=== PATIENT | male | born 1960 | race Caucasian/White ===

== ENCOUNTER 2016-12-23 07:45 | Outpatient (CLI) | payer OTHER ==
[2016-12-23 13:51] LABS: IMMATURE RETIC FRACTION 0.44; RED BLOOD COUNT 3.98 10^6/uL (4.70-6.10)
[2016-12-23 14:20] LABS: THYROID STIMULATING HORMONE 1.87 uIU/mL (0.34-5.60)
[2016-12-23 14:30] LABS: ALBUMIN/GLOBULIN RATIO 1.4 (1.0-2.2); BILIRUBIN,TOTAL 0.6 mg/dL (0.2-1.0); BUN - BLOOD UREA NITROGEN 16 mg/dL (6-20); CALCIUM 9.8 mg/dL (8.5-10.3); CARBON DIOXIDE - CO2 26 mmol/L (21-32); CHLORIDE 101 mmol/L (101-111); CHOL/HDL RATIO 3.5 (<5.0); CHOLESTEROL 180 mg/dL; CREATININE 0.7 mg/dL (0.6-1.2); GFR - MDRD 117 (>89); GLUCOSE 95 mg/dL (70-100); HDL CHOLESTEROL 52 mg/dL; LDL/HDL RATIO 2.2 (<3.6); POTASSIUM 3.8 mmol/L (3.5-5.0); SODIUM 137 mmol/L (135-145); TOTAL PROTEIN 8.2 g/dL (6.7-8.2); TRIGLYCERIDES 69 mg/dL; VLDL CHOLESTEROL 14 mg/dL
[2016-12-23 14:31] LABS: FOLATE 8.96 ng/mL (5.90 - >24.8)
== END 2016-12-23 07:46 | disposition home or self-care (01) ==
LOC: LAB.R 07:45
PROVIDERS: ATTEND Nurse Practitioner Primary Care
DX: C61 Malignant neoplasm of prostate (principal); F10.10 Alcohol abuse, uncomplicated; D64.9 Anemia, unspecified; K21.9 Gastro-esophageal reflux disease without esophagitis; E78.5 Hyperlipidemia, unspecified; Z68.36 Body mass index [BMI] 36.0-36.9, adult; I10 Essential (primary) hypertension
CPT/HCPCS: 80053; 80061; 82607; 82728; 82746; 83010; 84153; 84443; 85044; 86880

== ENCOUNTER 2017-05-09 09:28 | Day surgery (SDC) | payer OTHER ==
[2017-05-09] MEDS ORDERED: LACTATED RINGERS 1,000 ML IV ONE (09:59)
[2017-05-09] MEDS ORDERED: PROPOFOL 200 MG/20 ML VIAL IVP ONE (12:00)
[2017-05-09] MEDS ORDERED: fentaNYL 100 MCG/2 ML VIAL IVP ONE (12:02)
[2017-05-09] MEDS ORDERED: MIDAZOLAM 2 MG/2 ML VIAL IVP ONE (12:02)
[2017-05-09 13:43] VITALS: BP 134/72
== END 2017-05-09 09:29 | disposition home or self-care (01) ==
LOC: SDS 09:28
PROVIDERS: ATTEND Surgery
PROC: 0DBP8ZX Excision of Rectum, Via Natural or Artificial Opening Endoscopic, Diagnostic (ICD-10-PCS; 2017-05-09)
PROC: 0DBH8ZX Excision of Cecum, Via Natural or Artificial Opening Endoscopic, Diagnostic (ICD-10-PCS; principal; 2017-05-09 10:30)
DX: Z12.11 Encounter for screening for malignant neoplasm of colon (principal); D12.0 Benign neoplasm of cecum; I10 Essential (primary) hypertension; F17.210 Nicotine dependence, cigarettes, uncomplicated; G47.30 Sleep apnea, unspecified
CPT/HCPCS: 45380; J7120

== ENCOUNTER 2017-06-10 12:04 | Outpatient (CLI) | payer OTHER ==
--- NOTE | 2017-06-12 17:20 | MRI Report ---
EXAM: RIGHT SHOULDER MRI WITHOUT CONTRAST EXAM DATE: 06/10/2017 01:09 PM. CLINICAL HISTORY: Chronic right shoulder pain and difficulty lifting right arm. COMPARISON: Right shoulder 3 views 05/31/2017. TECHNIQUE: Multiplanar, multisequence T1-weighted and fluid-sensitive sequences of the shoulder witho ut contrast. Other: None. FINDINGS: Acromioclavicular Region: The acromion is type II. The acromioclavicular joint is unremarkable. The c oracoacromial and coracoclavicular ligaments are intact. Small fluid collection subacromial/subdeltoi d bursa. Glenohumeral Region: No subluxation. No effusion or loose bodies. The articular cartilage is unremark able. The glenohumeral ligaments and joint capsule are unremarkable. Bone Marrow: No fracture, marrow edema or bone lesions. Labrum: Superior and anterior superior labrum tear. Musculature/Rotator Cuff: Subscapularis tendinosis with tendon thickening and intermediate signal. Ne gative for infraspinatus tendon tear. Focal intermediate signal supraspinatus tendon sagittal oblique proton density sequence (image 20 series 801). Biceps Tendon: The long head of the biceps tendon and biceps richy are intact. Other: The subcutaneous tissues are unremarkable. IMPRESSION: 1. Negative for rotator cuff tear. 2. Probable superior and anterior superior labrum tears. [facility] MUSCULOSKELETAL RADIOLOGY SECTION Referring Provider Line: [phone] SITE ID: [id number]
== END 2017-06-10 12:05 | disposition home or self-care (01) ==
LOC: DI 12:04
PROVIDERS: ATTEND Orthopaedic Surgery
DX: M25.511 Pain in right shoulder (principal)

== ENCOUNTER 2019-03-02 16:28 | Outpatient (CLI) | payer OTHER ==
[2019-03-02] MEDS ORDERED: GADOBUTROL 10 MMOL/10 ML VIAL IVP ONE (17:29)
--- NOTE | 2019-03-02 19:06 | MRI Report ---
Reason: PROSTATE CA Procedure Date: 03/02/2019 Accession Number: [id number] / [id number] Procedure: MRI - Brain W/WO CPT Code: Final Report FULL RESULT: EXAM: MRI BRAIN WITHOUT AND WITH CONTRAST EXAM DATE: 03/02/2019 04:29 PM. CLINICAL HISTORY: 58-year-old with history of prostate cancer presenting with headache. Evaluate for intracranial pathology. COMPARISON: None. TECHNIQUE: Multiplanar, multisequence T1-weighted and fluid-sensitive MR sequences of the brain were performed before and after administration of intravenous contrast. Sequences optimized for routine evaluation. Other: None. IV Contrast: . FINDINGS: Brain Volume: Normal for age. Parenchyma: No acute hemorrhage, mass, or infarct. No white matter lesions identified. No abnormal enhancement. Ventricles/Cisterns: No hydrocephalus. No abnormal extra-axial fluid collection or hemorrhage. Orbits: Symmetric and unremarkable. Sella Turcica: The pituitary gland, cavernous sinuses, suprasellar cistern and optic chiasm are unremarkable. IAC: Symmetric and unremarkable. Vasculature: Normal signal flow void is seen in the major arterial structures at the skull base. The dural sinuses are patent and enhance normally. Sinuses: No acute sinus disease. Bones: No focal pathologic appearing marrow signal changes. Other: None. IMPRESSION: 1. No evidence of intracranial metastatic disease. 2. No acute intracranial pathology seen; specifically, no acute infarct, acute intracranial hemorrhage, mass, hydrocephalus, or midline shift. No abnormal postcontrast enhancement. [facility]
== END 2019-03-02 16:29 | disposition home or self-care (01) ==
LOC: DI 16:28
PROVIDERS: ATTEND Internal Medicine Hematology & Oncology
DX: H53.9 Unspecified visual disturbance (principal); C61 Malignant neoplasm of prostate
CPT/HCPCS: 70553; A9585

== ENCOUNTER 2019-05-17 12:31 | Outpatient (CLI) | payer OTHER ==
[2019-05-17 19:41] LABS: CREATININE 0.5 mg/dL (0.6-1.2)
== END 2019-05-17 23:59 | disposition home or self-care (01) ==
LOC: LAB.N 12:31
PROVIDERS: ATTEND Internal Medicine Hematology & Oncology
DX: C61 Malignant neoplasm of prostate (principal)
CPT/HCPCS: 36415; 82565

== ENCOUNTER 2019-05-22 08:40 | Outpatient (CLI) | payer OTHER ==
[2019-05-22] MEDS ORDERED: IOVERSOL 320 50 ML VIAL ONE (08:46)
[2019-05-22] MEDS ORDERED: IOVERSOL 320 100 ML VIAL IVP ONE ×2 (08:46→13:14)
--- NOTE | 2019-05-23 12:16 | Nuclear Medicine Report ---
Reason: PROSTATE CA Procedure Date: 05/22/2019 Accession Number: [id number] / [id number] Procedure: NM - Bone Whole Body CPT Code: Final Report FULL RESULT: EXAM: BONE WHOLE BODY EXAM DATE: 05/22/2019 01:17 PM INDICATION: Prostate cancer. COMPARISONS: ABDOMEN/PELVIS W/ 05/22/2019 10:03 AM. TECHNIQUE: Following the intravenous administration of 31 mCi of technetium 99m MDP and an appropriate delay, a whole-body scan was performed in anterior and posterior projections. Site-specific spot views of the region of interest were obtained in various projections. FINDINGS: Exam Quality: Normal overall osseous radiotracer uptake. Physiological tracer uptake in bilateral collecting systems. Skull: No focal uptake. Upper extremity: No focal lesions. Thorax: No focal lesions in ribs or sternum. Pelvis: No focal lesions. Lower extremity: No focal lesions. Spine: No focal uptake in the cervical or thoracic or lumbar spine. IMPRESSION: No scintigraphic findings concerning for osteoblastic metastases. [facility]
--- NOTE | 2019-05-23 12:16 | CT Report ---
Reason: PROSTATE CA Procedure Date: 05/22/2019 Accession Number: [id number] / [id number] Procedure: CT - Abdomen/Pelvis W CPT Code: Final Report FULL RESULT: EXAM: CT ABDOMEN AND PELVIS EXAM DATE: 05/22/2019 10:10 AM. CLINICAL HISTORY: Prostate CA. COMPARISONS: BONE SCAN 05/22/2019 12:13 PM. TECHNIQUE: Routine helical CT imaging was performed through the abdomen and pelvis. IV contrast: 100 cc of Optiray 320. Enteric contrast: Yes. Reconstructions: Coronal and sagittal. In accordance with CT protocol optimization, one or more of the following dose reduction techniques were utilized for this exam: automated exposure control, adjustment of mA and/or KV based on patient size, or use of iterative reconstructive technique. FINDINGS: Lung Bases: Lung bases are clear. No pleural or pericardial effusions. No cardiac enlargement. Small hiatal hernia noted. Liver: Irregular liver capsule suggestive of cirrhosis. Questionable hypodense lesion in the right liver measuring up to 2 cm on image 3, 11. This could represent heterogeneous parenchyma versus a subtle mass. No intrahepatic bile duct dilation. Portal vein is patent. Gallbladder/Bile Ducts: Unremarkable. Spleen: No splenomegaly or mass. Incidental splenorenal shunts are noted. Pancreas: Hypodense distal pancreas mass measuring 2.7 x 5.3 cm on image 3, 24. There is a hypodense presumed cystic structure in the distal pancreas associated with the mass measuring up to 1.7 cm on image 3, 21. Minimal peripancreatic stranding. No obvious pancreatic ductal dilation. No pancreatic calcifications are noted. Adrenal Glands: Normal. Kidneys: Normal. No masses or hydronephrosis. Peritoneal Cavity/Bowel: Normal. No free fluid, free air or adenopathy. No masses or acute inflammatory process. The appendix is well visualized and normal. Pelvic Organs: Normal. The bladder and visualized pelvic organs are within normal limits. Vasculature: Diffuse atheromatous plaques are present in the abdominal aorta and branch vessels. No aneurysm. Normal IVC. Bones: No significant abnormality. Other: None. IMPRESSION: 1. No definite prostate mass. No pathologic lymphadenopathy in the abdomen and pelvis. 2. No evidence of metastatic disease. Specifically, no sclerotic bone lesions are identified. 3. Hypodense distal pancreas mass measuring up to 5.3 cm abutting or part of a cystic process in the pancreas tail. Imaging findings are concerning for a second primary more so than metastatic disease given the absence of additional adenopathy or metastatic foci. Also, prostate metastases to the pancreas are uncommon. Recommend MRI of the abdomen for further evaluation. 4. Cirrhosis. Questionable hypodense lesion in the right liver measuring up to 2 cm. This could be evaluated during prostate MRI examination. [facility]
== END 2019-05-22 08:41 | disposition home or self-care (01) ==
LOC: DI 08:40
PROVIDERS: ATTEND Internal Medicine Hematology & Oncology
DX: C61 Malignant neoplasm of prostate (principal); R31.9 Hematuria, unspecified; K86.89 Other specified diseases of pancreas; K74.60 Unspecified cirrhosis of liver
CPT/HCPCS: 74177; 78306; Q9967

== ENCOUNTER 2019-08-07 09:51 | Outpatient (CLI) | payer OTHER ==
[2019-08-07] MEDS ORDERED: IOVERSOL 320 100 ML VIAL IVP ONE (10:19)
--- NOTE | 2019-08-08 16:31 | CT Report ---
Reason: PROSTATE CANCER Procedure Date: 08/07/2019 Accession Number: [id number] / [id number] Procedure: CT - ABDOMEN W/WO CPT Code: Final Report FULL RESULT: EXAM: CT ABDOMEN WITHOUT AND WITH CONTRAST EXAM DATE: 08/07/2019 10:57 AM. HISTORY: Prostate cancer. Hypodense distal pancreas mass, reevaluate. COMPARISON: ABDOMEN/PELVIS W/ 05/22/2019 10:03 AM. TECHNIQUE: Routine helical CT imaging was performed through the abdomen before and after administration of IV contrast: 100 mL of Optiray 320. Enteric contrast: No. Reconstruction: Coronal and sagittal. In accordance with CT protocol optimization, one or more of the following dose reduction techniques were utilized for this exam: automated exposure control, adjustment of mA and/or KV based on patient size, or use of iterative reconstructive technique. FINDINGS: Lung Bases: The lung bases are clear. Included portions of the heart are unremarkable. Liver: Mildly lobular hepatic contour. In the dome of the liver is an ill-defined hetergeneous low-attenuation 24 x 23 mm area of low attenuation, this is seen best on axial image 18, series 8. Patent portal vein. Gallbladder/Bile Ducts: Unremarkable. Spleen: Splenic granuloma. Spleen is normal in size. No other splenic lesions. Pancreas: Involving the pancreatic tail is a heterogeneous low attenuation mass measuring approximately 7 x 3.5 x 3.3 cm in comparison and based on my measurement, previously measured approximately 6 x 2.9 x 2.7 cm. There is adjacent peripancreatic infiltration with adjacent lymph nodes seen on axial image 57, 58-61 series 7, the largest measuring up to 8-9 mm. In addition, along the cephalad aspect of the lesion is an area of low attenuation measuring 1.7 cm as before and similar in size. Remainder of the pancreas is unremarkable. Adrenal Glands: Normal. Kidneys: Normal. No masses or hydronephrosis. Peritoneal Cavity/Bowel: Mild to moderate distention of the stomach. No small bowel obstruction. Moderate volume of stool in the colon. No diverticulitis. Subcentimeter nik habitus lymph nodes again evident. The appendix is well visualized and normal. Vasculature: Abdominal aortic atherosclerotic calcified plaque. Mesenteric vasculature is patent. The splenic artery is patent. 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 Bones: Degenerative change in the lower thoracic and lumbar spine, greatest at L5-S1. No osseous lesions. Other: No pelvic adenopathy. No pelvic free fluid. Urinary bladder is unremarkable. Prostate gland is either small or absent. IMPRESSION: 1. Infiltrative 7 cm pancreatic mass slightly increased in size compared to 05/22/2019, with adjacent peripancreatic infiltration and peripancreatic lymph nodes more concerning for a primary pancreatic mass rather than metastatic disease. 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 2. No other enlarged retroperitoneal lymph nodes. 3. Ill-defined low attenuation area, dome of the liver, measuring up to 24 mm more prominent compared to 05/22/2019 and may represent a hepatic lesion. No other hepatic lesions. 4. Moderate volume of stool in the colon. No diverticulitis. 5. Nodular liver which may be the result of a developing cirrhotic morphology. [facility] The call report notification system was initiated by Dr. Chris Choi at 04:13 PM on 08/08/2019.
== END 2019-08-07 09:52 | disposition home or self-care (01) ==
LOC: DI 09:51
PROVIDERS: ATTEND Internal Medicine Hematology & Oncology
DX: K86.9 Disease of pancreas, unspecified (principal); I82.891 Chronic embolism and thrombosis of other specified veins; R93.2 Abnormal findings on diagnostic imaging of liver and biliary tract; C61 Malignant neoplasm of prostate
CPT/HCPCS: 74170; Q9967

== ENCOUNTER 2020-12-02 08:00 | Outpatient (CLI) | payer OTHER | END 2020-12-02 23:59 | disposition home or self-care (01) | LOC: LAB.N 08:00 | PROVIDERS: ATTEND Family Medicine | DX: R30.0 Dysuria (principal) | CPT/HCPCS: 87086 ==

== ENCOUNTER 2021-01-18 13:39 | Outpatient (CLI) | payer OTHER | END 2021-01-18 13:40 | disposition home or self-care (01) | LOC: LAB 13:39 | PROVIDERS: ATTEND Internal Medicine Hematology & Oncology | DX: C25.2 Malignant neoplasm of tail of pancreas (principal) | CPT/HCPCS: 36415; 84153 ==

== ENCOUNTER 2021-02-21 14:06 | Emergency (ER) | payer OTHER ==
--- NOTE | 2021-02-21 15:04 | ED Physician Documentation ---
PD HPI NVD - Stated complaint Stated Complaint: NAUSEA, WEAK, BACK PX - Chief complaint Chief Complaint: Abd Pain - History obtained from History obtained from: Patient - History of Present Illness Timing - onset: Yesterday Timing - duration: Days (2) Timing - details: Abrupt onset, Still present Associated symptoms: Abdominal pain (mid to upper), Other (repetitive nausea with vomiting.) Contributing factors: No: Sick contact, Bad food Improved by: Vomiting (He states he had had decreased appetite over the past several months but abruptly had noticed nausea and vomiting since yesterday. He states repetitive bilious vomiting. No hematemesis.) Worsened by: Eating Similar symptoms before: Has not had sx before Recently seen: Clinic ([facility] couple weeks ago with follow up CT with patient states a concern for recurrence.) Review of Systems Constitutional: denies: Fever, Chills, Myalgias Nose: denies: Rhinorrhea / runny nose, Congestion Throat: denies: Sore throat Cardiac: denies: Chest pain / pressure, Palpitations Respiratory: denies: Dyspnea, Cough GI: reports: Abdominal Pain, Nausea, Vomiting. denies: Diarrhea, Hematemesis : denies: Dysuria Neurologic: reports: Generalized weakness. denies: Focal weakness, Numbness, Near syncope, Altered mental status, Headache PD PAST MEDICAL HISTORY - Past Medical History Cardiovascular: None Respiratory: None Neuro: None Endocrine/Autoimmune: None GI: GERD, Other (pancreatic tumor with surgical resection and [facility] in the past year, [facility] : Retention, Incontinence, Nocturia HEENT: None Psych: None Musculoskeletal: None Derm: None - Past Surgical History Past Surgical History: Yes General: Other (Whipple procedure with pancreatic tumor resection.) - Present Medications Home Medications: Ambulatory Orders Medication Instructions Recorded Confirmed Citalopram Hydrobromide [Celexa] 40 mg PO DAILY 02/26/18 01/14/20 - Allergies Allergies/Adverse Reactions: Allergies Allergy/AdvReac Type Severity Reaction Status Date / Time No Known Drug Allergies Allergy Verified 02/21/21 14:57 PD ED PE NORMAL - Vitals Vital signs reviewed: Yes - General General: Alert and oriented X 3, Well developed/nourished, Other (appears uncomfortable due to nausea. ) - HEENT HEENT: Pharynx benign. No: Moist mucous membranes - Neck Neck: Supple, no meningeal sign, No adenopathy - Cardiac Cardiac: RRR, No murmur - Respiratory Respiratory: No respiratory distress, Clear bilaterally - Abdomen Abdomen: Soft, Other (some fullness in upper abd with firmness, but not over distension. Generally tender upper abd. ). No: Normal bowel sounds (increased upper abd. ) - Male Male : Deferred - Rectal Rectal: Deferred - Back Back: No CVA TTP - Derm Derm: Normal color, Warm and dry - Extremities Extremities: No edema, No calf tenderness / cord - Neuro Neuro: Alert and oriented X 3, No motor deficit, Normal speech Results - Vitals Vitals: Vital Signs - 24 hr 02/21/21 02/21/21 02/21/21 14:52 14:56 16:09 Temperature 36.6 C 37.1 C Heart Rate 99 88 83 Respiratory 15 14 16 Rate Blood Pressure 136/87 H 113/80 129/80 O2 Saturation 99 97 96 Oxygen O2 Source Room air - Labs Labs: Laboratory Tests 02/21/21 02/21/21 02/21/21 15:29 15:29 18:06 WBC 7.6 RBC 4.72 Hgb 16.6 Hct 45.8 MCV 97.0 H MCH 35.2 H MCHC 36.2 H RDW 11.9 L Plt Count 306 MPV 9.3 Neut # (Auto) 4.2 Lymph # (Auto) 1.9 [place] # (Auto) 1.4 H Eos # (Auto) 0.1 Baso # (Auto) 0.0 Absolute Nucleated RBC 0.00 Nucleated RBC % 0.0 Sodium 133 L Potassium 3.0 L Chloride 84 L Carbon Dioxide 35 H Anion Gap 14.0 H BUN 30 H Creatinine 1.3 H Estimated GFR (MDRD) 57 L Glucose 163 H Calcium 10.5 H Magnesium 2.3 Total Bilirubin 1.6 H AST 36 ALT 33 Alkaline Phosphatase 69 Total Protein 8.5 H Albumin 4.7 Globulin 3.8 Albumin/Globulin Ratio 1.2 Lipase 19 L Urine Color YELLOW Urine Clarity CLEAR Urine pH 7.0 Ur Specific [place] 1.010 Urine Protein TRACE Urine Glucose (UA) NEGATIVE Urine Ketones TRACE Urine Occult Blood NEGATIVE Urine Nitrite NEGATIVE Urine Bilirubin NEGATIVE Urine Urobilinogen 0.2 (NORMAL) Ur Leukocyte Esterase NEGATIVE Ur Microscopic Review NOT INDICATED Urine Culture Comments NOT INDICATED - Rads (name of study) abd/pelvic CT Radiology: Prelim report reviewed (Had stomach and first and second segments of the duodenum with air-fluid levels and transition point decompressed beyond that near surgical scarring and clips. Consistent with small bowel obstruction.), See rad report PD MEDICAL DECISION MAKING - ED course Complexity details: reviewed results, re-evaluated patient (I advised the patient of the findings of a bowel obstruction which often is treated nonsurgically to begin with. However he might require surgery if it is not resolving.), considered differential, d/w patient, d/w sap pp consultant (Talked with Dr. Velez neurosurgeon on-call who felt the patient was best served being at the due to his complex prior surgical history.) ED course: Spoke with Dr. Bolden covering for surgery for the who accepted transfer the patient. Departure - Departure Disposition: 02 Transfer Acute Care Hosp Clinical Impression: Abdominal pain, Vomiting, Small bowel obstruction due to postoperative adhesions Condition: Stable Record reviewed to determine appropriate education?: Yes
[2021-02-21] MEDS ORDERED: ONDANSETRON 4 MG/2 ML VIAL IVP STA (15:16)
[2021-02-21] MEDS ORDERED: SODIUM CHLORIDE 0.9% 1,000 ML IV STA ×2 (15:16→15:51)
[2021-02-21] MEDS ORDERED: FAMOTIDINE 20 MG/2 ML VIAL IVP STA (15:16)
[2021-02-21] MEDS ORDERED: HYDROmorphone 0.5 MG/0.5 ML SYRINGE IVP STA (15:20)
[2021-02-21 15:35] LABS: BASOPHILS % (AUTO) 0.4 %; EOSINOPHILS # (AUTO) 0.1 10^3/uL (0.0-0.7); EOSINOPHILS % (AUTO) 0.7 %; HCT - HEMATOCRIT 45.8 % (42.0-52.0); HGB - HEMOGLOBIN 16.6 g/dL (14.0-18.0); LYMPHOCYTES # (AUTO) 1.9 10^3/uL (1.5-3.5); LYMPHOCYTES % (AUTO) 24.9 %; MEAN CORPUSCULAR HEMOGLOBIN 35.2 pg (27.0-31.0); MEAN CORPUSCULAR HGB CONC 36.2 g/dL (32.0-36.0); MEAN PLATELET VOLUME 9.3 fL (7.4-11.4); MONOCYTES # (AUTO) 1.4 10^3/uL (0.0-1.0); MONOCYTES % (AUTO) 18.2 %; NEUTROPHILS # (AUTO) 4.2 10^3/uL (1.5-6.6); NEUTROPHILS % (AUTO) 55.5 %; PLT - PLATELET COUNT 306 10^3/uL (130-450); RED BLOOD COUNT 4.72 10^6/uL (4.70-6.10); RED CELL DISTRIBUTION WIDTH 11.9 % (12.0-15.0); WHITE BLOOD COUNT 7.6 x10^3/uL (4.8-10.8)
[2021-02-21 15:48] LABS: ALBUMIN 4.7 g/dL (3.2-5.5); ALBUMIN/GLOBULIN RATIO 1.2 (1.0-2.2); BILIRUBIN,TOTAL 1.6 mg/dL (0.2-1.0); CALCIUM 10.5 mg/dL (8.5-10.3); CREATININE 1.3 mg/dL (0.6-1.2); MAGNESIUM 2.3 mg/dL (1.7-2.8); TOTAL PROTEIN 8.5 g/dL (6.7-8.2)
[2021-02-21] MEDS ORDERED: POTASSIUM CHLOR 10 MEQ/100 ML 10 MEQ/100 ML BAG IV ONE (15:51)
[2021-02-21] MEDS ORDERED: IOPAMIDOL-300 100 ML VIAL ONE (15:53)
[2021-02-21] MEDS ORDERED: IOPAMIDOL-300 100 ML VIAL IVP ONE (16:57)
--- NOTE | 2021-02-21 17:14 | CT Report ---
PROCEDURE: Abdomen/Pelvis W INDICATIONS: Nausea/vomiting; post pancreatic CA surgery CONTRAST: IV CONTRAST: Isovue 300 ml: 100 PO CONTRAST: *NO PO CONTRAST TECHNIQUE: After the administration of intravenous contrast, 5 mm thick sections acquired from the diaphragms to the symphysis. 5 mm thick coronal and sagittal reformats were acquired. For radiation dose reducti on, the following was used: automated exposure control, adjustment of mA and/or kV according to adams ent size. COMPARISON: None. FINDINGS: Postsurgical changes of distal pancreatectomy. Low attenuation material centered on the surgical clip s near the left diaphragmatic wes and left celiac/SMA origins is nonspecific but could represent eit her scarring or potentially recurrent/residual tumor. This is inseparable from the adjacent posterior gastric wall. There is distention of the stomach as well as both the first and second portions of the duodenum with transition point as the duodenum crosses midline near the surgical clips (series 3 images 36-38). Re mainder of the small bowel is decompressed. Appendix unremarkable. Large volume of solid stool within the colon. Nonaneurysmal abdominal aorta. No threshold enlarged intra-abdominal or retroperitoneal lymph node. No free pelvic fluid or pelvic mass. No threshold enlarged pelvic or inguinal lymph nodes. No acute or suspicious osseous lesion. IMPRESSION: Postsurgical changes of distal pancreatectomy. Nonspecific soft tissue density near the surgical clips at the distal pancreatectomy site could repre sent either scarring or residual/recurrent tumor. Gastric and proximal duodenal distention suggestive for obstruction. Consider surgical consultation. Reviewed by: Brandon León MD on 02/21/2021 5:12 PM PST Approved by: Brandon León MD on 02/21/2021 5:12 PM PST Station ID: [id number]
[2021-02-21] MEDS ORDERED: HYDROmorphone 1 MG/ML CARPUJECT IVP STA (17:47)
[2021-02-21 18:14] LABS: BILIRUBIN,URINE NEGATIVE (NEGATIVE); GLUCOSE, URINE (UA) NEGATIVE (NEGATIVE); KETONES,URINE (UA) TRACE mg/dL (NEGATIVE); LEUKOCYTE ESTERASE, URINE NEGATIVE (NEGATIVE); NITRITE,URINE NEGATIVE (NEGATIVE); OCCULT BLOOD,URINE NEGATIVE (NEGATIVE); PROTEIN,URINE TRACE mg/dL (NEGATIVE); UROBILINOGEN,URINE 0.2 (NORMAL) E.U./dL (NORMAL)
[2021-02-21 18:19] LABS: CLARITY,URINE CLEAR (CLEAR)
[2021-02-21] MEDS ORDERED: LIDOCAINE VISCOUS 2% 15 ML UDC MM STA (18:45)
[2021-02-21] MEDS ORDERED: D5NS W/20 MEQ KCL 1,000 ML IV STA (19:02)
[2021-02-21 20:38] LABS: B. PARAPERTUSSIS- RESP PCR PAN NOT DETECTED; B. PERTUSSIS- RESP PCR PANEL NOT DETECTED; C. PNEUMONIAE- RESP PCR PANEL NOT DETECTED; CORONAVIRUS 229E-RESP PCR NOT DETECTED; CORONAVIRUS HKU1-RESP PCR NOT DETECTED; CORONAVIRUS NL63-RESP PCR NOT DETECTED; CORONAVIRUS OC43-RESP PCR NOT DETECTED; HUMAN METAPNEUMOVIRUS NOT DETECTED; INFLUENZA A- RESP PCR PANEL NOT DETECTED; INFLUENZA B - RESP PCR PANEL NOT DETECTED; M. PNEUMONIAE- RESP PCR PANEL NOT DETECTED; PARAINFLUENZA VIRUS 1 NOT DETECTED; PARAINFLUENZA VIRUS 2 NOT DETECTED; PARAINFLUENZA VIRUS 3 NOT DETECTED; PARAINFLUENZA VIRUS 4 NOT DETECTED; RHINOVIRUS/ENTEROVIRUS NOT DETECTED; RSV- RESP PCR PANEL NOT DETECTED; SARS-CoV-2 -RESP PCR PANEL NOT DETECTED
[2021-02-21 21:12] VITALS: BP 99/52
== END 2021-02-21 22:00 | disposition short-term general hospital (02) ==
LOC: ED 14:06
DX: K91.30 Postprocedural intestinal obstruction, unspecified as to partial versus complete (principal); R11.2 Nausea with vomiting, unspecified; Z20.822 Contact with and (suspected) exposure to COVID-19
CPT/HCPCS: 0202U; 36415; 74177; 80053; 81003; 83690; 83735; 85025; 96361; 96374; 96375; 96376; 99284; 99285; J1170; Q9967; 81001; 87086

== ENCOUNTER 2021-02-21 22:00 | Outpatient (CLI) | payer OTHER | END 2021-02-21 22:01 | disposition short-term general hospital (02) | LOC: EMS 22:00 | PROVIDERS: ATTEND Emergency Medicine | DX: K56.609 Unspecified intestinal obstruction, unspecified as to partial versus complete obstruction (principal) | CPT/HCPCS: A0425; A0426 ==

== ENCOUNTER 2021-11-11 13:40 | Outpatient (CLI) | payer OTHER ==
[2021-11-11 13:56] LABS: BILIRUBIN,URINE NEGATIVE (NEGATIVE); GLUCOSE, URINE (UA) NEGATIVE (NEGATIVE); KETONES,URINE (UA) NEGATIVE (NEGATIVE); LEUKOCYTE ESTERASE, URINE LARGE (NEGATIVE); NITRITE,URINE NEGATIVE (NEGATIVE); OCCULT BLOOD,URINE LARGE (NEGATIVE); PROTEIN,URINE NEGATIVE (NEGATIVE); UROBILINOGEN,URINE 2 E.U./dL (NORMAL)
[2021-11-11 14:02] LABS: BACTERIA,URINE Moderate /HPF (None Seen); CLARITY,URINE HAZY (CLEAR); RBC,URINE 0-5 /HPF (0-5); SQUAMOUS EPITHELIAL CELL,UR NONE SEEN (<= Few)
[2021-11-11 14:14] LABS: ALBUMIN 3.4 g/dL (3.2-5.5); ALBUMIN/GLOBULIN RATIO 1.1 (1.0-2.2); BILIRUBIN,TOTAL 1.1 mg/dL (0.2-1.0); CALCIUM 9.2 mg/dL (8.5-10.3); CREATININE 0.5 mg/dL (0.6-1.2); POTASSIUM 3.6 mmol/L (3.5-5.0); TOTAL PROTEIN 6.5 g/dL (6.7-8.2)
== END 2021-11-11 13:41 | disposition home or self-care (01) ==
LOC: LAB 13:40
PROVIDERS: ATTEND Physician Assistant Medical
DX: R30.0 Dysuria (principal); R31.0 Gross hematuria
CPT/HCPCS: 36415; 80053; 81001; 87077; 87086; 87181

== ENCOUNTER 2022-09-18 14:40 | Inpatient (IN) | payer OTHER ==
[2022-09-18] MEDS ORDERED: SODIUM CHLORIDE 0.9% 1,000 ML IV STA (15:30)
[2022-09-18] MEDS ORDERED: ONDANSETRON 4 MG/2 ML VIAL IVP STA (15:30)
[2022-09-18] MEDS ORDERED: MORPHINE 10 MG/ML VIAL IVP STA (15:30)
--- NOTE | 2022-09-18 15:32 | ED Physician Documentation ---
PD HPI ABD PAIN - Stated complaint Stated Complaint: MALE - Chief complaint Chief Complaint: Abd Pain - History obtained from History obtained from: Patient - Additional information Additional information: 61-year-old gentleman undergoing treatment for pancreatic cancer at the [facility]. Gets every 2 week chemo. He does not know what. He presents today for several days worth of abdominal swelling with decreased bowel movements and nausea and vomiting. He states that he is scheduled for some sort of procedure to be done in 2 days, and his description is a little odd but it does sound like it could be a paracentesis. PD PAST MEDICAL HISTORY - Past Medical History Cardiovascular: None Respiratory: None Neuro: None Endocrine/Autoimmune: None GI: GERD, Other : Retention, Incontinence, Nocturia HEENT: None Psych: None Musculoskeletal: None Derm: None - Past Surgical History Past Surgical History: Yes General: Other - Present Medications Home Medications: Ambulatory Orders Medication Instructions Recorded Confirmed Citalopram Hydrobromide [Celexa] 40 mg PO DAILY 02/26/18 01/14/20 - Allergies Allergies/Adverse Reactions: Allergies Allergy/AdvReac Type Severity Reaction Status Date / Time No Known Drug Allergies Allergy Verified 09/18/22 14:58 - Social History Does the pt smoke?: No Smoking Status: Never smoker PD ED PE NORMAL - Vitals Vital signs reviewed: Yes - General General: Alert and oriented X 3, Other (Gaunt but not acutely ill-appearing.) - Cardiac Cardiac: RRR, No murmur - Respiratory Respiratory: No respiratory distress, Clear bilaterally - Abdomen Abdomen: Other (Distended abdomen with positive fluid wave, mild diffuse tenderness.) - Derm Derm: Normal color, Warm and dry - Neuro Neuro: Alert and oriented X 3, Normal speech Results - Vitals Vitals: Vital Signs - 24 hr 09/18/22 09/18/22 09/18/22 14:50 14:58 16:41 Temperature 36.6 C Heart Rate 118 H 105 H 89 Respiratory 16 20 16 Rate Blood Pressure 153/91 H 160/100 H 133/72 H O2 Saturation 98 99 98 Oxygen O2 Source Room air - Labs Labs: Laboratory Tests 09/18/22 09/18/22 09/18/22 15:37 15:37 15:37 WBC 6.2 RBC 3.52 L Hgb 11.9 L Hct 34.7 L MCV 98.6 H MCH 33.8 H MCHC 34.3 RDW 16.1 H Plt Count 502 H MPV 10.3 Neut # (Auto) 3.8 Lymph # (Auto) 0.9 L [place] # (Auto) 1.3 H Eos # (Auto) 0.2 Baso # (Auto) 0.0 Absolute Nucleated RBC 0.00 Nucleated RBC % 0.0 PT 12.6 INR 1.2 Sodium 135 Potassium 3.4 L Chloride 97 L Carbon Dioxide 27 Anion Gap 11.0 BUN 17 Creatinine 0.7 Estimated GFR (MDRD) 115 Glucose 176 H Calcium 9.4 Total Bilirubin 0.8 AST 23 ALT 17 Alkaline Phosphatase 76 Total Protein 7.4 Albumin 3.4 Globulin 4.0 Albumin/Globulin Ratio 0.9 L Lipase 19 L - Rads (name of study) CT A/PPresacral and perirectal mass causing small and large bowel obstruction. Stent of unclear positioning in the left upper quadrant. Relevant Findings:: Final report received, EMP independent interpretation of test PD Medical Decision Making - ED course ED course: 61-year-old gentleman undergoing cancer treatment for pancreatic cancer presents with abdominal distention and vomiting. Initially thought he would have ascites, and did have a small amount on bedside ultrasound but not enough to explain the distention and was sent for a CT showing soft tissue masses in the presacral and perirectal areas causing small and large bowel obstruction. Case discussed with our local surgeon by phone, Dr. Huitron at 5:45 PM who recommended transfer to tertiary center given the complexity. [facility] called at that time for transfer. Preliminarily excepted to the [facility] by Dr. Teo Gage at this time, 6:27 PM. He requests an NG tube in the interim. We are waiting for bed availability. Departure - Departure Disposition: 02 Transfer Acute Care Hosp Clinical Impression: Bowel obstruction, Intra-abdominal malignant neoplasm Condition: Serious
[2022-09-18 15:44] LABS: BASOPHILS % (AUTO) 0.3 %; EOSINOPHILS # (AUTO) 0.2 10^3/uL (0.0-0.7); EOSINOPHILS % (AUTO) 2.6 %; HCT - HEMATOCRIT 34.7 % (42.0-52.0); HGB - HEMOGLOBIN 11.9 g/dL (14.0-18.0); LYMPHOCYTES # (AUTO) 0.9 10^3/uL (1.5-3.5); LYMPHOCYTES % (AUTO) 14.7 %; MEAN CORPUSCULAR HEMOGLOBIN 33.8 pg (27.0-31.0); MEAN CORPUSCULAR HGB CONC 34.3 g/dL (32.0-36.0); MEAN CORPUSCULAR VOLUME 98.6 fL (80.0-94.0); MEAN PLATELET VOLUME 10.3 fL (7.4-11.4); MONOCYTES # (AUTO) 1.3 10^3/uL (0.0-1.0); MONOCYTES % (AUTO) 20.6 %; NEUTROPHILS # (AUTO) 3.8 10^3/uL (1.5-6.6); NEUTROPHILS % (AUTO) 61.2 %; PLT - PLATELET COUNT 502 10^3/uL (130-450); RED BLOOD COUNT 3.52 10^6/uL (4.70-6.10); RED CELL DISTRIBUTION WIDTH 16.1 % (12.0-15.0); WHITE BLOOD COUNT 6.2 x10^3/uL (4.8-10.8)
[2022-09-18] MEDS ORDERED: iohexoL-300 100 ML VIAL ONE (16:08)
[2022-09-18 16:09] LABS: ALBUMIN 3.4 g/dL (3.2-5.5); ALBUMIN/GLOBULIN RATIO 0.9 (1.0-2.2); BILIRUBIN,TOTAL 0.8 mg/dL (0.2-1.0); CALCIUM 9.4 mg/dL (8.5-10.3); CREATININE 0.7 mg/dL (0.6-1.2); POTASSIUM 3.4 mmol/L (3.5-5.0); TOTAL PROTEIN 7.4 g/dL (6.7-8.2)
[2022-09-18 16:15] LABS: INR 1.2 (0.8-1.2); PT - PROTHROMBIN TIME 12.6 secs (9.9-12.6)
--- NOTE | 2022-09-18 17:11 | CT Report ---
PROCEDURE: ABDOMEN/PELVIS W INDICATIONS: iv only, abd swelling, known panc ca TECHNIQUE: After the administration of contrast, 5 mm thick sections acquired from the diaphragms to the symphys is. 5 mm thick coronal and sagittal reformats were acquired. For radiation dose reduction, the foll owing was used: automated exposure control, adjustment of mA and/or kV according to patient size. COMPARISON: 02/21/2021 FINDINGS: Image quality: Excellent. ABDOMEN: Lung bases: Lung bases are clear. Heart size is normal. Solid organs: Liver: The liver has no mass or intrahepatic biliary ductal dilatation. Biliary: The gallbladder has no gallstones, pericholecystic fluid, gallbladder wall thickening, or gibbs rrounding inflammatory change. [] Pancreas: The pancreas has no mass or ductal dilatation. No surrounding inflammation. Spleen: Status post splenectomy. Adrenal glands: No hypertrophy or nodules. Kidneys: No obstructive calculus or hydronephrosis. No solid mass. No cystic mass. Bowel: The distal esophagus is normal. Massively dilated large bowel measuring up to 9 cm is present with a transition point at the rectosigmoid junction. Fluid and air filled loops of small bowel are s een consistent with bowel obstruction. There is a stent in the left upper quadrant of uncertain posit ioning. Free air/free fluid: No free air or free fluid. Abdominal wall: No abdominal wall mass or hernia. Retroperitoneum: No retroperitoneal or mesenteric adenopathy by size criteria. Aorta and inferior ve na cava are normal in size. Lymph nodes: No adenopathy. Bones: No suspicious bony lesions. No vertebral body compression fractures. PELVIS: Genitourinary: The bladder wall is thickened measuring up to 1 cm but is not well delineated. Soft t issue and fluid density in the pelvis is seen in the perirectal and presacral fat. There is fluid in the pelvis.. Miscellaneous: No inguinal hernias or adenopathy. Bones: No suspicious bony lesions. No vertebral body compression fractures. IMPRESSION: 1. Soft tissue density in the presacral and perirectal space surrounding the rectum suspicious for ne oplasm causing large and small bowel obstruction with severe distention of the large bowel. 2. A stent in the left upper quadrant is of uncertain positioning. Reviewed by: Victoriano Escobedo on 09/18/2022 4:10 PM TIA Approved by: Victoriano Escobedo on 09/18/2022 4:10 PM [facility] Station ID: [id number]
[2022-09-18] MEDS ORDERED: iohexoL-300 100 ML VIAL IVP ONE (18:46)
[2022-09-18] MEDS: MORPHINE 10 MG/ML VIAL IVP PRN (18:51)
[2022-09-18] MEDS: D5.45NS W/20 MEQ KCL 1,000 ML IV SCH (18:51)
[2022-09-19] MEDS ORDERED: LIDOCAINE JELLY 2% 6 ML JEL.PF.APP TOP STA (02:51)
[2022-09-19] MEDS ORDERED: PANTOPRAZOLE 40 MG VIAL IVP STA (03:07)
[2022-09-19] MEDS: D5.45NS W/20 MEQ KCL 1,000 ML IV SCH ×2 (03:29→11:48)
[2022-09-19 03:42] LABS: GASTROCCULT POSITIVE (Negative)
--- NOTE | 2022-09-19 08:30 | XRAY Report ---
PROCEDURE: Chest for Line Placement INDICATIONS: NGT placement TECHNIQUE: One view of the chest was acquired. COMPARISON: None. FINDINGS: Surgical changes and devices: Gastric tube passes below the diaphragm. Right chest wall port tip pro jects over the right atrium. Lungs and pleura: No pleural effusions or pneumothorax. Lungs are clear. Mediastinum: Mediastinal contours appear normal. Heart size is normal. Bones and chest wall: No suspicious bony lesions. Overlying soft tissues appear unremarkable. IMPRESSION: Gastric tube projects over the stomach. Findings are concordant with preliminary interpretation provided by [facility]. Reviewed by: Manoj Dejesus on 09/19/2022 8:28 AM PDT Approved by: Manoj Dejesus on 09/19/2022 8:28 AM PDT Station ID: [id number]
[2022-09-19] MEDS: MORPHINE 10 MG/ML VIAL IVP PRN ×2 (11:03→16:27)
[2022-09-19 12:50] LABS: EOSINOPHILS % (AUTO) 0.2 %; HCT - HEMATOCRIT 31.7 % (42.0-52.0); HGB - HEMOGLOBIN 10.8 g/dL (14.0-18.0); LYMPHOCYTES # (AUTO) 0.8 10^3/uL (1.5-3.5); LYMPHOCYTES % (AUTO) 15.5 %; MEAN CORPUSCULAR HEMOGLOBIN 33.8 pg (27.0-31.0); MEAN CORPUSCULAR HGB CONC 34.1 g/dL (32.0-36.0); MEAN CORPUSCULAR VOLUME 99.1 fL (80.0-94.0); MEAN PLATELET VOLUME 9.8 fL (7.4-11.4); MONOCYTES # (AUTO) 1.3 10^3/uL (0.0-1.0); MONOCYTES % (AUTO) 24.4 %; NEUTROPHILS # (AUTO) 3.1 10^3/uL (1.5-6.6); NEUTROPHILS % (AUTO) 59.5 %; PLT - PLATELET COUNT 509 10^3/uL (130-450); RED CELL DISTRIBUTION WIDTH 16.5 % (12.0-15.0); WHITE BLOOD COUNT 5.2 x10^3/uL (4.8-10.8)
[2022-09-19] MEDS ORDERED: MORPHINE 2 MG/ML CARPUJECT IVP STA (12:54)
[2022-09-19 13:01] LABS: ALBUMIN 3.2 g/dL (3.2-5.5); BILIRUBIN,TOTAL 0.6 mg/dL (0.2-1.0); CALCIUM 8.7 mg/dL (8.5-10.3); CREATININE 0.6 mg/dL (0.6-1.2); POTASSIUM 3.1 mmol/L (3.5-5.0); TOTAL PROTEIN 6.4 g/dL (6.7-8.2)
[2022-09-19] MEDS ORDERED: POTASSIUM CHLOR 10 MEQ/100 ML 10 MEQ/100 ML BAG IV ONE (13:26)
[2022-09-19] MEDS ORDERED: DIATR MEGLU/DIATRIZOATE SODIUM 120 ML BOTTLE ONE (13:36)
--- NOTE | 2022-09-19 15:36 | CT Report ---
PROCEDURE: ABDOMEN/PELVIS WO INDICATIONS: distended colon and small bowel TECHNIQUE: A CT scan of the abdomen and pelvis was performed without the use of intravenous contrast. Images we re recorded and evaluated at appropriate window settings. Reformats: coronal and sagittal. For radiat ion dose reduction, the following was used: automated exposure control, adjustment of mA and/or kV ac cording to patient size. COMPARISON: CT abdomen pelvis 09/18/2022, 02/21/2021. FINDINGS: Image quality: Good. Evaluation of the solid parenchymal organs is limited without IV contrast. Lung bases and heart: No pleural effusion. Small calcified granuloma. Gynecomastia. Central venous li ne at the right atrium. Liver: No obvious mass. Gallbladder and biliary tree: The gallbladder is within normal limits. Spleen: Absent. Pancreas: Atrophic. Not well evaluated. Adrenals: No adrenal nodule. Kidneys and ureters: No hydronephrosis. Excreted contrast in the collecting system. Bowel and peritoneum: Enteric tube tip terminating in the stomach. Stomach is decompressed. A few mil dly prominent loops of small bowel, decreased compared to CT 09/18/2022. Distal duodenal stent is uncha nged. Oral contrast with strands to the rectum. There is marked distention of the colon which is most ly filled with residue, unchanged. Narrowing at the sigmoid colon, (10/10). Rectal tube. The rectum is decompressed. No pneumatosis intestinalis. No pneumoperitoneum. Small to moderate volume of ascites, unchanged. Presacral edema. Lymph nodes: No central or retroperitoneal adenopathy. Vessels: No infrarenal aortic aneurysm. PELVIS Reproductive organs: Unremarkable. Bladder: No filling defect. Pelvic lymph nodes: No pelvic adenopathy by size criteria. Bones: No aggressive osseous abnormality. L5-S1 DDD. Other: No significant ventral or inguinal hernia. Anasarca. IMPRESSION: 1. Marked distention of the colon with fecal residue, unchanged. Rectal tube. 2. Mild small bowel dilatation, improving. 3. Thickening at the sigmoid colon is similar. Similar presacral edema. 4. Small to moderate volume of ascites, similar. Reviewed by: Omer Durbin MD on 09/19/2022 3:35 PM PDT Approved by: Omer Durbin MD on 09/19/2022 3:35 PM PDT Station ID: [id number]
[2022-09-19] MEDS ORDERED: DIATRIZOATE MEGLU/DIATRIZO SOD 30 ML BOTTLE PO ONE (16:04)
[2022-09-19] MEDS ORDERED: ONDANSETRON 4 MG/2 ML VIAL IVP PRN ×2 (16:10→17:55)
--- NOTE | 2022-09-19 16:13 | ED Physician Documentation ---
ED Addendum - Addendum Addendum: 09/19/22 16:13 This morning the [facility] did not seem to be able to accommodate this patient. Yesterday Dr. Huitron had mentioned that he would be willing to admit the patient. Today Dr. Mancia is on-call for general surgery and I initially contacted him around noon. He came by and ordered a rectal contrast-enhanced CT on the patient which did show some improvement in his bowel obstruction but still with obstruction in the colon. He plans to come by again around 5 after clinic to admit the patient.
--- NOTE | 2022-09-19 18:24 | CONSULTATION NOTE ---
Referring Provider Name of Referring Provider:: Dr. Camilo Consult Date: 09/19/22 Chief Complaint - Chief Complaint Chief Complaint: Large and small bowel obstruction History of Present Illness - Admitted From Admitted From:: [facility] - History Obtained From Records Reviewed: Yes History obtained from: Patient, chart and Dr. Camilo Exam Limitations: Patient's recollection is not perfect - History of Present Illness HPI Comment/Other: Dr. Camilo asked that I see this unfortunate 61 year old male with a history of prostate cancer and now with a diagnosis of pancreastic cancer. The patient thinks that he received radiation for his prostate cancer but cannot remember exactly when. He is currently receiving chemotherapy for his pancreatic cancer but does ot know the regimen. When I asked him when the (apparently) duodenal stent (evident on CT scan) was placed he is not exactly sure. He beleives that he has had surgery for his pancreatic cancer. In our discussion he wishes to be a full code. With regards to his symptoms he feels massively bloated, nauseated with abdominal discomfort more than pain. He states that he has passed a small amount of gas today but thinks that his last bowel movement was over a week ago. History - Past Medical History Cardiovascular: reports: None Respiratory: reports: None Neuro: reports: None Endocrine/Autoimmune: reports: None GI: reports: GERD : reports: Retention, Incontinence, Nocturia HEENT: reports: None Psych: reports: None Musculoskeletal: reports: None Derm: reports: None MRSA Hx?: No - Past Surgical History General: reports: Other Meds/Allgy - Home Medications Home Medications: Ambulatory Orders Medication Instructions Recorded Confirmed Citalopram Hydrobromide [Celexa] 40 mg PO DAILY 02/26/18 09/19/22 - Allergies Allergies/Adverse Reactions: Allergies Allergy/AdvReac Type Severity Reaction Status Date / Time No Known Drug Allergies Allergy Verified 09/18/22 14:58 Review of Systems - Constitutional Constitutional: reports: Fatigue, Chills, Malaise, Weakness, Poor appetite - Eyes Eyes: denies: Pain - Ears, Nose & Throat Ears, Nose & Throat: denies: Ear pain - Cardiovascular Cariovascular: denies: Irregular heart rate, Chest pain - Respiratory Respiratory: denies: Cough, Sputum production, Wheezing - Gastrointestinal Gastrointestinal: reports: Abdominal pain, Abdominal distention, Change in bowel habits, Nausea, Vomiting - Integumentary Integumentary: denies: Rash - Neurological Neurological: reports: General weakness. denies: Focal weakness - Psychiatric Psychiatric: reports: Depression - Endocrine Endocrine: reports: Polyuria Exam - Vital Signs Reviewed Vital Signs: Yes Vital Signs: Vital Signs x48h Temp Pulse Resp BP Pulse Ox 09/19/22 16:12 87 18 157/75 H 99 09/19/22 14:03 36.9 C 81 15 161/88 H 99 09/19/22 11:06 82 15 160/93 H 99 09/19/22 10:20 82 15 161/91 H 97 - Physical Exam General Appearance: positive: Mild distress (Complaining of massive abdominal distention.) Eyes Bilateral: positive: No lid inflammation, Conjunctivae nml, No scleral icterus ENT: positive: Dry mucous membranes Neck: positive: Trachea midline Respiratory: positive: Chest non-tender, No respiratory distress, Breath sounds nml Cardiovascular: positive: Regular rate & rhythm (HR into the 90's) Abdomen: positive: Tenderness, Other (Massively distended with tympany. Cannot tell hepaomegaly or splenomegaly. Decreased bowel sounds.) Skin: positive: Pallor Extremities: positive: Non-tender Neurologic/Psychiatric: positive: Oriented x3, Motor nml, Sensation nml, Mood/affect nml (But cannot remember nielson informatin and dates in the treatment of his disease.) Conclusion/Plan - Lab Results Lab results reviewed: Yes Fish Bones: 09/19/22 12:45 09/19/22 12:45 - Diagnostic Imaging Results Diagnostic Imaging Results: positive: Final report reviewed, Read independently - Other Other Results/Comments: Diverting loop colostomy. Going back to 2020 and before it is clear that there is some colonic process precluding adequate bowel function (in 2020 his colon is backed up all the way on the right side). In review of his chart he had an essentially normal colonoscopy performed by Dr. Keyshawn Bedoya in 2018. There is no indication as to why his colon should not be working appropriately. I explained that a surgical exploration to determine the cause in light of his metastatic pancreatic cancer with ascites is more risk than he should currently undertake. He vocalized an understanding and agreement. The repeat CT scan did not show an etiology. Verbal and written consent was obtained. The patient has been made NPO, given IVF, antibiotics ordered, DVT prophylaxis ordered, NG tube placed and anesthesia made aware in anticipation of his surgery tomorrow morning at 0730. I wish to thank Dr. Camilo for this opportunity to participate in this patient's care.
[2022-09-19] MEDS: D5NS W/20 MEQ KCL 1,000 ML IV SCH (19:03)
[2022-09-19] MEDS: HYDROmorphone 0.5 MG/0.5 ML SYRINGE IVP PRN ×2 (19:09→21:03)
[2022-09-20] MEDS: SODIUM CHLORIDE FLUSH 0.9% 10 ML SYRINGE IVP SCH ×4 (00:04→16:45)
[2022-09-20] MEDS: HYDROmorphone 0.5 MG/0.5 ML SYRINGE IVP PRN ×11 (00:04→23:05)
[2022-09-20] MEDS: D5NS W/20 MEQ KCL 1,000 ML IV SCH ×2 (04:24→12:53)
[2022-09-20] MEDS ORDERED: BUPIVACAINE 0.5%-EPI 1:200000 PF 30 ML VIAL ONE (07:06)
[2022-09-20] MEDS ORDERED: BUPIVACAINE 0.25% PF 30 ML VIAL ONE (07:06)
--- NOTE | 2022-09-20 07:17 | ANESTHESIA ---
Pre-Anesthesia VS, & Labs - Diagnosis bowel obstruction - Procedure loop colostomy Vital Signs: Temp Pulse Resp BP Pulse Ox O2 Flow Rate 37.0 C 87 18 150/70 H 98 09/19/22 23:27 09/19/22 23:27 09/19/22 23:27 09/19/22 23:27 09/19/22 23:27 Height: 6 ft Weight (kg): 78.5 kg Body Mass Index: 23.4 BMI Classification: Normal - NPO >8 hours - Lab Results Current Lab Results: Laboratory Tests 09/19/22 12:45: Sodium 139, Potassium 3.1 L, Chloride 102, Carbon Dioxide 31, Anion Gap 6.0, BUN 11, Creatinine 0.6, Estimated GFR (MDRD) 137, Glucose 153 H, Calcium 8.7, Total Bilirubin 0.6, AST 21, ALT 16, Alkaline Phosphatase 67, Total Protein 6.4 L, Albumin 3.2, Globulin 3.2, Albumin/Globulin Ratio 1.0 09/19/22 12:45: WBC 5.2, RBC 3.20 L, Hgb 10.8 L, Hct 31.7 L, MCV 99.1 H, MCH 33.8 H, MCHC 34.1, RDW 16.5 H, Plt Count 509 H, MPV 9.8, Neut # (Auto) 3.1, Lymph # (Auto) 0.8 L, Barry # (Auto) 1.3 H, Eos # (Auto) 0.0, Baso # (Auto) 0.0, Absolute Nucleated RBC 0.00, Nucleated RBC % 0.0 09/18/22 15:37: Sodium 135, Potassium 3.4 L, Chloride 97 L, Carbon Dioxide 27, Anion Gap 11.0, BUN 17, Creatinine 0.7, Estimated GFR (MDRD) 115, Glucose 176 H, Calcium 9.4, Total Bilirubin 0.8, AST 23, ALT 17, Alkaline Phosphatase 76, Total Protein 7.4, Albumin 3.4, Globulin 4.0, Albumin/Globulin Ratio 0.9 L, Lipase 19 L 09/18/22 15:37: PT 12.6, INR 1.2 09/18/22 15:37: WBC 6.2, RBC 3.52 L, Hgb 11.9 L, Hct 34.7 L, MCV 98.6 H, MCH 33.8 H, MCHC 34.3, RDW 16.1 H, Plt Count 502 H, MPV 10.3, Neut # (Auto) 3.8, Lymph # (Auto) 0.9 L, Barry # (Auto) 1.3 H, Eos # (Auto) 0.2, Baso # (Auto) 0.0, Absolute Nucleated RBC 0.00, Nucleated RBC % 0.0 Fish Bones: 09/19/22 12:45 09/19/22 12:45 Home Medications and Allergies Active Medications Hydromorphone HCl (Hydromorphone 0.5 Mg/0.5 Ml Syringe) 0.5 mg IVP Q1H PRN PRN Reason: Pain 8 to 10 Last Admin: 09/20/22 06:29 Dose: 0.5 mg Potassium Chloride/Dextrose/Sod Cl (D5ns W/20 Meq Kcl) 1,000 mls @ 100 mls/hr IV .Q10H [facility] Last Admin: 09/20/22 04:24 Dose: 100 mls/hr Morphine Sulfate (Morphine 10 Mg/Ml Vial) 5 mg IVP Q4H PRN PRN Reason: PAIN 5-7 Last Admin: 09/19/22 16:27 Dose: 5 mg Ondansetron HCl (Ondansetron 4 Mg/2 Ml Vial) 4 mg IVP Q4HR PRN PRN Reason: Nausea / Vomiting Sodium Chloride (Sodium Chloride Flush 0.9% 10 Ml Syringe) 10 ml IVP PRN PRN PRN Reason: NEEDED PER PROVIDER ORDERS Sodium Chloride (Sodium Chloride Flush 0.9% 10 Ml Syringe) 10 ml IVP 0100,0900,1700 [facility] Last Admin: 09/20/22 00:04 Dose: Not Given Citalopram Hydrobromide [Celexa] 40 mg PO DAILY 02/26/18 Allergies/Adverse Reactions: Allergies Allergy/AdvReac Type Severity Reaction Status Date / Time No Known Drug Allergies Allergy Verified 09/18/22 14:58 Anes History & Medical History - Anesthetic History Anesthesia Complications: reports: No previous complications - Medical History Cardiovascular: reports: None Pulmonary: reports: None Gastrointestinal: reports: GERD Urinary: reports: Retention, Incontinence, Nocturia Neuro: reports: None Musculoskeletal: reports: None Endocrine/Autoimmune: reports: None Skin: reports: None Smoking Status: Current every day smoker History of Cancer?: Yes - Surgical History General: reports: Gastric surgery (s/p whipple), Other Urologic: reports: Prostatic surgery Exam General: Alert, Oriented x3 Dental: WNL Mouth Opening: Greater than 4 Fingerbreadths Mallampati classification: II Respiratory: Lungs clear Cardiovascular: Regular rate Plan Anesthesia Type: General, Transverse Abdominis Plane (TAP) Block Consent for Procedure(s) Verified and Reviewed: Yes Code Status: Attempt Resuscitation ASA classification: 3-Severe systemic disease Is this case an emergency?: No
[2022-09-20] MEDS ORDERED: MIDAZOLAM 2 MG/2 ML VIAL ONE (07:18)
[2022-09-20] MEDS ORDERED: LIDOCAINE-PF 2% 10 ML AMP SUBQ ONE (07:18)
[2022-09-20] MEDS ORDERED: ONDANSETRON 4 MG/2 ML VIAL ONE (07:18)
[2022-09-20] MEDS ORDERED: ROCURONIUM 50 MG/5 ML VIAL ONE ×2 (07:18→08:59)
[2022-09-20] MEDS ORDERED: PROPOFOL 200 MG/20 ML VIAL IVP ONE (07:18)
[2022-09-20] MEDS ORDERED: fentaNYL 100 MCG/2 ML VIAL ONE ×3 (07:18→11:19)
[2022-09-20] MEDS ORDERED: ceFAZolin 1 GM VIAL ONE (07:49)
--- NOTE | 2022-09-20 08:10 | XRAY Report ---
PROCEDURE: Chest for Line Placement INDICATIONS: Assess placement of NGT. TECHNIQUE: One view of the chest was acquired. COMPARISON: CT abdomen and pelvis 09/19/2022. CXR 09/19/2022. FINDINGS: Surgical changes and devices: Right sided port with the tip at the cavoatrial junction. Stent in the upper abdomen. Enteric tube with the tube in the stomach. Multiple clips in the upper abdomen. Lungs and pleura: No large pleural effusions. No pneumothorax. Lungs appear clear. Mediastinum: Mediastinal contours appear normal. Heart size is normal. Bones and chest wall: No suspicious bony lesions. Overlying soft tissues appear unremarkable. IMPRESSION: Enteric tube tip in the proximal stomach. Lungs appear clear. This report is concordant with the overnight preliminary interpretation. Reviewed by: Omer Durbin MD on 09/20/2022 8:09 AM PDT Approved by: Omer Durbin MD on 09/20/2022 8:09 AM PDT Station ID: [id number]
[2022-09-20] MEDS ORDERED: METOCLOPRAMIDE 10 MG/2 ML VIAL IVP PRN (08:19)
[2022-09-20] MEDS ORDERED: ONDANSETRON 4 MG/2 ML VIAL IVP PRN (08:19)
[2022-09-20] MEDS ORDERED: fentaNYL 100 MCG/2 ML VIAL IVP PRN (08:19)
[2022-09-20] MEDS ORDERED: NALOXONE 0.4 MG/ML VIAL IVP PRN (08:19)
[2022-09-20] MEDS ORDERED: MORPHINE 2 MG/ML CARPUJECT IVP PRN (08:19)
[2022-09-20] MEDS ORDERED: ATROPINE ABBOJECT 1 MG/10 ML SYRINGE IVP PRN (08:19)
[2022-09-20] MEDS ORDERED: ePHEDrine 50 MG/ML VIAL IVP PRN (08:19)
[2022-09-20] MEDS ORDERED: BUPIVACAINE 0.5%-EPI 1:200000 PF 30 ML VIAL SUBQ ONE (08:35)
[2022-09-20] MEDS ORDERED: LACTATED RINGERS 1,000 ML IV SCH (09:00)
[2022-09-20] MEDS ORDERED: ROPIVACAINE 0.5% PF 20 ML VIAL ONE (09:42)
[2022-09-20] MEDS ORDERED: SUGAMMADEX 200 MG/2 ML VIAL IVP ONE (09:42)
[2022-09-20] MEDS ORDERED: DEXAMETHASONE 4 MG/ML VIAL ONE (09:43)
--- NOTE | 2022-09-20 10:36 | OPERATIVE REPORT ---
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 The left lower quadrant/sigmoid colon was completely encased in tumor precluding mobilization. Complications: None. - Other Other Information/Narrative: After verbal and written informed consent was obtained detailing the operation, the alternatives to the operation including no operation, risks of infection, bleeding requiring transfusion with its risks, nerve injury, and and after I met with the patient confirming the surgery, the patient was brought to the o perative suite and placed supine on the operating table. Great care was taken to avoid pressure points to prevent pressure necrosis or nerve injury. Monitoring devices were applied along with TEDs and pneumatic compressive stockings (to prevent DVT). The patient received preoperative antibiotics for surgical prophylaxis. Kiana Phipps CRNA sedated and anesthetized the patient for the entire procedure. The patient was prepped and draped in usual sterile manner. A "time in" then confirmed that the patient was identified with 3 identifiers (name, date, and medical record number), the history and physical was in the chart, the signed consent confirming the procedure was in the chart, the patient was in the correct position, the aforementioned prophylactic measures were in place were given, we had the correct personnel and equipment to complete the procedure and that anesthesia, and the surgical team was given an opportunity to express any concerns. With the agreement of every one in the room, we proceeded with the operation. I incised the skin longitudinally in the left lower quadrant in anticipation of a diverting loop colostomy. The site was chosen as it was the furthest away from his Whipple procedure and the source of his pancreatic cancer. Dissection down to the anterior fascia was completed using Bovie electrocautery. Hemostasis was obtained using Bovie electrocautery. The anterior fascia was opened in the direction of its fibers using Bovie electrocautery. The muscle was not cut but rather split and the posterior fascia was opened transversely again using Bovie electrocautery. Entry was gained into the abdomen without incident. Upon entry into the abdomen there was a large amount of clear yellow ascites. I estimate the volume to be 1-1/2 L. Once this was removed the massively distended small bowel was mobilized medially in order to see and grasp the colon. Although I could see the colon it would not move whatsoever. The choices afforded to me at this point in time were to just close the patient and have him accept his fate or perform a midline incision and see if there was any colon anywhere in this patient that I could free up to bring up a diverting loop colostomy. I opted to perform exploratory laparotomy making a midline incision again dissecting down to the linea alba using Bovie electrocautery incising the linea alba using Bovie electrocautery. The peritoneum was opened again gaining entry into the abdomen with some additional leakage of ascitic fluid. Upon entering the abdomen it was clear that there was carcinomatosis throughout. The carcinomatosis was particularly prominent in the mesentery of the small and large bowel. As stated above the sigmoid colon was wrapped and there were significant "knots" of tumor in the left upper quadrant. The transverse colon although not free it was a freer than the remaining colon and as such I opted to perform a transverse loop colostomy. Adhesions were freed in the left upper quadrant undoubtedly cutting through tumor in order to free up enough transverse colon to bring it up through the anterior abdominal wall. Additionally adhesions to the anterior abdominal wall of the transverse colon were taken down using Bovie electrocautery. 1 small deserosalization of the small bowel was repaired using interrupted 3-0 Vicryl sutures. Once I had freed enough transverse colon a [place] drain was placed around the colon to aid in its mobilization. A transverse incision was made just above my midline incision as I selected this for the colostomy site. Again the linea alba was incised with Bovie electrocautery taking care to protect any underlying bowel with my finger and dilated up to 2 finger dilation to allow placement of the colon. The Neris drain was then used to place the colon through this incision. Once the colon was through the incision the fascia at the midline was closed using a running 0 looped PDS using a Jaya fish retractor to protect the bowel. The posterior fascia in the left lower quadrant was closed using a running 2-0 PDS suture and the anterior fascia was similarly closed using a running 2-0 PDS suture. The skin in both positions was closed using skin anthony. It was at this point in the case that the transfer center from [facility] called about potential transfer for this patient and I asked for their forgiveness to let me finish the case before I could speak with them. The [place] drain was replaced with a stiff red rubber catheter and this was sewn to the skin using a 3-0 nylon in order to keep the transverse colon up towards the anterior abdominal wall. The colon did not appear to be compromised in any way. Having said that there was not significant redundancy due to the intra-abdominal adhesions. The colon was then opened and matured using interrupted 3-0 Vicryl sutures circumferentially. Upon opening the colon there was a large amount of stool and gas expelled. An ostomy appliance was applied. Dressings were applied on the other 2 wounds. Due to proximity of the midline wound to the colostomy it will be an issue keeping the incision clean but we will have to do the best we can. At this point a "timeout" was performed that confirmed that all counts were correct, the procedure that was performed, the blood loss, the IV fluids administered, the patient's condition and any concerns of the operating team had. Dressings were then applied. Having tolerated the procedure well, the patient was extubated and taken to recovery room in good and stable condition. The patient will be admitted and followed until he has adequately healed and is ready for discharge. This document was created in part using voice recognition technology. Because of the inherent limitations of the system, occasional same sounding word substitutions and grammatical errors do occur and persist despite proofreading. Please read this document for context. CPT 19923 modifier 22
[2022-09-20] MEDS ORDERED: ACETAMINOPHEN 1,000 MG/100 ML 1,000 MG/100 ML BAG IV ONE (10:51)
[2022-09-20] MEDS ORDERED: LACTATED RINGERS 1,000 ML IV ONE (10:55)
[2022-09-20] MEDS ORDERED: HYDROmorphone 0.5 MG/0.5 ML SYRINGE ONE ×2 (11:40→11:51)
[2022-09-20] MEDS: ONDANSETRON 4 MG/2 ML VIAL IVP PRN (12:48)
[2022-09-20] MEDS: ACETAMINOPHEN 1,000 MG/100 ML 1,000 MG/100 ML BAG IV SCH ×2 (13:04→18:07)
--- NOTE | 2022-09-20 13:19 | ANESTHESIA POST OP EVALUATION ---
Anesthesia Post Eval - Post Anesthesia Eval Vitals: Last Vital Signs Temp 36.5 C 09/20/22 12:43 Pulse 120 H 09/20/22 12:43 Resp 18 09/20/22 12:43 BP 149/69 H 09/20/22 12:43 Pulse Ox 100 09/20/22 12:43 O2 Flow Rate CV Function Including HR & BP: Stable Pain Control: Satisfactory Nausea & Vomiting: Negative Mental Status: Baseline Respiratory Status: Airway Patent Hydration Status: Satisfactory Anesthesia Complications: None
[2022-09-20] MEDS: MORPHINE 10 MG/ML VIAL IVP PRN ×2 (14:51→20:54)
[2022-09-20] MEDS: SODIUM CHLORIDE FLUSH 0.9% 10 ML SYRINGE IVP PRN ×3 (18:07→23:05)
[2022-09-21] MEDS: ACETAMINOPHEN 1,000 MG/100 ML 1,000 MG/100 ML BAG IV SCH ×4 (00:28→18:53)
[2022-09-21] MEDS: HYDROmorphone 0.5 MG/0.5 ML SYRINGE IVP PRN ×8 (00:28→23:17)
[2022-09-21] MEDS: D5NS W/20 MEQ KCL 1,000 ML IV SCH ×3 (00:33→17:30)
[2022-09-21] MEDS: SODIUM CHLORIDE FLUSH 0.9% 10 ML SYRINGE IVP SCH ×6 (01:05→16:47)
[2022-09-21] MEDS: MORPHINE 10 MG/ML VIAL IVP PRN ×3 (03:51→14:44)
[2022-09-21 05:30] LABS: BASOPHILS % (AUTO) 0.7 %; EOSINOPHILS % (AUTO) 0.1 %; HCT - HEMATOCRIT 33.9 % (42.0-52.0); HGB - HEMOGLOBIN 11.6 g/dL (14.0-18.0); LYMPHOCYTES % (AUTO) 11.1 %; MEAN CORPUSCULAR HEMOGLOBIN 33.7 pg (27.0-31.0); MEAN CORPUSCULAR HGB CONC 34.2 g/dL (32.0-36.0); MEAN CORPUSCULAR VOLUME 98.5 fL (80.0-94.0); MEAN PLATELET VOLUME 9.9 fL (7.4-11.4); MONOCYTES % (AUTO) 13.8 %; NEUTROPHILS % (AUTO) 73.8 %; PLT - PLATELET COUNT 597 10^3/uL (130-450); RED BLOOD COUNT 3.44 10^6/uL (4.70-6.10); RED CELL DISTRIBUTION WIDTH 16.9 % (12.0-15.0); WHITE BLOOD COUNT 10.6 x10^3/uL (4.8-10.8)
[2022-09-21 05:34] LABS: ABNORMAL LYMPHS % (MANUAL) 0 %
[2022-09-21 05:45] LABS: ALBUMIN 2.4 g/dL (3.2-5.5); ALBUMIN/GLOBULIN RATIO 1.1 (1.0-2.2); BILIRUBIN,TOTAL 1.1 mg/dL (0.2-1.0); CALCIUM 8.1 mg/dL (8.5-10.3); CREATININE 0.7 mg/dL (0.6-1.2); POTASSIUM 3.7 mmol/L (3.5-5.0); TOTAL PROTEIN 4.6 g/dL (6.7-8.2)
[2022-09-21 05:58] LABS: BAND NEUTROPHILS % (MANUAL) 16 %; LYMPHOCYTES # (MANUAL) 1.5 10^3/uL (1.5-3.5); LYMPHOCYTES % (MANUAL) 14 %; METAMYELOCYTES % (MANUAL) 4 %; MONOCYTES # (MANUAL) 1.3 10^3/uL (0.0-1.0); NEUTROPHILS # (MANUAL) 7.4 10^3/uL (1.5-6.6)
[2022-09-21 05:59] LABS: DIFFERENTIAL COMMENT MANUAL DIFFERENTIAL; PLATELET ESTIMATE, MANUAL INCREASED (>450,000) (NORMAL); PLATELET MORPHOLOGY NORMAL APPEARANCE (NORMAL); WBC MORPHOLOGY (MULTIPLE) NORMAL APPEARANCE (NORMAL)
[2022-09-21] MEDS: ENOXAPARIN 40 MG/0.4 ML SYRINGE SUBQ SCH (08:50)
--- NOTE | 2022-09-21 11:02 | PHARMACY PROGRESS NOTE ---
- Best Possible Medication History Admit Date and Time: 09/19/22 1166 Processed by: Pharmacy Medication History completed: Yes Patient Interview: Completed Secondary Source(s): Pharmacy records As the person ultimately responsible for medication therapy, providers are able to order a medication from an existing home medication list in [facility] via the "Reconcile Routine" prior to Confirmation of that medication by application support lead. Such practice is discouraged except when the physician, in their clinical judgment, deems that a medical need exists for a medication without regard to previous use.
--- NOTE | 2022-09-21 13:33 | PROVIDER PROGRESS NOTE ---
Subjective - General Admit Date: 09/19/22 Procedure Date: 09/20/22 Post Op Days: 1 Procedure Performed: diverting transverse loop colostomy - Review of Systems Wound/Incisions: positive: Dressing dry and intact General: positive: No symptoms HEENT: positive: No symptoms Pulmonary: positive: No symptoms Cardiovascular: positive: No symptoms Gastrointestinal: positive: Abdominal pain. negative: Nausea, Vomiting Genitourinary: positive: Other (Luna in place.) Musculoskeletal: positive: No symptoms Skin: positive: No symptoms Objective - Patient Data Reviewed Vital Signs: Yes Vital Signs: Vital Signs x48h Temp Pulse Resp BP Pulse Ox 09/21/22 07:40 36.9 C 98 16 115/58 L 98 Weight: Weight 09/19/22 09/20/22 09/21/22 23:59 23:59 23:59 Weight (kg) 78.5 kg 78.5 kg Intake & Output: Intake and Output Totals x24h 09/19/22 09/20/22 09/21/22 23:59 23:59 23:59 Intake Total 2436.667 2646.666 2300 Output Total 250 1025 600 Balance 2186.667 3599.618 5156 - Lab Results Lab Results: 09/21/22 05:18 09/21/22 05:18 Other Lab Results: Lab Results x24hrs 09/21/22 09/21/22 Range/Units 05:18 05:18 WBC 10.6 (4.8-10.8) x10^3/uL RBC 3.44 L (4.70-6.10) 10^6/uL Hgb 11.6 L (14.0-18.0) g/dL Hct 33.9 L (42.0-52.0) % MCV 98.5 H (80.0-94.0) fL MCH 33.7 H (27.0-31.0) pg MCHC 34.2 (32.0-36.0) g/dL RDW 16.9 H (12.0-15.0) % Plt Count 597 H (130-450) 10^3/uL MPV 9.9 (7.4-11.4) fL Neut # (Auto) Not Reportable Lymph # (Auto) Not Reportable [place] # (Auto) Not Reportable Eos # (Auto) Not Reportable Baso # (Auto) Not Reportable Absolute Nucleated RBC Not Reportable Total Counted 100 Band Neuts % (Manual) 16 H (0 - 10) % Abnorm Lymph % (Manual) 0 % Metamyelocytes % 4 H ( - 0) % Nucleated RBC % Not Reportable Neutrophils # (Manual) 7.4 H (1.5-6.6) 10^3/uL Lymphocytes # (Manual) 1.5 (1.5-3.5) 10^3/uL Monocytes # (Manual) 1.3 H (0.0-1.0) 10^3/uL Eosinophils # (Manual) 0.0 (0-0.7) 10^3/uL Basophils # (Manual) 0.0 (0-0.1) 10^3/uL Differential Comment MANUAL DIFFERENTIAL WBC Morphology NORMAL APPEARANCE (NORMAL) Platelet Estimate INCREASED (>450,000) (NORMAL) Platelet Morphology NORMAL APPEARANCE (NORMAL) RBC Morph Micro Appear 1+ LOBO CELLS (NORMAL) Sodium 140 (135-145) mmol/L Potassium 3.7 (3.5-5.0) mmol/L Chloride 111 (101-111) mmol/L Carbon Dioxide 26 (21-32) mmol/L Anion Gap 3.0 L (6-13) BUN 18 (6-20) mg/dL Creatinine 0.7 (0.6-1.2) mg/dL Estimated GFR (MDRD) 115 (>89) Glucose 191 H (70-100) mg/dL Calcium 8.1 L (8.5-10.3) mg/dL Total Bilirubin 1.1 H (0.2-1.0) mg/dL AST 21 (10-42) IU/L ALT 15 (10-60) IU/L Alkaline Phosphatase 47 (42-121) IU/L Total Protein 4.6 L (6.7-8.2) g/dL Albumin 2.4 L (3.2-5.5) g/dL Globulin 2.2 (2.1-4.2) g/dL Albumin/Globulin Ratio 1.1 (1.0-2.2) - Current Medications Current Medications: Current Medications Generic Name Dose Route Start Last Admin Trade Name Freq PRN Reason Stop Dose Admin Enoxaparin Sodium 40 mg 09/21/22 09:00 09/21/22 08:50 Enoxaparin 40 Mg/0.4 Ml Syringe SUBQ 40 mg DAILY ANASTASIIA Administration Hydromorphone HCl 0.5 mg 09/20/22 10:57 09/21/22 11:16 Hydromorphone 0.5 Mg/0.5 Ml Syringe IVP 0.5 mg Q1H PRN Administration Severe Pain (Level 7-10) Acetaminophen 1,000 mg in 100 mls @ 400 mls/hr 09/20/22 12:00 09/21/22 12:55 Acetaminophen IV Infused Q6HR ANASTASIIA Infusion Potassium Chloride/Dextrose/Sod Cl 1,000 mls @ 125 mls/hr 09/21/22 09:08 09/21/22 09:35 D5ns W/20 Meq Kcl IV 125 mls/hr .Q8H ANASTASIIA Administration Morphine Sulfate 5 mg 09/18/22 18:34 09/21/22 09:02 Morphine 10 Mg/Ml Vial IVP 5 mg Q4H PRN Administration PAIN 5-7 Ondansetron HCl 4 mg 09/20/22 10:57 09/20/22 12:48 Ondansetron 4 Mg/2 Ml Vial IVP 4 mg Q6H PRN Administration Nausea / Vomiting Sodium Chloride 10 ml 09/19/22 17:55 09/20/22 23:05 Sodium Chloride Flush 0.9% 10 Ml Syringe IVP 10 ml PRN PRN Administration NEEDED PER PROVIDER ORDERS Sodium Chloride 10 ml 09/20/22 01:00 09/21/22 08:50 Sodium Chloride Flush 0.9% 10 Ml Syringe IVP 10 ml 0100,0900,1700 ANASTASIIA Administration Sodium Chloride 10 ml 09/20/22 17:00 09/21/22 08:51 Sodium Chloride Flush 0.9% 10 Ml Syringe IVP 10 ml 0100,0900,1700 ANASTASIIA Administration Sodium Chloride 10 ml 09/20/22 10:57 09/20/22 20:54 Sodium Chloride Flush 0.9% 10 Ml Syringe IVP 10 ml PRN PRN Administration NEEDED PER PROVIDER ORDERS - Physical Exam Wound/Incisions: positive: Dressing dry and intact General Appearance: positive: Mild distress Eyes Bilateral: positive: No lid inflammation, Conjunctivae nml, No scleral icterus ENT: positive: Dry mucous membranes, Other (NG in place.) Neck: positive: Trachea midline Respiratory: positive: Chest non-tender Cardiovascular: positive: Regular rate & rhythm Abdomen: positive: Other (Incisional tenderness, distention remarkably less.) Skin: positive: Pallor Extremities: positive: No pedal edema Neurologic/Psychiatric: positive: Oriented x3, Motor nml, Sensation nml, Depressed mood/affect ABX Reporting Has patient been on IV antibiotics over the past 48 hours?: Yes Impression/Plan - Problem List Problem List: D1 s/p attempted LLQ diverting 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 Teach ostomy care. Discussing DNR status with patient. Palliative care consult. Pain relief. Will follow with Dr. Huitron.
[2022-09-21] MEDS ORDERED: LACTATED RINGERS 500 ML IV ONE (17:11)
--- NOTE | 2022-09-21 17:17 | PROVIDER PROGRESS NOTE ---
Subjective - Subjective Pt reports feeling: Improved (denies nausea. some cramping) Objective - Vital Signs/Intake & Output Vital Signs: Vital Signs x48h Temp Pulse Resp BP Pulse Ox 09/21/22 15:56 37.0 C 96 16 118/54 L 98 Intake & Output: Intake & Output 09/18/22 09/19/22 09/20/22 09/21/22 23:59 23:59 23:59 23:59 Intake Total 1000 2436.667 2646.666 2300 Output Total 250 1025 1250 Balance 1000 2186.667 0443.685 2605 - Objective General Appearance: positive: No acute distress, Alert ENT: positive: No signs of dehydration Respiratory: positive: No respiratory distress Abdomen: positive: Non-tender, Other (functional stoma. dressing and stoma appliance c/d/i) Neurologic/Psychiatric: positive: Oriented x3 - Lab Results Fish Bones: 09/21/22 05:18 09/21/22 05:18 Other Labs: Lab Results x24hrs 09/21/22 09/21/22 Range/Units 05:18 05:18 WBC 10.6 (4.8-10.8) x10^3/uL RBC 3.44 L (4.70-6.10) 10^6/uL Hgb 11.6 L (14.0-18.0) g/dL Hct 33.9 L (42.0-52.0) % MCV 98.5 H (80.0-94.0) fL MCH 33.7 H (27.0-31.0) pg MCHC 34.2 (32.0-36.0) g/dL RDW 16.9 H (12.0-15.0) % Plt Count 597 H (130-450) 10^3/uL MPV 9.9 (7.4-11.4) fL Neut # (Auto) Not Reportable Lymph # (Auto) Not Reportable [place] # (Auto) Not Reportable Eos # (Auto) Not Reportable Baso # (Auto) Not Reportable Absolute Nucleated RBC Not Reportable Total Counted 100 Band Neuts % (Manual) 16 H (0 - 10) % Abnorm Lymph % (Manual) 0 % Metamyelocytes % 4 H ( - 0) % Nucleated RBC % Not Reportable Neutrophils # (Manual) 7.4 H (1.5-6.6) 10^3/uL Lymphocytes # (Manual) 1.5 (1.5-3.5) 10^3/uL Monocytes # (Manual) 1.3 H (0.0-1.0) 10^3/uL Eosinophils # (Manual) 0.0 (0-0.7) 10^3/uL Basophils # (Manual) 0.0 (0-0.1) 10^3/uL Differential Comment MANUAL DIFFERENTIAL WBC Morphology NORMAL APPEARANCE (NORMAL) Platelet Estimate INCREASED (>450,000) (NORMAL) Platelet Morphology NORMAL APPEARANCE (NORMAL) RBC Morph Micro Appear 1+ LOBO CELLS (NORMAL) Sodium 140 (135-145) mmol/L Potassium 3.7 (3.5-5.0) mmol/L Chloride 111 (101-111) mmol/L Carbon Dioxide 26 (21-32) mmol/L Anion Gap 3.0 L (6-13) BUN 18 (6-20) mg/dL Creatinine 0.7 (0.6-1.2) mg/dL Estimated GFR (MDRD) 115 (>89) Glucose 191 H (70-100) mg/dL Calcium 8.1 L (8.5-10.3) mg/dL Total Bilirubin 1.1 H (0.2-1.0) mg/dL AST 21 (10-42) IU/L ALT 15 (10-60) IU/L Alkaline Phosphatase 47 (42-121) IU/L Total Protein 4.6 L (6.7-8.2) g/dL Albumin 2.4 L (3.2-5.5) g/dL Globulin 2.2 (2.1-4.2) g/dL Albumin/Globulin Ratio 1.1 (1.0-2.2) Assessment/Plan - Problem List (1) Bowel obstruction Impression: much improved ivf bolus d/c ngt stoma nurse consult d/c planning. lives alone advanced cancer
[2022-09-22] MEDS: HYDROmorphone 0.5 MG/0.5 ML SYRINGE IVP PRN ×9 (00:21→23:50)
[2022-09-22] MEDS: ACETAMINOPHEN 1,000 MG/100 ML 1,000 MG/100 ML BAG IV SCH ×4 (01:01→18:39)
[2022-09-22] MEDS: SODIUM CHLORIDE FLUSH 0.9% 10 ML SYRINGE IVP SCH ×6 (01:01→16:05)
[2022-09-22] MEDS: ONDANSETRON 4 MG/2 ML VIAL IVP PRN (01:10)
[2022-09-22] MEDS: D5NS W/20 MEQ KCL 1,000 ML IV SCH ×3 (01:11→16:36)
--- NOTE | 2022-09-22 08:13 | PROVIDER PROGRESS NOTE ---
Subjective - General Admit Date: 09/19/22 Procedure Date: 09/20/22 Post Op Days: 2 Procedure Performed: diverting transverse loop colostomy - Review of Systems Wound/Incisions: positive: Dressing dry and intact Drain Output Description: Ostomy productive of liquid stool. General: positive: No symptoms HEENT: positive: No symptoms Pulmonary: positive: No symptoms Cardiovascular: positive: No symptoms Gastrointestinal: positive: Abdominal pain (Different than preop.). negative: Nausea, Vomiting Genitourinary: positive: Other (Luna in place.) Musculoskeletal: positive: No symptoms Skin: positive: No symptoms Psychiatric: positive: No symptoms, Other (Does not remember the complete conversation from yesterday.) Objective - Patient Data Reviewed Vital Signs: Yes Vital Signs: Vital Signs x48h Temp Pulse Resp BP Pulse Ox 09/22/22 00:26 36.5 C 83 18 140/67 H 99 Weight: Weight 09/20/22 09/21/22 09/22/22 23:59 23:59 23:59 Weight (kg) 78.5 kg Intake & Output: Intake and Output Totals x24h 09/20/22 09/21/22 09/22/22 23:59 23:59 23:59 Intake Total 2646.666 3389.583 1060.417 Output Total 1025 1575 450 Balance 8217.822 7448.583 610.417 - Lab Results Lab Results: 09/21/22 05:18 09/21/22 05:18 - Current Medications Current Medications: Current Medications Generic Name Dose Route Start Last Admin Trade Name Freq PRN Reason Stop Dose Admin Enoxaparin Sodium 40 mg 09/21/22 09:00 09/21/22 08:50 Enoxaparin 40 Mg/0.4 Ml Syringe SUBQ 40 mg DAILY ANASTASIIA Administration Hydromorphone HCl 0.5 mg 09/21/22 13:40 09/22/22 06:10 Hydromorphone 0.5 Mg/0.5 Ml Syringe IVP 0.5 mg Q30M PRN Administration Severe Pain (Level 7-10) Acetaminophen 1,000 mg in 100 mls @ 400 mls/hr 09/20/22 12:00 09/22/22 06:46 Acetaminophen IV 400 mls/hr Q6HR ANASTASIIA Administration Potassium Chloride/Dextrose/Sod Cl 1,000 mls @ 125 mls/hr 09/21/22 09:08 09/22/22 01:11 D5ns W/20 Meq Kcl IV 125 mls/hr .Q8H ANASTASIIA Administration Morphine Sulfate 5 mg 09/18/22 18:34 09/21/22 14:44 Morphine 10 Mg/Ml Vial IVP 5 mg Q4H PRN Administration PAIN 5-7 Ondansetron HCl 4 mg 09/20/22 10:57 09/22/22 01:10 Ondansetron 4 Mg/2 Ml Vial IVP 4 mg Q6H PRN Administration Nausea / Vomiting Sodium Chloride 10 ml 09/19/22 17:55 09/20/22 23:05 Sodium Chloride Flush 0.9% 10 Ml Syringe IVP 10 ml PRN PRN Administration NEEDED PER PROVIDER ORDERS Sodium Chloride 10 ml 09/20/22 01:00 09/22/22 01:01 Sodium Chloride Flush 0.9% 10 Ml Syringe IVP 10 ml 0100,0900,1700 ANASTASIIA Administration Sodium Chloride 10 ml 09/20/22 17:00 09/22/22 01:02 Sodium Chloride Flush 0.9% 10 Ml Syringe IVP Not Given 0100,0900,1700 ANASTASIIA Sodium Chloride 10 ml 09/20/22 10:57 09/20/22 20:54 Sodium Chloride Flush 0.9% 10 Ml Syringe IVP 10 ml PRN PRN Administration NEEDED PER PROVIDER ORDERS - Physical Exam Wound/Incisions: positive: Dressing dry and intact General Appearance: positive: No acute distress (Sitting up in chair - asking for a Pepsi.) Eyes Bilateral: positive: No lid inflammation, Conjunctivae nml, No scleral icterus ENT: positive: Dry mucous membranes Neck: positive: Trachea midline Respiratory: positive: Chest non-tender, No respiratory distress, Breath sounds nml Cardiovascular: positive: Regular rate & rhythm Abdomen: positive: Abnml bowel sounds (Slightly decreased.) Skin: positive: Pallor Neurologic/Psychiatric: positive: Oriented x3, Motor nml, Depressed mood/affect ABX Reporting Has patient been on IV antibiotics over the past 48 hours?: No Impression/Plan - Problem List Problem List: D2 s/p diverting transverse loop colostomy Advance diet and please get him his Pepsi as long as there is no nausea or vomiting. Meet with Sahra John (palliative care) today. Patient to determine DNR status. Placement determination. Continue to follow with Dr. Huitron.
[2022-09-22] MEDS: ENOXAPARIN 40 MG/0.4 ML SYRINGE SUBQ SCH (08:27)
[2022-09-22] MEDS: CITALOPRAM HYDROBROMIDE 20 MG TABLET PO SCH (11:27)
[2022-09-22] MEDS: MORPHINE ER 15 MG TABLET PO SCH ×2 (11:27→20:51)
[2022-09-22] MEDS: MULTIVITAMIN W/MINERALS TABLET PO SCH (13:06)
--- NOTE | 2022-09-22 14:15 | CONSULTATION NOTE ---
Palliative Care Consultation - Referral Referring Provider: Dr. Star Mancia Time of Visit: 30-10:30;12-1300 Referral setting: Hospitalized patient Referral Reason: Goals of Care - Information Sources Records reviewed: RN notes reviewed, Previous records reviewed, Other ([facility] Records) History/Review of Systems obtained from: Patient Exam limitations: No limitations - History of Present Illness Brief History of Present Illness: This is a 61-year-old gentleman who is somewhat of a poor historian, but does report having increased symptoms of bloating, distention, and worsening pain. He did have imaging on 09/16 at [facility], that did show increasing dilatation of the colon for concern for at least partial large bowel obstruction, likely due to worsening of peritoneal disease. He told the emergency room, he was due for some kind of procedure, but was getting worse and presented to the emergency room on 09/18/2022. Initially thought he had ascites, did show a small amount on ultrasound but not enough to explain his distention and was sent for CT showing soft tissue masses in the presacral and perirectal areas causing both a small and large bowel obstruction. They had recommended transition to a tertiary center given the complexity, preliminary acceptance happened, but unfortunately as of 09 19 in the morning [facility] was not able to accommodate this patient, so was taken to surgery after he received a rectal contrast enhanced CT patient did show some improvement but still with obstruction. He was then taken to surgery on 09/20/22 With preop diagnosis of large bowel obstruction resulting in a small bowel obstruction, procedure performed was a attempted left lower quadrant diverting loop colostomy converted to an exploratory laparotomy with transverse colon loop colostomy and massive adhesiolysis. 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 Palliative care was consulted regarding goals of care, and disposition planning. When asked patient's understanding of his disease, reports he does understand he is "dying". But is hoping to still consider further treatment if it is an option. He is having a significant mount of pain 8 out of 10, mostly at the mid epigastric area and over the colostomy site. Patient has been long-term on MS Contin 30 mg extended release, with 10 to 15 mg of oxycodone for breakthrough pain. Patient also uses a significant amount of marijuana on a daily basis, is no longer drinking, but does smoke a pack a day.He reports the short acting morphine and hydromorphone are relieving the sharp shooting pain but may be for about an hour at a time. He is expressing disappointment about what is happened, and understands I am there to talk to him about short-term and long- term goals. Patient reflects on his journey it has been quite difficult, he has been getting his care down at [facility], is very much enjoyed the team, but it has been coming more difficult particularly with transportation. He has 3 sisters, they have been taking time turns coming and helping him when it is time, as well as using senior transportation. He reports he has missed appointments accordingly. He is wondering about transitioning care closer to home, as well as we talked about at this point in time may or may not be a candidate for further treatment. Patient has done his DURABLE POWER OF FUR EXAMINER, but has not done any further healthcare directives or a POLST though he is familiar with the "green form". Patient does have known metastatic pancreatic cancer, and from his [facility] records show he has received multiple different rounds of chemotherapy, as well as 10/30 had a distal pancreatic splenectomy, went on to receive adjuvant FOLFIRINOX x12 cycles, was maintained on surveillance from 05/31 to 03/02 until he was admitted to the hospital for a small bowel obstruction on 02/21/2021 to 02/23/2021. He did receive at that point in time a stent, and proceeded on in March to gemcitabine/Abraxane, until -then on to maintenance gemcitabine monotherapy. Patient with progressive disease, 07/25/22 did re- escalate therapy to gemcitabine +nab-paclitaxel. Patient was also history of stage IV prostate cancer, received a TURP in 2008, did receive hormone therapy, and external beam radiation, chemo. Recent PSa undetectable. Medical/Surgical History - Past Medical History Cardiovascular: reports: None Respiratory: reports: None Neuro: None Endocrine/Autoimmune: reports: None GI: reports: GERD, Other (obstruction) : reports: Retention, Incontinence, Nocturia, Other (prostate Cancer hx) HEENT: reports: None Psych: reports: Depression Musculoskeletal: reports: Fatigue Derm: reports: None MRSA Hx?: No - Past Surgical History General: reports: Gastric surgery (s/p whipple), Other Other past surgical history: 10/30 distal panreatospenectomy 02/21-02/23/21 SBO wtih stent - Substance History Dependence: Experiences withdrawal or developed tolerances: Tobacco (smokes a pack per day; hx of etoh of use), Cannabis Tobacco Details: Cigarettes Social History - Living Situation Living arrangement: At home Living Situation: Alone Support System: Has 3 sisters, all 3 are here to provide support. To or from [place], and 1 from [place]. His mother is still alive as well, he was 55 years in [place], and moved to [facility] for longterm. Has friends but no caregivers. Family History - Family History Family History: Mother: Alive and Well, Father: ( in [place] with hospice) Medications/Allergies - Medications Active Medication List: Active Medications Citalopram Hydrobromide (Citalopram Hydrobromide 20 Mg Tablet) 40 mg PO DAILY [facility] Enoxaparin Sodium (Enoxaparin 40 Mg/0.4 Ml Syringe) 40 mg SUBQ DAILY [facility] Last Admin: 09/22/22 08:27 Dose: 40 mg Hydromorphone HCl (Hydromorphone 0.5 Mg/0.5 Ml Syringe) 0.5 mg IVP Q30M PRN PRN Reason: Severe Pain (Level 7-10) Last Admin: 09/22/22 09:46 Dose: 0.5 mg Acetaminophen (Acetaminophen) 1,000 mg in 100 mls @ 400 mls/hr IV Q6HR [facility] Last Infusion: 09/22/22 08:31 Dose: Infused Potassium Chloride/Dextrose/Sod Cl (D5ns W/20 Meq Kcl) 1,000 mls @ 125 mls/hr IV .Q8H [facility] Last Admin: 09/22/22 08:28 Dose: 125 mls/hr Morphine Sulfate (Morphine 10 Mg/Ml Vial) 5 mg IVP Q4H PRN PRN Reason: PAIN 5-7 Last Admin: 09/21/22 14:44 Dose: 5 mg Morphine Sulfate (Morphine Er 15 Mg Tablet) 30 mg PO BID [facility] Multivitamins/Minerals (Multivitamin W/Minerals Tablet) 1 tab PO DAILYWM [facility] Ondansetron HCl (Ondansetron 4 Mg/2 Ml Vial) 4 mg IVP Q6H PRN PRN Reason: Nausea / Vomiting Last Admin: 09/22/22 01:10 Dose: 4 mg Prochlorperazine Edisylate (Prochlorperazine 10 Mg/2 Ml Vial) 10 mg IVP Q4HR PRN PRN Reason: Nausea / Vomiting Sodium Chloride (Sodium Chloride Flush 0.9% 10 Ml Syringe) 10 ml IVP PRN PRN PRN Reason: NEEDED PER PROVIDER ORDERS Last Admin: 09/20/22 23:05 Dose: 10 ml Sodium Chloride (Sodium Chloride Flush 0.9% 10 Ml Syringe) 10 ml IVP 0100,09 00,1700 [facility] Last Admin: 09/22/22 08:28 Dose: 10 ml Sodium Chloride (Sodium Chloride Flush 0.9% 10 Ml Syringe) 10 ml IVP 0100,0900,1700 [facility] Last Admin: 09/22/22 08:28 Dose: 10 ml Sodium Chloride (Sodium Chloride Flush 0.9% 10 Ml Syringe) 10 ml IVP PRN PRN PRN Reason: NEEDED PER PROVIDER ORDERS Last Admin: 09/20/22 20:54 Dose: 10 ml Citalopram Hydrobromide [Celexa] 40 mg PO DAILY 02/26/18 Morphine Sulfate ER [Ms Contin] 1 tab PO DAILY PRN 09/21/22 dexAMETHasone [Decadron] 1 tab PO BID 09/21/22 oxyCODONE [Roxicodone] 1 tab PO BID PRN 09/21/22 - Allergies Allergies/Adverse Reactions: Allergies Allergy/AdvReac Type Severity Reaction Status Date / Time No Known Drug Allergies Allergy Verified 09/18/22 14:58 Review of Systems - Constitutional Constitutional: reports: Fatigue, Poor appetite (has been eating poorly for several months), Weight loss - Ears, Nose & Throat Ears, Nose & Throat: reports: Dry mouth - Gastrointestinal Gastrointestinal: reports: Abdominal pain, Poor appetite (started on clear liquids), Other (new colostomy) - Genitourinary Genitourinary: reports: Incontinence, Sexual dysfunction - Musculoskeletal Musculoskeletal: reports: Back pain, Muscle weakness - Integumentary Integumentary: reports: Hair changes (alopecia) - Neurological Neurological: reports: General weakness, Numbness (mild peripheral neuropathy from treatment) - Psychiatric 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 denies: Suicidal - Endocrine Endocrine: reports: Intolerance to cold - Hematologic/Lymphatic Hematologic/Lymph: reports: Anemia Physical Exam - Vital Signs Vital Signs: Vital Signs x48h Temp Pulse Resp BP Pulse Ox 09/22/22 08:10 148/66 H 09/22/22 07:30 36.4 C L 78 16 148/66 H 100 - Physical Exam General Appearance: positive: Moderate distress (related to pain and new colostomy), Anxious, Cachetic Eyes Bilateral: positive: Normal inspection ENT: positive: Dry mucous membranes Neck: positive: Trachea midline Cardiovascular: positive: Regular rate & rhythm Respiratory: positive: No respiratory distress Abdomen: positive: Guarding. negative: Distended Skin: positive: Pallor, Dryness Extremities: positive: No pedal edema Neurologic/Psychiatric: positive: Oriented x3, Flat affect Palliative Care - POLST Patient has POLST: Yes POLST Status: DNR, Selective Treatment (completed during visit) Pain: Pain worsening, Location (mid abdominal/ over colostomy area), Pattern (p ersistent background pain; sharp shooting at colostomy site) Tiredness/Fatigue: Severe (7-10) (sisters report patient sleeping 20 hours at home) Feelings of wellbeing/Perceived Quality of Life: Poor, Worsening Performance Status: Patient has had an acute decrease in functional status over the last couple weeks mostly related to his worsening acute pain and abdominal symptoms. Previously was independent in ADLs. - Palliative Care Discussion: When asked patient reports his understanding of his disease is "I am dying". He is still hoping there may be further treatment options, but does understand currently his cancer has progressed, and with the surgery and obstruction this i s serious. He is quite angry in the context he had retired, and [place], and now he has been dealing with cancer since he is retired. He is angry he is dying. He is hopeful there may be further treatment options for him, but does understand these would be palliative in nature, and would be weighed against quality and quantity of life. Patient is quite reflective, we did discuss the need to further define his wishes, particularly interpretation on the POLST, he does want to do this both for his family and for himself. Counseling provided regarding the implications, patient is agreeable to do not attempt resuscitation DNI, and selective treatment. He is not quite ready to "give it up" as far as hospice, but counseling provided regarding the hospice continuum of care. We discussed its not at "if" but a "when". We set his goals to focus on quality of life, continue treatment if possible, treat reversible conditions, and end-of-life a comfortable respectful at home. Patient reports his coni was alana worship, had "fallen away" but was thinking of reconnecting. Shortly after my meeting with him,the diagnostic radiologist arrived (sisters had made arrangements) and did receive the blessing of the sick. 12:00 pm Family meeting, patient requested I meet with his sisters and not with him present. Did meet with Araceli, Shannon Baca, and No as well as his mother on the phone. We did discuss the seriousness of his illness, patient's current challenges of dealing with new colostomy, he is aware that neither of them can stay and become a caregiver, though sisters would at end-of-life take FMLA to provide end-of-life care. Discussed that they were hopeful he would be accepting of a SNF stay until stable and able to manage colostomy, patient can hardly look at it right now. Patient is quite weak. They do report a significant decline over the last couple months for patient. They are worried about him in this transition time. We did discuss the continuum of care, hospice, and supporting Zia through this difficult process. Did reconvene with Zia, he is in agreement to SNF placement for a bridge particularly in the context of caring and learning about colostomy. He is actually fairly accepting of this, his sisters are quite relieved. We also discussed my conversation with Dr. Henry's office, about a telehealth to wrap up or look at o ptions, versus moving onto new oncology team. He will let me know. Results - Lab Results Lab results reviewed: Yes Jeancarlos Bones: 09/21/22 05:18 09/21/22 05:18 Impression and Recommendations - Palliative Care Impression: This is a 61-year-old gentleman with metastatic pancreatic cancer, he who presented with small and large bowel obstruction, with resulting diverting left lower quadrant loop colostomy. Patient with heavy tumor burden, high symptom burden, and notable decline over the last several weeks. Palliative care meeting with patient to define goals of care, address symptom management, and provide anticipatory guidance. Recommendations/Counseling Done: 1. Pain of neoplastic origin. This is multifactorial, patient has acute on chronic pain related to surgery, chronic back and abdominal pain from pancreatic cancer and chronic pain syndrome. Patient has been long-term on MS Contin 30 mg extended release twice daily, he was using oxycodone 10 to 15 mg for breakthrough pain. Patient with escalating pain related to his pending obstruction. We will start him on his baseline pain medication, and evaluate prn use, for further recommendations for titration. Using IV hydromorphone and morphine alternately with short term relief only, should improve some with relief of obstruction and healing from surgery. 2. Depression. Patient with significant history of depression, has long-term been on citalopram 40 mg, this is of concern for his family as well, he does fluctuate. Patient denies suicidality. Patient able to take oral meds, will start back on home medication. 3. Advance care planning. Patient does have DPOA's established, he and his primary DPOA is No [place], sisters [phone]. Patient has not done any healthcare directives, we did discuss the POLST, this was completed with DNAR/DNI and selective treatments. Patient's goal is to focus on quality of life, continue treatment and recognizing this may not be a possibility, treat reversible conditions, and end-of-life a comfortable respectful at home if possible. This was interpreted into his POLST document. This was a relief both to the sisters and to the patient to have this completed. Counseling was provided regarding continuum of care including palliative support for chemotherapy if option, and hospice/supportive care if continues to decline. Counseling provided with family as well regarding options. After much discussion, given the practicality of the situation, looking at SNF placement fo r management and transition to adapting to new colostomy care and follow-up from surgery. 120 minutes, with review of chart, labs, surgical notes, [facility] records, coordination of care with surgeon, oncology, Dr. Henry's office, social work and family. Counseling regarding pain and symptom management, advanced care planning, and anticipatory guidance provided both to patient and family.
[2022-09-23] MEDS: ACETAMINOPHEN 1,000 MG/100 ML 1,000 MG/100 ML BAG IV SCH ×4 (00:02→19:01)
[2022-09-23] MEDS: MORPHINE 10 MG/ML VIAL IVP PRN (00:30)
[2022-09-23] MEDS: HYDROmorphone 0.5 MG/0.5 ML SYRINGE IVP PRN ×7 (00:36→23:04)
[2022-09-23] MEDS: D5NS W/20 MEQ KCL 1,000 ML IV SCH ×3 (00:36→23:08)
[2022-09-23] MEDS: SODIUM CHLORIDE FLUSH 0.9% 10 ML SYRINGE IVP SCH ×6 (01:35→15:57)
[2022-09-23] MEDS: MULTIVITAMIN W/MINERALS TABLET PO SCH (07:14)
[2022-09-23] MEDS: CITALOPRAM HYDROBROMIDE 20 MG TABLET PO SCH (08:38)
[2022-09-23] MEDS: MORPHINE ER 15 MG TABLET PO SCH ×2 (08:38→21:12)
[2022-09-23] MEDS: ENOXAPARIN 40 MG/0.4 ML SYRINGE SUBQ SCH (08:38)
--- NOTE | 2022-09-23 14:33 | PROVIDER PROGRESS NOTE ---
Subjective - General Admit Date: 09/19/22 Procedure Date: 09/20/22 Post Op Days: 3 Procedure Performed: diverting transverse loop colostomy - Review of Systems Wound/Incisions: positive: Dressing dry and intact Drain Output Description: Ostomy productive of liquid stool. General: positive: No symptoms HEENT: positive: No symptoms Pulmonary: positive: No symptoms Cardiovascular: positive: No symptoms Gastrointestinal: positive: Abdominal pain (Different than preop.), Other (Tolerating diet well.). negative: Nausea, Vomiting Genitourinary: positive: Other (Luna in place.) Musculoskeletal: positive: No symptoms Skin: positive: No symptoms Psychiatric: positive: No symptoms, Other (Does not remember the complete conversation from yesterday.) Objective - Patient Data Reviewed Vital Signs: Yes Vital Signs: Vital Signs x48h Temp Pulse Resp BP Pulse Ox 09/23/22 08:03 36.5 C 94 18 149/67 H 95 Intake & Output: Intake and Output Totals x24h 09/21/22 09/22/22 09/23/22 23:59 23:59 23:59 Intake Total 3889.583 3992.834 2031.25 Output Total 1575 1125 465 Balance 2314.583 2867.834 1566.25 - Lab Results Lab Results: 09/21/22 05:18 09/21/22 05:18 - Current Medications Current Medications: Current Medications Generic Name Dose Route Start Last Admin Trade Name Freq PRN Reason Stop Dose Admin Citalopram Hydrobromide 40 mg 09/22/22 12:00 09/23/22 08:38 Citalopram Hydrobromide 20 Mg Tablet PO 40 mg DAILY ANASTASIIA Administration Enoxaparin Sodium 40 mg 09/21/22 09:00 09/23/22 08:38 Enoxaparin 40 Mg/0.4 Ml Syringe SUBQ 40 mg DAILY ANASTASIIA Administration Hydromorphone HCl 0.5 mg 09/21/22 13:40 09/23/22 13:30 Hydromorphone 0.5 Mg/0.5 Ml Syringe IVP 0.5 mg Q30M PRN Administration Severe Pain (Level 7-10) Acetaminophen 1,000 mg in 100 mls @ 400 mls/hr 09/20/22 12:00 09/23/22 13:10 Acetaminophen IV 400 mls/hr Q6HR ANASTASIIA Administration Potassium Chloride/Dextrose/Sod Cl 1,000 mls @ 125 mls/hr 09/21/22 09:08 09/23/22 08:37 D5ns W/20 Meq Kcl IV 125 mls/hr .Q8H ANASTASIIA Infusion Morphine Sulfate 5 mg 09/18/22 18:34 09/23/22 00:30 Morphine 10 Mg/Ml Vial IVP 5 mg Q4H PRN Administration PAIN 5-7 Morphine Sulfate 30 mg 09/22/22 11:00 09/23/22 08:38 Morphine Er 15 Mg Tablet PO 30 mg BID ANASTASIIA Administration Multivitamins/Minerals 1 tab 09/22/22 12:00 09/23/22 07:14 Multivitamin W/Minerals Tablet PO 1 tab DAILYWM ANASTASIIA Administration Ondansetron HCl 4 mg 09/20/22 10:57 09/22/22 01:10 Ondansetron 4 Mg/2 Ml Vial IVP 4 mg Q6H PRN Administration Nausea / Vomiting Sodium Chloride 10 ml 09/19/22 17:55 09/20/22 23:05 Sodium Chloride Flush 0.9% 10 Ml Syringe IVP 10 ml PRN PRN Administration NEEDED PER PROVIDER ORDERS Sodium Chloride 10 ml 09/20/22 01:00 09/23/22 08:39 Sodium Chloride Flush 0.9% 10 Ml Syringe IVP 10 ml 0100,0900,1700 ANASTASIIA Administration Sodium Chloride 10 ml 09/20/22 17:00 09/23/22 08:39 Sodium Chloride Flush 0.9% 10 Ml Syringe IVP Not Given 0100,0900,1700 ANASTASIIA Sodium Chloride 10 ml 09/20/22 10:57 09/20/22 20:54 Sodium Chloride Flush 0.9% 10 Ml Syringe IVP 10 ml PRN PRN Administration NEEDED PER PROVIDER ORDERS - Physical Exam Wound/Incisions: positive: Dressing dry and intact General Appearance: positive: No acute distress Eyes Bilateral: positive: No lid inflammation, Conjunctivae nml, No scleral icterus Neck: positive: Trachea midline Respiratory: positive: Chest non-tender Cardiovascular: positive: Regular rate & rhythm Abdomen: positive: Other (Incisional tenderness. Ostomy pink and productive.) Skin: positive: Pallor Neurologic/Psychiatric: positive: Oriented x3 ABX Reporting Has patient been on IV antibiotics over the past 48 hours?: No Impression/Plan - Problem List Problem List: D3 s/p transverse loop colostomy OT/PT ordered. Ostomy teaching progressing but not where it should be yet. Appetite improving. D/C Luna. Await placement.
[2022-09-23] MEDS: PROCHLORPERAZINE 10 MG/2 ML VIAL IVP PRN (15:57)
[2022-09-23] MEDS: ONDANSETRON 4 MG/2 ML VIAL IVP PRN (23:04)
[2022-09-24] MEDS: ACETAMINOPHEN 1,000 MG/100 ML 1,000 MG/100 ML BAG IV SCH ×3 (00:29→11:51)
[2022-09-24] MEDS: SODIUM CHLORIDE FLUSH 0.9% 10 ML SYRINGE IVP SCH ×6 (00:29→17:46)
[2022-09-24] MEDS: HYDROmorphone 0.5 MG/0.5 ML SYRINGE IVP PRN ×3 (04:19→23:56)
[2022-09-24] MEDS: D5NS W/20 MEQ KCL 1,000 ML IV SCH ×3 (06:13→22:12)
[2022-09-24] MEDS: ONDANSETRON 4 MG/2 ML VIAL IVP PRN (06:41)
[2022-09-24] MEDS: MULTIVITAMIN W/MINERALS TABLET PO SCH (08:54)
[2022-09-24] MEDS: MORPHINE ER 15 MG TABLET PO SCH ×2 (08:54→22:13)
[2022-09-24] MEDS: CITALOPRAM HYDROBROMIDE 20 MG TABLET PO SCH (08:54)
[2022-09-24] MEDS: ENOXAPARIN 40 MG/0.4 ML SYRINGE SUBQ SCH (08:54)
[2022-09-24] MEDS: PROCHLORPERAZINE 10 MG/2 ML VIAL IVP PRN (09:01)
[2022-09-24] MEDS: MORPHINE 10 MG/ML VIAL IVP PRN (11:51)
[2022-09-24] MEDS: ACETAMINOPHEN 500 MG TABLET PO SCH ×2 (17:48→23:54)
[2022-09-24] MEDS: TAMSULOSIN 0.4 MG CAPSULE PO SCH (17:57)
[2022-09-24] MEDS ORDERED: PANTOPRAZOLE 40 MG VIAL IV STA (21:46)
[2022-09-24] MEDS ORDERED: LIDOCAINE 2% URO-JET 5 ML SYRINGE UR ONE (21:50)
[2022-09-24] MEDS: SODIUM CHLORIDE FLUSH 0.9% 10 ML SYRINGE IVP PRN ×2 (22:16→23:56)
--- NOTE | 2022-09-24 22:48 | PROVIDER PROGRESS NOTE ---
Subjective - General Admit Date: 09/19/22 Procedure Date: 09/20/22 Post Op Days: 4 Procedure Performed: diverting transverse loop colostomy - Review of Systems Wound/Incisions: positive: Dressing dry and intact Drain Output Description: Ostomy productive of liquid stool. General: positive: No symptoms HEENT: positive: No symptoms Pulmonary: positive: No symptoms Cardiovascular: positive: No symptoms Gastrointestinal: positive: Abdominal pain (Different than preop.), Other (Tolerating diet well.). negative: Nausea, Vomiting Genitourinary: positive: Incontinence, Other (Luna removed; bladder volume 375) Musculoskeletal: positive: No symptoms Skin: positive: No symptoms Psychiatric: positive: No symptoms, Other (Does not remember the complete conv ersation from yesterday.) Objective - Patient Data Vital Signs: Vital Signs x48h Temp Pulse Resp BP Pulse Ox 09/24/22 20:57 165/79 H 09/24/22 20:54 97.5 F L 100 16 169/82 H 96 09/24/22 16:07 98.2 F 86 18 140/61 H 95 Intake & Output: Intake and Output Totals x24h 09/22/22 09/23/22 09/24/22 23:59 23:59 23:59 Intake Total 3992.834 3940.00 2991.667 Output Total 1125 1065 300 Balance 2867.834 2875.00 2691.667 - Lab Results Lab Results: 09/21/22 05:18 09/21/22 05:18 - Current Medications Current Medications: Current Medications Generic Name Dose Route Start Last Admin Trade Name Vuq PRN Reason Stop Dose Admin Acetaminophen 1,000 mg 09/24/22 18:00 09/24/22 17:48 Acetaminophen 500 Mg Tablet PO 1,000 mg Q6HR ANASTASIIA Administration Citalopram Hydrobromide 40 mg 09/22/22 12:00 09/24/22 08:54 Citalopram Hydrobromide 20 Mg Tablet PO 40 mg DAILY ANASTASIIA Administration Enoxaparin Sodium 40 mg 09/21/22 09:00 09/24/22 08:54 Enoxaparin 40 Mg/0.4 Ml Syringe SUBQ 40 mg DAILY ANASTASIIA Administration Hydromorphone HCl 0.5 mg 09/21/22 13:40 09/24/22 22:12 Hydromorphone 0.5 Mg/0.5 Ml Syringe IVP 0.5 mg Q30M PRN Administration Severe Pain (Level 7-10) Potassium Chloride/Dextrose/Sod Cl 1,000 mls @ 125 mls/hr 09/21/22 09:08 09/24/22 22:12 D5ns W/20 Meq Kcl IV 125 mls/hr .Q8H ANASTASIIA Administration Morphine Sulfate 5 mg 09/18/22 18:34 09/24/22 11:51 Morphine 10 Mg/Ml Vial IVP 5 mg Q4H PRN Administration PAIN 5-7 Morphine Sulfate 30 mg 09/22/22 11:00 09/24/22 22:13 Morphine Er 15 Mg Tablet PO 30 mg BID ANASTASIIA Administration Multivitamins/Minerals 1 tab 09/22/22 12:00 09/24/22 08:54 Multivitamin W/Minerals Tablet PO 1 tab DAILYWM ANASTASIIA Administration Ondansetron HCl 4 mg 09/20/22 10:57 09/24/22 06:41 Ondansetron 4 Mg/2 Ml Vial IVP 4 mg Q6H PRN Administration Nausea / Vomiting Prochlorperazine Edisylate 10 mg 09/20/22 10:57 09/24/22 09:01 Prochlorperazine 10 Mg/2 Ml Vial IVP 10 mg Q4HR PRN Administration Nausea / Vomiting Sodium Chloride 10 ml 09/19/22 17:55 09/24/22 22:16 Sodium Chloride Flush 0.9% 10 Ml Syringe IVP 10 ml PRN PRN Administration NEEDED PER PROVIDER ORDERS Sodium Chloride 10 ml 09/20/22 01:00 09/24/22 17:46 Sodium Chloride Flush 0.9% 10 Ml Syringe IVP 10 ml 0100,0900,1700 ANASTASIIA Administration Sodium Chloride 10 ml 09/20/22 17:00 09/24/22 17:46 Sodium Chloride Flush 0.9% 10 Ml Syringe IVP 10 ml 0100,0900,1700 ANASTASIIA Administration Sodium Chloride 10 ml 09/20/22 10:57 09/20/22 20:54 Sodium Chloride Flush 0.9% 10 Ml Syringe IVP 10 ml PRN PRN Administration NEEDED PER PROVIDER ORDERS Tamsulosin HCl 0.4 mg 09/24/22 18:00 09/24/22 17:57 Tamsulosin 0.4 Mg Capsule PO 0.4 mg DAILY ANASTASIIA Administration Impression/Plan - Problem List Problem List: The patient is now postoperative day #4 status post transverse colostomy decompressive transverse colostomy. Stable postoperative course. The patient has been having some difficulty with overflow incontinence as his Luna catheter was removed earlier today. Recommendations: 1. begin tamsulosin 0.4 mg, orally, daily 2. Begin intermittent straight catheterization 3. DNR instituted today at the patient's request 4. Arrange transition to hospice facility, next week
[2022-09-25] MEDS: SODIUM CHLORIDE FLUSH 0.9% 10 ML SYRINGE IVP SCH ×4 (00:19→18:04)
[2022-09-25] MEDS: SODIUM CHLORIDE FLUSH 0.9% 10 ML SYRINGE IVP PRN (04:38)
[2022-09-25] MEDS: HYDROmorphone 0.5 MG/0.5 ML SYRINGE IVP PRN ×2 (04:38→10:36)
[2022-09-25] MEDS: ACETAMINOPHEN 500 MG TABLET PO SCH ×3 (06:28→18:04)
--- NOTE | 2022-09-25 08:32 | PROVIDER PROGRESS NOTE ---
Subjective - General Admit Date: 09/19/22 Procedure Date: 09/20/22 Post Op Days: 5 Procedure Performed: diverting transverse loop colostomy - Review of Systems Wound/Incisions: positive: Dressing dry and intact Drain Output Description: Ostomy productive of liquid stool. General: positive: No symptoms HEENT: positive: No symptoms Pulmonary: positive: No symptoms Cardiovascular: positive: No symptoms Gastrointestinal: positive: Abdominal pain (Different than preop.), Other (Tolerating diet well.). negative: Nausea, Vomiting Genitourinary: positive: Incontinence, Other (Edwards removed; bladder volume 375) Musculoskeletal: positive: No symptoms Skin: positive: No symptoms Psychiatric: positive: No symptoms, Other (Does not remember the complete conv ersation from yesterday.) - Other Other Information/Narrative: Patient feeling week, uncomfortable, and nauseated this AM. He is appreciative of the help but very frustrated with his situation. Significant ostomy and incision leakage yesterday, requiring multiple dressing changes. Also struggling with urinary incontinence (not new). No f/c. No vomiting with compazine but he was struggling with zofran alone. Objective - Patient Data Vital Signs: Vital Signs x48h Temp Pulse Resp BP Pulse Ox 09/25/22 05:30 36.3 C L 118 H 16 151/81 H 97 Intake & Output: Intake and Output Totals x24h 09/23/22 09/24/22 09/25/22 23:59 23:59 23:59 Intake Total 3940.00 2991.667 250 Output Total 1065 300 250 Balance 2875.00 2691.667 0 - Lab Results Lab Results: 09/21/22 05:18 09/21/22 05:18 - Current Medications Current Medications: Current Medications Generic Name Dose Route Start Last Admin Trade Name Freq PRN Reason Stop Dose Admin Acetaminophen 1,000 mg 09/24/22 18:00 09/25/22 06:28 Acetaminophen 500 Mg Tablet PO 1,000 mg Q6HR ANASTASIIA Administration Citalopram Hydrobromide 40 mg 09/22/22 12:00 09/24/22 08:54 Citalopram Hydrobromide 20 Mg Tablet PO 40 mg DAILY ANASTASIIA Administration Enoxaparin Sodium 40 mg 09/21/22 09:00 09/24/22 08:54 Enoxaparin 40 Mg/0.4 Ml Syringe SUBQ 40 mg DAILY ANASTASIIA Administration Hydromorphone HCl 0.5 mg 09/21/22 13:40 09/25/22 04:38 Hydromorphone 0.5 Mg/0.5 Ml Syringe IVP 0.5 mg Q30M PRN Administration Severe Pain (Level 7-10) Potassium Chloride/Dextrose/Sod Cl 1,000 mls @ 125 mls/hr 09/21/22 09:08 09/24/22 22:12 D5ns W/20 Meq Kcl IV 125 mls/hr .Q8H ANASTASIIA Administration Morphine Sulfate 5 mg 09/18/22 18:34 09/24/22 11:51 Morphine 10 Mg/Ml Vial IVP 5 mg Q4H PRN Administration PAIN 5-7 Morphine Sulfate 30 mg 09/22/22 11:00 09/24/22 22:13 Morphine Er 15 Mg Tablet PO 30 mg BID ANASTASIIA Administration Multivitamins/Minerals 1 tab 09/22/22 12:00 09/24/22 08:54 Multivitamin W/Minerals Tablet PO 1 tab DAILYWM ANASTASIIA Administration Ondansetron HCl 4 mg 09/20/22 10:57 09/24/22 06:41 Ondansetron 4 Mg/2 Ml Vial IVP 4 mg Q6H PRN Administration Nausea / Vomiting Prochlorperazine Edisylate 10 mg 09/20/22 10:57 09/24/22 09:01 Prochlorperazine 10 Mg/2 Ml Vial IVP 10 mg Q4HR PRN Administration Nausea / Vomiting Sodium Chloride 10 ml 09/19/22 17:55 09/25/22 04:38 Sodium Chloride Flush 0.9% 10 Ml Syringe IVP 10 ml PRN PRN Administration NEEDED PER PROVIDER ORDERS Sodium Chloride 10 ml 09/20/22 01:00 09/25/22 00:19 Sodium Chloride Flush 0.9% 10 Ml Syringe IVP Not Given 0100,0900,1700 ANASTASIIA Sodium Chloride 10 ml 09/20/22 17:00 09/25/22 04:23 Sodium Chloride Flush 0.9% 10 Ml Syringe IVP Not Given 0100,0900,1700 ANASTASIIA Sodium Chloride 10 ml 09/20/22 10:57 09/20/22 20:54 Sodium Chloride Flush 0.9% 10 Ml Syringe IVP 10 ml PRN PRN Administration NEEDED PER PROVIDER ORDERS Tamsulosin HCl 0.4 mg 09/24/22 18:00 09/24/22 17:57 Tamsulosin 0.4 Mg Capsule PO 0.4 mg DAILY ANASTASIIA Administration Impression/Plan - Problem List Problem List: This is a 61 y/o M with: 1. large bowel obstruction - s/p ex lap with transverse loop colostomy, POD#5 - Ostomy productive, tolerating regular diet in small amounts - added PO oxycodone to pain regimen today to try to minimize need for PO meds (on chronic MS contin at baseline). Will discuss pain med regimen with palliative care tomorrow. - Ostomy teaching - difficulty appliance due to location of stoma and tension kari/catheter. Discussed options for dressing with RN today. 2. metastatic pancreatic cancer with carcinomatosis - causing #1. - Sahra Valentine of palliative care following. Appreciate her recommendations and support for the patient and team. - Patient considering hospice per palliative care notes 3. urinary retention - Home tamsulosin restarted - Patient has remote history of prostate ca, also s/p TURP - straight cath with varying relief of symptoms - discussed options with patient, he would like to use straight cath only if feeling increased suprapubic pressure. He felt discomfort with the edwards in place. 4. tachycardia - resolved, due to pain earlier in the day, now better controlled 5. nausea - prn zofran and compazine. Patient feels compazine is working better. Will discuss additional options with palliative care tomorrow. DVT Ppx: SCD's, lovenox GI Ppx: on PPI Pending placement at SNU vs possible hospice (pending patient decision and option availability). Patient is a DNR. Continue care on floor at this time.
[2022-09-25] MEDS ORDERED: TAMSULOSIN 0.4 MG CAPSULE PO SCH (09:00)
[2022-09-25] MEDS: MORPHINE ER 15 MG TABLET PO SCH ×2 (09:02→21:44)
[2022-09-25] MEDS: MULTIVITAMIN W/MINERALS TABLET PO SCH (09:02)
[2022-09-25] MEDS: TAMSULOSIN 0.4 MG CAPSULE PO SCH (09:02)
[2022-09-25] MEDS: PANTOPRAZOLE 40 MG TABLET PO SCH ×2 (09:02→21:43)
[2022-09-25] MEDS: D5NS W/20 MEQ KCL 1,000 ML IV SCH (09:02)
[2022-09-25] MEDS: CITALOPRAM HYDROBROMIDE 20 MG TABLET PO SCH (09:02)
[2022-09-25] MEDS: ENOXAPARIN 40 MG/0.4 ML SYRINGE SUBQ SCH (09:02)
[2022-09-25] MEDS: PROCHLORPERAZINE 10 MG/2 ML VIAL IVP PRN ×2 (10:36→16:26)
[2022-09-25] MEDS: oxyCODONE 5 MG TABLET PO PRN ×2 (12:19→16:25)
[2022-09-26] MEDS: SODIUM CHLORIDE FLUSH 0.9% 10 ML SYRINGE IVP SCH ×4 (00:10→23:58)
[2022-09-26] MEDS: ACETAMINOPHEN 500 MG TABLET PO SCH ×4 (00:10→17:59)
[2022-09-26] MEDS: D5NS W/20 MEQ KCL 1,000 ML IV SCH ×3 (02:23→13:43)
[2022-09-26] MEDS: oxyCODONE 5 MG TABLET PO PRN ×2 (04:38→13:43)
[2022-09-26] MEDS: HYDROmorphone 0.5 MG/0.5 ML SYRINGE IVP PRN (07:09)
[2022-09-26] MEDS: SODIUM CHLORIDE FLUSH 0.9% 10 ML SYRINGE IVP PRN (07:10)
[2022-09-26] MEDS: ONDANSETRON 4 MG/2 ML VIAL IVP PRN (07:15)
[2022-09-26] MEDS: MORPHINE ER 15 MG TABLET PO SCH ×2 (09:14→20:56)
[2022-09-26] MEDS: TAMSULOSIN 0.4 MG CAPSULE PO SCH (09:15)
[2022-09-26] MEDS: MULTIVITAMIN W/MINERALS TABLET PO SCH (09:15)
[2022-09-26] MEDS: PANTOPRAZOLE 40 MG TABLET PO SCH ×2 (09:15→20:58)
[2022-09-26] MEDS: CITALOPRAM HYDROBROMIDE 20 MG TABLET PO SCH (09:15)
[2022-09-26] MEDS: ENOXAPARIN 40 MG/0.4 ML SYRINGE SUBQ SCH (09:15)
--- NOTE | 2022-09-26 12:48 | PROVIDER PROGRESS NOTE ---
Subjective - General Admit Date: 09/19/22 Procedure Date: 09/20/22 Post Op Days: 6 Procedure Performed: diverting transverse loop colostomy - Review of Systems Wound/Incisions: positive: Dressing dry and intact Drain Output Description: Ostomy productive of liquid stool. General: positive: No symptoms HEENT: positive: No symptoms Pulmonary: positive: No symptoms Cardiovascular: positive: No symptoms Gastrointestinal: positive: Abdominal pain (Different than preop.), Other (Tolerating diet well.). negative: Nausea, Vomiting Genitourinary: positive: Incontinence, Other (Luna removed; bladder volume 375) Musculoskeletal: positive: No symptoms Skin: positive: No symptoms Psychiatric: positive: No symptoms, Other (Does not remember the complete conv ersation from yesterday.) Objective - Patient Data Reviewed Vital Signs: Yes Vital Signs: Vital Signs x48h Temp Pulse Resp BP BP Pulse Ox 09/26/22 07:30 36.4 C L 109 H 14 132/74 H 95 09/26/22 05:20 36.4 C L 109 H 18 131/65 H 98 Intake & Output: Intake and Output Totals x24h 09/24/22 09/25/22 09/26/22 23:59 23:59 23:59 Intake Total 2991.667 3020 220 Output Total 300 250 50 Balance 2691.667 2770 170 - Lab Results Lab Results: 09/21/22 05:18 09/21/22 05:18 - Current Medications Current Medications: Current Medications Generic Name Dose Route Start Last Admin Trade Name Freq PRN Reason Stop Dose Admin Acetaminophen 1,000 mg 09/24/22 18:00 09/26/22 06:31 Acetaminophen 500 Mg Tablet PO 1,000 mg Q6HR ANASTASIIA Administration Citalopram Hydrobromide 40 mg 09/22/22 12:00 09/26/22 09:15 Citalopram Hydrobromide 20 Mg Tablet PO 40 mg DAILY ANASTASIIA Administration Enoxaparin Sodium 40 mg 09/21/22 09:00 09/26/22 09:15 Enoxaparin 40 Mg/0.4 Ml Syringe SUBQ 40 mg DAILY ANASTASIIA Administration Hydromorphone HCl 0.5 mg 09/21/22 13:40 09/26/22 07:09 Hydromorphone 0.5 Mg/0.5 Ml Syringe IVP 0.5 mg Q30M PRN Administration Severe Pain (Level 7-10) Morphine Sulfate 30 mg 09/22/22 11:00 09/26/22 09:14 Morphine Er 15 Mg Tablet PO 30 mg BID ANASTASIIA Administration Multivitamins/Minerals 1 tab 09/22/22 12:00 09/26/22 09:15 Multivitamin W/Minerals Tablet PO 1 tab DAILYWM ANASTASIIA Administration Ondansetron HCl 4 mg 09/20/22 10:57 09/26/22 07:15 Ondansetron 4 Mg/2 Ml Vial IVP 4 mg Q6H PRN Administration Nausea / Vomiting Oxycodone HCl 5 mg 09/25/22 11:33 09/26/22 04:38 Oxycodone 5 Mg Tablet PO 5 mg Q4HR PRN Administration Moderate Pain (Level 4-6) Pantoprazole Sodium 40 mg 09/25/22 09:00 09/26/22 09:15 Pantoprazole 40 Mg Tablet PO 40 mg BID ANASTASIIA Administration Prochlorperazine Edisylate 10 mg 09/20/22 10:57 09/25/22 16:26 Prochlorperazine 10 Mg/2 Ml Vial IVP 10 mg Q4HR PRN Administration Nausea / Vomiting Sodium Chloride 10 ml 09/20/22 17:00 09/26/22 09:16 Sodium Chloride Flush 0.9% 10 Ml Syringe IVP Not Given 0100,0900,1700 [facility] Sodium Chloride 10 ml 09/20/22 10:57 09/26/22 07:10 Sodium Chloride Flush 0.9% 10 Ml Syringe IVP 10 ml PRN PRN Administration NEEDED PER PROVIDER ORDERS Tamsulosin HCl 0.4 mg 09/24/22 18:00 09/26/22 09:15 Tamsulosin 0.4 Mg Capsule PO 0.4 mg DAILY ANASTASIIA Administration - Physical Exam Wound/Incisions: positive: Dressing dry and intact General Appearance: positive: No acute distress Eyes Bilateral: positive: No lid inflammation, Conjunctivae nml, No scleral icterus Neck: positive: Trachea midline Respiratory: positive: Chest non-tender, No respiratory distress, Breath sounds nml Cardiovascular: positive: Regular rate & rhythm Abdomen: positive: Nml bowel sounds, No distention, Tenderness (Incisional and general.) Neurologic/Psychiatric: positive: Oriented x3, Motor nml, Sensation nml, Depressed mood/affect ABX Reporting Has patient been on IV antibiotics over the past 48 hours?: No Impression/Plan - Problem List Problem List: D6 s/p palliative diverting loop colostomy Care conference today with Sahra John (thank you Sahra) should result in SNF placement with Hospice involvement when indicated or desired. At care conference his three sisters, palliative care student and nursing were also present. Questions were encouraged and answered. Decrease IVF to 50 mL/hour. Add Mirtazipime to try and improve appetite.
--- NOTE | 2022-09-26 16:57 | CONSULTATION NOTE ---
Palliative Care Follow Up - Referral Referring Provider: Dr. Mancia Time of Visit: Referral setting: Hospitalized patient Referral Reason: Goals of Care - Information Sources Records reviewed: RN notes reviewed, Previous records reviewed History/Review of Systems obtained from: Patient, Family, Nursing Exam limitations: No limitations - History of Present Illness Update Brief HPI Update: Please see 09/22 HPI.This is a 61-year-old gentleman who is currently inpatient secondary to admission for bowel obstruction, did receive a Diverting transverse loop colostomy, complicated by still has its kari, making adherence and management of ostomy more complicated. Patient has been discouraged in the context that has been leaking, and has needed multiple changes. Ostomy is productive of liquid stool, is only eating small amounts of food, denies it has to do with nausea, but is anorexic. He likes his "Pepsi". Is taking sips of fluid, does complain of dry mouth, no signs or symptoms of oral candidiasis t dung at high risk. Patient is currently on time-released morphine 30 mg twice daily this is his baseline from previous dosing, and is transitioning to oxycodone 5 mg for breakthrough, and IV hydromorphone for severe pain. Patient still remains quite uncomfortable, most of it is low back pain as far as chronic pain management, but is still having some acute abdominal pain but much less than previous prior to surgery. Patient is quite weak, needing assistance for bed mobility, is starting to look at ways to be more active, have encouraged him to be up by the side of the bed. There does seem to be some concern regarding patient not understanding his current diagnosis and prognosis, a family meeting has been put together for further definition, with Dr. Graves/surgery, palliative care, and 3 sisters.. Social History - Living Situation Living arrangement: At home Living Situation: Alone Support System: Has 3 sisters, all 3 are here to provide support. Two are from [place], and 1 from [place]. His mother is still alive as well, he was 55 years in [place], and moved to [facility] for custodial. Has friends but no caregivers. His mother is coming tomorrow. All are quite clear cannot take on caregiving role, awaiting for patient placement vs demise to make final plans Medications/Allergies - Medications Active Medication List: Active Medications Acetaminophen (Acetaminophen 500 Mg Tablet) 1,000 mg PO Q6HR [facility] Last Admin: 09/26/22 06:31 Dose: 1,000 mg Citalopram Hydrobromide (Citalopram Hydrobromide 20 Mg Tablet) 40 mg PO DAILY [facility] Last Admin: 09/26/22 09:15 Dose: 40 mg Enoxaparin Sodium (Enoxaparin 40 Mg/0.4 Ml Syringe) 40 mg SUBQ DAILY [facility] Last Admin: 09/26/22 09:15 Dose: 40 mg Hydromorphone HCl (Hydromorphone 0.5 Mg/0.5 Ml Syringe) 0.5 mg IVP Q30M PRN PRN Reason: Severe Pain (Level 7-10) Last Admin: 09/26/22 07:09 Dose: 0.5 mg Potassium Chloride/Dextrose/Sod Cl (D5ns W/20 Meq Kcl) 1,000 mls @ 50 mls/hr IV .Q20H [facility] Mirtazapine (Mirtazapine 15 Mg Tablet) 7.5 mg PO QPM [facility] Morphine Sulfate (Morphine Er 15 Mg Tablet) 30 mg PO BID [facility] Last Admin: 09/26/22 09:14 Dose: 30 mg Multivitamins/Minerals (Multivitamin W/Minerals Tablet) 1 tab PO DAILYWM [facility] Last Admin: 09/26/22 09:15 Dose: 1 tab Ondansetron HCl (Ondansetron 4 Mg/2 Ml Vial) 4 mg IVP Q6H PRN PRN Reason: Nausea / Vomiting Last Admin: 09/26/22 07:15 Dose: 4 mg Oxycodone HCl (Oxycodone 5 Mg Tablet) 5 mg PO Q4HR PRN PRN Reason: Moderate Pain (Level 4-6) Last Admin: 09/26/22 04:38 Dose: 5 mg Pantoprazole Sodium (Pantoprazole 40 Mg Tablet) 40 mg PO BID [facility] Last Admin: 09/26/22 09:15 Dose: 40 mg Prochlorperazine Edisylate (Prochlorperazine 10 Mg/2 Ml Vial) 10 mg IVP Q4HR PRN PRN Reason: Nausea / Vomiting Last Admin: 09/25/22 16:26 Dose: 10 mg Sodium Chloride (Sodium Chloride Flush 0.9% 10 Ml Syringe) 10 ml IVP 0100,0900,1700 [facility] Last Admin: 09/26/22 09:16 Dose: Not Given Sodium Chloride (Sodium Chloride Flush 0.9% 10 Ml Syringe) 10 ml IVP PRN PRN PRN Reason: NEEDED PER PROVIDER ORDERS Last Admin: 09/26/22 07:10 Dose: 10 ml Tamsulosin HCl (Tamsulosin 0.4 Mg Capsule) 0.4 mg PO DAILY [facility] Last Admin: 09/26/22 09:15 Dose: 0.4 mg Citalopram Hydrobromide [Celexa] 40 mg PO DAILY 02/26/18 Morphine Sulfate ER [Ms Contin] 1 tab PO DAILY PRN 09/21/22 dexAMETHasone [Decadron] 1 tab PO BID 09/21/22 oxyCODONE [Roxicodone] 1 tab PO BID PRN 09/21/22 - Allergies Allergies/Adverse Reactions: Allergies Allergy/AdvReac Type Severity Reaction Status Date / Time No Known Drug Allergies Allergy Verified 09/18/22 14:58 Review of Systems - Constitutional Constitutional: reports: Fatigue, Poor appetite (has been eating poorly for several months), Weight loss - Ears, Nose & Throat Ears, Nose & Throat: reports: Dry mouth - Cardiovascular Cardiovascular: reports: Edema - Gastrointestinal Gastrointestinal: reports: Abdominal pain (improved), Poor appetite (patient with poor appetite, eating bites; has not been eating well for over a year), Early satiety, Other (new colostomy) - Genitourinary Genitourinary: reports: Incontinence, Sexual dysfunction - Musculoskeletal Musculoskeletal: reports: Back pain, Muscle weakness - Integumentary Integumentary: reports: Hair changes (alopecia) - Neurological Neurological: reports: General weakness, Numbness (mild peripheral neuropathy from treatment) - Psychiatric Psychiatric: reports: Depression (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 denies: Suicidal - Endocrine Endocrine: reports: Intolerance to cold - Hematologic/Lymphatic Hematologic/Lymph: reports: Anemia Physical Exam - Vital Signs Vital Signs: Vital Signs x48h Temp Pulse Resp BP Pulse Ox 09/26/22 07:30 36.4 C L 109 H 14 132/74 H 95 - Physical Exam General Appearance: positive: Mild distress, Anxious, Cachetic Eyes Bilateral: positive: Normal inspection ENT: positive: Dry mucous membranes Neck: positive: Trachea midline Cardiovascular: positive: Regular rate & rhythm Respiratory: positive: No respiratory distress Abdomen: positive: Guarding. negative: Distended Skin: positive: Pallor, Dryness Extremities: positive: Pedal edema Neurologic/Psychiatric: positive: Oriented x3, Flat affect, Other (withdrawn) Palliative Care - POLST Patient has POLST: Yes POLST Status: DNR, Selective Treatment - Palliative Care Discussion: Family conference: [facility] [employer], Dr. Graves / surgeon/ three sisters, patient. Follow-up with patient's understanding of his current situation, has not changed, does un derstand the seriousness of his illness, is still in agreement to go to a SNF, discussion further developed regarding hospice transition. Given patient's current goals, who be able to manage colostomy, evaluate ability to be independent, and transition to home if possible will move forward on this in the context of needing more caregiving support and complex colostomy care. Patient is not adverse to transition to hospice if he does decline, though what this might look like in his current setting will need to be explored based on his performance status and available support. Sisters that are very supportive, are quite clear are not able to be primary caregivers, but can help arrange for ca re transitions and provide oversight. They have started the Medicaid application progress is unknown at this time, the other option if patient were to have ongoing decline [place], could look at [facility] as an option of transition. Patient is quite fatigued, and nahomi beard slightly irritated/agitated by ongoing conversation regarding this. Would like to defer to the sisters for final decision making, is feeling overwhelmed.Sisters are awaiting final disposition of where patient is to transfer, has been many options reviewed including swing bed, local SNF, as well as looking at further steps in alignment with his insurance. His mother is coming in town tomorrow, he does not know this yet, but all are feeling somewhat anxious regarding patient's prognosis.Patient is at high risk for complications and sequela related to his progressive disease process, as well as difficulty managing his ostomy. Patient has been on a decline with weight loss, declining functional status, and increasing care needs over the last several weeks prior to this acute hospitalization. Patient did complete POLST with DNAR/DNI and selective treatments on Monday when we met, will continue to explore with patient and process his current situation. Results - Lab Results Lab results reviewed: Yes Jeancarlos Bones: 09/21/22 05:18 09/21/22 05:18 Impression and Recommendations - Palliative Care Impression: This is a 61-year-old gentleman with metastatic pancreatic cancer, Presented with small and large bowel obstruction, resulting in diverting left lower quadrant loop colostomy. Patient with heavy tumor burden, high symptom burden and notable decline over the last several weeks to months. Further family meeting to solidify goals of care. Palliative care providing support for symptom management and anticipatory guidance. Recommendations/Counseling Done: 1. Pain of neoplastic origin. This is multifactorial, patient has acute on chronic pain related to surgery, chronic back pain and abdominal pain from pancreatic cancer and chronic pain syndrome. Patient has long-term been on MS Contin 30 mg twice daily, has been using 10 to 15 mg previously for breakthrough pain may want to increase breakthrough pain dosing to at least 2 tabs. Patient does feel he is like working on it as far as pain management, continue to monitor. 2. Anorexia. This is multifactorial, would recommend given his history of depression as well as his lack of appetite would trial mirtazapine 7.5 mg start with half tab at night for 3 nights, then to full tab if tolerates without side effects. Patient is able to take oral meds at this time. 3. Advance care planning. Family meeting with surgeon, sisters, and myself in the context of revisiting the continuum of care. Patient does need caregiving a nd further support for colostomy management, awaiting to see patient's status to improve or worsen, patient feels he is doing better, but remains quite weak and functionally mostly bedbound. Would recommend moving forward with plan of SNF, enlisting rehab support to meet goals, at any point if patient were to decline or have sequela related to his cancer or complications, can revisit whether we l ook at comfort measures/hospice transition. We did discuss patient will transition to hospice for EOL support, but right now interested in regaining some independence and see how he does, awaiting placement options/plan. 75 minutes with greater than 50% of this done in family conference and drug abuse counselor ing regarding goals of care, symptom management, continuum of care and anticipatory guidance.
[2022-09-26] MEDS: MIRTAZAPINE 15 MG TABLET PO SCH (20:55)
[2022-09-27] MEDS: ACETAMINOPHEN 500 MG TABLET PO SCH ×5 (00:25→23:53)
--- NOTE | 2022-09-27 07:27 | PROVIDER PROGRESS NOTE ---
Subjective - General Admit Date: 09/19/22 Procedure Date: 09/20/22 Post Op Days: 7 Procedure Performed: diverting transverse loop colostomy - Review of Systems Wound/Incisions: positive: Dressing dry and intact Drain Output Description: Ostomy productive of liquid stool. General: positive: No symptoms HEENT: positive: No symptoms Pulmonary: positive: No symptoms Cardiovascular: positive: No symptoms Gastrointestinal: positive: Nausea, Abdominal pain (stable, incisional, appropriate) Genitourinary: positive: Incontinence Musculoskeletal: positive: No symptoms Skin: positive: No symptoms Psychiatric: positive: No symptoms, Other (Does not remember the complete conversation from yesterday.) - Other Other Information/Narrative: Pain controlled with PO and IV meds. Tolerating some food for breakfast this AM, states he has more of an appetite this morning than he has for the last several days. No f/c. Ostomy still a concern and requiring frequent dressing changes. No acute events overnight. Objective - Patient Data Reviewed Vital Signs: Yes Vital Signs: Vital Signs x48h Temp Pulse Resp BP Pulse Ox 09/27/22 00:29 36.6 C 120 H 20 135/76 H 95 Intake & Output: Intake and Output Totals x24h 09/25/22 09/26/22 09/27/22 23:59 23:59 23:59 Intake Total 3020 1320 150 Output Total 250 300 250 Balance 2770 1020 -100 - Lab Results Lab Results: 09/21/22 05:18 09/21/22 05:18 - Current Medications Current Medications: Current Medications Generic Name Dose Route Start Last Admin Trade Name Freq PRN Reason Stop Dose Admin Acetaminophen 1,000 mg 09/24/22 18:00 09/27/22 06:40 Acetaminophen 500 Mg Tablet PO 1,000 mg Q6HR ANASTASIIA Administration Citalopram Hydrobromide 40 mg 09/22/22 12:00 09/26/22 09:15 Citalopram Hydrobromide 20 Mg Tablet PO 40 mg DAILY ANASTASIIA Administration Enoxaparin Sodium 40 mg 09/21/22 09:00 09/26/22 09:15 Enoxaparin 40 Mg/0.4 Ml Syringe SUBQ 40 mg DAILY ANASTASIIA Administration Potassium Chloride/Dextrose/Sod Cl 1,000 mls @ 50 mls/hr 09/26/22 12:45 09/26/22 13:43 D5ns W/20 Meq Kcl IV 50 mls/hr .Q20H ANASTASIIA Administration Mirtazapine 7.5 mg 09/26/22 21:00 09/26/22 20:55 Mirtazapine 15 Mg Tablet PO 7.5 mg QPM ANASTASIIA Administration Morphine Sulfate 30 mg 09/22/22 11:00 09/26/22 20:56 Morphine Er 15 Mg Tablet PO 30 mg BID ANASTASIIA Administration Multivitamins/Minerals 1 tab 09/22/22 12:00 09/26/22 09:15 Multivitamin W/Minerals Tablet PO 1 tab DAILYWM ANASTASIIA Administration Ondansetron HCl 4 mg 09/20/22 10:57 09/26/22 07:15 Ondansetron 4 Mg/2 Ml Vial IVP 4 mg Q6H PRN Administration Nausea / Vomiting Oxycodone HCl 5 mg 09/25/22 11:33 09/26/22 13:43 Oxycodone 5 Mg Tablet PO 5 mg Q4HR PRN Administration Moderate Pain (Level 4-6) Pantoprazole Sodium 40 mg 09/25/22 09:00 09/26/22 20:58 Pantoprazole 40 Mg Tablet PO 40 mg BID ANASTASIIA Administration Prochlorperazine Edisylate 10 mg 09/20/22 10:57 09/25/22 16:26 Prochlorperazine 10 Mg/2 Ml Vial IVP 10 mg Q4HR PRN Administration Nausea / Vomiting Sodium Chloride 10 ml 09/20/22 17:00 09/26/22 23:58 Sodium Chloride Flush 0.9% 10 Ml Syringe IVP Not Given 0100,0900,1700 [facility] Sodium Chloride 10 ml 09/20/22 10:57 09/26/22 07:10 Sodium Chloride Flush 0.9% 10 Ml Syringe IVP 10 ml PRN PRN Administration NEEDED PER PROVIDER ORDERS Tamsulosin HCl 0.4 mg 09/24/22 18:00 09/26/22 09:15 Tamsulosin 0.4 Mg Capsule PO 0.4 mg DAILY ANASTASIIA Administration - Physical Exam Wound/Incisions: positive: Other (dressing in place with serous drainage. Ostomy retracted but pink and productive. Ostomy bar remains in place.) General Appearance: positive: No acute distress, Alert ENT: positive: No signs of dehydration Neck: positive: Trachea midline Cardiovascular: positive: Tachycardia (mild, not on exam) Abdomen: positive: No distention, Tenderness (incisional, appropriate) Extremities: positive: Nml appearance Neurologic/Psychiatric: positive: Oriented x3, CN's nml (2-12) Impression/Plan - Problem List Problem List: This is a 61 y/o M with: 1. large bowel obstruction - s/p ex lap with transverse loop colostomy, POD#7 - Ostomy productive of loose stool, tolerating regular diet in small amounts - added additional PO oxycodone options added to pain regimen today to try to minimize need for PO meds (on chronic MS contin at baseline). Using IV meds less - Ostomy teaching ongoing. Plan to revise ostomy bar today to make ostomy appliance placement easier 2. metastatic pancreatic cancer with carcinomatosis - causing #1. - Sahra Valentine of palliative care following. Appreciate her recommendations and support for the patient and team. - Patient considering hospice per palliative care notes 3. urinary retention - Home tamsulosin restarted - Patient has remote history of prostate ca, also s/p TURP - prn straight cath only if feeling increased suprapubic pressure. 4. nausea/anorexia - prn zofran and compazine. Patient feels compazine is working better. -mirtazipine 7.5mg added for anorexia yesterday evening, plan to increase to 15mg on 09/29 DVT Ppx: SCD's, lovenox GI Ppx: on PPI Plan for SNU placement at this time, though this is an ongoing conversation. Patient is a DNR. Continue care on floor at this time.
[2022-09-27] MEDS: CITALOPRAM HYDROBROMIDE 20 MG TABLET PO SCH (08:20)
[2022-09-27] MEDS: PANTOPRAZOLE 40 MG TABLET PO SCH ×2 (08:20→20:55)
[2022-09-27] MEDS: MULTIVITAMIN W/MINERALS TABLET PO SCH (08:20)
[2022-09-27] MEDS: MORPHINE ER 15 MG TABLET PO SCH ×2 (08:20→20:55)
[2022-09-27] MEDS: TAMSULOSIN 0.4 MG CAPSULE PO SCH (08:20)
[2022-09-27] MEDS: ENOXAPARIN 40 MG/0.4 ML SYRINGE SUBQ SCH (08:20)
[2022-09-27] MEDS: oxyCODONE 5 MG TABLET PO PRN ×4 (08:21→19:42)
[2022-09-27] MEDS: HYDROmorphone 0.5 MG/0.5 ML SYRINGE IVP PRN (11:04)
[2022-09-27] MEDS: SODIUM CHLORIDE FLUSH 0.9% 10 ML SYRINGE IVP SCH ×2 (11:05→17:35)
[2022-09-27] MEDS: D5NS W/20 MEQ KCL 1,000 ML IV SCH (14:57)
[2022-09-27] MEDS: SODIUM CHLORIDE FLUSH 0.9% 10 ML SYRINGE IVP PRN (14:57)
[2022-09-27 16:42] LABS: BASOPHILS % (AUTO) 0.4 %; EOSINOPHILS % (AUTO) 0.1 %; HCT - HEMATOCRIT 29.5 % (42.0-52.0); HGB - HEMOGLOBIN 10.3 g/dL (14.0-18.0); LYMPHOCYTES % (AUTO) 3.1 %; MEAN CORPUSCULAR HEMOGLOBIN 33.4 pg (27.0-31.0); MEAN CORPUSCULAR HGB CONC 34.9 g/dL (32.0-36.0); MEAN CORPUSCULAR VOLUME 95.8 fL (80.0-94.0); MEAN PLATELET VOLUME 10.1 fL (7.4-11.4); PLT - PLATELET COUNT 413 10^3/uL (130-450); RED BLOOD COUNT 3.08 10^6/uL (4.70-6.10); RED CELL DISTRIBUTION WIDTH 17.7 % (12.0-15.0); WHITE BLOOD COUNT 26.8 x10^3/uL (4.8-10.8)
[2022-09-27 16:45] LABS: ABNORMAL LYMPHS % (MANUAL) 0 %; BAND NEUTROPHILS % (MANUAL) 0 %
[2022-09-27 16:48] LABS: CALCIUM 7.9 mg/dL (8.5-10.3); CREATININE 0.8 mg/dL (0.6-1.2); POTASSIUM 4.5 mmol/L (3.5-5.0)
[2022-09-27 17:02] LABS: LYMPHOCYTES # (MANUAL) 0.5 10^3/uL (1.5-3.5); LYMPHOCYTES % (MANUAL) 2 %; MONOCYTES # (MANUAL) 1.9 10^3/uL (0.0-1.0); NEUTROPHILS # (MANUAL) 24.4 10^3/uL (1.5-6.6); PLATELET ESTIMATE, MANUAL NORMAL (130-450,000) (NORMAL); PLATELET MORPHOLOGY NORMAL APPEARANCE (NORMAL); RBC MORPHOLOGY (MULTIPLE) 2+ ANISOCYTOSIS (NORMAL)
[2022-09-27 17:03] LABS: DIFFERENTIAL COMMENT MANUAL DIFFERENTIAL
[2022-09-27] MEDS ORDERED: SODIUM CHLORIDE 0.9% 1,000 ML IV ONE (17:15)
[2022-09-27] MEDS ORDERED: iohexoL-300 100 ML VIAL ONE (17:29)
[2022-09-27] MEDS: PIPERACILLIN/TAZOBACTAM 3.375 GM in SODIUM CHLORIDE 0.9% MINIBAG 100 ML IV SCH ×2 (17:43→23:48)
[2022-09-27] MEDS ORDERED: iohexoL-300 100 ML VIAL IVP ONE (19:00)
[2022-09-27] MEDS: SODIUM CHLORIDE 0.9% 1,000 ML IV SCH (19:43)
[2022-09-27] MEDS: MIRTAZAPINE 15 MG TABLET PO SCH (20:55)
[2022-09-27 21:24] LABS: GLUCOSE, URINE (UA) NEGATIVE (NEGATIVE); KETONES,URINE (UA) NEGATIVE (NEGATIVE); LEUKOCYTE ESTERASE, URINE SMALL (NEGATIVE); NITRITE,URINE POSITIVE (NEGATIVE); OCCULT BLOOD,URINE SMALL (NEGATIVE); PROTEIN,URINE 30 mg/dL (NEGATIVE); UROBILINOGEN,URINE 0.2 (NORMAL) E.U./dL (NORMAL)
--- NOTE | 2022-09-27 21:28 | CT Report ---
PROCEDURE: ABDOMEN/PELVIS W INDICATIONS: leukocytosis CONTRAST: 100ml omni 300 TECHNIQUE: After the administration of intravenous contrast, 5 mm thick sections acquired from the diaphragms to the symphysis. 5 mm thick coronal and sagittal reformats were acquired. For radiation dose reducti on, the following was used: automated exposure control, adjustment of mA and/or kV according to adams ent size. COMPARISON: CT abdomen/pelvis 09/19/2022 FINDINGS: Image quality: Excellent. Lung bases and heart: Small bilateral pleural effusions with atelectasis of the lung bases. Gynecomas tia. Liver: No solid mass. Mildly nodular liver surface is suspicious for cirrhosis. Gallbladder and biliary tree: Distended gallbladder is seen measuring up to 6.2 cm in short axis diam eter. No focal gallstone is seen. No intrahepatic or extrahepatic biliary duct dilatation. 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 Pancreas: Status post partial pancreatectomy. Residual pancreas is unremarkable. Adrenals: No adrenal nodule. Kidneys and ureters: Mild bilateral hydroureteronephrosis to the pelvis. No obstructing calculus is s een. Bowel and peritoneum: Postsurgical changes are seen from interval loop colostomy in the left upper q uadrant. Focal residual stool is seen in the splenic flexure, although the colon otherwise appears to be decompressed. Bowel thickening is seen in the ascending and transverse colon. A left upper quadra nt likely jejunal stent is again seen in stable position. A few small foci of gas are seen in the non dependent portion of the abdomen adjacent to the abdominal wall incision, likely postsurgical. Modera te volume of ascites is seen throughout the abdomen and pelvis. Some of the fluid appears to have pos sible enhancing margins (such as in the left upper quadrant on image 40 of series 4). Presacral edema is present. Lymph nodes: No central or retroperitoneal adenopathy. Vessels: No infrarenal aortic aneurysm. Small paraesophageal varices. PELVIS Reproductive organs: Unremarkable. Bladder: Bladder is mildly distended and contains air in the nondependent portion. Pelvic lymph nodes: No pelvic adenopathy by size criteria. Bones: No aggressive osseous abnormality. Other: Diffuse soft tissue anasarca. Surgical wound is seen in the anterior abdominal wall with small amount of fluid in the adjacent subcutaneous tissues and foci of gas along the anterior abdominal wa ll. IMPRESSION: 1.Postsurgical changes from left upper quadrant colostomy with significantly decreased volume of stoo l in the colon. Bowel thickening throughout the ascending and transverse colon is nonspecific but may indicate colitis. 2.Moderate volume of ascites throughout the abdomen and pelvis. Some of the fluid has suggestion of s ubtle thin peripheral enhancement, and infection is not excluded. 3.Focal postsurgical fluid and gas is seen in the subcutaneous tissues along the anterior abdominal w all incision. 4.Moderate diffuse soft tissue anasarca. Small bilateral pleural effusions with bibasilar atelectasis . 5.Distended gallbladder without gallstones, which is nonspecific but acalculus cholecystitis is not e xcluded. Reviewed by: Giovani Johnson MD on 09/27/2022 9:26 PM PDT Approved by: Giovani Johnson MD on 09/27/2022 9:26 PM PDT Station ID: [id number]
[2022-09-27 21:29] LABS: BILIRUBIN,URINE SMALL (NEGATIVE); CLARITY,URINE CLOUDY (CLEAR); ICTOTEST,URINE POSITIVE
[2022-09-27 21:37] LABS: RBC,URINE 0-5 /HPF (0-5); SQUAMOUS EPITHELIAL CELL,UR NONE SEEN (<= Few); WBC,URINE >25 /HPF (0-3)
[2022-09-27 21:38] LABS: BACTERIA,URINE Many /HPF (None Seen)
[2022-09-28] MEDS: SODIUM CHLORIDE FLUSH 0.9% 10 ML SYRINGE IVP SCH ×3 (02:51→20:56)
[2022-09-28 06:05] LABS: BASOPHILS % (AUTO) 0.2 %; EOSINOPHILS % (AUTO) 0.1 %; HCT - HEMATOCRIT 26.7 % (42.0-52.0); HGB - HEMOGLOBIN 9.7 g/dL (14.0-18.0); LYMPHOCYTES % (AUTO) 4.5 %; MEAN CORPUSCULAR HGB CONC 36.3 g/dL (32.0-36.0); MEAN CORPUSCULAR VOLUME 93.7 fL (80.0-94.0); MEAN PLATELET VOLUME 10.5 fL (7.4-11.4); MONOCYTES % (AUTO) 6.1 %; NEUTROPHILS % (AUTO) 87.3 %; PLT - PLATELET COUNT 396 10^3/uL (130-450); RED BLOOD COUNT 2.85 10^6/uL (4.70-6.10); RED CELL DISTRIBUTION WIDTH 17.6 % (12.0-15.0); WHITE BLOOD COUNT 25.8 x10^3/uL (4.8-10.8)
[2022-09-28 06:09] LABS: ABNORMAL LYMPHS % (MANUAL) 0 %; BAND NEUTROPHILS % (MANUAL) 0 %
[2022-09-28 06:19] LABS: LYMPHOCYTES # (MANUAL) 1.8 10^3/uL (1.5-3.5); LYMPHOCYTES % (MANUAL) 7 %; MONOCYTES # (MANUAL) 1.3 10^3/uL (0.0-1.0); NEUTROPHILS # (MANUAL) 22.7 10^3/uL (1.5-6.6); RBC MORPHOLOGY (MULTIPLE) 1+ ANISOCYTOSIS (NORMAL)
[2022-09-28 06:20] LABS: DIFFERENTIAL COMMENT MANUAL DIFFERENTIAL; PLATELET ESTIMATE, MANUAL NORMAL (130-450,000) (NORMAL); PLATELET MORPHOLOGY NORMAL APPEARANCE (NORMAL); WBC MORPHOLOGY (MULTIPLE) NORMAL APPEARANCE (NORMAL)
[2022-09-28] MEDS: PIPERACILLIN/TAZOBACTAM 3.375 GM in SODIUM CHLORIDE 0.9% MINIBAG 100 ML IV SCH ×3 (06:48→20:57)
[2022-09-28] MEDS: ACETAMINOPHEN 500 MG TABLET PO SCH ×3 (06:53→20:56)
[2022-09-28] MEDS: HYDROmorphone 0.5 MG/0.5 ML SYRINGE IVP PRN ×2 (07:47→11:39)
[2022-09-28] MEDS: oxyCODONE 5 MG TABLET PO PRN ×2 (07:47→12:30)
[2022-09-28] MEDS: MORPHINE ER 15 MG TABLET PO SCH ×2 (08:21→20:57)
[2022-09-28] MEDS: PANTOPRAZOLE 40 MG TABLET PO SCH ×2 (08:22→20:57)
[2022-09-28] MEDS: ENOXAPARIN 40 MG/0.4 ML SYRINGE SUBQ SCH (08:22)
[2022-09-28] MEDS: MULTIVITAMIN W/MINERALS TABLET PO SCH (08:22)
[2022-09-28] MEDS: TAMSULOSIN 0.4 MG CAPSULE PO SCH (08:22)
[2022-09-28] MEDS: CITALOPRAM HYDROBROMIDE 20 MG TABLET PO SCH (08:22)
[2022-09-28] MEDS: PROCHLORPERAZINE 10 MG/2 ML VIAL IVP PRN (08:31)
[2022-09-28] MEDS: SODIUM CHLORIDE FLUSH 0.9% 10 ML SYRINGE IVP PRN (08:32)
[2022-09-28 08:46] LABS: CALCIUM 7.7 mg/dL (8.5-10.3); CREATININE 0.7 mg/dL (0.6-1.2); POTASSIUM 4.2 mmol/L (3.5-5.0)
--- NOTE | 2022-09-28 10:16 | PROVIDER PROGRESS NOTE ---
Subjective - General Admit Date: 09/19/22 Procedure Date: 09/20/22 Post Op Days: 8 Procedure Performed: diverting transverse loop colostomy - Review of Systems Wound/Incisions: positive: Other (dressing in place with serous drainage. Ostomy retracted but pink and productive. Ostomy bar remains in place.) Drain Output Description: Ostomy productive of liquid stool. - Other Other Information/Narrative: Patient complaining of chest discomfort in the left chest radiating to the right and worse with activity this AM. Tolerated a small amount of breakfast. Also complaining of stable abdomen and back pain. Minimal change with medications. Objective - Patient Data Reviewed Vital Signs: Yes Vital Signs: Vital Signs x48h Temp Pulse Resp BP Pulse Ox 09/28/22 09:21 36.3 C L 107 H 16 138/71 H 98 Intake & Output: Intake and Output Totals x24h 09/26/22 09/27/22 09/28/22 23:59 23:59 23:59 Intake Total 1320 2981.667 950 Output Total 300 650 Balance 1020 2331.667 950 - Lab Results Lab Results: 09/28/22 05:55 09/28/22 05:17 Other Lab Results: Lab Results x24hrs 09/28/22 09/28/22 09/28/22 Range/Units 09:42 05:55 05:17 WBC 25.8 H (4.8-10.8) x10^3/uL RBC 2.85 L (4.70-6.10) 10^6/uL Hgb 9.7 L (14.0-18.0) g/dL Hct 26.7 L (42.0-52.0) % MCV 93.7 (80.0-94.0) fL MCH 34.0 H (27.0-31.0) pg MCHC 36.3 H (32.0-36.0) g/dL RDW 17.6 H (12.0-15.0) % Plt Count 396 (130-450) 10^3/uL MPV 10.5 (7.4-11.4) fL Neut # (Auto) Not Reportable Lymph # (Auto) Not Reportable [place] # (Auto) Not Reportable Eos # (Auto) Not Reportable Baso # (Auto) Not Reportable Absolute Nucleated RBC Not Reportable Total Counted 100 Band Neuts % (Manual) 0 (0 - 10) % Abnorm Lymph % (Manual) 0 % Nucleated RBC % Not Reportable Neutrophils # (Manual) 22.7 H (1.5-6.6) 10^3/uL Lymphocytes # (Manual) 1.8 (1.5-3.5) 10^3/uL Monocytes # (Manual) 1.3 H (0.0-1.0) 10^3/uL Eosinophils # (Manual) 0.0 (0-0.7) 10^3/uL Basophils # (Manual) 0.0 (0-0.1) 10^3/uL Differential Comment MANUAL DIFFERENTIAL WBC Morphology NORMAL APPEARANCE (NORMAL) Platelet Estimate NORMAL (130-450,000) (NORMAL) Platelet Morphology NORMAL APPEARANCE (NORMAL) RBC Morph Micro Appear 1+ ANISOCYTOSIS (NORMAL) Sodium 139 (135-145) mmol/L Potassium 4.2 (3.5-5.0) mmol/L Chloride 111 (101-111) mmol/L Carbon Dioxide 23 (21-32) mmol/L Anion Gap 5.0 L (6-13) BUN 25 H (6-20) mg/dL Creatinine 0.7 (0.6-1.2) mg/dL Estimated GFR (MDRD) 115 (>89) Glucose 112 H (70-100) mg/dL Lactic Acid (0.5-2.2) mmol/L Calcium 7.7 L (8.5-10.3) mg/dL Troponin I High Sens 29.0 H* (2.3-19.7) ng/L Urine Color Urine Clarity (CLEAR) Urine pH (5.0-7.5) PH Ur Specific [place] (1.002-1.030) Urine Protein (NEGATIVE) mg/dL Urine Glucose (UA) (NEGATIVE) mg/dL Urine Ketones (NEGATIVE) mg/dL Urine Occult Blood (NEGATIVE) Urine Nitrite (NEGATIVE) Urine Bilirubin (NEGATIVE) Urine Urobilinogen (NORMAL) E.U./dL Ur Leukocyte Esterase (NEGATIVE) Urine RBC (0-5) /HPF Urine WBC (0-3) /HPF Ur Squamous Epith Cells (<= Few) Urine Bacteria (None Seen) /HPF Urine Culture Comments Stl C. diff Tox B Gene (NEGATIVE) 09/28/22 09/27/22 09/27/22 Range/Units 05:17 21:00 21:00 WBC (4.8-10.8) x10^3/uL RBC (4.70-6.10) 10^6/uL Hgb (14.0-18.0) g/dL Hct (42.0-52.0) % MCV (80.0-94.0) fL MCH (27.0-31.0) pg MCHC (32.0-36.0) g/dL RDW (12.0-15.0) % Plt Count (130-450) 10^3/uL MPV (7.4-11.4) fL Neut # (Auto) Lymph # (Auto) [place] # (Auto) Eos # (Auto) Baso # (Auto) Absolute Nucleated RBC Total Counted Band Neuts % (Manual) (0 - 10) % Abnorm Lymph % (Manual) % Nucleated RBC % Neutrophils # (Manual) (1.5-6.6) 10^3/uL Lymphocytes # (Manual) (1.5-3.5) 10^3/uL Monocytes # (Manual) (0.0-1.0) 10^3/uL Eosinophils # (Manual) (0-0.7) 10^3/uL Basophils # (Manual) (0-0.1) 10^3/uL Differential Comment WBC Morphology (NORMAL) Platelet Estimate (NORMAL) Platelet Morphology (NORMAL) RBC Morph Micro Appear (NORMAL) Sodium (135-145) mmol/L Potassium (3.5-5.0) mmol/L Chloride (101-111) mmol/L Carbon Dioxide (21-32) mmol/L Anion Gap (6-13) BUN (6-20) mg/dL Creatinine (0.6-1.2) mg/dL Estimated GFR (MDRD) (>89) Glucose (70-100) mg/dL Lactic Acid (0.5-2.2) mmol/L Calcium (8.5-10.3) mg/dL Troponin I High Sens 30.9 H* (2.3-19.7) ng/L Urine Color DARK YELLOW Urine Clarity CLOUDY (CLEAR) Urine pH 5.0 (5.0-7.5) PH Ur Specific [place] 1.025 (1.002-1.030) Urine Protein 30 H (NEGATIVE) mg/dL Urine Glucose (UA) NEGATIVE (NEGATIVE) mg/dL Urine Ketones NEGATIVE (NEGATIVE) mg/dL Urine Occult Blood SMALL H (NEGATIVE) Urine Nitrite POSITIVE H (NEGATIVE) Urine Bilirubin SMALL H (NEGATIVE) Urine Urobilinogen 0.2 (NORMAL) (NORMAL) E.U./dL Ur Leukocyte Esterase SMALL H (NEGATIVE) Urine RBC 0-5 (0-5) /HPF Urine WBC >25 H (0-3) /HPF Ur Squamous Epith Cells NONE SEEN (<= Few) Urine Bacteria Many H (None Seen) /HPF Urine Culture Comments INDICATED Stl C. diff Tox B Gene NEGATIVE (NEGATIVE) 09/27/22 09/27/22 09/27/22 Range/Units 17:22 16:32 16:32 WBC 26.8 H (4.8-10.8) x10^3/uL RBC 3.08 L (4.70-6.10) 10^6/uL Hgb 10.3 L (14.0-18.0) g/dL Hct 29.5 L (42.0-52.0) % MCV 95.8 H (80.0-94.0) fL MCH 33.4 H (27.0-31.0) pg MCHC 34.9 (32.0-36.0) g/dL RDW 17.7 H (12.0-15.0) % Plt Count 413 (130-450) 10^3/uL MPV 10.1 (7.4-11.4) fL Neut # (Auto) Not Reportable Lymph # (Auto) Not Reportable [place] # (Auto) Not Reportable Eos # (Auto) Not Reportable Baso # (Auto) Not Reportable Absolute Nucleated RBC Not Reportable Total Counted 100 Band Neuts % (Manual) 0 (0 - 10) % Abnorm Lymph % (Manual) 0 % Nucleated RBC % Not Reportable Neutrophils # (Manual) 24.4 H (1.5-6.6) 10^3/uL Lymphocytes # (Manual) 0.5 L (1.5-3.5) 10^3/uL Monocytes # (Manual) 1.9 H (0.0-1.0) 10^3/uL Eosinophils # (Manual) 0.0 (0-0.7) 10^3/uL Basophils # (Manual) 0.0 (0-0.1) 10^3/uL Differential Comment MANUAL DIFFERENTIAL WBC Morphology (NORMAL) Platelet Estimate NORMAL (130-450,000) (NORMAL) Platelet Morphology NORMAL APPEARANCE (NORMAL) RBC Morph Micro Appear 2+ ANISOCYTOSIS (NORMAL) Sodium 138 (135-145) mmol/L Potassium 4.5 (3.5-5.0) mmol/L Chloride 109 (101-111) mmol/L Carbon Dioxide 23 (21-32) mmol/L Anion Gap 6.0 (6-13) BUN 25 H (6-20) mg/dL Creatinine 0.8 (0.6-1.2) mg/dL Estimated GFR (MDRD) 99 (>89) Glucose 180 H (70-100) mg/dL Lactic Acid 1.6 (0.5-2.2) mmol/L Calcium 7.9 L (8.5-10.3) mg/dL Troponin I High Sens (2.3-19.7) ng/L Urine Color Urine Clarity (CLEAR) Urine pH (5.0-7.5) PH Ur Specific [place] (1.002-1.030) Urine Protein (NEGATIVE) mg/dL Urine Glucose (UA) (NEGATIVE) mg/dL Urine Ketones (NEGATIVE) mg/dL Urine Occult Blood (NEGATIVE) Urine Nitrite (NEGATIVE) Urine Bilirubin (NEGATIVE) Urine Urobilinogen (NORMAL) E.U./dL Ur Leukocyte Esterase (NEGATIVE) Urine RBC (0-5) /HPF Urine WBC (0-3) /HPF Ur Squamous Epith Cells (<= Few) Urine Bacteria (None Seen) /HPF Urine Culture Comments Stl C. diff Tox B Gene (NEGATIVE) - Imaging Results Radiology Imaging: positive: Final report received, EMP read indepedently Imaging Results Comments: CXR appears to demonstrate some peripherial edema vs atalectasis on my interpretation, final read pending. CT demonstrates malignant ascites without significant rim enhancement. No obvious abscess. Very small amount of free air, consistent with previous surgery. I personally reviewed and interpreted the images from both of these studies. I also reviewed the CT report. - Current Medications Current Medications: Current Medications Generic Name Dose Route Start Last Admin Trade Name Freq PRN Reason Stop Dose Admin Acetaminophen 1,000 mg 09/24/22 18:00 09/28/22 06:53 Acetaminophen 500 Mg Tablet PO 1,000 mg Q6HR ANASTASIIA Administration Citalopram Hydrobromide 40 mg 09/22/22 12:00 09/28/22 08:22 Citalopram Hydrobromide 20 Mg Tablet PO 40 mg DAILY ANASTASIIA Administration Enoxaparin Sodium 40 mg 09/21/22 09:00 09/28/22 08:22 Enoxaparin 40 Mg/0.4 Ml Syringe SUBQ 40 mg DAILY ANASTASIIA Administration Hydromorphone HCl 0.5 mg 09/27/22 07:13 09/28/22 07:47 Hydromorphone 0.5 Mg/0.5 Ml Syringe IVP 0.5 mg Q30M PRN Administration Breakthrough Pain Piperacillin Sod/Tazobactam 100 mls @ 200 mls/hr 09/27/22 18:00 09/28/22 07:46 Sod 3.375 gm/ Sodium Chloride IV Infused Q6H ANASTASIIA Infusion Sodium Chloride 1,000 mls @ 75 mls/hr 09/27/22 19:00 09/28/22 08:23 Normal Saline 0.9% IV 75 mls/hr .[id number] ANASTASIIA Infusion Mirtazapine 7.5 mg 09/26/22 21:00 09/27/22 20:55 Mirtazapine 15 Mg Tablet PO 7.5 mg QPM ANASTASIIA Administration Morphine Sulfate 30 mg 09/22/22 11:00 09/28/22 08:21 Morphine Er 15 Mg Tablet PO 30 mg BID ANASTASIIA Administration Multivitamins/Minerals 1 tab 09/22/22 12:00 09/28/22 08:22 Multivitamin W/Minerals Tablet PO 1 tab DAILYWM ANASTASIIA Administration Ondansetron HCl 4 mg 09/20/22 10:57 09/26/22 07:15 Ondansetron 4 Mg/2 Ml Vial IVP 4 mg Q6H PRN Administration Nausea / Vomiting Oxycodone HCl 5 mg 09/25/22 11:33 09/27/22 11:04 Oxycodone 5 Mg Tablet PO 5 mg Q4HR PRN Administration Moderate Pain (Level 4-6) Oxycodone HCl 10 mg 09/27/22 07:12 09/28/22 07:47 Oxycodone 5 Mg Tablet PO 10 mg Q4HR PRN Administration Severe Pain (Level 7-10) Pantoprazole Sodium 40 mg 09/25/22 09:00 09/28/22 08:22 Pantoprazole 40 Mg Tablet PO 40 mg BID ANASTASIIA Administration Prochlorperazine Edisylate 10 mg 09/20/22 10:57 09/28/22 08:31 Prochlorperazine 10 Mg/2 Ml Vial IVP 10 mg Q4HR PRN Administration Nausea / Vomiting Sodium Chloride 10 ml 09/20/22 17:00 09/28/22 08:23 Sodium Chloride Flush 0.9% 10 Ml Syringe IVP Not Given 0100,0900,1700 ANASTASIIA Sodium Chloride 10 ml 09/20/22 10:57 09/28/22 08:32 Sodium Chloride Flush 0.9% 10 Ml Syringe IVP 10 ml PRN PRN Administration NEEDED PER PROVIDER ORDERS Tamsulosin HCl 0.4 mg 09/24/22 18:00 09/28/22 08:22 Tamsulosin 0.4 Mg Capsule PO 0.4 mg DAILY ANASTASIIA Administration - Physical Exam Wound/Incisions: positive: Other (dressings clean with anthony in place. Serous ascites draining from midline incision.) General Appearance: positive: Alert, Other (withdrawn) Eyes Bilateral: positive: PERRL, EOMI ENT: positive: No signs of dehydration Neck: positive: Trachea midline Respiratory: positive: No respiratory distress, Breath sounds nml Cardiovascular: positive: Tachycardia (mild on exam) Abdomen: positive: Tenderness (appropriate, incisional, stable). negative: G uarding, Rebound Skin: positive: No rash, Warm Neurologic/Psychiatric: positive: Oriented x3 Impression/Plan - Problem List Problem List: This is a 61 y/o M with: 1. large bowel obstruction - s/p ex lap with transverse loop colostomy, POD#8 - Ostomy productive of loose stool, tolerating regular diet in small amounts - continue to work to minimize need for IV meds (on chronic MS contin at baseline). On oxycodone 10mg prn q4h. Will add scheduled IBU today. - Ostomy teaching ongoing. Ostomy appliance appears to be fitting better this AM 2. metastatic pancreatic cancer with carcinomatosis - causing #1. - Sahra Valentine of palliative care following. Appreciate her recommendations and support for the patient and team. - Plan for discharge to SNU. Still conidering transition to hospice at some point. 3. urinary retention, improved - Home tamsulosin restarted - Patient has remote history of prostate ca, also s/p TURP - prn straight cath only if feeling increased suprapubic pressure. 4. nausea/anorexia - prn zofran and compazine. Patient feels compazine is working better. - mirtazipine 7.5mg added for anorexia yesterday evening, plan to increase to 15mg on 09/29 5. chest pain - troponins elevated this AM, stable on repeat, ACS ruled out - EKG demonstrates sinus tach with PVC's - echo pending - medicine team consulted, appreciate recommendations DVT Ppx: SCD's, lovenox GI Ppx: on PPI Plan for SNU placement at this time, though this is an ongoing conversation. Patient is a DNR. Continue care on floor at this time.
[2022-09-28] MEDS: SODIUM CHLORIDE 0.9% 1,000 ML IV SCH (11:39)
--- NOTE | 2022-09-28 11:52 | CONSULTATION NOTE ---
Referring Provider Consult Date: 09/28/22 Chief Complaint - Chief Complaint Chief Complaint: Chest pain History of Present Illness - Admitted From Admitted From:: ED - History Obtained From History obtained from: Patient - History of Present Illness HPI Comment/Other: This is a 61-year-old man with a history of remote prostate cancer, and he has pancreatic cancer with metastasis and malignant ascites. He was hospitalized and underwent a colostomy and diffuse cancer was found in the peritoneum. He has continued drainage from the surgical sites, draining his ascites onto absorptive dressings. The patient is deciding about undergoing chemotherapy or to start palliative care and then hospice. He has been seen by Palliative Care provider Sahra John NP The general surgeon today, Dr. Mccormick, asked me on the Medicine team, to see this patient for evaluation of chest pain. The patient gives me the entire description. He had chest pain that started last night. It would last for 1 to 2 seconds. It was in 2 locations of his anterior chest, 1 at the low sternum and 1 at the left chest above his left nipple. It was associated with shortness of breath but not pleuritic. There was no associated diaphoresis and no left ar m radiation. He says he has never had this before. Today there were longer episodes of this that he told his nurse about. Patient has been tachycardic for the last several days. It is sinus tachyca rdia. Dr. Mccormick said that their impression was that he was tachycardic due to pain. He has not been given medications for slowing his heart rate. Patient does tell me he can feel some "pounding". He does not describe a prior history of this type of symptom. An EKG was done today which I interpreted and it shows sinus tachycardia, rate 105, frequent PACs, left atrial enlargement, early R/S transition consistent with cor pulmonale, diffuse T wave flattening which could represent ischemia. There is no prior EKG available in this hospital for comparison. Patient had a set of troponins done, today at 0500 his troponin was 30, and at 1000 a.m., the troponin was 29, indicating that they are "flat", and he has ruled out for an acute NM. History - Past Medical History Cardiovascular: reports: None Respiratory: reports: None Neuro: reports: None Endocrine/Autoimmune: reports: Other GI: reports: GERD, Other (obstruction) : reports: Retention, Incontinence, Nocturia, Other (prostate Cancer hx) HEENT: reports: None Psych: reports: Depression Musculoskeletal: reports: Fatigue Derm: reports: None MRSA Hx?: No Other Past Medical History: polyuria, metastatic pancreatic cancer - Past Surgical History General: reports: Gastric surgery, Other - Family & Social History Family History: Mother: Alive and Well, Father: ( in [place] with hospice) Living arrangement: At home Living Situation: Alone - Substance History Dependence: Experiences withdrawal or developed tolerances: Tobacco (smokes a pack per day; hx of etoh of use), Cannabis Tobacco Details: Cigarettes - POLST Patient has POLST: Yes Meds/Allgy - Home Medications Home Medications: Ambulatory Orders Medication Instructions Recorded Confirmed Citalopram Hydrobromide [Celexa] 40 mg PO DAILY 02/26/18 09/19/22 Morphine Sulfate ER [Ms Contin] 1 tab PO DAILY PRN 09/21/22 09/21/22 dexAMETHasone [Decadron] 1 tab PO BID 09/21/22 09/21/22 oxyCODONE [Roxicodone] 1 tab PO BID PRN 09/21/22 09/21/22 - Allergies Allergies/Adverse Reactions: Allergies Allergy/AdvReac Type Severity Reaction Status Date / Time No Known Drug Allergies Allergy Verified 09/18/22 14:58 Review of Systems - Constitutional Constitutional: reports: Fatigue, Weakness, Poor appetite - Cardiovascular Cariovascular: reports: Chest pain (New sx, never had it before) - Gastrointestinal Gastrointestinal: reports: Abdominal pain, Abdominal distention - All Other Systems All Other Systems: reports: Reviewed and negative Exam - Vital Signs Reviewed Vital Signs: Yes Vital Signs: Vital Signs x48h Temp Pulse Resp BP Pulse Ox 09/28/22 09:21 36.3 C L 107 H 16 138/71 H 98 - Physical Exam General Appearance: positive: Mild distress (He wants to get OOB, says he has been sitting for a long time, his buttocks hurt), Other (He appears older than his age, has male pattern baldness) Eyes Bilateral: positive: Normal inspection, EOMI ENT: positive: ENT inspection nml, No signs of dehydration, Other (Pale) Neck: positive: Nml inspection, No JVD Respiratory: positive: Chest non-tender, No respiratory distress, Breath sounds nml Cardiovascular: positive: Regular rate & rhythm, No murmur Abdomen: positive: Non-tender, Other (Multiple bandages) Skin: positive: Warm, Dry, Pallor Extremities: positive: Other (1+ edema to above the knees) Neurologic/Psychiatric: positive: Oriented x3, Motor nml Conclusion/Plan - Problem List (1) Atypical chest pain Conclusion/Plan: His chest pain is atypical for angina. His 2 troponins have ruled him out for an acute NM. Potentially the causes of his new chest pain could be from pericarditis or other thoracic diagnoses such as pneumonia or PE or could be chest wall pain. Recommendations: Obtain an Echocardiogram, to evaluate for pericarditis or pericardial effuion. If present, NSAIDs would be the treatment of choice for that. Consider obtaining a chest x-ray. However he is already on empiric broad- spectrum antibiotics. The rest of his symptoms do not support a PE, since these are brief, several second-long, pinpoint, chest pain feelings, and there is no shortness of breath or hypoxia. (2) Abnormal EKG Conclusion/Plan: His EKG is abnormal, showing evidence of cor pulmonale. His physical exam does show ascites and leg edema however these were not felt to be from his abdominal malignancy In addition, his EKG shows diffuse T wave flattening which could be a sign of coronary ischemia. We have no old EKG for comparison to know if these are recent T wave abnormalities. Recommendations: The ordered Echocardiogram will be able to evaluate for cor pulmonale and pulmonary HTN. Given his end-stage malignancy, he is not a candidate to undergo stress testing to evaluate for CAD. In addition, he is not a candidate for empiric daily aspirin because of the continued open wounds which she has from being postoperative. (3) Leukocytosis Conclusion/Plan: His white blood count has increased from 12, then the next blood draw 8 days later, carol to 26. He has had cultures drawn and is now on empiric antibiotics. Plan: Management as per general surgery and palliative body care manager. (4) Intra-abdominal malignant neoplasm Conclusion/Plan: As per history. He presented with bowel obstruction and underwent colostomy to relieve the obstruction, and had findings of diffuse intra-abdominal malignancy found. He is weak, anorexic and has been more withdrawn since the Palliative Care meeting 2 days ago, his RN tells me. Plan: Management as per general surgery and palliative body care manager. - Lab Results Lab results reviewed: Yes Fish Bones: 09/28/22 05:55 09/28/22 05:17 - Other Other Results/Comments: Thank you for allowing me to participate in the care of this patient. I will follow along with you.
--- NOTE | 2022-09-28 13:25 | XRAY Report ---
PROCEDURE: Chest 2 View X-Ray INDICATIONS: leukocytosis, r/o pna TECHNIQUE: 2 views of the chest were acquired. COMPARISON: Lung bases from CT abdomen pelvis same day, chest radiograph 09/20/2022 FINDINGS: Surgical changes and devices: Right chest port present with tip of the catheter projecting over the right atrium. Lungs and pleura: Small layering pleural effusions. streaky bibasilar opacities likely atelectasis. No definite pneumothorax. Mediastinum: Mediastinal contours appear normal. Heart size is normal. Bones and chest wall: No suspicious bony lesions. Overlying soft tissues appear unremarkable. IMPRESSION: Small layering pleural effusions and bibasilar opacities probably representing atelectasis, underlyin g aspiration or pneumonia difficult to exclude. Reviewed by: Giovani Hinkle MD on 09/28/2022 1:23 PM PDT Approved by: Giovani Hinkle MD on 09/28/2022 1:23 PM PDT Station ID: [id number]
[2022-09-28] MEDS: IBUPROFEN 400 MG TABLET PO SCH ×2 (14:00→20:57)
[2022-09-28] MEDS: MIRTAZAPINE 15 MG TABLET PO SCH (20:57)
--- NOTE | 2022-09-28 23:07 | CONSULTATION NOTE ---
Palliative Care Follow Up - Referral Referring Provider: Dr. Mancia Time of Visit: [id number] Referral setting: Hospitalized patient Referral Reason: Goals of Care/Symptom management - Information Sources Records reviewed: Previous records reviewed History/Review of Systems obtained from: Patient, Nursing - History of Present Illness Update Brief HPI Update: Please see preivous HPI. This is a 61-year-old gentleman is currently inpatient secondary admission for bowel obstruction, received a diverting transverse loop colostomy, is now complicated by increased leukocytosis. Patient did have an episode of chest pain this afternoon, ruled out any significant cardiac event, though patient is quite distressed in the context of he feels "everybody went overboard". And says he is not going to tell anybody anything anymore. When asked patient how he was doing, he looks straight at me and said I am dying and I got days". Reports he is feeling quite depressed. Reports he does not "want to talk about it", and likes it quiet. Patient was able to further verbalize after gentle conversation, he is feeling overwhelmed with his depress ion, current situation, and does not or cannot tolerate any "cheering up". This is in reference to his family, particularly his mother who is visiting in the context of wanting him to feel better. Patient does report pain continues to be problematic, but feels like he is "managing". 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 Actually was able to participate in conversation, but reports overall is feeling poorly and does not see this improving. Social History - Living Situation Living arrangement: At home Living Situation: Alone Support System: Has 3 sisters, all 3 are here to provide support. Two are from [place], and 1 from [place]. His mother is still alive as well and came to provide support yesterday, he was 56 years in [place], and moved to [facility] for senior living. Has friends but no caregivers.All are quite clear cannot take on caregiving role, awaiting for patient placement vs demise to make final plans Medications/Allergies - Medications Active Medication List: Active Medications Acetaminophen (Acetaminophen 500 Mg Tablet) 1,000 mg PO Q6HR ANASTASIIA Last Admin: 09/28/22 14:00 Dose: 1,000 mg Citalopram Hydrobromide (Citalopram Hydrobromide 20 Mg Tablet) 40 mg PO DAILY [facility] Last Admin: 09/28/22 08:22 Dose: 40 mg Enoxaparin Sodium (Enoxaparin 40 Mg/0.4 Ml Syringe) 40 mg SUBQ DAILY [facility] Last Admin: 09/28/22 08:22 Dose: 40 mg Hydromorphone HCl (Hydromorphone 0.5 Mg/0.5 Ml Syringe) 0.5 mg IVP Q30M PRN PRN Reason: Breakthrough Pain Last Admin: 09/28/22 11:39 Dose: 0.5 mg Piperacillin Sod/Tazobactam (Sod 3.375 gm/ Sodium Chloride) 100 mls @ 200 mls/hr IV Q6H [facility] Last Infusion: 09/28/22 16:23 Dose: Infused Sodium Chloride (Normal Saline 0.9%) 1,000 mls @ 75 mls/hr IV .[id number] [facility] Last Admin: 09/28/22 11:39 Dose: 75 mls/hr Ibuprofen (Ibuprofen 400 Mg Tablet) 400 mg PO Q6HR [facility] Last Admin: 09/28/22 14:00 Dose: 400 mg Mirtazapine (Mirtazapine 15 Mg Tablet) 7.5 mg PO QPM [facility] Last Admin: 09/27/22 20:55 Dose: 7.5 mg Morphine Sulfate (Morphine Er 15 Mg Tablet) 30 mg PO BID [facility] Last Admin: 09/28/22 08:21 Dose: 30 mg Multivitamins/Minerals (Multivitamin W/Minerals Tablet) 1 tab PO DAILYWM [facility] Last Admin: 09/28/22 08:22 Dose: 1 tab Ondansetron HCl (Ondansetron 4 Mg/2 Ml Vial) 4 mg IVP Q6H PRN PRN Reason: Nausea / Vomiting Last Admin: 09/26/22 07:15 Dose: 4 mg Oxycodone HCl (Oxycodone 5 Mg Tablet) 5 mg PO Q4HR PRN PRN Reason: Moderate Pain (Level 4-6) Last Admin: 09/27/22 11:04 Dose: 5 mg Oxycodone HCl (Oxycodone 5 Mg Tablet) 10 mg PO Q4HR PRN PRN Reason: Severe Pain (Level 7-10) Last Admin: 09/28/22 12:30 Dose: 10 mg Pantoprazole Sodium (Pantoprazole 40 Mg Tablet) 40 mg PO BID [facility] Last Admin: 09/28/22 08:22 Dose: 40 mg Prochlorperazine Edisylate (Prochlorperazine 10 Mg/2 Ml Vial) 10 mg IVP Q4HR PRN PRN Reason: Nausea / Vomiting Last Admin: 09/28/22 08:31 Dose: 10 mg Sodium Chloride (Sodium Chloride Flush 0.9% 10 Ml Syringe) 10 ml IVP 0100,0900,1700 [facility] Last Admin: 09/28/22 08:23 Dose: Not Given Sodium Chloride (Sodium Chloride Flush 0.9% 10 Ml Syringe) 10 ml IVP PRN PRN PRN Reason: NEEDED PER PROVIDER ORDERS Last Admin: 09/28/22 08:32 Dose: 10 ml Tamsulosin HCl (Tamsulosin 0.4 Mg Capsule) 0.4 mg PO DAILY [facility] Last Admin: 09/28/22 08:22 Dose: 0.4 mg Citalopram Hydrobromide [Celexa] 40 mg PO DAILY 02/26/18 Morphine Sulfate ER [Ms Contin] 1 tab PO DAILY PRN 09/21/22 dexAMETHasone [Decadron] 1 tab PO BID 09/21/22 oxyCODONE [Roxicodone] 1 tab PO BID PRN 09/21/22 - Allergies Allergies/Adverse Reactions: Allergies Allergy/AdvReac Type Severity Reaction Status Date / Time No Known Drug Allergies Allergy Verified 09/18/22 14:58 Review of Systems - Constitutional Constitutional: reports: Fatigue, Poor appetite (has been eating poorly for several months), Weight loss - Ears, Nose & Throat Ears, Nose & Throat: reports: Dry mouth - Cardiovascular Cardiovascular: reports: Edema (worsening thigh/sacrum) - Gastrointestinal Gastrointestinal: reports: Abdominal pain (improved), Poor appetite (patient with poor appetite, eating bites; has not been eating well for over a year), Early satiety, Other (new colostomy) - Genitourinary Genitourinary: reports: Incontinence, Sexual dysfunction - Musculoskeletal Musculoskeletal: reports: Back pain, Muscle weakness - Integumentary Integumentary: reports: Hair changes (alopecia) - Neurological Neurological: reports: General weakness, Numbness (mild peripheral neuropathy from treatment) - Psychiatric Psychiatric: reports: Depression (profound and senior living), Anxiety, Aggitation. denies: Suicidal - Endocrine Endocrine: reports: Intolerance to cold - Hematologic/Lymphatic Hematologic/Lymph: reports: Anemia Physical Exam - Vital Signs Vital Signs: Vital Signs x48h Temp Pulse Resp BP BP Pulse Ox 09/28/22 15:29 36.3 C L 69 16 110/57 L 98 09/28/22 09:21 36.3 C L 107 H 16 138/71 H 98 - Physical Exam General Appearance: positive: Mild distress, Anxious, Cachetic Eyes Bilateral: positive: Normal inspection ENT: positive: Dry mucous membranes Neck: positive: Trachea midline Cardiovascular: positive: Regular rate & rhythm Respiratory: positive: No respiratory distress Abdomen: positive: Guarding. negative: Distended Skin: positive: Pallor, Dryness Extremities: positive: Pedal edema (extending into thigh/sacral area) Neurologic/Psychiatric: positive: Oriented x3, Flat affect, Other (withdrawn) Palliative Care - POLST Patient has POLST: Yes POLST Status: DNR, Selective Treatment Performance Status: Patient reports he has ambulated some in the room, is feeling somewhat stronger, but remains quite weak. He is sitting at side of bed for exam. - Palliative Care Discussion: Met for patient for about 15 to 20 minutes, this is all he could tolerate. We did explore some life review, his history of depression, divorce, time he had been happy. In the context of this try to redirect as far as support he did have, need to acknowledge everybody is doing their best in this journey, including himself. Did acknowledge all the losses he has experienced so far, and also his irritability and agitation he gets with his current situation and those around him. Met with 3 sisters and mother, patient does have leukocytosis today, at high risk for sequela of further decline or acute event. Awaiting final disposition for patient, they feel very safe with him here, patient is pending though p lacement with mostly long-term plan for ongoing support. Psychosocial support provided, as well as acknowledging anticipatory grief, normalizing patient's response particularly in the context of his history of depression and previous coping mechanisms. Results - Lab Results Lab results reviewed: Yes Fish Bones: 09/28/22 05:55 09/28/22 05:17 Lab and Imaging Results: Lab Results x24hrs 09/28/22 09/28/22 09/28/22 Range/Units 09:42 05:55 05:17 WBC 25.8 H (4.8-10.8) x10^3/uL RBC 2.85 L (4.70-6.10) 10^6/uL Hgb 9.7 L (14.0-18.0) g/dL Hct 26.7 L (42.0-52.0) % MCV 93.7 (80.0-94.0) fL MCH 34.0 H (27.0-31.0) pg MCHC 36.3 H (32.0-36.0) g/dL RDW 17.6 H (12.0-15.0) % Plt Count 396 (130-450) 10^3/uL MPV 10.5 (7.4-11.4) fL Neut # (Auto) Not Reportable Lymph # (Auto) Not Reportable Grainger # (Auto) Not Reportable Eos # (Auto) Not Reportable Baso # (Auto) Not Reportable Absolute Nucleated RBC Not Reportable Total Counted 100 Band Neuts % (Manual) 0 (0 - 10) % Abnorm Lymph % (Manual) 0 % Nucleated RBC % Not Reportable Neutrophils # (Manual) 22.7 H (1.5-6.6) 10^3/uL Lymphocytes # (Manual) 1.8 (1.5-3.5) 10^3/uL Monocytes # (Manual) 1.3 H (0.0-1.0) 10^3/uL Eosinophils # (Manual) 0.0 (0-0.7) 10^3/uL Basophils # (Manual) 0.0 (0-0.1) 10^3/uL Differential Comment MANUAL DIFFERENTIAL WBC Morphology NORMAL APPEARANCE (NORMAL) Platelet Estimate NORMAL (130-450,000) (NORMAL) Platelet Morphology NORMAL APPEARANCE (NORMAL) RBC Morph Micro Appear 1+ ANISOCYTOSIS (NORMAL) Sodium 139 (135-145) mmol/L Potassium 4.2 (3.5-5.0) mmol/L Chloride 111 (101-111) mmol/L Carbon Dioxide 23 (21-32) mmol/L Anion Gap 5.0 L (6-13) BUN 25 H (6-20) mg/dL Creatinine 0.7 (0.6-1.2) mg/dL Estimated GFR (MDRD) 115 (>89) Glucose 112 H (70-100) mg/dL Lactic Acid (0.5-2.2) mmol/L Calcium 7.7 L (8.5-10.3) mg/dL Troponin I High Sens 29.0 H* (2.3-19.7) ng/L Urine Color Urine Clarity (CLEAR) Urine pH (5.0-7.5) PH Ur Specific [place] (1.002-1.030) Urine Protein (NEGATIVE) mg/dL Urine Glucose (UA) (NEGATIVE) mg/dL Urine Ketones (NEGATIVE) mg/dL Urine Occult Blood (NEGATIVE) Urine Nitrite (NEGATIVE) Urine Bilirubin (NEGATIVE) Urine Urobilinogen (NORMAL) E.U./dL Ur Leukocyte Esterase (NEGATIVE) Urine RBC (0-5) /HPF Urine WBC (0-3) /HPF Ur Squamous Epith Cells (<= Few) Urine Bacteria (None Seen) /HPF Urine Culture Comments Stl C. diff Tox B Gene (NEGATIVE) 09/28/22 09/27/22 09/27/22 Range/Units 05:17 21:00 21:00 WBC (4.8-10.8) x10^3/uL RBC (4.70-6.10) 10^6/uL Hgb (14.0-18.0) g/dL Hct (42.0-52.0) % MCV (80.0-94.0) fL MCH (27.0-31.0) pg MCHC (32.0-36.0) g/dL RDW (12.0-15.0) % Plt Count (130-450) 10^3/uL MPV (7.4-11.4) fL Neut # (Auto) Lymph # (Auto) Grainger # (Auto) Eos # (Auto) Baso # (Auto) Absolute Nucleated RBC Total Counted Band Neuts % (Manual) (0 - 10) % Abnorm Lymph % (Manual) % Nucleated RBC % Neutrophils # (Manual) (1.5-6.6) 10^3/uL Lymphocytes # (Manual) (1.5-3.5) 10^3/uL Monocytes # (Manual) (0.0-1.0) 10^3/uL Eosinophils # (Manual) (0-0.7) 10^3/uL Basophils # (Manual) (0-0.1) 10^3/uL Differential Comment WBC Morphology (NORMAL) Platelet Estimate (NORMAL) Platelet Morphology (NORMAL) RBC Morph Micro Appear (NORMAL) Sodium (135-145) mmol/L Potassium (3.5-5.0) mmol/L Chloride (101-111) mmol/L Carbon Dioxide (21-32) mmol/L Anion Gap (6-13) BUN (6-20) mg/dL Creatinine (0.6-1.2) mg/dL Estimated GFR (MDRD) (>89) Glucose (70-100) mg/dL Lactic Acid (0.5-2.2) mmol/L Calcium (8.5-10.3) mg/dL Troponin I High Sens 30.9 H* (2.3-19.7) ng/L Urine Color DARK YELLOW Urine Clarity CLOUDY (CLEAR) Urine pH 5.0 (5.0-7.5) PH Ur Specific [place] 1.025 (1.002-1.030) Urine Protein 30 H (NEGATIVE) mg/dL Urine Glucose (UA) NEGATIVE (NEGATIVE) mg/dL Urine Ketones NEGATIVE (NEGATIVE) mg/dL Urine Occult Blood SMALL H (NEGATIVE) Urine Nitrite POSITIVE H (NEGATIVE) Urine Bilirubin SMALL H (NEGATIVE) Urine Urobilinogen 0.2 (NORMAL) (NORMAL) E.U./dL Ur Leukocyte Esterase SMALL H (NEGATIVE) Urine RBC 0-5 (0-5) /HPF Urine WBC >25 H (0-3) /HPF Ur Squamous Epith Cells NONE SEEN (<= Few) Urine Bacteria Many H (None Seen) /HPF Urine Culture Comments INDICATED Stl C. diff Tox B Gene NEGATIVE (NEGATIVE) 09/27/22 Range/Units 17:22 WBC (4.8-10.8) x10^3/uL RBC (4.70-6.10) 10^6/uL Hgb (14.0-18.0) g/dL Hct (42.0-52.0) % MCV (80.0-94.0) fL MCH (27.0-31.0) pg MCHC (32.0-36.0) g/dL RDW (12.0-15.0) % Plt Count (130-450) 10^3/uL MPV (7.4-11.4) fL Neut # (Auto) Lymph # (Auto) Grainger # (Auto) Eos # (Auto) Baso # (Auto) Absolute Nucleated RBC Total Counted Band Neuts % (Manual) (0 - 10) % Abnorm Lymph % (Manual) % Nucleated RBC % Neutrophils # (Manual) (1.5-6.6) 10^3/uL Lymphocytes # (Manual) (1.5-3.5) 10^3/uL Monocytes # (Manual) (0.0-1.0) 10^3/uL Eosinophils # (Manual) (0-0.7) 10^3/uL Basophils # (Manual) (0-0.1) 10^3/uL Differential Comment WBC Morphology (NORMAL) Platelet Estimate (NORMAL) Platelet Morphology (NORMAL) RBC Morph Micro Appear (NORMAL) Sodium (135-145) mmol/L Potassium (3.5-5.0) mmol/L Chloride (101-111) mmol/L Carbon Dioxide (21-32) mmol/L Anion Gap (6-13) BUN (6-20) mg/dL Creatinine (0.6-1.2) mg/dL Estimated GFR (MDRD) (>89) Glucose (70-100) mg/dL Lactic Acid 1.6 (0.5-2.2) mmol/L Calcium (8.5-10.3) mg/dL Troponin I High Sens (2.3-19.7) ng/L Urine Color Urine Clarity (CLEAR) Urine pH (5.0-7.5) PH Ur Specific [place] (1.002-1.030) Urine Protein (NEGATIVE) mg/dL Urine Glucose (UA) (NEGATIVE) mg/dL Urine Ketones (NEGATIVE) mg/dL Urine Occult Blood (NEGATIVE) Urine Nitrite (NEGATIVE) Urine Bilirubin (NEGATIVE) Urine Urobilinogen (NORMAL) E.U./dL Ur Leukocyte Esterase (NEGATIVE) Urine RBC (0-5) /HPF Urine WBC (0-3) /HPF Ur Squamous Epith Cells (<= Few) Urine Bacteria (None Seen) /HPF Urine Culture Comments Stl C. diff Tox B Gene (NEGATIVE) Impression and Recommendations - Palliative Care Impression: This is a 61-year-old gentleman with metastatic pancreatic cancer, presenting to the ED with small and large bowel obstruction. This resulted in emergent surgery for diverting left lower quadrant loop colostomy. Patient with heavy tumor burden, high symptom burden, and concern for ongoing decline. Palliative care providing support for symptom management and anticipatory guidance. Recommendations/Counseling Done: 1. Pain of neoplastic origin. This is multifactorial patient has acute on chronic pain related surgery, chronic back pain and abdominal pain from pancreatic cancer along with his chronic pain syndrome. Patient is currently on his MS Contin 30 mg twice a day, has been using 10 mg for breakthrough pain. Patient reports tools currently adequate, patient may need a titration up to 3 times daily, awaiting outcome of work-up, in the context of acute versus chronic abdominal pain, patient does have short acting pain available if needed. 2. Depression. Patient with long persistent history of depression, is feeling overwhelmed currently with feelings of helplessness and hopelessness. Patient denies suicidality, in fact given his [employer] coni and history, it is quite adamant that that is not an acceptable escape. Patient reports he just does not know how to "be happy", or consider ways to lighten his mood. Counseling prov ided to normalize patient's current anticipatory grief, validated his feelings of helplessness and hopelessness, and redirected in the context of life review and setting some short-term goals for what limited time he has left. He does very much appreciate his family, we discussed ways to better communicate this in a meaningful way given who he is. 3. Advance care planning. Patient does not want to participate further in any discussion regarding future, does understand he is not to return home and is feeling overwhelmed overall. Did meet with sisters and mother, awaiting final insurance matters regarding transition to new setting. They are finding this difficult in the context of his suffering, as well as feeling overwhelmed by his current situation. Did set the stage given patient's risk for complications, further decline or sequela from his cancer, in the context of anticipatory g rief. 45 minutes with getting 50% of this done in counseling regarding pain and symptom management, counseling for anxiety and adjustment to illness, and anticipatory guidance for both patient and family.
[2022-09-29] MEDS: ACETAMINOPHEN 500 MG TABLET PO SCH ×4 (00:01→18:30)
[2022-09-29] MEDS: IBUPROFEN 400 MG TABLET PO SCH ×4 (00:01→18:29)
[2022-09-29] MEDS: SODIUM CHLORIDE 0.9% 1,000 ML IV SCH (00:01)
[2022-09-29] MEDS: PIPERACILLIN/TAZOBACTAM 3.375 GM in SODIUM CHLORIDE 0.9% MINIBAG 100 ML IV SCH ×2 (00:01→05:29)
[2022-09-29] MEDS: SODIUM CHLORIDE FLUSH 0.9% 10 ML SYRINGE IVP SCH ×3 (00:02→18:29)
[2022-09-29] MEDS: oxyCODONE 5 MG TABLET PO PRN ×4 (05:17→21:12)
[2022-09-29 06:02] LABS: BASOPHILS % (AUTO) 0.2 %; EOSINOPHILS % (AUTO) 0.7 %; HCT - HEMATOCRIT 25.7 % (42.0-52.0); HGB - HEMOGLOBIN 8.9 g/dL (14.0-18.0); LYMPHOCYTES % (AUTO) 6.5 %; MEAN CORPUSCULAR HEMOGLOBIN 32.8 pg (27.0-31.0); MEAN CORPUSCULAR HGB CONC 34.6 g/dL (32.0-36.0); MEAN CORPUSCULAR VOLUME 94.8 fL (80.0-94.0); MONOCYTES % (AUTO) 7.5 %; PLT - PLATELET COUNT 355 10^3/uL (130-450); RED BLOOD COUNT 2.71 10^6/uL (4.70-6.10); RED CELL DISTRIBUTION WIDTH 18.1 % (12.0-15.0); WHITE BLOOD COUNT 21.4 x10^3/uL (4.8-10.8)
[2022-09-29 06:16] LABS: ABNORMAL LYMPHS % (MANUAL) 0 %; BAND NEUTROPHILS % (MANUAL) 0 %
[2022-09-29 06:24] LABS: CALCIUM 8.1 mg/dL (8.5-10.3); CREATININE 0.7 mg/dL (0.6-1.3); POTASSIUM 3.8 mmol/L (3.5-4.5)
[2022-09-29 06:25] LABS: EOSINOPHILS # (MANUAL) 0.2 10^3/uL (0-0.7); LYMPHOCYTES # (MANUAL) 1.5 10^3/uL (1.5-3.5); LYMPHOCYTES % (MANUAL) 7 %; METAMYELOCYTES % (MANUAL) 1 %; MONOCYTES # (MANUAL) 0.9 10^3/uL (0.0-1.0); MYELOCYTES % (MANUAL) 1 %; NEUTROPHILS # (MANUAL) 18.4 10^3/uL (1.5-6.6)
[2022-09-29 06:26] LABS: DIFFERENTIAL COMMENT MANUAL DIFFERENTIAL; PLATELET ESTIMATE, MANUAL NORMAL (130-450,000) (NORMAL); PLATELET MORPHOLOGY NORMAL APPEARANCE (NORMAL); WBC MORPHOLOGY (MULTIPLE) NORMAL APPEARANCE (NORMAL)
--- NOTE | 2022-09-29 07:36 | PROVIDER PROGRESS NOTE ---
Subjective - General Admit Date: 09/19/22 Procedure Date: 09/20/22 Post Op Days: 9 Procedure Performed: diverting transverse loop colostomy - Review of Systems Wound/Incisions: positive: Other (dressings clean with anthony in place. Serous ascites draining from midline incision.) Drain Output Description: Ostomy productive of stool. Gastrointestinal: positive: Abdominal pain (stable, incisional, appropriate) Genitourinary: positive: Incontinence - Other Other Information/Narrative: Patient complains of pain in his tailbone this morning but otherwise reports feeling "better." He endorses having an appetite. He denies n/v. He did get out of bed to the chair for a time yesterday afternoon. Denies any further chest pain yesterday afternoon or overnight. States abdominal pain is controlled this AM. Objective - Patient Data Reviewed Vital Signs: Yes Vital Signs: Vital Signs x48h Temp Pulse Resp BP Pulse Ox 09/29/22 00:03 36.3 C L 56 L 18 122/64 97 Intake & Output: Intake and Output Totals x24h 09/27/22 09/28/22 09/29/22 23:59 23:59 23:59 Intake Total 2981.667 2047 1327.5 Output Total 650 Balance 2331.667 2047 1327.5 - Lab Results Lab Results: 09/29/22 05:20 09/29/22 05:20 Other Lab Results: Lab Results x24hrs 09/29/22 09/29/22 09/28/22 Range/Units 05:20 05:20 09:42 WBC 21.4 H (4.8-10.8) x10^3/uL RBC 2.71 L (4.70-6.10) 10^6/uL Hgb 8.9 L (14.0-18.0) g/dL Hct 25.7 L (42.0-52.0) % MCV 94.8 H (80.0-94.0) fL MCH 32.8 H (27.0-31.0) pg MCHC 34.6 (32.0-36.0) g/dL RDW 18.1 H (12.0-15.0) % Plt Count 355 (130-450) 10^3/uL MPV 11.0 (7.4-11.4) fL Neut # (Auto) Not Reportable Lymph # (Auto) Not Reportable [place] # (Auto) Not Reportable Eos # (Auto) Not Reportable Baso # (Auto) Not Reportable Absolute Nucleated RBC Not Reportable Total Counted 100 Band Neuts % (Manual) 0 (0 - 10) % Abnorm Lymph % (Manual) 0 % Metamyelocytes % 1 H ( - 0) % Myelocytes % 1 H ( - 0) % Nucleated RBC % Not Reportable Neutrophils # (Manual) 18.4 H (1.5-6.6) 10^3/uL Lymphocytes # (Manual) 1.5 (1.5-3.5) 10^3/uL Monocytes # (Manual) 0.9 (0.0-1.0) 10^3/uL Eosinophils # (Manual) 0.2 (0-0.7) 10^3/uL Basophils # (Manual) 0.0 (0-0.1) 10^3/uL Differential Comment MANUAL DIFFERENTIAL WBC Morphology NORMAL APPEARANCE (NORMAL) Platelet Estimate NORMAL (130-450,000) (NORMAL) Platelet Morphology NORMAL APPEARANCE (NORMAL) RBC Morph Micro Appear 1+ HYPOCHROMASIA (NORMAL) Sodium 141 (135-145) mmol/L Potassium 3.8 (3.5-5.0) mmol/L Chloride 112 H (101-111) mmol/L Carbon Dioxide 23 (21-32) mmol/L Anion Gap 6.0 (6-13) BUN 28 H (6-20) mg/dL Creatinine 0.7 (0.6-1.2) mg/dL Estimated GFR (MDRD) 115 (>89) Glucose 88 (70-100) mg/dL Calcium 8.1 L (8.5-10.3) mg/dL Troponin I High Sens 29.0 H* (2.3-19.7) ng/L 09/28/22 09/28/22 Range/Units 05:17 05:17 WBC (4.8-10.8) x10^3/uL RBC (4.70-6.10) 10^6/uL Hgb (14.0-18.0) g/dL Hct (42.0-52.0) % MCV (80.0-94.0) fL MCH (27.0-31.0) pg MCHC (32.0-36.0) g/dL RDW (12.0-15.0) % Plt Count (130-450) 10^3/uL MPV (7.4-11.4) fL Neut # (Auto) Lymph # (Auto) [place] # (Auto) Eos # (Auto) Baso # (Auto) Absolute Nucleated RBC Total Counted Band Neuts % (Manual) (0 - 10) % Abnorm Lymph % (Manual) % Metamyelocytes % ( - 0) % Myelocytes % ( - 0) % Nucleated RBC % Neutrophils # (Manual) (1.5-6.6) 10^3/uL Lymphocytes # (Manual) (1.5-3.5) 10^3/uL Monocytes # (Manual) (0.0-1.0) 10^3/uL Eosinophils # (Manual) (0-0.7) 10^3/uL Basophils # (Manual) (0-0.1) 10^3/uL Differential Comment WBC Morphology (NORMAL) Platelet Estimate (NORMAL) Platelet Morphology (NORMAL) RBC Morph Micro Appear (NORMAL) Sodium 139 (135-145) mmol/L Potassium 4.2 (3.5-5.0) mmol/L Chloride 111 (101-111) mmol/L Carbon Dioxide 23 (21-32) mmol/L Anion Gap 5.0 L (6-13) BUN 25 H (6-20) mg/dL Creatinine 0.7 (0.6-1.2) mg/dL Estimated GFR (MDRD) 115 (>89) Glucose 112 H (70-100) mg/dL Calcium 7.7 L (8.5-10.3) mg/dL Troponin I High Sens 30.9 H* (2.3-19.7) ng/L - Current Medications Current Medications: Current Medications Generic Name Dose Route Start Last Admin Trade Name Freq PRN Reason Stop Dose Admin Acetaminophen 1,000 mg 09/24/22 18:00 09/29/22 06:54 Acetaminophen 500 Mg Tablet PO 1,000 mg Q6HR ANASTASIIA Administration Citalopram Hydrobromide 40 mg 09/22/22 12:00 09/28/22 08:22 Citalopram Hydrobromide 20 Mg Tablet PO 40 mg DAILY ANASTASIIA Administration Enoxaparin Sodium 40 mg 09/21/22 09:00 09/28/22 08:22 Enoxaparin 40 Mg/0.4 Ml Syringe SUBQ 40 mg DAILY ANASTASIIA Administration Hydromorphone HCl 0.5 mg 09/27/22 07:13 09/28/22 11:39 Hydromorphone 0.5 Mg/0.5 Ml Syringe IVP 0.5 mg Q30M PRN Administration Breakthrough Pain Piperacillin Sod/Tazobactam 100 mls @ 200 mls/hr 09/27/22 18:00 09/29/22 06:55 Sod 3.375 gm/ Sodium Chloride IV Infused Q6H ANASTASIIA Infusion Sodium Chloride 1,000 mls @ 75 mls/hr 09/27/22 19:00 09/29/22 00:01 Normal Saline 0.9% IV 75 mls/hr .[id number] ANASTASIIA Administration Ibuprofen 400 mg 09/28/22 14:00 09/29/22 05:28 Ibuprofen 400 Mg Tablet PO 400 mg Q6HR ANASTASIIA Administration Mirtazapine 7.5 mg 09/26/22 21:00 09/28/22 20:57 Mirtazapine 15 Mg Tablet PO 7.5 mg QPM ANASTASIIA Administration Morphine Sulfate 30 mg 09/22/22 11:00 09/28/22 20:57 Morphine Er 15 Mg Tablet PO 30 mg BID ANASTASIIA Administration Multivitamins/Minerals 1 tab 09/22/22 12:00 09/28/22 08:22 Multivitamin W/Minerals Tablet PO 1 tab DAILYWM ANASTASIIA Administration Ondansetron HCl 4 mg 09/20/22 10:57 09/26/22 07:15 Ondansetron 4 Mg/2 Ml Vial IVP 4 mg Q6H PRN Administration Nausea / Vomiting Oxycodone HCl 5 mg 09/25/22 11:33 09/29/22 05:17 Oxycodone 5 Mg Tablet PO 5 mg Q4HR PRN Administration Moderate Pain (Level 4-6) Oxycodone HCl 10 mg 09/27/22 07:12 09/28/22 12:30 Oxycodone 5 Mg Tablet PO 10 mg Q4HR PRN Administration Severe Pain (Level 7-10) Pantoprazole Sodium 40 mg 09/25/22 09:00 09/28/22 20:57 Pantoprazole 40 Mg Tablet PO 40 mg BID ANASTASIIA Administration Prochlorperazine Edisylate 10 mg 09/20/22 10:57 09/28/22 08:31 Prochlorperazine 10 Mg/2 Ml Vial IVP 10 mg Q4HR PRN Administration Nausea / Vomiting Sodium Chloride 10 ml 09/20/22 17:00 09/29/22 00:02 Sodium Chloride Flush 0.9% 10 Ml Syringe IVP Not Given 0100,0900,1700 ANASTASIIA Sodium Chloride 10 ml 09/20/22 10:57 09/28/22 08:32 Sodium Chloride Flush 0.9% 10 Ml Syringe IVP 10 ml PRN PRN Administration NEEDED PER PROVIDER ORDERS Tamsulosin HCl 0.4 mg 09/24/22 18:00 09/28/22 08:22 Tamsulosin 0.4 Mg Capsule PO 0.4 mg DAILY ANASTASIIA Administration - Physical Exam Wound/Incisions: positive: Drainage (serous, ascites) General Appearance: positive: No acute distress, Alert Eyes Bilateral: positive: Normal inspection, EOMI ENT: positive: No signs of dehydration Neck: positive: Trachea midline Respiratory: positive: No respiratory distress Cardiovascular: positive: Regular rate & rhythm Abdomen: positive: Tenderness (incisional). negative: Guarding, Rebound Skin: positive: Color nml Extremities: positive: Non-tender Neurologic/Psychiatric: positive: Oriented x3 Impression/Plan - Problem List Problem List: This is a 61 y/o M with: 1. large bowel obstruction - s/p ex lap with transverse loop colostomy, POD#9 - Ostomy productive of stool, tolerating regular diet in small amounts, added protein shakes - continue to work to minimize need for IV meds (on chronic MS contin at baseline). On oxycodone 10mg prn q4h, scheduled IBU. - Ostomy teaching ongoing. Ostomy appliance appears to be fitting a little better. 2. metastatic pancreatic cancer with carcinomatosis - causing #1. - Sahra Valentine of palliative care following. Appreciate her recommendations and support for the patient and team. - Plan for discharge to SNU. Still conidering transition to hospice at some point. 3. urinary retention, improved - Home tamsulosin restarted - Patient has remote history of prostate ca, also s/p TURP - prn straight cath only if feeling increased suprapubic pressure. 4. nausea/anorexia, improving - prn zofran and compazine. Patient feels compazine is working better. - will increase mirtazipine to 15mg today 5. chest pain - troponins elevated this AM, stable on repeat, ACS ruled out - EKG demonstrates sinus tach with PVC's - echo pending - medicine team consulted, appreciate recommendations 6. UTI - uCx pending, prelim appears consistent with e coli - on zosyn day 3, will transition to PO meds when cx available DVT Ppx: SCD's, lovenox GI Ppx: on PPI Plan for SNU placement at this time, though this is an ongoing conversation. Patient is a DNR. Continue care on floor at this time.
[2022-09-29] MEDS: CITALOPRAM HYDROBROMIDE 20 MG TABLET PO SCH (09:17)
[2022-09-29] MEDS: MULTIVITAMIN W/MINERALS TABLET PO SCH (09:17)
[2022-09-29] MEDS: MORPHINE ER 15 MG TABLET PO SCH ×2 (09:17→21:12)
[2022-09-29] MEDS: PANTOPRAZOLE 40 MG TABLET PO SCH ×2 (09:18→21:12)
[2022-09-29] MEDS: ENOXAPARIN 40 MG/0.4 ML SYRINGE SUBQ SCH (09:18)
[2022-09-29] MEDS: TAMSULOSIN 0.4 MG CAPSULE PO SCH (09:18)
[2022-09-29] MEDS: SULFAMETH/TRIMETH DS 800/160 MG TABLET PO SCH ×2 (11:06→21:12)
[2022-09-29 13:18] LABS: MAGNESIUM 1.8 mg/dL (1.7-2.3); PHOSPHORUS 3.9 mg/dL (3.7-7.2)
[2022-09-29] MEDS: MIRTAZAPINE 15 MG TABLET PO SCH (21:12)
[2022-09-30] MEDS: ACETAMINOPHEN 500 MG TABLET PO SCH ×4 (00:03→18:07)
[2022-09-30] MEDS: IBUPROFEN 400 MG TABLET PO SCH ×4 (00:04→21:25)
[2022-09-30] MEDS: SODIUM CHLORIDE FLUSH 0.9% 10 ML SYRINGE IVP SCH ×3 (04:51→17:51)
[2022-09-30 05:17] LABS: BASOPHILS % (AUTO) 0.3 %; EOSINOPHILS % (AUTO) 0.3 %; HGB - HEMOGLOBIN 8.9 g/dL (14.0-18.0); LYMPHOCYTES % (AUTO) 4.7 %; MEAN CORPUSCULAR HEMOGLOBIN 33.5 pg (27.0-31.0); MEAN CORPUSCULAR HGB CONC 35.6 g/dL (32.0-36.0); MEAN PLATELET VOLUME 11.3 fL (7.4-11.4); MONOCYTES % (AUTO) 7.3 %; NEUTROPHILS % (AUTO) 84.9 %; PLT - PLATELET COUNT 389 10^3/uL (130-450); RED BLOOD COUNT 2.66 10^6/uL (4.70-6.10); RED CELL DISTRIBUTION WIDTH 17.7 % (12.0-15.0)
[2022-09-30 05:22] LABS: ABNORMAL LYMPHS % (MANUAL) 0 %
[2022-09-30 05:31] LABS: CALCIUM 8.2 mg/dL (8.5-10.3); CREATININE 0.8 mg/dL (0.6-1.3); POTASSIUM 3.8 mmol/L (3.5-4.5)
[2022-09-30 05:43] LABS: BAND NEUTROPHILS % (MANUAL) 5 %; DIFFERENTIAL COMMENT MANUAL DIFFERENTIAL; EOSINOPHILS # (MANUAL) 0.4 10^3/uL (0-0.7); LYMPHOCYTES # (MANUAL) 4.6 10^3/uL (1.5-3.5); LYMPHOCYTES % (MANUAL) 13 %; MONOCYTES # (MANUAL) 1.8 10^3/uL (0.0-1.0); NEUTROPHILS # (MANUAL) 28.4 10^3/uL (1.5-6.6); PLATELET ESTIMATE, MANUAL NORMAL (130-450,000) (NORMAL); RBC MORPHOLOGY (MULTIPLE) NORMAL APPEARANCE (NORMAL)
[2022-09-30] MEDS: oxyCODONE 5 MG TABLET PO PRN (06:10)
--- NOTE | 2022-09-30 06:23 | PROVIDER PROGRESS NOTE ---
Propulsion Engineer Note - Propulsion Engineer Note Propulsion Engineer Note: RN page to report WBC 35 up from 20s yesterday. patient had diverting transverse loop colostomy recently and POD 10 underlying hx of pancreatic cancer c mets concerned for intra abdominal infection especially given surgery and cancer hx BCx x2 empiric abx primary care to consider imaging of abdomen & pelvis for insight Laura Trammell DO Internal Medicine [employer] Propulsion Engineer
[2022-09-30] MEDS ORDERED: PIPERACILLIN/TAZOBACTAM 3.375 GM in SODIUM CHLORIDE 0.9% MINIBAG 100 ML IV ONE (07:00)
--- NOTE | 2022-09-30 07:17 | PHARMACY PROGRESS NOTE ---
- Therapy Status Vancomycin regimen day #: 1 Therapy status: Awaiting steady state Basis for treatment: Empirical Treatment indication: sepsis Trough goal: 15-20 Concurrent antibiotics: Zosyn - SASCHA Risk Risk level for Acute Kidney Injury: High Acute Kidney Injury risk factors: Piperacillin/Tozobactam, IV contrast within 72 hrs, Goal trough >15, Sepsis - Monitoring and Recommendation Clinical response to treatment: I&O Previous 24 hours 09/28/22 09/29/22 09/30/22 23:59 23:59 23:59 Intake Total 2046 3200.5 Output Total 25 Balance 2046 3200.5 -25 Lab Results 09/30/22 09/29/22 09/28/22 05:02 05:20 05:17 BUN 30 H 28 H 25 H Creatinine 0.8 0.7 0.7 Estimated GFR (MDRD) 99 115 115 09/27/22 09/21/22 09/19/22 16:32 05:18 12:45 BUN 25 H 18 11 Creatinine 0.8 0.7 0.6 Estimated GFR (MDRD) 99 115 137 09/18/22 15:37 BUN 17 Creatinine 0.7 Estimated GFR (MDRD) 115 Cultures 09/27/22 17:22 Blood - Right Arm Blood Culture - Preliminary NO GROWTH AFTER 2 DAYS 09/27/22 17:22 Blood - Right Arm Blood Culture - Preliminary NO GROWTH AFTER 2 DAYS 09/27/22 21:00 Urine,Clean Catch Urine Culture - Final Enterobacter Cloacae Complex Monitoring plan: Daily serum creatinine, Suggest ongoing fluid replacement Next trough due prior to maintenance dose #: 4 Next trough due (date/time): 10/02/22 @ 0700 Areas for additional monitoring: IV to PO when appropriate, Therapy de- escalation based on culture results, Acute Kidney Injury Pharmacy recommendation: Continue current regime
[2022-09-30] MEDS ORDERED: VANCOMYCIN INJ 2 GM in SODIUM CHLORIDE 0.9% 500 ML IV ONE (07:30)
[2022-09-30] MEDS ORDERED: VANCOMYCIN INJ 1 GM, VANCOMYCIN INJ 500 MG in SODIUM CHLORIDE 0.9% 500 ML IV ONE (08:00)
[2022-09-30] MEDS: SODIUM CHLORIDE FLUSH 0.9% 10 ML SYRINGE IVP PRN ×2 (08:03→20:14)
[2022-09-30] MEDS: MULTIVITAMIN W/MINERALS TABLET PO SCH (09:05)
[2022-09-30] MEDS: CITALOPRAM HYDROBROMIDE 20 MG TABLET PO SCH (09:05)
[2022-09-30] MEDS: MORPHINE ER 15 MG TABLET PO SCH ×2 (09:05→21:24)
[2022-09-30] MEDS: PANTOPRAZOLE 40 MG TABLET PO SCH ×2 (09:06→21:24)
[2022-09-30] MEDS: ENOXAPARIN 40 MG/0.4 ML SYRINGE SUBQ SCH (09:06)
[2022-09-30] MEDS: TAMSULOSIN 0.4 MG CAPSULE PO SCH (09:06)
--- NOTE | 2022-09-30 09:09 | PROVIDER PROGRESS NOTE ---
Subjective - General Admit Date: 09/19/22 Procedure Date: 09/20/22 Post Op Days: 10 Procedure Performed: diverting transverse loop colostomy - Review of Systems Wound/Incisions: positive: Drainage (serous, ascites) Drain Output Description: Ostomy productive of stool. General: positive: No symptoms HEENT: positive: No symptoms Pulmonary: positive: No symptoms Cardiovascular: positive: No symptoms Gastrointestinal: positive: Abdominal pain (stable, incisional, appropriate) Genitourinary: positive: Incontinence Musculoskeletal: positive: No symptoms Skin: positive: No symptoms Psychiatric: positive: No symptoms All Other Systems: positive: Reviewed and negative Objective - Patient Data Vital Signs: Vital Signs x48h Temp Pulse Resp BP Pulse Ox 09/30/22 07:48 36.5 C 100 20 105/61 96 Intake & Output: Intake and Output Totals x24h 09/28/22 09/29/22 09/30/22 23:59 23:59 23:59 Intake Total 2047 3200.5 100 Output Total 25 Balance 2047 3200.5 75 - Lab Results Lab Results: 09/30/22 05:02 09/30/22 05:02 Other Lab Results: Lab Results x24hrs 09/30/22 09/30/22 09/29/22 Range/Units 05:02 05:02 05:20 WBC 35.0 H* (4.8-10.8) x10^3/uL RBC 2.66 L (4.70-6.10) 10^6/uL Hgb 8.9 L (14.0-18.0) g/dL Hct 25.0 L (42.0-52.0) % MCV 94.0 (80.0-94.0) fL MCH 33.5 H (27.0-31.0) pg MCHC 35.6 (32.0-36.0) g/dL RDW 17.7 H (12.0-15.0) % Plt Count 389 (130-450) 10^3/uL MPV 11.3 (7.4-11.4) fL Neut # (Auto) Not Reportable Lymph # (Auto) Not Reportable [place] # (Auto) Not Reportable Eos # (Auto) Not Reportable Baso # (Auto) Not Reportable Absolute Nucleated RBC Not Reportable Total Counted 100 Band Neuts % (Manual) 5 (0 - 10) % Abnorm Lymph % (Manual) 0 % Nucleated RBC % Not Reportable Neutrophils # (Manual) 28.4 H (1.5-6.6) 10^3/uL Lymphocytes # (Manual) 4.6 H (1.5-3.5) 10^3/uL Monocytes # (Manual) 1.8 H (0.0-1.0) 10^3/uL Eosinophils # (Manual) 0.4 (0-0.7) 10^3/uL Basophils # (Manual) 0.0 (0-0.1) 10^3/uL Differential Comment MANUAL DIFFERENTIAL Platelet Estimate NORMAL (130-450,000) (NORMAL) RBC Morph Micro Appear NORMAL APPEARANCE (NORMAL) Sodium 140 (135-145) mmol/L Potassium 3.8 (3.5-4.5) mmol/L Chloride 110 (101-111) mmol/L Carbon Dioxide 22 (21-32) mmol/L Anion Gap 8.0 (6-13) BUN 30 H (6-20) mg/dL Creatinine 0.8 (0.6-1.3) mg/dL Estimated GFR (MDRD) 99 (>89) Glucose 96 (74-104) mg/dL Calcium 8.2 L (8.5-10.3) mg/dL Phosphorus 3.9 (3.7-7.2) mg/dL Magnesium 1.8 (1.7-2.3) mg/dL - Current Medications Current Medications: Current Medications Generic Name Dose Route Start Last Admin Trade Name Freq PRN Reason Stop Dose Admin Acetaminophen 1,000 mg 09/24/22 18:00 09/30/22 05:27 Acetaminophen 500 Mg Tablet PO 1,000 mg Q6HR ANASTASIIA Administration Citalopram Hydrobromide 40 mg 09/22/22 12:00 09/30/22 09:05 Citalopram Hydrobromide 20 Mg Tablet PO 40 mg DAILY ANASTASIIA Administration Enoxaparin Sodium 40 mg 09/21/22 09:00 09/30/22 09:06 Enoxaparin 40 Mg/0.4 Ml Syringe SUBQ 40 mg DAILY ANASTASIIA Administration Heparin Sodium (Beef Lung) 30 - 50 unit 09/29/22 13:46 09/30/22 05:01 Heparin Flush 50 Units/5 Ml Syringe IVP 30 unit PRN PRN Administration Port Protocol (<24 hours) Hydromorphone HCl 0.5 mg 09/27/22 07:13 09/28/22 11:39 Hydromorphone 0.5 Mg/0.5 Ml Syringe IVP 0.5 mg Q30M PRN Administration Breakthrough Pain Vancomycin HCl 1 gm/ 500 mls @ 250 mls/hr 09/30/22 08:00 09/30/22 09:05 Vancomycin HCl 500 mg/ Sodium IV 09/30/22 09:59 250 mls/hr Chloride ONCE ONE Administration Ibuprofen 400 mg 09/28/22 14:00 09/30/22 05:27 Ibuprofen 400 Mg Tablet PO 400 mg Q6HR ANASTASIIA Administration Mirtazapine 15 mg 09/29/22 21:00 09/29/22 21:12 Mirtazapine 15 Mg Tablet PO 15 mg QPM ANASTASIIA Administration Morphine Sulfate 30 mg 09/22/22 11:00 09/30/22 09:05 Morphine Er 15 Mg Tablet PO 30 mg BID ANASTASIIA Administration Multivitamins/Minerals 1 tab 09/22/22 12:00 09/30/22 09:05 Multivitamin W/Minerals Tablet PO 1 tab DAILYWM ANASTASIIA Administration Ondansetron HCl 4 mg 09/20/22 10:57 09/26/22 07:15 Ondansetron 4 Mg/2 Ml Vial IVP 4 mg Q6H PRN Administration Nausea / Vomiting Oxycodone HCl 5 mg 09/25/22 11:33 09/29/22 21:12 Oxycodone 5 Mg Tablet PO 5 mg Q4HR PRN Administration Moderate Pain (Level 4-6) Oxycodone HCl 10 mg 09/27/22 07:12 09/30/22 06:10 Oxycodone 5 Mg Tablet PO 10 mg Q4HR PRN Administration Severe Pain (Level 7-10) Pantoprazole Sodium 40 mg 09/25/22 09:00 09/30/22 09:06 Pantoprazole 40 Mg Tablet PO 40 mg BID ANASTASIIA Administration Prochlorperazine Edisylate 10 mg 09/20/22 10:57 09/28/22 08:31 Prochlorperazine 10 Mg/2 Ml Vial IVP 10 mg Q4HR PRN Administration Nausea / Vomiting Sodium Chloride 10 ml 09/20/22 17:00 09/30/22 04:51 Sodium Chloride Flush 0.9% 10 Ml Syringe IVP 10 ml 0100,0900,1700 ANASTASIIA Administration Sodium Chloride 10 ml 09/20/22 10:57 09/30/22 08:03 Sodium Chloride Flush 0.9% 10 Ml Syringe IVP 10 ml PRN PRN Administration NEEDED PER PROVIDER ORDERS Tamsulosin HCl 0.4 mg 09/24/22 18:00 09/30/22 09:06 Tamsulosin 0.4 Mg Capsule PO 0.4 mg DAILY ANASTASIIA Administration Impression/Plan - Problem List Problem List: This is a 61 y/o M with: 1. large bowel obstruction - s/p ex lap with transverse loop colostomy, POD#10 - Ostomy productive of stool, tolerating regular diet in small amounts, added protein shakes - continue to work to minimize need for IV meds (on chronic MS contin at [facility]). On oxycodone 10mg prn q4h, scheduled IBU. - Ostomy teaching ongoing. Ostomy appliance appears to be fitting a little better. 2. metastatic pancreatic cancer with carcinomatosis - causing #1. - Sahra Valentine of palliative care following. Appreciate her recommendations and support for the patient and team. - Plan for discharge to SNU. Still conidering transition to hospice at some point. 3. urinary retention, improved - Home tamsulosin restarted - Patient has remote history of prostate ca, also s/p TURP - prn straight cath only if feeling increased suprapubic pressure. 4. nausea/anorexia, improving - prn zofran and compazine. - also receiving mirtazipine to 15mg 5. chest pain, improved - ACS ruled out - EKG demonstrates sinus tach with PVC's - echo pending - medicine team consulted, appreciate recommendations 6. UTI - uCx grew enterococcus, transitioned to PO meds yesterday, but with increased leukocytosis, now back on IV abx 7. leukocytosis - HR wnl, afebrile, BP wnl - suspect possible intra abdominal source - I discussed the situation with the patient. He has advanced cancer and signs of worsening infection, though the source is not yet known. We discussed options including transition to comfort care, treatment with empiric antibiotics, and proceeding with paracentesis which may have some therapeutic benefit as well as being diagnostic. He is agreeable to paracentesis and wants to keep receiving treatment at this time. - paracentesis ordered this AM. I spoke with radiologist and requested "most concerning pocket of fluid" be the target site. Paracentesis fluid to be sent for cx. - repeat blood cx drawn this AM. Previous blood cx with NGTD. DVT Ppx: SCD's, lovenox GI Ppx: on PPI Plan for SNU placement at this time, though this is an ongoing conversation. Patient is a DNR. Continue care on floor at this time. No plan to discharge today while we await paracentesis results, patient requiring IV abx at this time.
[2022-09-30] MEDS ORDERED: PIPERACILLIN/TAZOBACTAM 3.375 GM in SODIUM CHLORIDE 0.9% MINIBAG 100 ML IV SCH (11:00)
[2022-09-30] MEDS ORDERED: LIDOCAINE-MPF 1% 5 ML VIAL ONE (13:56)
[2022-09-30] MEDS ORDERED: LORazepam 2 MG/ML VIAL IVP STA (14:16)
[2022-09-30] MEDS: LIDOCAINE-MPF 1% 5 ML VIAL TD ONE ×2 (16:52→20:16)
--- NOTE | 2022-09-30 17:12 | Ultrasound Report ---
PROCEDURE: Abdominal Paracentesis INDICATIONS: leukocytosis, known malignant ascites TECHNIQUE: The indications, alternatives, benefits, risks, and complications of the procedure were explained to the patient. Written informed consent was obtained and placed in the chart. The abdomen and pelvis were examined sonographically, and an appropriate site was chosen for paracentesis. The skin was pre pared and draped in the usual sterile fashion, and 1% lidocaine was infiltrated from the skin down th rough the peritoneal surface. A 19-gauge catheter-covered needle was then introduced into the perito irena space, the catheter was advanced and the needle was withdrawn, and thereafter peritoneal fluid w as withdrawn. The catheter was then removed and a dressing was applied. The fluid was discarded if the clinician did not order diagnostic testing of the fluid. COMPARISON: Abdominal CT dated 09/27/2022 FINDINGS: Access site: Left lower quadrant Needle: One-Step centesis catheter with introducer needle. Fluid volume and description: 300 mL clear marciano fluid with no purulence. Fluid sent for diagnostic testing: Yes Medications: 1% lidocaine for local anaesthesia. Complications: None. IMPRESSION: Successful ultrasound-guided paracentesis. Reviewed by: Victoriano Escobedo on 09/30/2022 5:10 PM PDT Approved by: Victoriano Escobedo on 09/30/2022 5:10 PM PDT Station ID: [id number]
[2022-09-30] MEDS: VANCOMYCIN INJ 1 GM, VANCOMYCIN INJ 500 MG in SODIUM CHLORIDE 0.9% 500 ML IV SCH (20:13)
[2022-09-30] MEDS: MIRTAZAPINE 15 MG TABLET PO SCH (21:25)
[2022-09-30] MEDS: PIPERACILLIN/TAZOBACTAM 3.375 GM in SODIUM CHLORIDE 0.9% MINIBAG 100 ML IV SCH (23:42)
[2022-10-01] MEDS: ACETAMINOPHEN 500 MG TABLET PO SCH ×4 (00:17→18:24)
[2022-10-01] MEDS: SODIUM CHLORIDE FLUSH 0.9% 10 ML SYRINGE IVP SCH ×4 (00:34→23:34)
[2022-10-01 05:18] LABS: BASOPHILS % (AUTO) 0.3 %; EOSINOPHILS % (AUTO) 0.2 %; HCT - HEMATOCRIT 22.6 % (42.0-52.0); LYMPHOCYTES % (AUTO) 3.3 %; MEAN CORPUSCULAR HGB CONC 35.4 g/dL (32.0-36.0); MEAN CORPUSCULAR VOLUME 96.2 fL (80.0-94.0); MONOCYTES % (AUTO) 5.2 %; PLT - PLATELET COUNT 363 10^3/uL (130-450); RED BLOOD COUNT 2.35 10^6/uL (4.70-6.10); RED CELL DISTRIBUTION WIDTH 17.6 % (12.0-15.0)
[2022-10-01 05:25] LABS: ABNORMAL LYMPHS % (MANUAL) 0 %; BAND NEUTROPHILS % (MANUAL) 0 %
[2022-10-01] MEDS: PIPERACILLIN/TAZOBACTAM 3.375 GM in SODIUM CHLORIDE 0.9% MINIBAG 100 ML IV SCH (05:37)
[2022-10-01 05:43] LABS: LYMPHOCYTES # (MANUAL) 1.3 10^3/uL (1.5-3.5); LYMPHOCYTES % (MANUAL) 3 %; MONOCYTES # (MANUAL) 1.7 10^3/uL (0.0-1.0); MYELOCYTES % (MANUAL) 1 %; NEUTROPHILS # (MANUAL) 39.6 10^3/uL (1.5-6.6)
[2022-10-01 05:44] LABS: DIFFERENTIAL COMMENT MANUAL DIFFERENTIAL; PLATELET ESTIMATE, MANUAL NORMAL (130-450,000) (NORMAL)
[2022-10-01] MEDS ORDERED: PIPERACILLIN/TAZOBACTAM 3.375 GM in SODIUM CHLORIDE 0.9% MINIBAG 100 ML IV SCH (07:51)
[2022-10-01] MEDS: MULTIVITAMIN W/MINERALS TABLET PO SCH (08:04)
[2022-10-01] MEDS: VANCOMYCIN INJ 1 GM, VANCOMYCIN INJ 500 MG in SODIUM CHLORIDE 0.9% 500 ML IV SCH ×2 (08:04→19:58)
[2022-10-01] MEDS: TAMSULOSIN 0.4 MG CAPSULE PO SCH (09:11)
[2022-10-01] MEDS: MORPHINE ER 15 MG TABLET PO SCH ×2 (09:11→20:58)
[2022-10-01] MEDS: IBUPROFEN 400 MG TABLET PO SCH ×3 (09:12→20:57)
[2022-10-01] MEDS: PANTOPRAZOLE 40 MG TABLET PO SCH ×2 (09:12→20:57)
[2022-10-01] MEDS: CITALOPRAM HYDROBROMIDE 20 MG TABLET PO SCH (09:12)
[2022-10-01] MEDS: ENOXAPARIN 40 MG/0.4 ML SYRINGE SUBQ SCH (09:12)
--- NOTE | 2022-10-01 09:27 | PROVIDER PROGRESS NOTE ---
Subjective - General Admit Date: 09/19/22 Procedure Date: 09/20/22 Post Op Days: 11 Procedure Performed: diverting transverse loop colostomy - Review of Systems Wound/Incisions: positive: Drainage (serous, ascites) Drain Output Description: Ostomy productive of stool. Gastrointestinal: positive: Abdominal pain - Other Other Information/Narrative: Patient state he's having "no pain" this morning at the time of my visit. He notes felt short of breath with activity yesterday, but recovered after resting for a few minutes. He is tolerating small amounts of food without n/v. He denies f/c. He is happy to report his ostomy dressing changes are becoming easier and he feels like he might be able to care for the ostomy on his own in the future. Objective - Patient Data Reviewed Vital Signs: Yes Vital Signs: Vital Signs x48h Temp Pulse Resp BP Pulse Ox 10/01/22 07:33 36.4 C L 100 18 125/57 L 97 Intake & Output: Intake and Output Totals x24h 09/29/22 09/30/22 10/01/22 23:59 23:59 23:59 Intake Total 3200.5 1450 200 Output Total 425 100 Balance 3200.5 1025 100 - Lab Results Lab Results: 10/01/22 05:10 09/30/22 05:02 Other Lab Results: Lab Results x24hrs 10/01/22 Range/Units 05:10 WBC 43.0 H* (4.8-10.8) x10^3/uL RBC 2.35 L (4.70-6.10) 10^6/uL Hgb 8.0 L (14.0-18.0) g/dL Hct 22.6 L (42.0-52.0) % MCV 96.2 H (80.0-94.0) fL MCH 34.0 H (27.0-31.0) pg MCHC 35.4 (32.0-36.0) g/dL RDW 17.6 H (12.0-15.0) % Plt Count 363 (130-450) 10^3/uL MPV 11.0 (7.4-11.4) fL Neut # (Auto) Not Reportable Lymph # (Auto) Not Reportable [place] # (Auto) Not Reportable Eos # (Auto) Not Reportable Baso # (Auto) Not Reportable Absolute Nucleated RBC Not Reportable Total Counted 100 Band Neuts % (Manual) 0 (0 - 10) % Abnorm Lymph % (Manual) 0 % Myelocytes % 1 H ( - 0) % Nucleated RBC % Not Reportable Neutrophils # (Manual) 39.6 H (1.5-6.6) 10^3/uL Lymphocytes # (Manual) 1.3 L (1.5-3.5) 10^3/uL Monocytes # (Manual) 1.7 H (0.0-1.0) 10^3/uL Eosinophils # (Manual) 0.0 (0-0.7) 10^3/uL Basophils # (Manual) 0.0 (0-0.1) 10^3/uL Differential Comment MANUAL DIFFERENTIAL Platelet Estimate NORMAL (130-450,000) (NORMAL) RBC Morph Micro Appear 1+ TARGET CELLS (NORMAL) - Current Medications Current Medications: Current Medications Generic Name Dose Route Start Last Admin Trade Name Freq PRN Reason Stop Dose Admin Acetaminophen 1,000 mg 09/24/22 18:00 10/01/22 05:33 Acetaminophen 500 Mg Tablet PO 1,000 mg Q6HR ANASTASIIA Administration Citalopram Hydrobromide 40 mg 09/22/22 12:00 10/01/22 09:12 Citalopram Hydrobromide 20 Mg Tablet PO 40 mg DAILY ANASTASIIA Administration Enoxaparin Sodium 40 mg 09/21/22 09:00 10/01/22 09:12 Enoxaparin 40 Mg/0.4 Ml Syringe SUBQ 40 mg DAILY ANASTASIIA Administration Heparin Sodium (Beef Lung) 30 - 50 unit 09/29/22 13:46 09/30/22 05:01 Heparin Flush 50 Units/5 Ml Syringe IVP 30 unit PRN PRN Administration Port Protocol (<24 hours) Hydromorphone HCl 0.5 mg 09/27/22 07:13 09/28/22 11:39 Hydromorphone 0.5 Mg/0.5 Ml Syringe IVP 0.5 mg Q30M PRN Administration Breakthrough Pain Vancomycin HCl 1 gm/ 500 mls @ 250 mls/hr 09/30/22 20:00 10/01/22 08:04 Vancomycin HCl 500 mg/ Sodium IV 250 mls/hr Chloride Q12H ANASTASIIA Administration Ibuprofen 400 mg 09/30/22 15:00 10/01/22 09:12 Ibuprofen 400 Mg Tablet PO 400 mg 0900,1500,2100 ANASTASIIA Administration Mirtazapine 15 mg 09/29/22 21:00 09/30/22 21:25 Mirtazapine 15 Mg Tablet PO 15 mg QPM ANASTASIIA Administration Morphine Sulfate 30 mg 09/22/22 11:00 10/01/22 09:11 Morphine Er 15 Mg Tablet PO 30 mg BID ANASTASIIA Administration Multivitamins/Minerals 1 tab 09/22/22 12:00 10/01/22 08:04 Multivitamin W/Minerals Tablet PO 1 tab DAILYWM ANASTASIIA Administration Ondansetron HCl 4 mg 09/20/22 10:57 09/26/22 07:15 Ondansetron 4 Mg/2 Ml Vial IVP 4 mg Q6H PRN Administration Nausea / Vomiting Oxycodone HCl 5 mg 09/25/22 11:33 09/29/22 21:12 Oxycodone 5 Mg Tablet PO 5 mg Q4HR PRN Administration Moderate Pain (Level 4-6) Oxycodone HCl 10 mg 09/27/22 07:12 09/30/22 06:10 Oxycodone 5 Mg Tablet PO 10 mg Q4HR PRN Administration Severe Pain (Level 7-10) Pantoprazole Sodium 40 mg 09/25/22 09:00 10/01/22 09:12 Pantoprazole 40 Mg Tablet PO 40 mg BID ANASTASIIA Administration Prochlorperazine Edisylate 10 mg 09/20/22 10:57 09/28/22 08:31 Prochlorperazine 10 Mg/2 Ml Vial IVP 10 mg Q4HR PRN Administration Nausea / Vomiting Sodium Chloride 10 ml 09/20/22 17:00 10/01/22 09:12 Sodium Chloride Flush 0.9% 10 Ml Syringe IVP Not Given 0100,0900,1700 [facility] Sodium Chloride 10 ml 09/20/22 10:57 09/30/22 20:14 Sodium Chloride Flush 0.9% 10 Ml Syringe IVP 10 ml PRN PRN Administration NEEDED PER PROVIDER ORDERS Tamsulosin HCl 0.4 mg 09/24/22 18:00 10/01/22 09:11 Tamsulosin 0.4 Mg Capsule PO 0.4 mg DAILY ANASTASIIA Administration - Physical Exam Wound/Incisions: positive: Drainage (serous, ascites), Other (anthony in place). negative: Erythema General Appearance: positive: No acute distress, Alert Eyes Bilateral: positive: Normal inspection ENT: positive: No signs of dehydration Neck: positive: Trachea midline Respiratory: positive: No respiratory distress, Other (on RA) Cardiovascular: positive: Regular rate & rhythm Abdomen: positive: Tenderness (incisional, mild, no significant ttp in RUQ. No significant abdominal pain away from incision. No peritoneal signs.), Other (ostomy pink, productive of gas and stool, no leaking today!) Skin: positive: Pallor Extremities: positive: Pedal edema (2+ B LE) Neurologic/Psychiatric: positive: Oriented x3, CN's nml (2-12), Other (in good spirits) Impression/Plan - Problem List Problem List: This is a 61 y/o M with: 1. large bowel obstruction - s/p ex lap with transverse loop colostomy, POD#11 - Ostomy productive of stool, tolerating regular diet in small amounts, has protein shakes ordered with each meal - continue to work to minimize need for IV meds (on chronic MS contin at baseline). On oxycodone 10mg prn q4h, scheduled IBU. - Ostomy teaching ongoing. 2. metastatic pancreatic cancer with carcinomatosis, malignant ascites - s/p distal pancreatectomy, duodenal stenting (remotely), currently on chemo, receiving care at [facility]/, medical oncologist is Dr. Ashley Henry. - causing #1. - Sahra Valentine of palliative care following. Appreciate her team's recommendations and support for the patient and team. - Plan for discharge to SNU. Still conidering transition to hospice at some point. 3. urinary retention, improved - Patient has remote history of prostate ca, also s/p TURP - On home tamsulosin - prn straight cath only if feeling increased suprapubic pressure. 4. nausea/anorexia, improving - prn zofran and compazine. - also receiving mirtazipine 15mg 5. chest pain, improved - ACS ruled out - EKG demonstrates sinus tach with PVC's - echo pending - medicine team consulted, appreciate recommendations 6. UTI - uCx grew enterococcus, transitioned to PO meds on 09/29, but restarted IV meds 09/30 with increased wbc. 7. leukocytosis - HR, BP wnl (though he does have some orthostasis and is deconditioned), afebrile, no identified untreated source, clinically not septic - urine grew enterococcus, sensitive to current abx - suspected possible intra abdominal source, s/p paracentesis 09/30, rare gram neg growth noted on 10/01, abx broadened to cefepime and vanc. - Bcx on 09/27, and again 09/30. All without grown at this time - I reached out to the patient's oncology team at [facility] to see if any of his recent chemotherapy medications could be contributing to leukocytosis and if they have other recommendations. I spoke with DOCKET SPECIALIST Moises Hoang. Patient's last infusion of gemcitabine and paclitaxel was on 09/05/22. He had been receiving q4wk infusions. He has not been receiving and growth factors. He has not had any steroids for the last several weeks. They had no additional recommendations. It appears the patient is in the process of transitioning his oncology care to Dr. Lopez at the [facility] here at [facility], though he may not have had an appointment with her yet. I spoke with the oncologist mason apprentice for [facility] (Dr. Leary) who does not have access to our system. She does not have any additional recommendations. DVT Ppx: SCD's, lovenox GI Ppx: on PPI Plan for SNU placement, CM/SW working on d/c planning, several referrals pending. Patient is a DNR. Continue care on floor at this time. No plan to discharge today while we await cx results, patient requiring IV abx at this time. Summary of hospital course: The patient presented with small and large bowel obstruction due to tumor burden. He was taken to the OR for loop colostomy creation. Unfortunately, the local tumor burden prohibited colostomy creation in the left colon and a transverse loop colostomy was made. He was also noted to have significant malignant ascites at that time. After surgery, the patient was transferred to the floor. The patient had copious output from his colostomy for the first several days due to the significant obstruction that had been relieved. This slowed down, and the patient has soft stool from ostomy at this time. He's also had significant serous/ascitic output from his midline incision since surgery. The volume is decreasing, but he continues to require several dressing changes per day. The patient struggled with pain control for the first several days after surgery but now has good pain control with an oral regimen. Palliative care has been instrumental in managing the patient's pain, anorexia, and depression during this stay. On POD#7, the patient was noted to have persistent tachycardia despite improved pain control. Repeat labs indicated a significant leukocytosis, and IV antibiotics were started. The patient was noted to have an enterococcus UTI which was treated with appropriate antibiotics. Clinicially, the patient quickly improved and his vitals normalized, but his leukocytosis remains elevated. On POD#8, he had some chest pain with activity. Medicine was consulted and ACS was ruled out. The chest pain is very localized and has recurred a couple of times since the initial episode.
--- NOTE | 2022-10-01 10:58 | PROVIDER PROGRESS NOTE ---
Subjective - Prog Note Date Prog Note Date: 10/01/22 - Subjective Pt reports feeling: Improved (He is more alert and motivated, not as withdrawn. He is tolerating his diet. He denies pain, nausea.) Objective - Vital Signs/Intake & Output Vital Signs: Vital Signs x48h Temp Pulse Resp BP Pulse Ox 10/01/22 07:33 36.4 C L 100 18 125/57 L 97 Intake & Output: Intake & Output 09/28/22 09/29/22 09/30/22 10/01/22 23:59 23:59 23:59 23:59 Intake Total 2047 3200.5 1450 200 Output Total 425 100 Balance 2046 3200.5 1025 100 - Objective General Appearance: positive: No acute distress, Alert Eyes Bilateral: positive: Normal inspection, EOMI ENT: positive: ENT inspection nml, No signs of dehydration Neck: positive: Nml inspection, No JVD Respiratory: positive: No respiratory distress, Breath sounds nml Cardiovascular: positive: Regular rate & rhythm, No murmur Abdomen: positive: Other (Distended, colostomy in site, incisions with anthony have bandages that are soaked. He has 1+ abdominal wall edema) Skin: positive: Dry Extremities: positive: Other (4+ pitting edema to the lower abdominal wall) Neurologic/Psychiatric: positive: Oriented x3, Other (Decreased sensation right lateral lower leg) - Lab Results Fish Bones: 10/01/22 05:10 09/30/22 05:02 Other Labs: Lab Results x24hrs 10/01/22 Range/Units 05:10 WBC 43.0 H* (4.8-10.8) x10^3/uL RBC 2.35 L (4.70-6.10) 10^6/uL Hgb 8.0 L (14.0-18.0) g/dL Hct 22.6 L (42.0-52.0) % MCV 96.2 H (80.0-94.0) fL MCH 34.0 H (27.0-31.0) pg MCHC 35.4 (32.0-36.0) g/dL RDW 17.6 H (12.0-15.0) % Plt Count 363 (130-450) 10^3/uL MPV 11.0 (7.4-11.4) fL Neut # (Auto) Not Reportable Lymph # (Auto) Not Reportable [place] # (Auto) Not Reportable Eos # (Auto) Not Reportable Baso # (Auto) Not Reportable Absolute Nucleated RBC Not Reportable Total Counted 100 Band Neuts % (Manual) 0 (0 - 10) % Abnorm Lymph % (Manual) 0 % Myelocytes % 1 H ( - 0) % Nucleated RBC % Not Reportable Neutrophils # (Manual) 39.6 H (1.5-6.6) 10^3/uL Lymphocytes # (Manual) 1.3 L (1.5-3.5) 10^3/uL Monocytes # (Manual) 1.7 H (0.0-1.0) 10^3/uL Eosinophils # (Manual) 0.0 (0-0.7) 10^3/uL Basophils # (Manual) 0.0 (0-0.1) 10^3/uL Differential Comment MANUAL DIFFERENTIAL Platelet Estimate NORMAL (130-450,000) (NORMAL) RBC Morph Micro Appear 1+ TARGET CELLS (NORMAL) Assessment/Plan - Problem List (1) Leukocytosis Impression: The patient has had an increase in white blood count over the last few days. Admission WBC on 09/21 was 10, with 16% Bands. Then no labs were checked until 09/27, when he had WBC 26 w/ 0 Bands>> 25 w/ Bands>> 21 w/ 0 Bands. He was switched over from IV antibiotics to oral Bactrim for his UTI, and the plan had been to discharge him. But the next day (yesterday) his WBC carol to 35 w/ 5 Bands. It was the Hospitalist Telemedicine night doctor who was notified and he ordered repeat bld cx, and changed his oral Bactrim to empiric IV Zosyn and iv Vanco yesterday. Despite that, today's WBC is 43 w/0 Bands. Patient has no symptoms of pneumonia, no peritoneal signs, no areas with skin or soft tissue abn. He still does have some drainage from his abdomen incision and colostomy sites, but these are described as serous and are slowing down (those dressing changes used to be 6 days a day, and are now down to about 2 times a day) Yesterday 09/30 a paracentesis was done and that was sent for culture (see #2). Today Dr. Mccormick the general surgeon has reached out to the covering oncologist and reviewed this sequence of labs. There have been no other recommendations that she received Recommendations and Plan: I will to try to reach out to Infectious Disease specialist on-call at [facility] to get any other recommendations. Continue current broad-spectrum antibiotics of Zosyn and Vanco Await details of the positive peritoneal fluid culture (see #2). (2) Infection of ascitic fluid Impression: Today, the culture from the fluid obtained during Paracentesis done yesterday, is growing a gram-negative kari. Since the abd incisions leakage and around his ostomy leakage had persisted for many days, I am concerned that the openings are ports for bacteria to enter his body. Recommendations and Plan: I will to try to reach out to Infectious Disease at [facility] for any other recommendations. Continue current broad-spectrum antibiotics of Zosyn and Vanco Await details of the positive peritoneal fluid culture (3) UTI (urinary tract infection) Impression: His urinary culture from earlier this admission grew out Enterobacter cloacae. He had been on empiric IV Zosyn. He was changed to oral Bactrim when we got his sensitivity results back on the Enterobacter. Recommendations and Plan: He is completing his course of UTI treatment by virtue of him being on even stronger IV antibiotics. (4) Anemia Impression: All labs reviewed. At admission on 09/21, he had a HgB of 10. When labs were checked again on 09/27, his Hgb was 9.7, and has been dropping since then >> 8.9>> 8.9>> 8.0 today. This may be hemodilutional because he gets IV medications greater than 2 L a day. He was also getting various IV hydration fluids, the last of those was NS, stopped on 09/29. Yesterday during PT, he was very orthostatic: Sitting BP was 120 and standing BP was 73 and he was lightheaded. Recommendations and Plan: I will check his B12 and folate levels, and iron stores and replace if low. If hemoglobin drops to below 7, I recommend a blood transfusion I will order orthostatic vital signs to be checked every shift. (5) Anasarca Impression: He has tight leg edema. His Echo showed Normal LV and RV sizes and normal LV and RV function. He does not have renal filure. This edema could be from lover failure (he used to be an alcoholic). His Alb was low 2.4 at the 09/21 lab draw, and no repeat Alb have been done. Recommendations and Plan: I will check his serum Alb I will order daily Lasix with Alb iv to start Keep legs elev when he is OOB (6) Intra-abdominal malignant neoplasm Impression: As per history. He presented with bowel obstruction and underwent colostomy to relieve the obstruction, and had findings of diffuse intra-abdominal malignancy. He wants to continue to have treatment for the cancer, his RN tells me. Recommendations and Plan: Management as per general surgery and palliative wound care nurse. (7) Abnormal EKG Impression: His EKG WAs abnormal, showing evidence of cor pulmonale. His physical exam has ascites however that was felt to be from his abdominal malignancy In addition, his EKG shows diffuse T wave flattening which could be a sign of coronary ischemia. We have no old EKG for comparison to know if these are recent T wave abnormalities. Recommendations and Plan: Given his end-stage malignancy, he is not a candidate to undergo stress testing to evaluate for CAD. In addition, he is not a candidate for empiric daily aspirin because of the continued open wounds which she has from being postoperative. (8) Atypical chest pain Impression: RESOLVED His chest pain was atypical for angina. His 2 troponins ruled him out for an acute WA. He did not have pericarditis or pericardial effusion on his Echo.
[2022-10-01] MEDS: CEFEPIME 2 GM in SODIUM CHLORIDE 0.9% MINIBAG 100 ML IV SCH ×2 (11:16→22:36)
[2022-10-01] MEDS ORDERED: FUROSEMIDE 20 MG/2 ML VIAL IVP STA (15:46)
[2022-10-01] MEDS: MIRTAZAPINE 15 MG TABLET PO SCH (20:58)
[2022-10-02] MEDS: ACETAMINOPHEN 500 MG TABLET PO SCH ×5 (01:02→23:09)
[2022-10-02 07:52] LABS: BASOPHILS % (AUTO) 0.2 %; EOSINOPHILS % (AUTO) 0.2 %; HCT - HEMATOCRIT 26.1 % (42.0-52.0); LYMPHOCYTES % (AUTO) 4.7 %; MEAN CORPUSCULAR HEMOGLOBIN 33.5 pg (27.0-31.0); MEAN CORPUSCULAR HGB CONC 34.5 g/dL (32.0-36.0); MEAN PLATELET VOLUME 11.3 fL (7.4-11.4); MONOCYTES % (AUTO) 5.7 %; NEUTROPHILS % (AUTO) 86.2 %; PLT - PLATELET COUNT 407 10^3/uL (130-450); RED BLOOD COUNT 2.69 10^6/uL (4.70-6.10); RED CELL DISTRIBUTION WIDTH 18.6 % (12.0-15.0)
[2022-10-02 07:56] LABS: ALBUMIN/GLOBULIN RATIO 0.6 (1.0-2.2); ALKALINE PHOSPHATASE 240 IU/L (42-121); ALT ALANINE AMINOTRANSFERASE 16 IU/L (10-60); AST ASPARTATE AMINOTRANSFERASE 20 IU/L (10-42); BILIRUBIN,DIRECT 0.37 mg/dL (0.03-0.18); BUN - BLOOD UREA NITROGEN 33 mg/dL (6-20); CALCIUM 8.1 mg/dL (8.5-10.3); CARBON DIOXIDE - CO2 21 mmol/L (21-32); CHLORIDE 110 mmol/L (101-111); CREATININE 0.9 mg/dL (0.6-1.3); GFR - MDRD 86 (>89); GLUCOSE 104 mg/dL (74-104); IRON 29 ug/dL (50-212); MAGNESIUM 1.9 mg/dL (1.7-2.3); PHOSPHORUS 3.9 mg/dL (3.7-7.2); POTASSIUM 3.3 mmol/L (3.5-4.5); SODIUM 139 mmol/L (135-145); TOTAL IRON BINDING CAPACITY 105 ug/dL (250-450); TOTAL PROTEIN 5.3 g/dL (6.4-8.9); TRANSFERRIN < 75 mg/dL (203-362); VANCOMYCIN,TROUGH 24.8 ug/mL
[2022-10-02 07:57] LABS: WHITE BLOOD COUNT 36.7 x10^3/uL (4.8-10.8)
[2022-10-02 07:58] LABS: ABNORMAL LYMPHS % (MANUAL) 0 %; SLIDE REVIEW? Indicated
[2022-10-02 08:11] LABS: CALCIUM 8.1 mg/dL (8.5-10.3)
[2022-10-02] MEDS: ENOXAPARIN 40 MG/0.4 ML SYRINGE SUBQ SCH (08:13)
[2022-10-02] MEDS: CEFEPIME 2 GM in SODIUM CHLORIDE 0.9% MINIBAG 100 ML IV SCH ×2 (08:13→21:19)
[2022-10-02] MEDS: MORPHINE ER 15 MG TABLET PO SCH ×2 (08:14→21:19)
[2022-10-02] MEDS: ALBUMIN 25% 12.5 GM/50 ML VIAL IV SCH (08:14)
[2022-10-02] MEDS: TAMSULOSIN 0.4 MG CAPSULE PO SCH (08:14)
[2022-10-02] MEDS: CITALOPRAM HYDROBROMIDE 20 MG TABLET PO SCH (08:14)
[2022-10-02] MEDS: MULTIVITAMIN W/MINERALS TABLET PO SCH (08:14)
[2022-10-02] MEDS: IBUPROFEN 400 MG TABLET PO SCH ×3 (08:14→21:19)
[2022-10-02] MEDS: PANTOPRAZOLE 40 MG TABLET PO SCH ×2 (08:14→21:19)
[2022-10-02 08:15] LABS: BAND NEUTROPHILS % (MANUAL) 3 %; LYMPHOCYTES # (MANUAL) 1.1 10^3/uL (1.5-3.5); LYMPHOCYTES % (MANUAL) 3 %; METAMYELOCYTES % (MANUAL) 1 %; MONOCYTES # (MANUAL) 1.5 10^3/uL (0.0-1.0); NEUTROPHILS # (MANUAL) 33.8 10^3/uL (1.5-6.6)
[2022-10-02] MEDS: SODIUM CHLORIDE FLUSH 0.9% 10 ML SYRINGE IVP SCH ×2 (08:15→17:28)
[2022-10-02 08:19] LABS: PLATELET ESTIMATE, MANUAL NORMAL (130-450,000) (NORMAL); PLATELET MORPHOLOGY 1+ LARGE PLATELETS (NORMAL); WBC MORPHOLOGY (MULTIPLE) 3+ HYPERSEG NEUT (NORMAL)
[2022-10-02 08:21] LABS: DIFFERENTIAL COMMENT MANUAL DIFFERENTIAL
[2022-10-02] MEDS ORDERED: POTASSIUM BICARB 25 MEQ TABLET PO ONE (10:28)
--- NOTE | 2022-10-02 10:28 | PROVIDER PROGRESS NOTE ---
Assessment/Plan - Problem List (1) Leukocytosis Assessment/Plan: The patient has had an increase in white blood count over the last few days. Admission WBC on 09/21 was 10, with 16% Bands. Then no labs were checked until 09/27, when he had WBC 26 w/ 0 Bands>> 25 w/ Bands>> 21 w/ 0 Bands. He was switched over from IV antibiotics to oral Bactrim for his UTI, and the plan had been to discharge him. But the next day, his WBC carol to 35 w/ 5 Bands. The Hospitalist Telemedicine night doctor ordered repeat bld cx, and changed his oral Bactrim to empiric IV Zosyn and iv Vanco. Despite that, yesterday's WBC was 43 w/0 Bands. Patient has no symptoms of pneumonia, no peritoneal signs, no areas with skin or soft tissue abn. He still does have some drainage from his abdomen incisions and colostomy sites, but these are described as serous and are slowing down (those dressing changes used to be 6 days a day, and are now down to about 2 times a day) On09/30 a paracentesis was done and that was sent for culture (see #2). Dr. Mccormick yesterday changed his Zosyn to Cefepime, since the Enterobacter growing in his urine is resistant to Penicillins. All labs were reviewed. Today his WBC has improved slightly to 36.7. Recommendations and Plan: Continue current broad-spectrum antibiotics of Cefepime and Vanco Await identification and sensitivities of the positive peritoneal fluid culture (see #2). I spoke to Gen Surgeon Dr Gerardo Sadler today, who advises to get fungal bld cx and to add anti-fungal agent, given his immunocompromised state. Will start Diflucan iv daily. (2) Infection of ascitic fluid Impression: Today, the culture from the fluid obtained during Paracentesis done yesterday, is growing a gram-negative kari. Since the abd incisions leakage and around his ostomy leakage had persisted for many days, I am concerned that the openings are ports for bacteria to enter his body. Dr. Mccormick of Gen Surg yesterday changed his Zosyn to Cefepime, since the Enterobacter growing in his urine is resistant to Penicillins. Recommendations and Plan: Continue current broad-spectrum antibiotics of Cefepime and Vanco Await identification and sensitivities of the gram neg bacteria growing in his peritoneal fluid culture I will add empiric Diflucan iv daily. (3) UTI (urinary tract infection) Impression: His urinary culture from earlier this admission grew out Enterobacter cloacae. He had been on empiric IV Zosyn. He was changed to oral Bactrim when we got his sensitivity results back on the Enterobacter. Dr. Mccormick yesterday changed his Zosyn to Cefepime, since the Enterobacter growing in his urine is resistant to -Cillins. Recommendations and Plan: Cont Cefepime and Vanco for now. Will start empiric Diflucan iv daily. (4) Anemia Impression: All labs reviewed. At admission on 09/21, he had a HgB of 10. When labs were checked again on 09/27, his Hgb was 9.7, and has been dropping since then >> 8.9>> 8.9>> 8.0>> 9.0 today. This is partly hemodilutional because he gets IV medications greater than 2 L a day. He was also getting various IV hydration fluids, the last of those was NS, stopped on 09/29. He is intermittently very orthostatic. (VS were all reviewed). I ordered orthostatic vital signs to be checked every shift. I checked his B12 and folate levels, and iron stores. He has low folate stores and has iron-deficiency anemia Recommendations and Plan: If hemoglobin drops to below 8, I recommend a blood transfusion. Start daily folate po Start iron replacement oral Will also check an INR (not checked since 09/18). (5) Orthostatic hypotension Impression: He has started to work with PT. Since approximately 4 days ago he has been symptomatic with orthostasis, with more than 30 mmHg drop of systolic blood pressure Recommendations and Plan: I will order LULA stockings to be used when he is upright, when walking with PT for example, off when in bed. I started him on daily IV albumin yesterday. He may need Midodrine started I suspect that he may soon need a blood transfusion which will help with this orthostasis as well Continue monitoring orthostatic vital signs every shift. (6) Atypical chest pain Impression: His chest pain was atypical for angina, when I first evaluated him several days ago. His 2 troponins ruled him out for an acute SD. The Echo was done and he did not have pericarditis or pericardial effusion on his Echo, to explain the CP. Today the patient was able to describe that he gets the chest pain across his chest when he is upright and when he is dizzy. This suggest that he may be having angina from hypoperfusion, related to his orthostatic hypotension. Recommendations and Plan: I will try to improve his orthostatic drop in blood pressure (with the plan as in #5) (7) Anasarca Impression: This patient is (+) 7 L in his fluid balance since admission. His Echo showed Normal LV and RV sizes and normal LV and RV function. He does not have renal failure. This edema could be from liver failure (he used to be an alcoholic). His Alb was low 2.4 at the 09/21 lab draw, and Alb came back at 2.0. He had very taut leg edema extending up to his abd wall. By getting albumin yesterday and today, and his first dose of Lasix today, he already has much less tense anasarca Recommendations and Plan: I have ordered daily Lasix iv with daily Alb iv to start today Keep legs elev when he is sitting in a chair Follow I's and O's and daily weights (8) Intra-abdominal malignant neoplasm Impression: As per history. He presented with bowel obstruction and underwent colostomy to relieve the obstruction, and had findings of diffuse intra-abdominal malignancy. He wants to continue to have treatment for the cancer, his RN tells me. Recommendations and Plan: Management as per general surgery and palliative rn homecare. Currently he is not on any chemotherapy. The patient wants continued treatment and he is changing his Oncologist, but does not have an appointment yet with Dr. Felicitas Lopez at our [facility] clinic (9) Abnormal EKG Impression: His EKG was abnormal, showing evidence of cor pulmonale. His physical exam has ascites however that was felt to be from his abdominal malignancy In addition, his EKG shows diffuse T wave flattening which could be a sign of coronary ischemia. We have no old EKG for comparison, to know if these are recent T wave abnormalities. Recommendations and Plan: Given his end-stage malignancy, he is not a candidate to undergo stress testing to evaluate for CAD. In addition, he is not a candidate for empiric daily aspirin because of the postop incisions w/ anthony. - Current Meds Current Meds: Current Medications Generic Name Dose Route Start Last Admin Trade Name Vuq PRN Reason Stop Dose Admin Acetaminophen 1,000 mg 09/24/22 18:00 10/02/22 05:54 Acetaminophen 500 Mg Tablet PO 1,000 mg Q6HR ANASTASIIA Administration Citalopram Hydrobromide 40 mg 09/22/22 12:00 10/02/22 08:14 Citalopram Hydrobromide 20 Mg Tablet PO 40 mg DAILY ANASTASIIA Administration Enoxaparin Sodium 40 mg 09/21/22 09:00 10/02/22 08:13 Enoxaparin 40 Mg/0.4 Ml Syringe SUBQ 40 mg DAILY ANASTASIIA Administration Heparin Sodium (Beef Lung) 30 - 50 unit 09/29/22 13:46 10/02/22 05:58 Heparin Flush 50 Units/5 Ml Syringe IVP 50 unit PRN PRN Administration Port Protocol (<24 hours) Hydromorphone HCl 0.5 mg 09/27/22 07:13 09/28/22 11:39 Hydromorphone 0.5 Mg/0.5 Ml Syringe IVP 0.5 mg Q30M PRN Administration Breakthrough Pain Cefepime HCl 2 gm/ Sodium 100 mls @ 200 mls/hr 10/01/22 10:00 10/02/22 08:13 Chloride IV 200 mls/hr BID ANASTASIIA Administration Albumin Human 12.5 gm in 50 mls @ 50 mls/hr 10/02/22 09:00 10/02/22 08:14 Albuminar-25 IV 50 mls/hr DAILY ANASTASIIA Administration Ibuprofen 400 mg 09/30/22 15:00 10/02/22 08:14 Ibuprofen 400 Mg Tablet PO 400 mg 0900,1500,2100 ANASTASIIA Administration Mirtazapine 15 mg 09/29/22 21:00 10/01/22 20:58 Mirtazapine 15 Mg Tablet PO 15 mg QPM ANASTASIIA Administration Morphine Sulfate 30 mg 09/22/22 11:00 10/02/22 08:14 Morphine Er 15 Mg Tablet PO 30 mg BID ANASTASIIA Administration Multivitamins/Minerals 1 tab 09/22/22 12:00 10/02/22 08:14 Multivitamin W/Minerals Tablet PO 1 tab DAILYWM ANASTASIIA Administration Ondansetron HCl 4 mg 09/20/22 10:57 09/26/22 07:15 Ondansetron 4 Mg/2 Ml Vial IVP 4 mg Q6H PRN Administration Nausea / Vomiting Oxycodone HCl 5 mg 09/25/22 11:33 09/29/22 21:12 Oxycodone 5 Mg Tablet PO 5 mg Q4HR PRN Administration Moderate Pain (Level 4-6) Oxycodone HCl 10 mg 09/27/22 07:12 09/30/22 06:10 Oxycodone 5 Mg Tablet PO 10 mg Q4HR PRN Administration Severe Pain (Level 7-10) Pantoprazole Sodium 40 mg 09/25/22 09:00 10/02/22 08:14 Pantoprazole 40 Mg Tablet PO 40 mg BID ANASTASIIA Administration Prochlorperazine Edisylate 10 mg 09/20/22 10:57 09/28/22 08:31 Prochlorperazine 10 Mg/2 Ml Vial IVP 10 mg Q4HR PRN Administration Nausea / Vomiting Sodium Chloride 10 ml 09/20/22 17:00 10/02/22 08:15 Sodium Chloride Flush 0.9% 10 Ml Syringe IVP 10 ml 0100,0900,1700 ANASTASIIA Administration Sodium Chloride 10 ml 09/20/22 10:57 09/30/22 20:14 Sodium Chloride Flush 0.9% 10 Ml Syringe IVP 10 ml PRN PRN Administration NEEDED PER PROVIDER ORDERS Tamsulosin HCl 0.4 mg 09/24/22 18:00 10/02/22 08:14 Tamsulosin 0.4 Mg Capsule PO 0.4 mg DAILY ANASTASIIA Administration - Lab Result Fish Bone Diagrams: 10/02/22 07:27 10/02/22 07:27 - Additional Planning My Orders: My Active Orders 10/01/22 09:54 Orthostatic [Vital Signs - Orthostatic] [RC] QSHIFT 10/02/22 09:00 Albumin 25% [Albuminar-25] 12.5 gm in 50 ml IV DAILY 10/02/22 10:19 Potassium Bicarbonate [K-Effervescent] 25 meq PO ONCE ONE 10/02/22 11:00 FUROSEMIDE INJ 20mg VIAL [LASIX INJ 20mg VIAL] 20 mg IVP 1100 10/03/22 05:00 ALBUMIN [CHEM] DAILYLAB CBC - COMP BLD CT W/AUTO DIFF [HEME] DAILYLAB COMPREHENSIVE METABOLIC PANEL [CHEM] DAILYLAB Subjective - Subjective Patient Reports: Feeling Better (Has more energy, appetite is good and he denies abdominal pain. He does describe lightheadedness when he is in upright position and with 2 of those episodes he had pain across his chest that lasted more than 5 minutes) Objective Vital Signs: Vital Signs - 24 hr 10/01/22 10/01/22 10/02/22 15:29 23:35 07:35 Temperature 36.9 C 36.8 C 36.3 C L Heart Rate [ 91 88 93 Brachial] Respiratory 16 18 18 Rate Blood Pressure 107/61 [Left Brachial artery] Blood Pressure 111/64 119/65 [Right Brachial artery] O2 Saturation 100 97 97 Oxygen O2 Source Room air I&O (Last 24 Hrs): Intake and Output Totals x24h 09/30/22 10/01/22 10/02/22 23:59 23:59 23:59 Intake Total 1450 1922 622 Output Total 425 130 100 Balance 1025 1792 522 General: Alert, Oriented x3 HEENT: Mucous membr. moist/pink, Other (Bald) Neck: Supple Neuro: Alert, Non Focal Cardiovascular: Regular rate Respiratory: No respiratory distress Abdomen: Soft, Other (Distended, has colostomy draining brown material. Has 2 incisions w/ anthony, less serous drainage on bandages compared to yesterday) Extremities: No clubbing, Other (1+ (less taut) pitting edema to upper thighs.) - Results Results: Laboratory Results WBC 36.7 x10^3/uL (4.8-10.8) H* 10/02/22 07:27 RBC 2.69 10^6/uL (4.70-6.10) L 10/02/22 07:27 Hgb 9.0 g/dL (14.0-18.0) L 10/02/22 07:27 Hct 26.1 % (42.0-52.0) L 10/02/22 07:27 MCV 97.0 fL (80.0-94.0) H 10/02/22 07:27 MCH 33.5 pg (27.0-31.0) H 10/02/22 07:27 MCHC 34.5 g/dL (32.0-36.0) 10/02/22 07:27 RDW 18.6 % (12.0-15.0) H 10/02/22 07:27 Plt Count 407 10^3/uL (130-450) 10/02/22 07:27 MPV 11.3 fL (7.4-11.4) 10/02/22 07:27 Neut # (Auto) Not Reportable 10/02/22 07:27 Lymph # (Auto) Not Reportable 10/02/22 07:27 [place] # (Auto) Not Reportable 10/02/22 07:27 Eos # (Auto) Not Reportable 10/02/22 07:27 Baso # (Auto) Not Reportable 10/02/22 07:27 Absolute Nucleated RBC Not Reportable 10/02/22 07:27 Total Counted 100 10/02/22 07:27 Band Neuts % (Manual) 3 % (0-10) 10/02/22 07:27 Abnorm Lymph % (Manual) 0 % 10/02/22 07:27 Metamyelocytes % 1 % (-0) H 10/02/22 07:27 Myelocytes % 1 % (-0) H 10/01/22 05:10 Nucleated RBC % Not Reportable 10/02/22 07:27 Neutrophils # (Manual) 33.8 10^3/uL (1.5-6.6) H 10/02/22 07:27 Lymphocytes # (Manual) 1.1 10^3/uL (1.5-3.5) L 10/02/22 07:27 Monocytes # (Manual) 1.5 10^3/uL (0.0-1.0) H 10/02/22 07:27 Eosinophils # (Manual) 0.0 10^3/uL (0-0.7) 10/02/22 07:27 Basophils # (Manual) 0.0 10^3/uL (0-0.1) 10/02/22 07:27 Differential Comment MANUAL DIFFERENTIAL 10/02/22 07:27 Manual Slide Review Indicated 10/02/22 07:27 WBC Morphology 3+ HYPERSEG NEUT (NORMAL) 10/02/22 07:27 Platelet Estimate NORMAL (130-450,000) (NORMAL) 10/02/22 07:27 Platelet Morphology 1+ LARGE PLATELETS (NORMAL) 10/02/22 07:27 RBC Morph Micro Appear 3+ HYPOCHROMASIA (NORMAL) 1+ SCHISTOCYTES (NORMAL) 1+ TARGET CELLS (NORMAL) 2+ ANISOCYTOSIS (NORMAL) 2+ OVALOCYTES (NORMAL) 10/02/22 07:27 RBC Morph Micro Appear 3+ HYPOCHROMASIA (NORMAL) 1+ SCHISTOCYTES (NORMAL) 1+ TARGET CELLS (NORMAL) 2+ ANISOCYTOSIS (NORMAL) 2+ OVALOCYTES (NORMAL) 10/02/22 07:27 RBC Morph Micro Appear 3+ HYPOCHROMASIA (NORMAL) 1+ SCHISTOCYTES (NORMAL) 1+ TARGET CELLS (NORMAL) 2+ ANISOCYTOSIS (NORMAL) 2+ OVALOCYTES (NORMAL) 10/02/22 07:27 RBC Morph Micro Appear 3+ HYPOCHROMASIA (NORMAL) 1+ SCHISTOCYTES (NORMAL) 1+ TARGET CELLS (NORMAL) 2+ ANISOCYTOSIS (NORMAL) 2+ OVALOCYTES (NORMAL) 10/02/22 07:27 RBC Morph Micro Appear 3+ HYPOCHROMASIA (NORMAL) 1+ SCHISTOCYTES (NORMAL) 1+ TARGET CELLS (NORMAL) 2+ ANISOCYTOSIS (NORMAL) 2+ OVALOCYTES (NORMAL) 10/02/22 07:27 PT 12.6 secs (9.9-12.6) 09/18/22 15:37 INR 1.2 (0.8-1.2) 09/18/22 15:37 Sodium 139 mmol/L (135-145) 10/02/22 07:27 Potassium 3.3 mmol/L (3.5-4.5) L 10/02/22 07:27 Chloride 110 mmol/L (101-111) 10/02/22 07:27 Carbon Dioxide 21 mmol/L (21-32) 10/02/22 07:27 Anion Gap 8.0 (6-13) 10/02/22 07:27 BUN 33 mg/dL (6-20) H 10/02/22 07:27 Creatinine 0.9 mg/dL (0.6-1.3) 10/02/22 07:27 Estimated GFR (MDRD) 86 (>89) L 10/02/22 07:27 Glucose 104 mg/dL (74-104) 10/02/22 07:27 Lactic Acid 1.6 mmol/L (0.5-2.2) 09/27/22 17:22 Calcium 8.1 mg/dL (8.5-10.3) L 10/02/22 07:27 Calcium 8.1 mg/dL (8.5-10.3) L 10/02/22 07:27 Phosphorus 3.9 mg/dL (3.7-7.2) 10/02/22 07:27 Magnesium 1.9 mg/dL (1.7-2.3) 10/02/22 07:27 Iron 29 ug/dL (50-212) L 10/02/22 07:27 TIBC 105 ug/dL (250-450) L 10/02/22 07:27 % Saturation TNP 10/02/22 07:27 Transferrin < 75 mg/dL (203-362) L 10/02/22 07:27 Total Bilirubin 1.0 mg/dL (0.2-1.0) 10/02/22 07:27 Direct Bilirubin 0.37 mg/dL (0.03-0.18) H 10/02/22 07:27 AST 20 IU/L (10-42) 10/02/22 07:27 ALT 16 IU/L (10-60) 10/02/22 07:27 Alkaline Phosphatase 240 IU/L (42-121) H 10/02/22 07:27 Troponin I High Sens 29.0 ng/L (2.3-19.7) H* 09/28/22 09:42 Total Protein 5.3 g/dL (6.4-8.9) L 10/02/22 07:27 Albumin 2.0 g/dL (3.2-5.5) L 10/02/22 07:27 Albumin 2.0 g/dL (3.2-5.5) L 10/02/22 07:27 Globulin 3.3 g/dL (2.1-4.2) 10/02/22 07:27 Albumin/Globulin Ratio 0.6 (1.0-2.2) L 10/02/22 07:27 Lipase 19 U/L (22-51) L 09/18/22 15:37 Vitamin B12 2109 pg/mL (180-914) H 10/02/22 07:27 Folate 4.8 ng/mL (5.90 - >24.8) L 10/02/22 07:27 Urine Color DARK YELLOW 09/27/22 21:00 Urine Clarity CLOUDY (CLEAR) 09/27/22 21:00 Urine pH 5.0 PH (5.0-7.5) 09/27/22 21:00 Ur Specific [place] 1.025 (1.002-1.030) 09/27/22 21:00 Urine Protein 30 mg/dL (NEGATIVE) H 09/27/22 21:00 Urine Glucose (UA) NEGATIVE mg/dL (NEGATIVE) 09/27/22 21:00 Urine Ketones NEGATIVE mg/dL (NEGATIVE) 09/27/22 21:00 Urine Occult Blood SMALL (NEGATIVE) H 09/27/22 21:00 Urine Nitrite POSITIVE (NEGATIVE) H 09/27/22 21:00 Urine Bilirubin SMALL (NEGATIVE) H 09/27/22 21:00 Urine Urobilinogen 0.2 (NORMAL) E.U./dL (NORMAL) 09/27/22 21:00 Ur Leukocyte Esterase SMALL (NEGATIVE) H 09/27/22 21:00 Urine RBC 0-5 /HPF (0-5) 09/27/22 21:00 Urine WBC >25 /HPF (0-3) H 09/27/22 21:00 Ur Squamous Epith Cells NONE SEEN (<= Few) 09/27/22 21:00 Urine Bacteria Many /HPF (None Seen) H 09/27/22 21:00 Urine Culture Comments INDICATED 09/27/22 21:00 Gastric Fluid pH TNP 09/19/22 03:40 Gastric Occult Blood POSITIVE (Negative) 09/19/22 03:40 Stl C. diff Tox B Gene NEGATIVE (NEGATIVE) 09/27/22 21:00 Last Dose Date 10/01/22 10/02/22 07:27 Last Dose Time 22310/02/22 07:27 Vancomycin Trough 24.8 ug/mL 10/02/22 07:27 SARS-CoV-2 (PCR) NOT DETECTED 09/18/22 17:49 - Procedures Procedures: Procedures EXCISION OF CECUM, ENDO, DIAGN (05/09/17) EXCISION OF RECTUM, ENDO, DIAGN (05/09/17)
[2022-10-02] MEDS: FUROSEMIDE 20 MG/2 ML VIAL IVP SCH (11:14)
[2022-10-02] MEDS: VANCOMYCIN INJ 1 GM in SODIUM CHLORIDE 0.9% 250 ML IV SCH ×2 (11:14→23:06)
[2022-10-02] MEDS: FERROUS GLUCONATE 324 MG TABLET PO SCH (12:34)
[2022-10-02] MEDS: FOLIC ACID 1 MG TABLET PO SCH (12:34)
--- NOTE | 2022-10-02 15:07 | PROVIDER PROGRESS NOTE ---
Subjective - Prog Note Date Prog Note Date: 10/02/22 - Subjective Subjective: Pt examined and seen by me. 61 male with recent bowel obstruction with diverting colostomy and carcin omatous. Poor prognosis. Very edematous. Discussed with Internal med doctor. Elevated WBC. On broad spectrum antibiotics. Will get a fungal culture and then start diflucan. . Objective - Vital Signs/Intake & Output Vital Signs: Vital Signs x48h Temp Pulse Resp BP Pulse Ox 10/02/22 07:35 36.3 C L 93 18 119/65 97 Intake & Output: Intake & Output 09/29/22 09/30/22 10/01/22 10/02/22 23:59 23:59 23:59 23:59 Intake Total 3200.5 1450 1922 1122 Output Total 425 130 100 Balance 3200.5 1025 1792 1022 - Lab Results Fish Bones: 10/02/22 07:27 10/02/22 07:27 Other Labs: Lab Results x24hrs 10/02/22 10/02/22 10/02/22 Range/Units 07:27 07:27 07:27 WBC 36.7 H* (4.8-10.8) x10^3/uL RBC 2.69 L (4.70-6.10) 10^6/uL Hgb 9.0 L (14.0-18.0) g/dL Hct 26.1 L (42.0-52.0) % MCV 97.0 H (80.0-94.0) fL MCH 33.5 H (27.0-31.0) pg MCHC 34.5 (32.0-36.0) g/dL RDW 18.6 H (12.0-15.0) % Plt Count 407 (130-450) 10^3/uL MPV 11.3 (7.4-11.4) fL Neut # (Auto) Not Reportable Lymph # (Auto) Not Reportable [place] # (Auto) Not Reportable Eos # (Auto) Not Reportable Baso # (Auto) Not Reportable Absolute Nucleated RBC Not Reportable Total Counted 100 Band Neuts % (Manual) 3 (0 - 10) % Abnorm Lymph % (Manual) 0 % Metamyelocytes % 1 H ( - 0) % Nucleated RBC % Not Reportable Neutrophils # (Manual) 33.8 H (1.5-6.6) 10^3/uL Lymphocytes # (Manual) 1.1 L (1.5-3.5) 10^3/uL Monocytes # (Manual) 1.5 H (0.0-1.0) 10^3/uL Eosinophils # (Manual) 0.0 (0-0.7) 10^3/uL Basophils # (Manual) 0.0 (0-0.1) 10^3/uL Differential Comment MANUAL DIFFERENTIAL Manual Slide Review Indicated WBC Morphology 3+ HYPERSEG NEUT (NORMAL) Platelet Estimate NORMAL (130-450,000) (NORMAL) Platelet Morphology 1+ LARGE PLATELETS (NORMAL) RBC Morph Micro Appear 2+ OVALOCYTES (NORMAL) Sodium 139 (135-145) mmol/L Potassium 3.3 L (3.5-4.5) mmol/L Chloride 110 (101-111) mmol/L Carbon Dioxide 21 (21-32) mmol/L Anion Gap 8.0 (6-13) BUN 33 H (6-20) mg/dL Creatinine 0.9 (0.6-1.3) mg/dL Estimated GFR (MDRD) 86 L (>89) Glucose 104 (74-104) mg/dL Calcium 8.1 L 8.1 L (8.5-10.3) mg/dL Phosphorus 3.9 (3.7-7.2) mg/dL Magnesium 1.9 (1.7-2.3) mg/dL Iron 29 L (50-212) ug/dL TIBC 105 L (250-450) ug/dL % Saturation TNP Transferrin < 75 L (203-362) mg/dL Total Bilirubin 1.0 (0.2-1.0) mg/dL Direct Bilirubin 0.37 H (0.03-0.18) mg/dL AST 20 (10-42) IU/L ALT 16 (10-60) IU/L Alkaline Phosphatase 240 H (42-121) IU/L Total Protein 5.3 L (6.4-8.9) g/dL Albumin 2.0 L 2.0 L (3.2-5.5) g/dL Globulin 3.3 (2.1-4.2) g/dL Albumin/Globulin Ratio 0.6 L (1.0-2.2) Vitamin B12 2109 H (180-914) pg/mL Folate 4.8 L (5.90 - >24.8) ng/mL Last Dose Date 10/01/22 Last Dose Time 223 Vancomycin Trough 24.8 ug/mL
[2022-10-02] MEDS: MIDODRINE 2.5 MG TABLET PO SCH (17:27)
[2022-10-02] MEDS: FLUCONAZOLE 200 MG/100 ML 100 ML IV SCH (19:16)
[2022-10-02] MEDS: MIRTAZAPINE 15 MG TABLET PO SCH (21:19)
[2022-10-03 05:32] LABS: BASOPHILS % (AUTO) 0.1 %; EOSINOPHILS % (AUTO) 1.2 %; HCT - HEMATOCRIT 20.5 % (42.0-52.0); HGB - HEMOGLOBIN 7.4 g/dL (14.0-18.0); LYMPHOCYTES % (AUTO) 9.4 %; MEAN CORPUSCULAR HEMOGLOBIN 33.9 pg (27.0-31.0); MEAN CORPUSCULAR HGB CONC 36.1 g/dL (32.0-36.0); MEAN PLATELET VOLUME 11.3 fL (7.4-11.4); NEUTROPHILS % (AUTO) 79.6 %; PLT - PLATELET COUNT 389 10^3/uL (130-450); RED BLOOD COUNT 2.18 10^6/uL (4.70-6.10); RED CELL DISTRIBUTION WIDTH 18.6 % (12.0-15.0); WHITE BLOOD COUNT 22.7 x10^3/uL (4.8-10.8)
[2022-10-03 05:49] LABS: ABNORMAL LYMPHS % (MANUAL) 0 %; INR 1.2 (0.8-1.2); PT - PROTHROMBIN TIME 13.3 secs (9.9-12.6)
[2022-10-03 05:53] LABS: ALBUMIN 1.9 g/dL (3.2-5.5); ALBUMIN/GLOBULIN RATIO 0.6 (1.0-2.2); BILIRUBIN,TOTAL 0.8 mg/dL (0.2-1.0); CALCIUM 7.9 mg/dL (8.5-10.3); CREATININE 0.8 mg/dL (0.6-1.3); POTASSIUM 3.3 mmol/L (3.5-4.5)
[2022-10-03 05:59] LABS: BAND NEUTROPHILS % (MANUAL) 1 %; EOSINOPHILS # (MANUAL) 0.5 10^3/uL (0-0.7); LYMPHOCYTES # (MANUAL) 1.8 10^3/uL (1.5-3.5); LYMPHOCYTES % (MANUAL) 8 %; MONOCYTES # (MANUAL) 0.2 10^3/uL (0.0-1.0); NEUTROPHILS # (MANUAL) 20.2 10^3/uL (1.5-6.6)
[2022-10-03 06:00] LABS: DIFFERENTIAL COMMENT MANUAL DIFFERENTIAL; PLATELET ESTIMATE, MANUAL NORMAL (130-450,000) (NORMAL); PLATELET MORPHOLOGY NORMAL APPEARANCE (NORMAL); WBC MORPHOLOGY (MULTIPLE) NORMAL APPEARANCE (NORMAL)
[2022-10-03] MEDS ORDERED: BENZOCAINE/MENTHOL LOZENGE MM PRN (06:41)
[2022-10-03] MEDS: SODIUM CHLORIDE FLUSH 0.9% 10 ML SYRINGE IVP SCH ×3 (07:03→17:02)
[2022-10-03] MEDS: ACETAMINOPHEN 500 MG TABLET PO SCH ×3 (07:03→18:03)
[2022-10-03] MEDS: CEFEPIME 2 GM in SODIUM CHLORIDE 0.9% MINIBAG 100 ML IV SCH ×2 (09:24→21:04)
[2022-10-03] MEDS: MORPHINE ER 15 MG TABLET PO SCH ×2 (09:28→20:48)
[2022-10-03] MEDS: CITALOPRAM HYDROBROMIDE 20 MG TABLET PO SCH (09:28)
[2022-10-03] MEDS: IBUPROFEN 400 MG TABLET PO SCH ×3 (09:28→20:49)
[2022-10-03] MEDS: MULTIVITAMIN W/MINERALS TABLET PO SCH (09:28)
[2022-10-03] MEDS: FOLIC ACID 1 MG TABLET PO SCH (09:28)
[2022-10-03] MEDS: MIDODRINE 2.5 MG TABLET PO SCH ×3 (09:28→17:02)
[2022-10-03] MEDS: FERROUS GLUCONATE 324 MG TABLET PO SCH (09:28)
[2022-10-03] MEDS: ENOXAPARIN 40 MG/0.4 ML SYRINGE SUBQ SCH (09:29)
[2022-10-03] MEDS: PANTOPRAZOLE 40 MG TABLET PO SCH ×2 (09:29→20:49)
[2022-10-03] MEDS: TAMSULOSIN 0.4 MG CAPSULE PO SCH (09:29)
[2022-10-03] MEDS: ALBUMIN 25% 12.5 GM/50 ML VIAL IV SCH (10:23)
[2022-10-03] MEDS ORDERED: POTASSIUM BICARB 25 MEQ TABLET PO ONE (10:30)
[2022-10-03] MEDS ORDERED: POTASSIUM CHLOR 10 MEQ/100 ML 10 MEQ/100 ML BAG IV ONE (10:31)
[2022-10-03] MEDS: FLUCONAZOLE 200 MG/100 ML 100 ML IV SCH (12:06)
[2022-10-03] MEDS: FUROSEMIDE 20 MG/2 ML VIAL IVP SCH (12:23)
--- NOTE | 2022-10-03 14:32 | PROVIDER PROGRESS NOTE ---
Subjective - General Admit Date: 09/19/22 Procedure Date: 09/20/22 Post Op Days: 13 Procedure Performed: diverting transverse loop colostomy - Review of Systems Wound/Incisions: positive: No drainage, Drainage (serous, ascites), Other (anthony in place). negative: Erythema Drain Output Description: Ostomy productive of stool. General: positive: No symptoms, Appetite HEENT: positive: No symptoms Pulmonary: positive: No symptoms Cardiovascular: positive: No symptoms Gastrointestinal: positive: Abdominal pain Genitourinary: positive: Incontinence Musculoskeletal: positive: No symptoms Skin: positive: No symptoms Psychiatric: positive: No symptoms All Other Systems: positive: Reviewed and negative Objective - Patient Data Vital Signs: Vital Signs x48h Temp Pulse Resp BP Pulse Ox 10/03/22 07:47 36.3 C L 101 H 17 130/69 97 Intake & Output: Intake and Output Totals x24h 10/01/22 10/02/22 10/03/22 23:59 23:59 23:59 Intake Total 1922 1742 740 Output Total 130 100 100 Balance 1792 1642 640 - Lab Results Lab Results: 10/03/22 05:13 10/03/22 05:13 Other Lab Results: Lab Results x24hrs 10/03/22 10/03/22 10/03/22 Range/Units 05:13 05:13 05:13 WBC 22.7 H (4.8-10.8) x10^3/uL RBC 2.18 L (4.70-6.10) 10^6/uL Hgb 7.4 L (14.0-18.0) g/dL Hct 20.5 L (42.0-52.0) % MCV 94.0 (80.0-94.0) fL MCH 33.9 H (27.0-31.0) pg MCHC 36.1 H (32.0-36.0) g/dL RDW 18.6 H (12.0-15.0) % Plt Count 389 (130-450) 10^3/uL MPV 11.3 (7.4-11.4) fL Neut # (Auto) Not Reportable Lymph # (Auto) Not Reportable [place] # (Auto) Not Reportable Eos # (Auto) Not Reportable Baso # (Auto) Not Reportable Absolute Nucleated RBC Not Reportable Total Counted 100 Band Neuts % (Manual) 1 (0 - 10) % Abnorm Lymph % (Manual) 0 % Nucleated RBC % Not Reportable Neutrophils # (Manual) 20.2 H (1.5-6.6) 10^3/uL Lymphocytes # (Manual) 1.8 (1.5-3.5) 10^3/uL Monocytes # (Manual) 0.2 (0.0-1.0) 10^3/uL Eosinophils # (Manual) 0.5 (0-0.7) 10^3/uL Basophils # (Manual) 0.0 (0-0.1) 10^3/uL Differential Comment MANUAL DIFFERENTIAL WBC Morphology NORMAL APPEARANCE (NORMAL) Platelet Estimate NORMAL (130-450,000) (NORMAL) Platelet Morphology NORMAL APPEARANCE (NORMAL) RBC Morph Micro Appear 1+ TARGET CELLS (NORMAL) PT 13.3 H (9.9-12.6) secs INR 1.2 (0.8-1.2) Sodium 138 (135-145) mmol/L Potassium 3.3 L (3.5-4.5) mmol/L Chloride 110 (101-111) mmol/L Carbon Dioxide 22 (21-32) mmol/L Anion Gap 6.0 (6-13) BUN 29 H (6-20) mg/dL Creatinine 0.8 (0.6-1.3) mg/dL Estimated GFR (MDRD) 99 (>89) Glucose 106 H (74-104) mg/dL Calcium 7.9 L (8.5-10.3) mg/dL Total Bilirubin 0.8 (0.2-1.0) mg/dL AST 14 (10-42) IU/L ALT 13 (10-60) IU/L Alkaline Phosphatase 194 H (42-121) IU/L Total Protein 5.0 L (6.4-8.9) g/dL Albumin 1.9 L (3.2-5.5) g/dL Globulin 3.1 (2.1-4.2) g/dL Albumin/Globulin Ratio 0.6 L (1.0-2.2) - Current Medications Current Medications: Current Medications Generic Name Dose Route Start Last Admin Trade Name Freq PRN Reason Stop Dose Admin Acetaminophen 1,000 mg 09/24/22 18:00 10/03/22 07:03 Acetaminophen 500 Mg Tablet PO 1,000 mg Q6HR ANASTASIIA Administration Citalopram Hydrobromide 40 mg 09/22/22 12:00 10/03/22 09:28 Citalopram Hydrobromide 20 Mg Tablet PO 40 mg DAILY ANASTASIIA Administration Enoxaparin Sodium 40 mg 09/21/22 09:00 10/03/22 09:29 Enoxaparin 40 Mg/0.4 Ml Syringe SUBQ 40 mg DAILY ANASTASIIA Administration Ferrous Gluconate 324 mg 10/02/22 12:00 10/03/22 09:28 Ferrous Gluconate 324 Mg Tablet PO 324 mg DAILYWM ANASTASIIA Administration Folic Acid 1 mg 10/02/22 12:00 10/03/22 09:28 Folic Acid 1 Mg Tablet PO 1 mg DAILY ANASTASIIA Administration Furosemide 20 mg 10/02/22 11:00 10/03/22 12:23 Furosemide 20 Mg/2 Ml Vial IVP 20 mg 1100 ANASTASIIA Administration Heparin Sodium (Beef Lung) 30 - 50 unit 09/29/22 13:46 10/02/22 05:58 Heparin Flush 50 Units/5 Ml Syringe IVP 50 unit PRN PRN Administration Port Protocol (<24 hours) Hydromorphone HCl 0.5 mg 09/27/22 07:13 09/28/22 11:39 Hydromorphone 0.5 Mg/0.5 Ml Syringe IVP 0.5 mg Q30M PRN Administration Breakthrough Pain Cefepime HCl 2 gm/ Sodium 100 mls @ 200 mls/hr 10/01/22 10:00 10/03/22 09:27 Chloride IV 200 mls/hr BID ANASTASIIA Infusion Albumin Human 12.5 gm in 50 mls @ 50 mls/hr 10/02/22 09:00 10/03/22 10:23 Albuminar-25 IV 50 mls/hr DAILY ANASTASIIA Administration Vancomycin HCl 1 gm/ Sodium 250 mls @ 166.667 mls/hr 10/02/22 08:00 10/03/22 00:36 Chloride IV Infused Q12H ANASTASIIA Infusion Fluconazole 100 mls @ 100 mls/hr 10/02/22 15:30 10/03/22 12:06 Diflucan 200 Mg/100 Ml IV 100 mls/hr DAILY ANASTASIIA Administration Ibuprofen 400 mg 09/30/22 15:00 10/03/22 09:28 Ibuprofen 400 Mg Tablet PO 400 mg 0900,1500,2100 ANASTASIIA Administration Midodrine 2.5 mg 10/02/22 17:00 10/03/22 12:22 Midodrine 2.5 Mg Tablet PO 2.5 mg TIDWM ANASTASIIA Administration Mirtazapine 15 mg 09/29/22 21:00 10/02/22 21:19 Mirtazapine 15 Mg Tablet PO 15 mg QPM ANASTASIIA Administration Morphine Sulfate 30 mg 09/22/22 11:00 10/03/22 09:28 Morphine Er 15 Mg Tablet PO 30 mg BID ANASTASIIA Administration Multivitamins/Minerals 1 tab 09/22/22 12:00 10/03/22 09:28 Multivitamin W/Minerals Tablet PO 1 tab DAILYWM ANASTASIIA Administration Ondansetron HCl 4 mg 09/20/22 10:57 09/26/22 07:15 Ondansetron 4 Mg/2 Ml Vial IVP 4 mg Q6H PRN Administration Nausea / Vomiting Oxycodone HCl 5 mg 09/25/22 11:33 09/29/22 21:12 Oxycodone 5 Mg Tablet PO 5 mg Q4HR PRN Administration Moderate Pain (Level 4-6) Oxycodone HCl 10 mg 09/27/22 07:12 09/30/22 06:10 Oxycodone 5 Mg Tablet PO 10 mg Q4HR PRN Administration Severe Pain (Level 7-10) Pantoprazole Sodium 40 mg 09/25/22 09:00 10/03/22 09:29 Pantoprazole 40 Mg Tablet PO 40 mg BID ANASTASIIA Administration Prochlorperazine Edisylate 10 mg 09/20/22 10:57 09/28/22 08:31 Prochlorperazine 10 Mg/2 Ml Vial IVP 10 mg Q4HR PRN Administration Nausea / Vomiting Sodium Chloride 10 ml 09/20/22 17:00 10/03/22 09:29 Sodium Chloride Flush 0.9% 10 Ml Syringe IVP 10 ml 0100,0900,1700 ANASTASIIA Administration Sodium Chloride 10 ml 09/20/22 10:57 09/30/22 20:14 Sodium Chloride Flush 0.9% 10 Ml Syringe IVP 10 ml PRN PRN Administration NEEDED PER PROVIDER ORDERS Tamsulosin HCl 0.4 mg 09/24/22 18:00 10/03/22 09:29 Tamsulosin 0.4 Mg Capsule PO 0.4 mg DAILY ANASTASIIA Administration Impression/Plan - Problem List Problem List: Mr. 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 Started on diflucan yesterday with improvement of his white count. Recs: Encourage PO intake. Consider stopping vancomycin due to culture data. Continue cefipime and diflucan. Continue dispo management.'
[2022-10-03] MEDS: VANCOMYCIN INJ 1 GM in SODIUM CHLORIDE 0.9% 250 ML IV SCH (14:44)
--- NOTE | 2022-10-03 14:55 | PROVIDER PROGRESS NOTE ---
Assessment/Plan - Problem List (1) Leukocytosis Assessment/Plan: The patient has had an increase in white blood count over the last few days. Admission WBC on 09/21 was 10, with 16% Bands. Then no labs were checked until 09/27, when he had WBC 26 w/ 0 Bands>> 25 w/ Bands>> 21 w/ 0 Bands. He was switched over from IV antibiotics to oral Bactrim for his UTI, and the plan had been to discharge him. But the next day, his WBC carol to 35 w/ 5 Bands. The Hospitalist Telemedicine night doctor ordered repeat bld cx, and changed his oral Bactrim to empiric IV Zosyn and iv Vanco. Despite that, WBC carol to 43 w/0 Bands. His Zosyn was changed to Cefepime, since the Enterobacter growing in his urine is resistant to Penicillins. On 09/30 a paracentesis was done and that ascites fluid culture is also growing Enterobacter They may have a different bio gram, when I reviewed the sensitivit ies today closed All labs were reviewed. Today his WBC has improved slightly to 22.7. Today I spoke with the general surgeon , who suggested we stop the Vanco since none of his cultures are growing MRSA Recommendations and Plan: Continue current broad-spectrum iv Cefepime and iv Diflucan. Stop iv Vanco. Follow CBC daily. (2) Infection of ascitic fluid Impression: Since the abd incisions leakage and around his ostomy leakage had persisted for many days, I am concerned that the openings are ports for bacteria to enter his body. Today, the culture from the fluid obtained during Paracentesis done 09/30, was identified as growing Enterobacter cloacae His Zosyn was changed to Cefepime several days ago when the Enterobacter growing in his urine came back resistant to Penicillins. Yesterday we also started empiric Diflucan, in this immunocompromised pt Recommendations and Plan: Continue current broad-spectrum iv Cefepime and iv Diflucan. Stop iv Vanco. Follow CBC daily. (3) UTI (urinary tract infection) Impression: His urinary culture from earlier this admission grew out Enterobacter cloacae. He had been on empiric IV Zosyn. He was changed to oral Bactrim when we got his sensitivity results back on the Enterobacter. Then when WBC carol, his Zosyn was changed to Cefepime, since the Enterobacter growing in his urine is resistant to Penicillins Recommendations and Plan: Cont Cefepime and Diflucan iv daily. (4) Anemia Impression: All labs reviewed. At admission on 09/21, he had a HgB of 10. When labs were checked again on 09/27, his Hgb was 9.7, and has been dropping since then >> 8.9>> 8.9>> 8.0>> 9.0>> 7.4 today. This is partly hemodilutional because he gets IV medications greater than 2 L a day. He was also getting various IV hydration fluids, the last of those was NS, stopped on 09/29. The recheck of his INR came back normal at 1.2 He is intermittently very orthostatic. (VS were all reviewed). I checked his B12 and folate levels, and iron stores. He has low folate stores and has iron-deficiency anemia Recommendations and Plan: I will order a blood transfusion today, since the Hgb has fallen <8 today, to 7.4, since he is having angina. The transfusion should help with this orthostasis as well. Cont daily folate po Cont iron replacement oral (5) Orthostatic hypotension Impression: He started to work with PT. Since approximately 4 days ago he has been symptomatic with dizziness when orthostastic, with more than 30 mmHg drop of systolic blood pressure I ordered LULA stockings to be used when he is upright, when walking with PT for example, and take off when in bed. I started him on daily IV albumin I ordered Midodrine 2.5 TID w/ meals be started yesterday 10/02 Recommendations and Plan: I will order a blood transfusion since the Hgb has fallen to 7.4, since he is having angina. The transfusion should help with this orthostasis. His Midodrine dose could also be adjusted upward, I want to see what the transfusion does for him first. Continue monitoring orthostatic vital signs every shift. (6) Chest pain Impression: His chest pain was atypical for angina when I first evaluated him several days ago. His 2 troponins ruled him out for an acute PA. The Echo was done and he did not have pericarditis or pericardial effusion on his Echo, to explain the CP. For the last 2 days the patient gets the chest pain across his chest when he is upright which is when he is dizzy. This suggest that orthostasis is causing angina and he may be having hypoperfusion of his coronary arteries. I had ordered Midodrine to help the BP which was start yesterday 10/02. This did help the orthostasis going from supine to sitting. I also added LULA stockings to be put on when he is working with PT, and these can be taken off when he is in bed, to give his skin a break. He still drops his pressures 30 mmHg when he stands today. Today he has had no chest pain Recommendations and Plan: Transfuse 1 U PRBCs today I will continue to adjust meds as in #5 (7) Anasarca Impression: This patient is (+) 7 L in his fluid balance since admission. His Echo showed Normal LV and RV sizes and normal LV and RV function, so edema i s not from heart failure. He does not have renal failure. This edema could be from liver failure (he used to be an alcoholic). His Alb was low 2.4 at the 09/21 lab draw, and a repeat Alb came back at 2.0. He had very taut leg edema extending up to his abd wall. By getting albumin and Lasix daily, he already has much less tense anasarca, I estimated edema at 1+ today Recommendations and Plan: Cont daily Lasix iv with daily Alb iv to start today Keep legs elev when he is sitting in a chair Follow I's and O's and daily weights (8) Intra-abdominal malignant neoplasm Impression: As per history. He presented with bowel obstruction and underwent colostomy to relieve the obstruction, and had findings of diffuse intra-abdominal malignancy. He wants to continue to have treatment for the cancer, his RN tells me. Recommendations and Plan: Management as per general surgery and palliative career development manager. Currently he is not on any chemotherapy. The patient wants continued treatment and he is changing his Oncologist, but does not have an appointment yet with Dr. Felicitas Lopez at our [facility] (9) Abnormal EKG Impression: His EKG was abnormal, showing evidence of cor pulmonale. His physical exam has ascites however that was felt to be from his abdominal malignancy In addition, his EKG shows diffuse T wave flattening which could be a sign of coronary ischemia. We have no old EKG for comparison, to know if these are recent T wave abnormalities. Recommendations and Plan: Given his end-stage malignancy, he is not a candidate to undergo stress testing to evaluate for CAD. In addition, he is not a candidate for empiric daily aspirin because of the postop incisions w/ anthony. - Current Meds Current Meds: Current Medications Generic Name Dose Route Start Last Admin Trade Name Freq PRN Reason Stop Dose Admin Acetaminophen 1,000 mg 09/24/22 18:00 10/03/22 13:00 Acetaminophen 500 Mg Tablet PO 1,000 mg Q6HR ANASTASIIA Administration Citalopram Hydrobromide 40 mg 09/22/22 12:00 10/03/22 09:28 Citalopram Hydrobromide 20 Mg Tablet PO 40 mg DAILY ANASTASIIA Administration Enoxaparin Sodium 40 mg 09/21/22 09:00 10/03/22 09:29 Enoxaparin 40 Mg/0.4 Ml Syringe SUBQ 40 mg DAILY ANASTASIIA Administration Ferrous Gluconate 324 mg 10/02/22 12:00 10/03/22 09:28 Ferrous Gluconate 324 Mg Tablet PO 324 mg DAILYWM ANASTASIIA Administration Folic Acid 1 mg 10/02/22 12:00 10/03/22 09:28 Folic Acid 1 Mg Tablet PO 1 mg DAILY ANASTASIIA Administration Furosemide 20 mg 10/02/22 11:00 10/03/22 12:23 Furosemide 20 Mg/2 Ml Vial IVP 20 mg 1100 ANASTASIIA Administration Heparin Sodium (Beef Lung) 30 - 50 unit 09/29/22 13:46 10/02/22 05:58 Heparin Flush 50 Units/5 Ml Syringe IVP 50 unit PRN PRN Administration Port Protocol (<24 hours) Hydromorphone HCl 0.5 mg 09/27/22 07:13 09/28/22 11:39 Hydromorphone 0.5 Mg/0.5 Ml Syringe IVP 0.5 mg Q30M PRN Administration Breakthrough Pain Cefepime HCl 2 gm/ Sodium 100 mls @ 200 mls/hr 10/01/22 10:00 10/03/22 09:27 Chloride IV 200 mls/hr BID ANASTASIIA Infusion Albumin Human 12.5 gm in 50 mls @ 50 mls/hr 10/02/22 09:00 10/03/22 10:23 Albuminar-25 IV 50 mls/hr DAILY ANASTASIIA Administration Fluconazole 100 mls @ 100 mls/hr 10/02/22 15:30 10/03/22 12:06 Diflucan 200 Mg/100 Ml IV 100 mls/hr DAILY ANASTASIIA Administration Ibuprofen 400 mg 09/30/22 15:00 10/03/22 09:28 Ibuprofen 400 Mg Tablet PO 400 mg 0900,1500,2100 ANASTASIIA Administration Midodrine 2.5 mg 10/02/22 17:00 10/03/22 12:22 Midodrine 2.5 Mg Tablet PO 2.5 mg TIDWM ANASTASIIA Administration Mirtazapine 15 mg 09/29/22 21:00 10/02/22 21:19 Mirtazapine 15 Mg Tablet PO 15 mg QPM ANASTASIIA Administration Morphine Sulfate 30 mg 09/22/22 11:00 10/03/22 09:28 Morphine Er 15 Mg Tablet PO 30 mg BID ANASTASIIA Administration Multivitamins/Minerals 1 tab 09/22/22 12:00 10/03/22 09:28 Multivitamin W/Minerals Tablet PO 1 tab DAILYWM ANASTASIIA Administration Ondansetron HCl 4 mg 09/20/22 10:57 09/26/22 07:15 Ondansetron 4 Mg/2 Ml Vial IVP 4 mg Q6H PRN Administration Nausea / Vomiting Oxycodone HCl 5 mg 09/25/22 11:33 09/29/22 21:12 Oxycodone 5 Mg Tablet PO 5 mg Q4HR PRN Administration Moderate Pain (Level 4-6) Oxycodone HCl 10 mg 09/27/22 07:12 09/30/22 06:10 Oxycodone 5 Mg Tablet PO 10 mg Q4HR PRN Administration Severe Pain (Level 7-10) Pantoprazole Sodium 40 mg 09/25/22 09:00 10/03/22 09:29 Pantoprazole 40 Mg Tablet PO 40 mg BID ANASTSAIIA Administration Prochlorperazine Edisylate 10 mg 09/20/22 10:57 09/28/22 08:31 Prochlorperazine 10 Mg/2 Ml Vial IVP 10 mg Q4HR PRN Administration Nausea / Vomiting Sodium Chloride 10 ml 09/20/22 17:00 10/03/22 09:29 Sodium Chloride Flush 0.9% 10 Ml Syringe IVP 10 ml 0100,0900,1700 ANASTASIIA Administration Sodium Chloride 10 ml 09/20/22 10:57 09/30/22 20:14 Sodium Chloride Flush 0.9% 10 Ml Syringe IVP 10 ml PRN PRN Administration NEEDED PER PROVIDER ORDERS Tamsulosin HCl 0.4 mg 09/24/22 18:00 10/03/22 09:29 Tamsulosin 0.4 Mg Capsule PO 0.4 mg DAILY ANASTASIIA Administration - Lab Result Fish Bone Diagrams: 10/03/22 05:13 10/03/22 05:13 - Additional Planning My Orders: My Active Orders 10/02/22 15:30 Fluconazole 200 mg/100 ml [Diflucan 200 mg/100 ml] 100 ml IV DAILY 10/02/22 16:22 Miscellaenous Nursing Order [RC] QSHIFT 10/02/22 16:23 Miscellaenous Nursing Order [RC] QSFLFT 10/02/22 17:00 Midodrine [ProAmatine] 2.5 mg PO TIDWM 10/02/22 17:50 FUNGUS (MYCOLOGY) CULTURE [REFLAB] Stat Subjective - Subjective Patient Reports: Feeling Better (He is more alert, and he showed me a double thumbs up sign when I asked how he feels) Objective Vital Signs: Vital Signs - 24 hr 10/02/22 10/02/22 10/03/22 17:42 23:05 07:47 Temperature 36.9 C 36.4 C L 36.3 C L Heart Rate [ 93 86 101 H Brachial] Respiratory 16 16 17 Rate Blood Pressure 113/56 L 130/69 [Left Brachial artery] Blood Pressure 133/68 H [Right Brachial artery] O2 Saturation 98 96 97 Oxygen O2 Source Room air I&O (Last 24 Hrs): Intake and Output Totals x24h 10/01/22 10/02/22 10/03/22 23:59 23:59 23:59 Intake Total 1922 1742 920 Output Total 130 100 100 Balance 1792 1642 820 General: Alert, Oriented x3 HEENT: Mucous membr. moist/pink, Other (Bald, is wearing a knit cap) Neck: Supple Neuro: Alert, Non Focal Cardiovascular: Regular rate Respiratory: No respiratory distress Abdomen: Soft, Other (Distended moderately) Extremities: Other (Trace-1+ edema pretibially) - Results Results: Laboratory Results WBC 22.7 x10^3/uL (4.8-10.8) H 10/03/22 05:13 RBC 2.18 10^6/uL (4.70-6.10) L 10/03/22 05:13 Hgb 7.4 g/dL (14.0-18.0) L 10/03/22 05:13 Hct 20.5 % (42.0-52.0) L 10/03/22 05:13 MCV 94.0 fL (80.0-94.0) 10/03/22 05:13 MCH 33.9 pg (27.0-31.0) H 10/03/22 05:13 MCHC 36.1 g/dL (32.0-36.0) H 10/03/22 05:13 RDW 18.6 % (12.0-15.0) H 10/03/22 05:13 Plt Count 389 10^3/uL (130-450) 10/03/22 05:13 MPV 11.3 fL (7.4-11.4) 10/03/22 05:13 Neut # (Auto) Not Reportable 10/03/22 05:13 Lymph # (Auto) Not Reportable 10/03/22 05:13 [place] # (Auto) Not Reportable 10/03/22 05:13 Eos # (Auto) Not Reportable 10/03/22 05:13 Baso # (Auto) Not Reportable 10/03/22 05:13 Absolute Nucleated RBC Not Reportable 10/03/22 05:13 Total Counted 100 10/03/22 05:13 Band Neuts % (Manual) 1 % (0-10) 10/03/22 05:13 Abnorm Lymph % (Manual) 0 % 10/03/22 05:13 Metamyelocytes % 1 % (-0) H 10/02/22 07:27 Myelocytes % 1 % (-0) H 10/01/22 05:10 Nucleated RBC % Not Reportable 10/03/22 05:13 Neutrophils # (Manual) 20.2 10^3/uL (1.5-6.6) H 10/03/22 05:13 Lymphocytes # (Manual) 1.8 10^3/uL (1.5-3.5) 10/03/22 05:13 Monocytes # (Manual) 0.2 10^3/uL (0.0-1.0) 10/03/22 05:13 Eosinophils # (Manual) 0.5 10^3/uL (0-0.7) 10/03/22 05:13 Basophils # (Manual) 0.0 10^3/uL (0-0.1) 10/03/22 05:13 Differential Comment MANUAL DIFFERENTIAL 10/03/22 05:13 Manual Slide Review Indicated 10/02/22 07:27 WBC Morphology NORMAL APPEARANCE (NORMAL) 10/03/22 05:13 Platelet Estimate NORMAL (130-450,000) (NORMAL) 10/03/22 05:13 Platelet Morphology NORMAL APPEARANCE (NORMAL) 10/03/22 05:13 RBC Morph Micro Appear 2+ HYPOCHROMASIA (NORMAL) 1+ TARGET CELLS (NORMAL) 10/03/22 05:13 RBC Morph Micro Appear 2+ HYPOCHROMASIA (NORMAL) 1+ TARGET CELLS (NORMAL) 10/03/22 05:13 PT 13.3 secs (9.9-12.6) H 10/03/22 05:13 INR 1.2 (0.8-1.2) 10/03/22 05:13 Sodium 138 mmol/L (135-145) 10/03/22 05:13 Potassium 3.3 mmol/L (3.5-4.5) L 10/03/22 05:13 Chloride 110 mmol/L (101-111) 10/03/22 05:13 Carbon Dioxide 22 mmol/L (21-32) 10/03/22 05:13 Anion Gap 6.0 (6-13) 10/03/22 05:13 BUN 29 mg/dL (6-20) H 10/03/22 05:13 Creatinine 0.8 mg/dL (0.6-1.3) 10/03/22 05:13 Estimated GFR (MDRD) 99 (>89) 10/03/22 05:13 Glucose 106 mg/dL (74-104) H 10/03/22 05:13 Lactic Acid 1.6 mmol/L (0.5-2.2) 09/27/22 17:22 Calcium 7.9 mg/dL (8.5-10.3) L 10/03/22 05:13 Phosphorus 3.9 mg/dL (3.7-7.2) 10/02/22 07:27 Magnesium 1.9 mg/dL (1.7-2.3) 10/02/22 07:27 Iron 29 ug/dL (50-212) L 10/02/22 07:27 TIBC 105 ug/dL (250-450) L 10/02/22 07:27 % Saturation TNP 10/02/22 07:27 Transferrin < 75 mg/dL (203-362) L 10/02/22 07:27 Total Bilirubin 0.8 mg/dL (0.2-1.0) 10/03/22 05:13 Direct Bilirubin 0.37 mg/dL (0.03-0.18) H 10/02/22 07:27 AST 14 IU/L (10-42) 10/03/22 05:13 ALT 13 IU/L (10-60) 10/03/22 05:13 Alkaline Phosphatase 194 IU/L (42-121) H 10/03/22 05:13 Troponin I High Sens 29.0 ng/L (2.3-19.7) H* 09/28/22 09:42 Total Protein 5.0 g/dL (6.4-8.9) L 10/03/22 05:13 Albumin 1.9 g/dL (3.2-5.5) L 10/03/22 05:13 Globulin 3.1 g/dL (2.1-4.2) 10/03/22 05:13 Albumin/Globulin Ratio 0.6 (1.0-2.2) L 10/03/22 05:13 Lipase 19 U/L (22-51) L 09/18/22 15:37 Vitamin B12 2109 pg/mL (180-914) H 10/02/22 07:27 Folate 4.8 ng/mL (5.90 - >24.8) L 10/02/22 07:27 Urine Color DARK YELLOW 09/27/22 21:00 Urine Clarity CLOUDY (CLEAR) 09/27/22 21:00 Urine pH 5.0 PH (5.0-7.5) 09/27/22 21:00 Ur Specific [place] 1.025 (1.002-1.030) 09/27/22 21:00 Urine Protein 30 mg/dL (NEGATIVE) H 09/27/22 21:00 Urine Glucose (UA) NEGATIVE mg/dL (NEGATIVE) 09/27/22 21:00 Urine Ketones NEGATIVE mg/dL (NEGATIVE) 09/27/22 21:00 Urine Occult Blood SMALL (NEGATIVE) H 09/27/22 21:00 Urine Nitrite POSITIVE (NEGATIVE) H 09/27/22 21:00 Urine Bilirubin SMALL (NEGATIVE) H 09/27/22 21:00 Urine Urobilinogen 0.2 (NORMAL) E.U./dL (NORMAL) 09/27/22 21:00 Ur Leukocyte Esterase SMALL (NEGATIVE) H 09/27/22 21:00 Urine RBC 0-5 /HPF (0-5) 09/27/22 21:00 Urine WBC >25 /HPF (0-3) H 09/27/22 21:00 Ur Squamous Epith Cells NONE SEEN (<= Few) 09/27/22 21:00 Urine Bacteria Many /HPF (None Seen) H 09/27/22 21:00 Urine Culture Comments INDICATED 09/27/22 21:00 Gastric Fluid pH TNP 09/19/22 03:40 Gastric Occult Blood POSITIVE (Negative) 09/19/22 03:40 Stl C. diff Tox B Gene NEGATIVE (NEGATIVE) 09/27/22 21:00 Last Dose Date 10/01/22 10/02/22 07:27 Last Dose Time 223210/02/22 07:27 Vancomycin Trough 24.8 ug/mL 10/02/22 07:27 SARS-CoV-2 (PCR) NOT DETECTED 09/18/22 17:49 - Procedures Procedures: Procedures EXCISION OF CECUM, ENDO, DIAGN (05/09/17) EXCISION OF RECTUM, ENDO, DIAGN (05/09/17)
--- NOTE | 2022-10-03 16:38 | Ultrasound Report ---
PROCEDURE: Duplex Ext Veins Bilateral INDICATIONS: Bilateral leg swelling TECHNIQUE: Real-time imaging, as well as color and pulse Doppler interrogation, were performed of the deep veins of both legs from the inguinal ligament to the popliteal fossa. COMPARISON: 09/30/2022 FINDINGS: The deep veins are normally compressible, and free of intraluminal thrombus. Color and pu lse Doppler demonstrate normal phasic intravascular flow. There is normal augmentation response to d istal compression maneuver. Subcutaneous edema noted bilaterally IMPRESSION: No evidence of deep venous thrombosis, bilateral lower extremities Reviewed by: Akash Neil MD on 10/03/2022 3:37 PM TIA Approved by: Akash Neil MD on 10/03/2022 3:37 PM AK[facility] Station ID: [id number]
[2022-10-03] MEDS: MIRTAZAPINE 15 MG TABLET PO SCH (20:49)
[2022-10-04] MEDS: ACETAMINOPHEN 500 MG TABLET PO SCH ×4 (01:07→18:12)
[2022-10-04] MEDS: SODIUM CHLORIDE FLUSH 0.9% 10 ML SYRINGE IVP SCH ×3 (01:08→17:16)
[2022-10-04 05:36] LABS: HCT - HEMATOCRIT 22.7 % (42.0-52.0); HGB - HEMOGLOBIN 7.8 g/dL (14.0-18.0); MEAN CORPUSCULAR HEMOGLOBIN 32.5 pg (27.0-31.0); MEAN CORPUSCULAR HGB CONC 34.4 g/dL (32.0-36.0); MEAN CORPUSCULAR VOLUME 94.6 fL (80.0-94.0); RED BLOOD COUNT 2.4 10^6/uL (4.70-6.10); RED CELL DISTRIBUTION WIDTH 18.7 % (12.0-15.0); WHITE BLOOD COUNT 18.9 x10^3/uL (4.8-10.8)
[2022-10-04] MEDS: CITALOPRAM HYDROBROMIDE 20 MG TABLET PO SCH (08:19)
[2022-10-04] MEDS: PANTOPRAZOLE 40 MG TABLET PO SCH ×2 (08:19→20:58)
[2022-10-04] MEDS: MORPHINE ER 15 MG TABLET PO SCH ×2 (08:19→20:58)
[2022-10-04] MEDS: MIDODRINE 2.5 MG TABLET PO SCH ×3 (08:19→17:26)
[2022-10-04] MEDS: FERROUS GLUCONATE 324 MG TABLET PO SCH (08:20)
[2022-10-04] MEDS: ENOXAPARIN 40 MG/0.4 ML SYRINGE SUBQ SCH (08:20)
[2022-10-04] MEDS: CEFEPIME 2 GM in SODIUM CHLORIDE 0.9% MINIBAG 100 ML IV SCH ×2 (08:20→20:59)
[2022-10-04] MEDS: IBUPROFEN 400 MG TABLET PO SCH ×3 (08:20→20:58)
[2022-10-04] MEDS: TAMSULOSIN 0.4 MG CAPSULE PO SCH (08:20)
[2022-10-04] MEDS: PRENATAL VITAMIN TABLET PO SCH (09:02)
[2022-10-04] MEDS: ALBUMIN 25% 12.5 GM/50 ML VIAL IV SCH (09:02)
[2022-10-04] MEDS ORDERED: POTASSIUM CHLOR 10 MEQ/100 ML 10 MEQ/100 ML BAG IV ONE (09:24)
[2022-10-04] MEDS: FLUCONAZOLE 200 MG/100 ML 100 ML IV SCH (10:45)
--- NOTE | 2022-10-04 11:29 | PROVIDER PROGRESS NOTE ---
Subjective - Subjective Pt reports feeling: Improved (feeling much improved. energy and strength improved. fluid retention much improved) Objective - Vital Signs/Intake & Output Vital Signs: Vital Signs x48h Temp Pulse Resp BP Pulse Ox 10/04/22 08:01 36.4 C L 82 16 114/56 L 96 Intake & Output: Intake & Output 10/01/22 10/02/22 10/03/22 10/04/22 23:59 23:59 23:59 23:59 Intake Total 1922 1742 2531 390 Output Total 130 100 100 Balance 1792 1642 2431 390 - Objective General Appearance: positive: No acute distress, Alert Eyes Bilateral: positive: PERRL, EOMI ENT: positive: No signs of dehydration Respiratory: positive: No respiratory distress Abdomen: positive: Non-tender, No distention, Other (incisions c/d/i functional warm stoma) Neurologic/Psychiatric: positive: Oriented x3 - Lab Results Fish Bones: 10/04/22 05:28 10/03/22 05:13 Other Labs: Lab Results x24hrs 10/04/22 10/03/22 10/03/22 Range/Units 05:28 18:03 17:11 WBC 18.9 H (4.8-10.8) x10^3/uL RBC 2.40 L (4.70-6.10) 10^6/uL Hgb 7.8 L (14.0-18.0) g/dL Hct 22.7 L (42.0-52.0) % MCV 94.6 H (80.0-94.0) fL MCH 32.5 H (27.0-31.0) pg MCHC 34.4 (32.0-36.0) g/dL RDW 18.7 H (12.0-15.0) % Plt Count 396 (130-450) 10^3/uL MPV 11.0 (7.4-11.4) fL Blood Type A POSITIVE Blood Type Recheck A POSITIVE Antibody Screen NEGATIVE Crossmatch IS Only See Detail Assessment/Plan - Problem List (1) Bowel obstruction Impression: feeling much improved. continue present care d/c pending
[2022-10-04] MEDS: FUROSEMIDE 20 MG/2 ML VIAL IVP SCH (12:40)
[2022-10-04] MEDS: POTASSIUM CHLORIDE 10 MEQ CAPSULE PO SCH (12:40)
--- NOTE | 2022-10-04 14:47 | PROVIDER PROGRESS NOTE ---
Assessment/Plan - Problem List (1) Orthostatic hypotension Assessment/Plan: He started to work with PT post-op. Since approximately 4 days ago he has been symptomatic with dizziness when orthostastic, with more than 30 mmHg drop of systolic blood pressure I ordered LULA stockings to be used when he is upright, when walking with PT for example, and take off when in bed. I started him on daily IV albumin I ordered Midodrine 2.5 TID w/ meals be started 10/02 On 10/03 I ordered a blood transfusion since the Hgb has fallen to 7.4, and he was having angina when he was orthostatic. The transfusion helped with his orthostatic BP drops but today his HR still rises > 20 points from supine to standing (VS were reviewed today). Recommendations and Plan: His Midodrine dose could also be adjusted upward He may need another transfusion if Hgb drops <8. Continue monitoring orthostatic, will decrease from every shift to daily orthostatics. (2) Chest pain Impression: His chest pain was atypical for angina when I first evaluated him many days ago. His 2 troponins ruled him out for an acute WI. The Echo was done and he did not have pericarditis or pericardial effusion on his Echo, to explain the CP. But for the last 4 days, the patient gets the chest pain across his chest when he is upright, which is when he is dizzy, which is when his systolic BP dropped. This suggests that orthostasis is causing angina and he may be having hypoperfusion of his coronary arteries. I had ordered Midodrine to help the BP which was start 10/02. This did help the orthostasis going from supine to sitting but not to standing. I also added LULA stockings to be put on when he is working with PT, and these can be taken off when he is in bed, to give his skin a break. He still raises his HR when he stands today. Today he had briefer chest pain, he told me. Recommendations and Plan: His Midodrine dose could also be adjusted upward He may need another transfusion if Hgb drops <8. Continue monitoring orthostatic daily now (3) Leukocytosis Assessment/Plan: The patient has had an increase in white blood count over the last few days. Admission WBC on 09/21 was 10, with 16% Bands. Then no labs were checked until 09/27, when he had WBC 26 w/ 0 Bands>> 25 w/ Bands>> 21 w/ 0 Bands. He was swit ched over from IV antibiotics to oral Bactrim for his UTI, and the plan had been to discharge him. But the next day, his WBC carol to 35 w/ 5 Bands. The Hospitalist Telemedicine night doctor ordered repeat bld cx, and changed his oral Bactrim to empiric IV Zosyn and iv Vanco. Despite that, WBC carol to 43 w/ 0 Bands. His Zosyn was changed to Cefepime, since the Enterobacter growing in his urine is resistant to Penicillins. On 09/30 a paracentesis was done and that ascites fluid culture is also growing Enterobacter They may have a different bio gram, when I reviewed the se nsitivities. We stopped the Vanco on 10/03, since none of his cultures were growing MRSA All labs were reviewed. Today his WBC has improved down to 18.9. Recommendations and Plan: Continue current broad-spectrum iv Cefepime and the recently added iv Diflucan. Duration of treatment and change to oral antibiotics will be determined after discussion with Gen Surgeon. Follow CBC daily. I anticipate he may be ready for DCh soon, on oral antibiotic and antifungal, plus a probiotic. (4) Infection of ascitic fluid Impression: Since the abd incisions leakage and around his ostomy leakage had persisted for many days, I was concerned that the openings are ports for bacteria to enter his body. The culture from Paracentesis done 09/30, was identified as growing Enterobacter cloacae His Zosyn was changed to Cefepime several days ago when the Enterobacter growing in his urine came back resistant to Penicillins. We also started empiric Diflucan, in this immunocompromised pt on 10/02. Recommendations and Plan: Continue current iv Cefepime and iv Diflucan. Duration of treatment and change to oral antibiotics will be determined after discussion with Gen Surgeon. Follow CBC daily. (5) UTI (urinary tract infection) Impression: His urinary culture from earlier this admission grew out Enterobacter cloacae. He had been on empiric IV Zosyn. He was changed to oral Bactrim when we got his sensitivity results back on the Enterobacter. Then when WBC carol, his Zosyn was changed to Cefepime, since the Enterobacter growing in his urine is resistant to Penicillins Recommendations and Plan: Cont Cefepime and Diflucan iv daily. (6) Anemia Impression: All labs reviewed. At admission on 09/21, he had a HgB of 10. When labs were checked again on 09/27, his Hgb was 9.7, and has been dropping since then >> 8.9>> 8.9>> 8.0>> 9.0>> 7.4 on 10/03. The anemia kis adding to his orthostasis, which caused angina. This anemia was partly hemodilutional because he gets IV medications greater than 2 L a day. He was also getting various IV hydration fluids, the last of those was NS, stopped on 09/29. I checked his B12 and folate levels, and iron stores. He has low folate stores and has iron-deficiency anemia He got a blood transfusion 10/03, since the Hgb had fallen to <8 today, to 7.4, and he was having angina. The transfusion did help orthostasis and angina. Recommendations and Plan: Cont daily folate po Cont iron replacement oral (7) Anasarca Impression: This patient was (+) 7 L in his fluid balance since admission. His Echo showed Normal LV and RV sizes and normal LV and RV function, so edema is not from heart failure. He does not have renal failure. This edema could be from liver failure (he used to be an alcoholic). His Alb was low 2.4 at the 09/21 lab draw, and a repeat Alb came back at 2.0. He had very taut leg edema extending up to his abd wall. By getting albumin and Lasix daily, he already has much less tense anasarca, I estimated edema at 1+ today Recommendations and Plan: After today we will stop daily Lasix iv with daily Alb iv and change to po Lasix and no iv Albumen Keep legs elev when he is sitting in a chair Follow I's and O's and daily weights (8) Intra-abdominal malignant neoplasm Impression: As per history. He presented with bowel obstruction and underwent colostomy to relieve the obstruction, and had findings of diffuse intra-abdominal malignancy. He wants to continue to have treatment for the cancer, his RN tells me. Recommendations and Plan: Management as per general surgery and palliative customer care coordinator. Currently he is not on any chemotherapy. The patient wants continued treatment and he is changing his Oncologist, but does not have an appointment yet with Dr. Felicitas [place] [facility] (9) Abnormal EKG Impression: His EKG was abnormal, showing evidence of cor pulmonale. His physical exam has ascites however that was felt to be from his abdominal malignancy In addition, his EKG showed diffuse T wave flattening which could be a sign of coronary ischemia. We have no old EKG for comparison, to know if these are recent T wave abnormalities. Recommendations and Plan: Given his end-stage malignancy, he is not a candidate to undergo stress testing to evaluate for CAD. Would like to start him on daily aspirin, when no further drops in Hgb - Current Meds Current Meds: Current Medications Generic Name Dose Route Start Last Admin Trade Name Freq PRN Reason Stop Dose Admin Acetaminophen 1,000 mg 09/24/22 18:00 10/04/22 13:23 Acetaminophen 500 Mg Tablet PO 1,000 mg Q6HR ANASTASIIA Administration Citalopram Hydrobromide 40 mg 09/22/22 12:00 10/04/22 08:19 Citalopram Hydrobromide 20 Mg Tablet PO 40 mg DAILY ANASTASIIA Administration Enoxaparin Sodium 40 mg 09/21/22 09:00 10/04/22 08:20 Enoxaparin 40 Mg/0.4 Ml Syringe SUBQ 40 mg DAILY ANASTASIIA Administration Ferrous Gluconate 324 mg 10/02/22 12:00 10/04/22 08:20 Ferrous Gluconate 324 Mg Tablet PO 324 mg DAILYWM ANASTASIIA Administration Furosemide 20 mg 10/02/22 11:00 10/04/22 12:40 Furosemide 20 Mg/2 Ml Vial IVP 20 mg 1100 ANASTASIIA Administration Heparin Sodium (Beef Lung) 30 - 50 unit 09/29/22 13:46 10/02/22 05:58 Heparin Flush 50 Units/5 Ml Syringe IVP 50 unit PRN PRN Administration Port Protocol (<24 hours) Hydromorphone HCl 0.5 mg 09/27/22 07:13 09/28/22 11:39 Hydromorphone 0.5 Mg/0.5 Ml Syringe IVP 0.5 mg Q30M PRN Administration Breakthrough Pain Cefepime HCl 2 gm/ Sodium 100 mls @ 200 mls/hr 10/01/22 10:00 10/04/22 08:50 Chloride IV Infused BID ANASTASIIA Infusion Albumin Human 12.5 gm in 50 mls @ 50 mls/hr 10/02/22 09:00 10/04/22 10:41 Albuminar-25 IV Infused DAILY ANASTASIIA Infusion Fluconazole 100 mls @ 100 mls/hr 10/02/22 15:30 10/04/22 12:00 Diflucan 200 Mg/100 Ml IV Infused DAILY ANASTASIIA Infusion Ibuprofen 400 mg 09/30/22 15:00 10/04/22 08:20 Ibuprofen 400 Mg Tablet PO 400 mg 0900,1500,2100 ANASTASIIA Administration Midodrine 2.5 mg 10/02/22 17:00 10/04/22 12:40 Midodrine 2.5 Mg Tablet PO 2.5 mg TIDWM ANASTASIIA Administration Mirtazapine 15 mg 09/29/22 21:00 10/03/22 20:49 Mirtazapine 15 Mg Tablet PO 15 mg QPM ANASTASIIA Administration Morphine Sulfate 30 mg 09/22/22 11:00 10/04/22 08:19 Morphine Er 15 Mg Tablet PO 30 mg BID ANASTASIIA Administration Ondansetron HCl 4 mg 09/20/22 10:57 09/26/22 07:15 Ondansetron 4 Mg/2 Ml Vial IVP 4 mg Q6H PRN Administration Nausea / Vomiting Oxycodone HCl 5 mg 09/25/22 11:33 09/29/22 21:12 Oxycodone 5 Mg Tablet PO 5 mg Q4HR PRN Administration Moderate Pain (Level 4-6) Oxycodone HCl 10 mg 09/27/22 07:12 09/30/22 06:10 Oxycodone 5 Mg Tablet PO 10 mg Q4HR PRN Administration Severe Pain (Level 7-10) Pantoprazole Sodium 40 mg 09/25/22 09:00 10/04/22 08:19 Pantoprazole 40 Mg Tablet PO 40 mg BID ANASTASIIA Administration Potassium Chloride 20 meq 10/04/22 12:00 10/04/22 12:40 Potassium Chloride 10 Meq Capsule PO 20 meq DAILYWM ANASTASIIA Administration Multivit/Folic Acid/Iron 1 tab 10/04/22 09:00 10/04/22 09:02 Vitamin Tablet PO 1 tab DAILYWM ANASTASIIA Administration Prochlorperazine Edisylate 10 mg 09/20/22 10:57 09/28/22 08:31 Prochlorperazine 10 Mg/2 Ml Vial IVP 10 mg Q4HR PRN Administration Nausea / Vomiting Sodium Chloride 10 ml 09/20/22 17:00 10/04/22 08:21 Sodium Chloride Flush 0.9% 10 Ml Syringe IVP 10 ml 0100,0900,1700 ANASTASIIA Administration Sodium Chloride 10 ml 09/20/22 10:57 09/30/22 20:14 Sodium Chloride Flush 0.9% 10 Ml Syringe IVP 10 ml PRN PRN Administration NEEDED PER PROVIDER ORDERS Tamsulosin HCl 0.4 mg 09/24/22 18:00 10/04/22 08:20 Tamsulosin 0.4 Mg Capsule PO 0.4 mg DAILY ANASTASIIA Administration - Lab Result Fish Bone Diagrams: 10/04/22 05:28 10/03/22 05:13 - Additional Planning My Orders: My Active Orders 10/03/22 17:00 Transfuse RBCs Leukoreduced [RC] .ONCE 10/04/22 09:00 Vitamin [Trinatal Rx 1] 1 tab PO DAILYWM 10/04/22 12:00 Potassium Chloride [Micro-K] 20 meq PO DAILYWM 10/05/22 05:00 BMP - BASIC METABOLIC PANEL [CHEM] DAILYLAB CBC - COMP BLD CT W/AUTO DIFF [HEME] DAILYLAB MAGNESIUM [CHEM] DAILYLAB 10/06/22 05:00 BMP - BASIC METABOLIC PANEL [CHEM] DAILYLAB CBC - COMP BLD CT W/AUTO DIFF [HEME] DAILYLAB 10/07/22 05:00 BMP - BASIC METABOLIC PANEL [CHEM] DAILYLAB CBC - COMP BLD CT W/AUTO DIFF [HEME] DAILYLAB 10/08/22 05:00 BMP - BASIC METABOLIC PANEL [CHEM] DAILYLAB CBC - COMP BLD CT W/AUTO DIFF [HEME] DAILYLAB Subjective - Subjective Patient Reports: Feeling Better (No dizzines today but had brief CP when walked with PT) Objective Vital Signs: Vital Signs - 24 hr 10/03/22 10/03/22 10/03/22 15:53 18:18 18:34 Temperature 36.5 C 36.6 C 36.5 C Heart Rate [ 71 80 80 Brachial] Respiratory 20 20 16 Rate Blood Pressure 111/59 L [Left Brachial artery] Blood Pressure 114/57 L 118/56 L [Right Brachial artery] O2 Saturation 99 99 98 10/03/22 10/03/22 10/03/22 18:50 20:59 21:01 Temperature 36.6 C 36.7 C 36.7 C Heart Rate [ 81 78 84 Brachial] Respiratory 18 18 18 Rate Blood Pressure [Left Brachial artery] Blood Pressure 103/52 L 119/60 122/56 L [Right Brachial artery] O2 Saturation 100 98 99 10/03/22 10/04/22 10/04/22 23:22 08:01 12:41 Temperature 36.4 C L 36.4 C L Heart Rate [ 81 82 89 Brachial] Respiratory 18 16 Rate Blood Pressure [Left Brachial artery] Blood Pressure 107/53 L 114/56 L 129/66 [Right Brachial artery] O2 Saturation 96 96 Oxygen O2 Source Room air I&O (Last 24 Hrs): Intake and Output Totals x24h 10/02/22 10/03/22 10/04/22 23:59 23:59 23:59 Intake Total 1742 2531 910 Output Total 100 100 Balance 1642 2431 910 General: Alert, Oriented x3 HEENT: EOMI, Other (BAld, wearing a cap) Neck: Supple, No JVD Neuro: Alert, Non Focal Cardiovascular: Regular rate Respiratory: No respiratory distress Abdomen: Soft, Other (Mildly distended, no tenderness, colostomy in place draining brown stool) Extremities: No clubbing, Other (1+ edema to knees, trace edema above knees to hips) - Results Results: Laboratory Results WBC 18.9 x10^3/uL (4.8-10.8) H 10/04/22 05:28 RBC 2.40 10^6/uL (4.70-6.10) L 10/04/22 05:28 Hgb 7.8 g/dL (14.0-18.0) L 10/04/22 05:28 Hct 22.7 % (42.0-52.0) L 10/04/22 05:28 MCV 94.6 fL (80.0-94.0) H 10/04/22 05:28 MCH 32.5 pg (27.0-31.0) H 10/04/22 05:28 MCHC 34.4 g/dL (32.0-36.0) 10/04/22 05:28 RDW 18.7 % (12.0-15.0) H 10/04/22 05:28 Plt Count 396 10^3/uL (130-450) 10/04/22 05:28 MPV 11.0 fL (7.4-11.4) 10/04/22 05:28 Neut # (Auto) Not Reportable 10/03/22 05:13 Lymph # (Auto) Not Reportable 10/03/22 05:13 [place] # (Auto) Not Reportable 10/03/22 05:13 Eos # (Auto) Not Reportable 10/03/22 05:13 Baso # (Auto) Not Reportable 10/03/22 05:13 Absolute Nucleated RBC Not Reportable 10/03/22 05:13 Total Counted 100 10/03/22 05:13 Band Neuts % (Manual) 1 % (0-10) 10/03/22 05:13 Abnorm Lymph % (Manual) 0 % 10/03/22 05:13 Metamyelocytes % 1 % (-0) H 10/02/22 07:27 Myelocytes % 1 % (-0) H 10/01/22 05:10 Nucleated RBC % Not Reportable 10/03/22 05:13 Neutrophils # (Manual) 20.2 10^3/uL (1.5-6.6) H 10/03/22 05:13 Lymphocytes # (Manual) 1.8 10^3/uL (1.5-3.5) 10/03/22 05:13 Monocytes # (Manual) 0.2 10^3/uL (0.0-1.0) 10/03/22 05:13 Eosinophils # (Manual) 0.5 10^3/uL (0-0.7) 10/03/22 05:13 Basophils # (Manual) 0.0 10^3/uL (0-0.1) 10/03/22 05:13 Differential Comment MANUAL DIFFERENTIAL 10/03/22 05:13 Manual Slide Review Indicated 10/02/22 07:27 WBC Morphology NORMAL APPEARANCE (NORMAL) 10/03/22 05:13 Platelet Estimate NORMAL (130-450,000) (NORMAL) 10/03/22 05:13 Platelet Morphology NORMAL APPEARANCE (NORMAL) 10/03/22 05:13 RBC Morph Micro Appear 2+ HYPOCHROMASIA (NORMAL) 1+ TARGET CELLS (NORMAL) 10/03/22 05:13 RBC Morph Micro Appear 2+ HYPOCHROMASIA (NORMAL) 1+ TARGET CELLS (NORMAL) 10/03/22 05:13 PT 13.3 secs (9.9-12.6) H 10/03/22 05:13 INR 1.2 (0.8-1.2) 10/03/22 05:13 Sodium 138 mmol/L (135-145) 10/03/22 05:13 Potassium 3.3 mmol/L (3.5-4.5) L 10/03/22 05:13 Chloride 110 mmol/L (101-111) 10/03/22 05:13 Carbon Dioxide 22 mmol/L (21-32) 10/03/22 05:13 Anion Gap 6.0 (6-13) 10/03/22 05:13 BUN 29 mg/dL (6-20) H 10/03/22 05:13 Creatinine 0.8 mg/dL (0.6-1.3) 10/03/22 05:13 Estimated GFR (MDRD) 99 (>89) 10/03/22 05:13 Glucose 106 mg/dL (74-104) H 10/03/22 05:13 Lactic Acid 1.6 mmol/L (0.5-2.2) 09/27/22 17:22 Calcium 7.9 mg/dL (8.5-10.3) L 10/03/22 05:13 Phosphorus 3.9 mg/dL (3.7-7.2) 10/02/22 07:27 Magnesium 1.9 mg/dL (1.7-2.3) 10/02/22 07:27 Iron 29 ug/dL (50-212) L 10/02/22 07:27 TIBC 105 ug/dL (250-450) L 10/02/22 07:27 % Saturation TNP 10/02/22 07:27 Transferrin < 75 mg/dL (203-362) L 10/02/22 07:27 Total Bilirubin 0.8 mg/dL (0.2-1.0) 10/03/22 05:13 Direct Bilirubin 0.37 mg/dL (0.03-0.18) H 10/02/22 07:27 AST 14 IU/L (10-42) 10/03/22 05:13 ALT 13 IU/L (10-60) 10/03/22 05:13 Alkaline Phosphatase 194 IU/L (42-121) H 10/03/22 05:13 Troponin I High Sens 29.0 ng/L (2.3-19.7) H* 09/28/22 09:42 Total Protein 5.0 g/dL (6.4-8.9) L 10/03/22 05:13 Albumin 1.9 g/dL (3.2-5.5) L 10/03/22 05:13 Globulin 3.1 g/dL (2.1-4.2) 10/03/22 05:13 Albumin/Globulin Ratio 0.6 (1.0-2.2) L 10/03/22 05:13 Lipase 19 U/L (22-51) L 09/18/22 15:37 Vitamin B12 2109 pg/mL (180-914) H 10/02/22 07:27 Folate 4.8 ng/mL (5.90 - >24.8) L 10/02/22 07:27 Urine Color DARK YELLOW 09/27/22 21:00 Urine Clarity CLOUDY (CLEAR) 09/27/22 21:00 Urine pH 5.0 PH (5.0-7.5) 09/27/22 21:00 Ur Specific [place] 1.025 (1.002-1.030) 09/27/22 21:00 Urine Protein 30 mg/dL (NEGATIVE) H 09/27/22 21:00 Urine Glucose (UA) NEGATIVE mg/dL (NEGATIVE) 09/27/22 21:00 Urine Ketones NEGATIVE mg/dL (NEGATIVE) 09/27/22 21:00 Urine Occult Blood SMALL (NEGATIVE) H 09/27/22 21:00 Urine Nitrite POSITIVE (NEGATIVE) H 09/27/22 21:00 Urine Bilirubin SMALL (NEGATIVE) H 09/27/22 21:00 Urine Urobilinogen 0.2 (NORMAL) E.U./dL (NORMAL) 09/27/22 21:00 Ur Leukocyte Esterase SMALL (NEGATIVE) H 09/27/22 21:00 Urine RBC 0-5 /HPF (0-5) 09/27/22 21:00 Urine WBC >25 /HPF (0-3) H 09/27/22 21:00 Ur Squamous Epith Cells NONE SEEN (<= Few) 09/27/22 21:00 Urine Bacteria Many /HPF (None Seen) H 09/27/22 21:00 Urine Culture Comments INDICATED 09/27/22 21:00 Gastric Fluid pH TNP 09/19/22 03:40 Gastric Occult Blood POSITIVE (Negative) 09/19/22 03:40 Stl C. diff Tox B Gene NEGATIVE (NEGATIVE) 09/27/22 21:00 Last Dose Date 10/01/22 10/02/22 07:27 Last Dose Time 223210/02/22 07:27 Vancomycin Trough 24.8 ug/mL 10/02/22 07:27 SARS-CoV-2 (PCR) NOT DETECTED 09/18/22 17:49 Blood Type A POSITIVE 10/03/22 17:11 Blood Type Recheck A POSITIVE 10/03/22 18:03 Antibody Screen NEGATIVE 10/03/22 17:11 Crossmatch IS Only See Detail 10/03/22 17:11 - Procedures Procedures: Procedures EXCISION OF CECUM, ENDO, DIAGN (05/09/17) EXCISION OF RECTUM, ENDO, DIAGN (05/09/17)
[2022-10-04] MEDS: MIRTAZAPINE 15 MG TABLET PO SCH (20:58)
[2022-10-05] MEDS: ACETAMINOPHEN 500 MG TABLET PO SCH ×5 (01:36→23:57)
[2022-10-05] MEDS: SODIUM CHLORIDE FLUSH 0.9% 10 ML SYRINGE IVP SCH ×4 (01:37→23:58)
[2022-10-05 05:19] LABS: BASOPHILS % (AUTO) 0.3 %; EOSINOPHILS % (AUTO) 1.3 %; HGB - HEMOGLOBIN 8.8 g/dL (14.0-18.0); LYMPHOCYTES % (AUTO) 7.4 %; MEAN CORPUSCULAR HEMOGLOBIN 32.5 pg (27.0-31.0); MEAN CORPUSCULAR HGB CONC 33.8 g/dL (32.0-36.0); MEAN CORPUSCULAR VOLUME 95.9 fL (80.0-94.0); MEAN PLATELET VOLUME 11.2 fL (7.4-11.4); MONOCYTES % (AUTO) 8.3 %; NEUTROPHILS % (AUTO) 81.4 %; PLT - PLATELET COUNT 484 10^3/uL (130-450); RED BLOOD COUNT 2.71 10^6/uL (4.70-6.10); RED CELL DISTRIBUTION WIDTH 20.3 % (12.0-15.0); WHITE BLOOD COUNT 23.9 x10^3/uL (4.8-10.8)
[2022-10-05 05:24] LABS: ABNORMAL LYMPHS % (MANUAL) 0 %; BAND NEUTROPHILS % (MANUAL) 0 %
[2022-10-05 05:40] LABS: CALCIUM 8.5 mg/dL (8.5-10.3); CREATININE 0.7 mg/dL (0.6-1.3); MAGNESIUM 1.8 mg/dL (1.7-2.3); POTASSIUM 3.6 mmol/L (3.5-4.5)
[2022-10-05 05:41] LABS: LYMPHOCYTES # (MANUAL) 2.4 10^3/uL (1.5-3.5); LYMPHOCYTES % (MANUAL) 10 %; NEUTROPHILS # (MANUAL) 20.6 10^3/uL (1.5-6.6)
[2022-10-05 05:45] LABS: DIFFERENTIAL COMMENT MANUAL DIFFERENTIAL; PLATELET ESTIMATE, MANUAL INCREASED (>450,000) (NORMAL); PLATELET MORPHOLOGY 1+ LARGE PLATELETS (NORMAL); WBC MORPHOLOGY (MULTIPLE) 1+ HYPERSEG NEUT (NORMAL)
[2022-10-05] MEDS: POTASSIUM CHLORIDE 10 MEQ CAPSULE PO SCH (08:20)
[2022-10-05] MEDS: CITALOPRAM HYDROBROMIDE 20 MG TABLET PO SCH (08:21)
[2022-10-05] MEDS: MIDODRINE 2.5 MG TABLET PO SCH ×3 (08:21→16:57)
[2022-10-05] MEDS: PRENATAL VITAMIN TABLET PO SCH (08:21)
[2022-10-05] MEDS: IBUPROFEN 400 MG TABLET PO SCH ×3 (08:21→20:27)
[2022-10-05] MEDS: TAMSULOSIN 0.4 MG CAPSULE PO SCH (08:21)
[2022-10-05] MEDS: CEFEPIME 2 GM in SODIUM CHLORIDE 0.9% MINIBAG 100 ML IV SCH ×2 (08:21→20:27)
[2022-10-05] MEDS: FUROSEMIDE 20 MG TABLET PO SCH (08:21)
[2022-10-05] MEDS: FERROUS GLUCONATE 324 MG TABLET PO SCH (08:21)
[2022-10-05] MEDS: PANTOPRAZOLE 40 MG TABLET PO SCH ×2 (08:21→20:28)
[2022-10-05] MEDS: ENOXAPARIN 40 MG/0.4 ML SYRINGE SUBQ SCH (08:22)
[2022-10-05] MEDS: MORPHINE ER 15 MG TABLET PO SCH ×2 (08:24→20:28)
[2022-10-05] MEDS: FLUCONAZOLE 200 MG/100 ML 100 ML IV SCH (09:10)
--- NOTE | 2022-10-05 11:21 | PROVIDER PROGRESS NOTE ---
Subjective - Subjective Pt reports feeling: No change (feeling ok.) Objective - Vital Signs/Intake & Output Vital Signs: Vital Signs x48h Temp Pulse Resp BP Pulse Ox 10/05/22 08:27 36.5 C 98 20 136/67 H 95 Intake & Output: Intake & Output 10/02/22 10/03/22 10/04/22 10/05/22 23:59 23:59 23:59 23:59 Intake Total 1742 2531 1360 750 Output Total 100 100 100 Balance 1642 2431 1360 650 - Objective General Appearance: positive: No acute distress, Alert Eyes Bilateral: positive: PERRL, EOMI, No scleral icterus ENT: positive: No signs of dehydration Neck: positive: No JVD, Trachea midline Respiratory: positive: No respiratory distress Abdomen: positive: Non-tender, No distention Neurologic/Psychiatric: positive: Oriented x3 - Lab Results Fish Bones: 10/05/22 05:10 10/05/22 05:10 Other Labs: Lab Results x24hrs 10/05/22 10/05/22 Range/Units 05:10 05:10 WBC 23.9 H (4.8-10.8) x10^3/uL RBC 2.71 L (4.70-6.10) 10^6/uL Hgb 8.8 L (14.0-18.0) g/dL Hct 26.0 L (42.0-52.0) % MCV 95.9 H (80.0-94.0) fL MCH 32.5 H (27.0-31.0) pg MCHC 33.8 (32.0-36.0) g/dL RDW 20.3 H (12.0-15.0) % Plt Count 484 H (130-450) 10^3/uL MPV 11.2 (7.4-11.4) fL Neut # (Auto) Not Reportable Lymph # (Auto) Not Reportable [place] # (Auto) Not Reportable Eos # (Auto) Not Reportable Baso # (Auto) Not Reportable Absolute Nucleated RBC Not Reportable Total Counted 100 Band Neuts % (Manual) 0 (0 - 10) % Abnorm Lymph % (Manual) 0 % Nucleated RBC % Not Reportable Neutrophils # (Manual) 20.6 H (1.5-6.6) 10^3/uL Lymphocytes # (Manual) 2.4 (1.5-3.5) 10^3/uL Monocytes # (Manual) 1.0 (0.0-1.0) 10^3/uL Eosinophils # (Manual) 0.0 (0-0.7) 10^3/uL Basophils # (Manual) 0.0 (0-0.1) 10^3/uL Differential Comment MANUAL DIFFERENTIAL WBC Morphology 1+ HYPERSEG NEUT (NORMAL) Platelet Estimate INCREASED (>450,000) (NORMAL) Platelet Morphology 1+ LARGE PLATELETS (NORMAL) RBC Morph Micro Appear 1+ SCHISTOCYTES (NORMAL) Sodium 139 (135-145) mmol/L Potassium 3.6 (3.5-4.5) mmol/L Chloride 109 (101-111) mmol/L Carbon Dioxide 22 (21-32) mmol/L Anion Gap 8.0 (6-13) BUN 26 H (6-20) mg/dL Creatinine 0.7 (0.6-1.3) mg/dL Estimated GFR (MDRD) 115 (>89) Glucose 91 (74-104) mg/dL Calcium 8.5 (8.5-10.3) mg/dL Magnesium 1.8 (1.7-2.3) mg/dL Assessment/Plan - Problem List (1) Bowel obstruction Impression: doing ok and feeling ok. d/c planning. continue present care
[2022-10-05] MEDS ORDERED: ALTEPLASE 2 MG VIAL IJ ONE (11:38)
--- NOTE | 2022-10-05 16:01 | PROVIDER PROGRESS NOTE ---
Assessment/Plan - Problem List (1) Peritonitis Assessment/Plan: Pt w/ hx of met Pancreatic CA presented with SBO, admitted by gen surg, with hospitliast service consulted Developed leukocytosis which was pers[place] and had anasarca with ascites. Paracentesis done on 09/30. Gram stain, Cx from fluid showed enterobacter cloacae. Treated with IV Cefepime and later Diflucan ordered. Will cont with IV Cefepime pending clinical course, narrow when WBC trends down x 24 hours, or re-evaluate/repeat cultures if WBC conts cont to trend up in abscence of other explanation, or if other evidence of infx. (Ie tachycardia, hypotension, fever, pain) (2) UTI (urinary tract infection) Qualifiers: Urinary tract infection type: acute cystitis Hematuria presence: without hematuria Qualified Code(s): N30.00 - Acute cystitis without hematuria Assessment/Plan: Urine culture from earlier this admission grew out Enterobacter cloacae. He had been on empiric IV Zosyn. He was changed to oral Bactrim when we got his sensitivity results back on the Enterobacter. Then when WBC carol, his Zosyn was changed to Cefepime, since the Enterobacter growing in his urine is resistant to Penicillins Recommendations and Plan: Cont Cefepime as above (3) Bowel obstruction Qualifiers: Intestinal obstruction type: other intestinal obstruction Assessment/Plan: Presented with SBO s/p diverting transverse loop colostomy Managed by gen surg Doing well, cont supportive care, ostomy care, diet, etc (4) Pancreatic malignant neoplasm Qualifiers: Pancreatic malignancy location: unspecified Qualified Code(s): C25.9 - Malignant neoplasm of pancreas, unspecified Assessment/Plan: With chronic pain Followed by MAC Seen by Palliative during admit Pt would like to return to oncology for treatment after discharge (5) Orthostatic hypotension Assessment/Plan: Chronic Persistent Pt started on midodrine, but still has some sx w/ ambulation Likely not going to resolved during this hospital stay Cont PT/OT, and ok to d/c to home w/ home health or SNF when medically able. - Current Meds Current Meds: Current Medications Generic Name Dose Route Start Last Admin Trade Name Freq PRN Reason Stop Dose Admin Acetaminophen 1,000 mg 09/24/22 18:00 10/05/22 12:11 Acetaminophen 500 Mg Tablet PO 1,000 mg Q6HR ANASTASIIA Administration Citalopram Hydrobromide 40 mg 09/22/22 12:00 10/05/22 08:21 Citalopram Hydrobromide 20 Mg Tablet PO 40 mg DAILY ANASTASIIA Administration Enoxaparin Sodium 40 mg 09/21/22 09:00 10/05/22 08:22 Enoxaparin 40 Mg/0.4 Ml Syringe SUBQ 40 mg DAILY ANASTASIIA Administration Ferrous Gluconate 324 mg 10/02/22 12:00 10/05/22 08:21 Ferrous Gluconate 324 Mg Tablet PO 324 mg DAILYWM ANASTASIIA Administration Furosemide 20 mg 10/05/22 09:00 10/05/22 08:21 Furosemide 20 Mg Tablet PO 20 mg DAILY ANASTASIIA Administration Heparin Sodium (Beef Lung) 30 - 50 unit 09/29/22 13:46 10/05/22 04:56 Heparin Flush 50 Units/5 Ml Syringe IVP 50 unit PRN PRN Administration Port Protocol (<24 hours) Hydromorphone HCl 0.5 mg 09/27/22 07:13 09/28/22 11:39 Hydromorphone 0.5 Mg/0.5 Ml Syringe IVP 0.5 mg Q30M PRN Administration Breakthrough Pain Cefepime HCl 2 gm/ Sodium 100 mls @ 200 mls/hr 10/01/22 10:00 10/05/22 09:10 Chloride IV Infused BID ANASTASIIA Infusion Fluconazole 100 mls @ 100 mls/hr 10/02/22 15:30 10/05/22 10:28 Diflucan 200 Mg/100 Ml IV Infused DAILY ANASTASIIA Infusion Ibuprofen 400 mg 09/30/22 15:00 10/05/22 14:44 Ibuprofen 400 Mg Tablet PO 400 mg 0900,1500,2100 ANASTASIIA Administration Midodrine 2.5 mg 10/02/22 17:00 10/05/22 12:11 Midodrine 2.5 Mg Tablet PO 2.5 mg TIDWM ANASTASIIA Administration Mirtazapine 15 mg 09/29/22 21:00 10/04/22 20:58 Mirtazapine 15 Mg Tablet PO 15 mg QPM ANASTASIIA Administration Morphine Sulfate 30 mg 09/22/22 11:00 10/05/22 08:24 Morphine Er 15 Mg Tablet PO 30 mg BID ANASTASIIA Administration Ondansetron HCl 4 mg 09/20/22 10:57 09/26/22 07:15 Ondansetron 4 Mg/2 Ml Vial IVP 4 mg Q6H PRN Administration Nausea / Vomiting Oxycodone HCl 5 mg 09/25/22 11:33 09/29/22 21:12 Oxycodone 5 Mg Tablet PO 5 mg Q4HR PRN Administration Moderate Pain (Level 4-6) Oxycodone HCl 10 mg 09/27/22 07:12 09/30/22 06:10 Oxycodone 5 Mg Tablet PO 10 mg Q4HR PRN Administration Severe Pain (Level 7-10) Pantoprazole Sodium 40 mg 09/25/22 09:00 10/05/22 08:21 Pantoprazole 40 Mg Tablet PO 40 mg BID ANASTASIIA Administration Potassium Chloride 20 meq 10/04/22 12:00 10/05/22 08:20 Potassium Chloride 10 Meq Capsule PO 20 meq DAILYWM ANASTASIIA Administration Multivit/Folic Acid/Iron 1 tab 10/04/22 09:00 10/05/22 08:21 Vitamin Tablet PO 1 tab DAILYWM ANASTASIIA Administration Prochlorperazine Edisylate 10 mg 09/20/22 10:57 09/28/22 08:31 Prochlorperazine 10 Mg/2 Ml Vial IVP 10 mg Q4HR PRN Administration Nausea / Vomiting Sodium Chloride 10 ml 09/20/22 17:00 10/05/22 08:22 Sodium Chloride Flush 0.9% 10 Ml Syringe IVP 10 ml 0100,0900,1700 ANASTASIIA Administration Sodium Chloride 10 ml 09/20/22 10:57 09/30/22 20:14 Sodium Chloride Flush 0.9% 10 Ml Syringe IVP 10 ml PRN PRN Administration NEEDED PER PROVIDER ORDERS Tamsulosin HCl 0.4 mg 09/24/22 18:00 10/05/22 08:21 Tamsulosin 0.4 Mg Capsule PO 0.4 mg DAILY ANASTASIIA Administration - Lab Result Lab results reviewed: Yes Fish Bone Diagrams: 10/05/22 05:10 10/05/22 05:10 - EKG Results EKG Interpreted Independently: Yes - Diagnostic Imaging Results Diagnostic Imaging Results: Final report reviewed - Additional Planning Condition/Complexity: Stable Consult/Specialty: Surgery Plan Discussed with:: Patient Subjective - Subjective Patient Reports: Feeling Better, Dizzines Objective Vital Signs: Vital Signs - 24 hr 10/05/22 10/05/22 10/05/22 00:58 08:27 15:48 Temperature 36.3 C L 36.5 C 36.8 C Heart Rate [ 75 98 94 Brachial] Respiratory 20 20 16 Rate Blood Pressure 121/57 L 136/67 H 112/61 [Right Brachial artery] O2 Saturation 95 95 97 Oxygen O2 Source Room air I&O (Last 24 Hrs): Intake and Output Totals x24h 10/03/22 10/04/22 10/05/22 23:59 23:59 23:59 Intake Total 2531 1360 990 Output Total 100 100 Balance 2431 1360 890 General: Alert, Oriented x3 Neuro: Alert Cardiovascular: Regular rate, Normal S1, Normal S2 Abdomen: Normal bowel sounds (Functioning ostomy with normal stool output, CDI) Extremities: No clubbing, No cyanosis Skin: No rashes - Results Results: Laboratory Results WBC 23.9 x10^3/uL (4.8-10.8) H 10/05/22 05:10 RBC 2.71 10^6/uL (4.70-6.10) L 10/05/22 05:10 Hgb 8.8 g/dL (14.0-18.0) L 10/05/22 05:10 Hct 26.0 % (42.0-52.0) L 10/05/22 05:10 MCV 95.9 fL (80.0-94.0) H 10/05/22 05:10 MCH 32.5 pg (27.0-31.0) H 10/05/22 05:10 MCHC 33.8 g/dL (32.0-36.0) 10/05/22 05:10 RDW 20.3 % (12.0-15.0) H 10/05/22 05:10 Plt Count 484 10^3/uL (130-450) H 10/05/22 05:10 MPV 11.2 fL (7.4-11.4) 10/05/22 05:10 Neut # (Auto) Not Reportable 10/05/22 05:10 Lymph # (Auto) Not Reportable 10/05/22 05:10 [place] # (Auto) Not Reportable 10/05/22 05:10 Eos # (Auto) Not Reportable 10/05/22 05:10 Baso # (Auto) Not Reportable 10/05/22 05:10 Absolute Nucleated RBC Not Reportable 10/05/22 05:10 Total Counted 100 10/05/22 05:10 Band Neuts % (Manual) 0 % (0-10) 10/05/22 05:10 Abnorm Lymph % (Manual) 0 % 10/05/22 05:10 Metamyelocytes % 1 % (-0) H 10/02/22 07:27 Myelocytes % 1 % (-0) H 10/01/22 05:10 Nucleated RBC % Not Reportable 10/05/22 05:10 Neutrophils # (Manual) 20.6 10^3/uL (1.5-6.6) H 10/05/22 05:10 Lymphocytes # (Manual) 2.4 10^3/uL (1.5-3.5) 10/05/22 05:10 Monocytes # (Manual) 1.0 10^3/uL (0.0-1.0) 10/05/22 05:10 Eosinophils # (Manual) 0.0 10^3/uL (0-0.7) 10/05/22 05:10 Basophils # (Manual) 0.0 10^3/uL (0-0.1) 10/05/22 05:10 Differential Comment MANUAL DIFFERENTIAL 10/05/22 05:10 Manual Slide Review Indicated 10/02/22 07:27 WBC Morphology 1+ HYPERSEG NEUT (NORMAL) 10/05/22 05:10 Platelet Estimate INCREASED (>450,000) (NORMAL) 10/05/22 05:10 Platelet Morphology 1+ LARGE PLATELETS (NORMAL) 10/05/22 05:10 RBC Morph Micro Appear 2+ ANISOCYTOSIS (NORMAL) 2+ HYPOCHROMASIA (NORMAL) 1+ TARGET CELLS (NORMAL) 1+ SCHISTOCYTES (NORMAL) 10/05/22 05:10 RBC Morph Micro Appear 2+ ANISOCYTOSIS (NORMAL) 2+ HYPOCHROMASIA (NORMAL) 1+ TARGET CELLS (NORMAL) 1+ SCHISTOCYTES (NORMAL) 10/05/22 05:10 RBC Morph Micro Appear 2+ ANISOCYTOSIS (NORMAL) 2+ HYPOCHROMASIA (NORMAL) 1+ TARGET CELLS (NORMAL) 1+ SCHISTOCYTES (NORMAL) 10/05/22 05:10 RBC Morph Micro Appear 2+ ANISOCYTOSIS (NORMAL) 2+ HYPOCHROMASIA (NORMAL) 1+ TARGET CELLS (NORMAL) 1+ SCHISTOCYTES (NORMAL) 10/05/22 05:10 PT 13.3 secs (9.9-12.6) H 10/03/22 05:13 INR 1.2 (0.8-1.2) 10/03/22 05:13 Sodium 139 mmol/L (135-145) 10/05/22 05:10 Potassium 3.6 mmol/L (3.5-4.5) 10/05/22 05:10 Chloride 109 mmol/L (101-111) 10/05/22 05:10 Carbon Dioxide 22 mmol/L (21-32) 10/05/22 05:10 Anion Gap 8.0 (6-13) 10/05/22 05:10 BUN 26 mg/dL (6-20) H 10/05/22 05:10 Creatinine 0.7 mg/dL (0.6-1.3) 10/05/22 05:10 Estimated GFR (MDRD) 115 (>89) 10/05/22 05:10 Glucose 91 mg/dL (74-104) 10/05/22 05:10 Lactic Acid 1.6 mmol/L (0.5-2.2) 09/27/22 17:22 Calcium 8.5 mg/dL (8.5-10.3) 10/05/22 05:10 Phosphorus 3.9 mg/dL (3.7-7.2) 10/02/22 07:27 Magnesium 1.8 mg/dL (1.7-2.3) 10/05/22 05:10 Iron 29 ug/dL (50-212) L 10/02/22 07:27 TIBC 105 ug/dL (250-450) L 10/02/22 07:27 % Saturation TNP 10/02/22 07:27 Transferrin < 75 mg/dL (203-362) L 10/02/22 07:27 Total Bilirubin 0.8 mg/dL (0.2-1.0) 10/03/22 05:13 Direct Bilirubin 0.37 mg/dL (0.03-0.18) H 10/02/22 07:27 AST 14 IU/L (10-42) 10/03/22 05:13 ALT 13 IU/L (10-60) 10/03/22 05:13 Alkaline Phosphatase 194 IU/L (42-121) H 10/03/22 05:13 Troponin I High Sens 29.0 ng/L (2.3-19.7) H* 09/28/22 09:42 Total Protein 5.0 g/dL (6.4-8.9) L 10/03/22 05:13 Albumin 1.9 g/dL (3.2-5.5) L 10/03/22 05:13 Globulin 3.1 g/dL (2.1-4.2) 10/03/22 05:13 Albumin/Globulin Ratio 0.6 (1.0-2.2) L 10/03/22 05:13 Lipase 19 U/L (22-51) L 09/18/22 15:37 Vitamin B12 2109 pg/mL (180-914) H 10/02/22 07:27 Folate 4.8 ng/mL (5.90 - >24.8) L 10/02/22 07:27 Urine Color DARK YELLOW 09/27/22 21:00 Urine Clarity CLOUDY (CLEAR) 09/27/22 21:00 Urine pH 5.0 PH (5.0-7.5) 09/27/22 21:00 Ur Specific [place] 1.025 (1.002-1.030) 09/27/22 21:00 Urine Protein 30 mg/dL (NEGATIVE) H 09/27/22 21:00 Urine Glucose (UA) NEGATIVE mg/dL (NEGATIVE) 09/27/22 21:00 Urine Ketones NEGATIVE mg/dL (NEGATIVE) 09/27/22 21:00 Urine Occult Blood SMALL (NEGATIVE) H 09/27/22 21:00 Urine Nitrite POSITIVE (NEGATIVE) H 09/27/22 21:00 Urine Bilirubin SMALL (NEGATIVE) H 09/27/22 21:00 Urine Urobilinogen 0.2 (NORMAL) E.U./dL (NORMAL) 09/27/22 21:00 Ur Leukocyte Esterase SMALL (NEGATIVE) H 09/27/22 21:00 Urine RBC 0-5 /HPF (0-5) 09/27/22 21:00 Urine WBC >25 /HPF (0-3) H 09/27/22 21:00 Ur Squamous Epith Cells NONE SEEN (<= Few) 09/27/22 21:00 Urine Bacteria Many /HPF (None Seen) H 09/27/22 21:00 Urine Culture Comments INDICATED 09/27/22 21:00 Gastric Fluid pH TNP 09/19/22 03:40 Gastric Occult Blood POSITIVE (Negative) 09/19/22 03:40 Stl C. diff Tox B Gene NEGATIVE (NEGATIVE) 09/27/22 21:00 Last Dose Date 10/01/22 10/02/22 07:27 Last Dose Time 223210/02/22 07:27 Vancomycin Trough 24.8 ug/mL 10/02/22 07:27 SARS-CoV-2 (PCR) NOT DETECTED 09/18/22 17:49 Blood Type A POSITIVE 10/03/22 17:11 Blood Type Recheck A POSITIVE 10/03/22 18:03 Antibody Screen NEGATIVE 10/03/22 17:11 Crossmatch IS Only See Detail 10/03/22 17:11 - Procedures Procedures: Procedures EXCISION OF CECUM, ENDO, DIAGN (05/09/17) EXCISION OF RECTUM, ENDO, DIAGN (05/09/17) ABX Reporting Has patient been on IV antibiotics over the past 48 hours?: Yes Current Medications - Current Medications Current Medications: Active Medications Acetaminophen (Acetaminophen 500 Mg Tablet) 1,000 mg PO Q6HR [facility] Last Admin: 10/05/22 12:11 Dose: 1,000 mg Citalopram Hydrobromide (Citalopram Hydrobromide 20 Mg Tablet) 40 mg PO DAILY [facility] Last Admin: 10/05/22 08:21 Dose: 40 mg Enoxaparin Sodium (Enoxaparin 40 Mg/0.4 Ml Syringe) 40 mg SUBQ DAILY [facility] Last Admin: 10/05/22 08:22 Dose: 40 mg Ferrous Gluconate (Ferrous Gluconate 324 Mg Tablet) 324 mg PO DAILYWM [facility] Last Admin: 10/05/22 08:21 Dose: 324 mg Furosemide (Furosemide 20 Mg Tablet) 20 mg PO DAILY [facility] Last Admin: 10/05/22 08:21 Dose: 20 mg Heparin Sodium (Beef Lung) (Heparin Flush 50 Units/5 Ml Syringe) 30 - 50 unit IVP PRN PRN PRN Reason: Port Protocol (<24 hours) Last Admin: 10/05/22 04:56 Dose: 50 unit Hydromorphone HCl (Hydromorphone 0.5 Mg/0.5 Ml Syringe) 0.5 mg IVP Q30M PRN PRN Reason: Breakthrough Pain Last Admin: 09/28/22 11:39 Dose: 0.5 mg Cefepime HCl 2 gm/ Sodium (Chloride) 100 mls @ 200 mls/hr IV BID [facility] Last Infusion: 10/05/22 09:10 Dose: Infused Fluconazole (Diflucan 200 Mg/100 Ml) 100 mls @ 100 mls/hr IV DAILY [facility] Last Infusion: 10/05/22 10:28 Dose: Infused Ibuprofen (Ibuprofen 400 Mg Tablet) 400 mg PO 0900,1500,2100 [facility] Last Admin: 10/05/22 14:44 Dose: 400 mg Midodrine (Midodrine 2.5 Mg Tablet) 2.5 mg PO TIDWM [facility] Last Admin: 10/05/22 12:11 Dose: 2.5 mg Mirtazapine (Mirtazapine 15 Mg Tablet) 15 mg PO QPM [facility] Last Admin: 10/04/22 20:58 Dose: 15 mg Morphine Sulfate (Morphine Er 15 Mg Tablet) 30 mg PO BID [facility] Last Admin: 10/05/22 08:24 Dose: 30 mg Ondansetron HCl (Ondansetron 4 Mg/2 Ml Vial) 4 mg IVP Q6H PRN PRN Reason: Nausea / Vomiting Last Admin: 09/26/22 07:15 Dose: 4 mg Oxycodone HCl (Oxycodone 5 Mg Tablet) 5 mg PO Q4HR PRN PRN Reason: Moderate Pain (Level 4-6) Last Admin: 09/29/22 21:12 Dose: 5 mg Oxycodone HCl (Oxycodone 5 Mg Tablet) 10 mg PO Q4HR PRN PRN Reason: Severe Pain (Level 7-10) Last Admin: 09/30/22 06:10 Dose: 10 mg Pantoprazole Sodium (Pantoprazole 40 Mg Tablet) 40 mg PO BID [facility] Last Admin: 10/05/22 08:21 Dose: 40 mg Potassium Chloride (Potassium Chloride 10 Meq Capsule) 20 meq PO DAILYWM [facility] Last Admin: 10/05/22 08:20 Dose: 20 meq Multivit/Folic Acid/Iron ( Vitamin Tablet) 1 tab PO DAILYWM [facility] Last Admin: 10/05/22 08:21 Dose: 1 tab Prochlorperazine Edisylate (Prochlorperazine 10 Mg/2 Ml Vial) 10 mg IVP Q4HR PRN PRN Reason: Nausea / Vomiting Last Admin: 09/28/22 08:31 Dose: 10 mg Sodium Chloride (Sodium Chloride Flush 0.9% 10 Ml Syringe) 10 ml IVP 0100,0900,1700 [facility] Last Admin: 10/05/22 16:13 Dose: 10 ml Sodium Chloride (Sodium Chloride Flush 0.9% 10 Ml Syringe) 10 ml IVP PRN PRN PRN Reason: NEEDED PER PROVIDER ORDERS Last Admin: 09/30/22 20:14 Dose: 10 ml Tamsulosin HCl (Tamsulosin 0.4 Mg Capsule) 0.4 mg PO DAILY [facility] Last Admin: 10/05/22 08:21 Dose: 0.4 mg Throat Lozenges (Benzocaine/Menthol Lozenge) 1 lozenge MM Q2HR PRN PRN Reason: Throat pain Citalopram Hydrobromide [Celexa] 40 mg PO DAILY 02/26/18 Morphine Sulfate ER [Ms Contin] 1 tab PO DAILY PRN 09/21/22 dexAMETHasone [Decadron] 1 tab PO BID 09/21/22 oxyCODONE [Roxicodone] 1 tab PO BID PRN 09/21/22
[2022-10-05] MEDS: MIRTAZAPINE 15 MG TABLET PO SCH (20:27)
[2022-10-06 04:52] LABS: BASOPHILS % (AUTO) 0.2 %; EOSINOPHILS % (AUTO) 1.1 %; HCT - HEMATOCRIT 23.8 % (42.0-52.0); HGB - HEMOGLOBIN 7.9 g/dL (14.0-18.0); LYMPHOCYTES % (AUTO) 5.8 %; MEAN CORPUSCULAR HEMOGLOBIN 32.1 pg (27.0-31.0); MEAN CORPUSCULAR HGB CONC 33.2 g/dL (32.0-36.0); MEAN CORPUSCULAR VOLUME 96.7 fL (80.0-94.0); MEAN PLATELET VOLUME 11.2 fL (7.4-11.4); NEUTROPHILS % (AUTO) 82.7 %; PLT - PLATELET COUNT 472 10^3/uL (130-450); RED BLOOD COUNT 2.46 10^6/uL (4.70-6.10); RED CELL DISTRIBUTION WIDTH 20.3 % (12.0-15.0); WHITE BLOOD COUNT 26.5 x10^3/uL (4.8-10.8)
[2022-10-06 04:57] LABS: ABNORMAL LYMPHS % (MANUAL) 0 %; BAND NEUTROPHILS % (MANUAL) 0 %
[2022-10-06 05:10] LABS: CALCIUM 8.4 mg/dL (8.5-10.3); CREATININE 0.8 mg/dL (0.6-1.3)
[2022-10-06 05:13] LABS: EOSINOPHILS # (MANUAL) 0.3 10^3/uL (0-0.7); LYMPHOCYTES # (MANUAL) 2.4 10^3/uL (1.5-3.5); LYMPHOCYTES % (MANUAL) 9 %; MONOCYTES # (MANUAL) 1.6 10^3/uL (0.0-1.0); MYELOCYTES % (MANUAL) 1 %
[2022-10-06 05:16] LABS: DIFFERENTIAL COMMENT MANUAL DIFFERENTIAL; PLATELET ESTIMATE, MANUAL INCREASED (>450,000) (NORMAL); PLATELET MORPHOLOGY 1+ LARGE PLATELETS (NORMAL); WBC MORPHOLOGY (MULTIPLE) NORMAL APPEARANCE (NORMAL)
[2022-10-06] MEDS: ACETAMINOPHEN 500 MG TABLET PO SCH ×4 (06:02→23:38)
[2022-10-06] MEDS: FLUCONAZOLE 200 MG/100 ML 100 ML IV SCH (08:09)
[2022-10-06] MEDS: CITALOPRAM HYDROBROMIDE 20 MG TABLET PO SCH (08:09)
[2022-10-06] MEDS: MIDODRINE 2.5 MG TABLET PO SCH ×3 (08:09→17:13)
[2022-10-06] MEDS: TAMSULOSIN 0.4 MG CAPSULE PO SCH (08:09)
[2022-10-06] MEDS: FUROSEMIDE 20 MG TABLET PO SCH (08:10)
[2022-10-06] MEDS: PRENATAL VITAMIN TABLET PO SCH (08:10)
[2022-10-06] MEDS: POTASSIUM CHLORIDE 10 MEQ CAPSULE PO SCH (08:10)
[2022-10-06] MEDS: IBUPROFEN 400 MG TABLET PO SCH ×3 (08:10→20:55)
[2022-10-06] MEDS: PANTOPRAZOLE 40 MG TABLET PO SCH ×2 (08:10→20:54)
[2022-10-06] MEDS: MORPHINE ER 15 MG TABLET PO SCH ×2 (08:10→20:54)
[2022-10-06] MEDS: FERROUS GLUCONATE 324 MG TABLET PO SCH (08:10)
[2022-10-06] MEDS: ENOXAPARIN 40 MG/0.4 ML SYRINGE SUBQ SCH (08:11)
[2022-10-06] MEDS: SODIUM CHLORIDE FLUSH 0.9% 10 ML SYRINGE IVP SCH ×3 (08:11→23:41)
[2022-10-06] MEDS: ONDANSETRON 4 MG/2 ML VIAL IVP PRN (09:35)
[2022-10-06] MEDS: CEFEPIME 2 GM in SODIUM CHLORIDE 0.9% MINIBAG 100 ML IV SCH ×2 (09:35→20:54)
--- NOTE | 2022-10-06 10:51 | PROVIDER PROGRESS NOTE ---
Assessment/Plan - Problem List (1) Peritonitis Assessment/Plan: Pt w/ hx of met Pancreatic CA presented with SBO, admitted by gen surg, with hospitliast service consulted Developed leukocytosis which was persistant and had anasarca with ascites. Paracentesis done on 09/30. Gram stain, Cx from fluid showed enterobacter cloacae. Treated with IV Cefepime and later Diflucan ordered. WBC trending up now 2 consecutive days, but no fever, or systemic sx or si of illness and clinically doing well. Plan: Given the persistent leukocytosis, have reviewed medications and patient does not appear to be on any medications known to induce leukocytosis. He has not had no clinical events to suggest a stress reaction leading to leukocytosis. It is unclear if the leukocytosis is related to the underlying malignancy or if there is continuing infection. Given the possibility of the latter, will panculture with chest x-ray, UA, and repeat blood cultures for now. If leukocytosis continues to worsen, could consider repeat abdominal imaging. For now, continue IV cefepime and follow-up results of repeat infectious work- up. (2) UTI (urinary tract infection) Qualifiers: Urinary tract infection type: acute cystitis Hematuria presence: without hematuria Qualified Code(s): N30.00 - Acute cystitis without hematuria Assessment/Plan: Urine culture from earlier this admission grew out Enterobacter cloacae. He had been on empiric IV Zosyn. He was changed to oral Bactrim when we got his s ensitivity results back on the Enterobacter. Then when WBC carol, his Zosyn was changed to Cefepime, since the Enterobacter growing in his urine is resistant to Penicillins Recommendations and Plan: Cont Cefepime as above (3) Bowel obstruction Qualifiers: Intestinal obstruction type: other intestinal obstruction Assessment/Plan: Presented with SBO s/p diverting transverse loop colostomy Managed by gen surg Doing well, cont supportive care, ostomy care, diet, etc (4) Pancreatic malignant neoplasm Qualifiers: Pancreatic malignancy location: unspecified Qualified Code(s): C25.9 - Malignant neoplasm of pancreas, unspecified Assessment/Plan: With chronic pain Followed by MAC Seen by Palliative during admit Pt would like to return to oncology for treatment after discharge (5) Orthostatic hypotension Assessment/Plan: Chronic Persistent Pt started on midodrine, but still has some sx w/ ambulation. I suspect this is more related to chronic deconditioning, weight loss, rather than secondary to medication. Likely not going to be resolved during this hospital stay Cont PT/OT, and ok to d/c to home w/ home health or SNF when medically able. - Current Meds Current Meds: Current Medications Generic Name Dose Route Start Last Admin Trade Name Freq PRN Reason Stop Dose Admin Acetaminophen 1,000 mg 09/24/22 18:00 10/06/22 06:02 Acetaminophen 500 Mg Tablet PO 1,000 mg Q6HR ANASTASIIA Administration Citalopram Hydrobromide 40 mg 09/22/22 12:00 10/06/22 08:09 Citalopram Hydrobromide 20 Mg Tablet PO 40 mg DAILY ANASTASIIA Administration Enoxaparin Sodium 40 mg 09/21/22 09:00 10/06/22 08:11 Enoxaparin 40 Mg/0.4 Ml Syringe SUBQ 40 mg DAILY ANASTASIIA Administration Ferrous Gluconate 324 mg 10/02/22 12:00 10/06/22 08:10 Ferrous Gluconate 324 Mg Tablet PO 324 mg DAILYWM ANASTASIIA Administration Furosemide 20 mg 10/05/22 09:00 10/06/22 08:10 Furosemide 20 Mg Tablet PO 20 mg DAILY ANASTASIIA Administration Heparin Sodium (Beef Lung) 30 - 50 unit 09/29/22 13:46 10/05/22 04:56 Heparin Flush 50 Units/5 Ml Syringe IVP 50 unit PRN PRN Administration Port Protocol (<24 hours) Hydromorphone HCl 0.5 mg 09/27/22 07:13 09/28/22 11:39 Hydromorphone 0.5 Mg/0.5 Ml Syringe IVP 0.5 mg Q30M PRN Administration Breakthrough Pain Cefepime HCl 2 gm/ Sodium 100 mls @ 200 mls/hr 10/01/22 10:00 10/06/22 10:44 Chloride IV Infused BID ANASTASIIA Infusion Fluconazole 100 mls @ 100 mls/hr 10/02/22 15:30 10/06/22 09:36 Diflucan 200 Mg/100 Ml IV Infused DAILY ANASTASIIA Infusion Ibuprofen 400 mg 09/30/22 15:00 10/06/22 08:10 Ibuprofen 400 Mg Tablet PO 400 mg 0900,1500,2100 ANASTASIIA Administration Midodrine 2.5 mg 10/02/22 17:00 10/06/22 08:09 Midodrine 2.5 Mg Tablet PO 2.5 mg TIDWM ANASTASIIA Administration Mirtazapine 15 mg 09/29/22 21:00 10/05/22 20:27 Mirtazapine 15 Mg Tablet PO 15 mg QPM ANASTASIIA Administration Morphine Sulfate 30 mg 09/22/22 11:00 10/06/22 08:10 Morphine Er 15 Mg Tablet PO 30 mg BID ANASTASIIA Administration Ondansetron HCl 4 mg 09/20/22 10:57 10/06/22 09:35 Ondansetron 4 Mg/2 Ml Vial IVP 4 mg Q6H PRN Administration Nausea / Vomiting Oxycodone HCl 5 mg 09/25/22 11:33 09/29/22 21:12 Oxycodone 5 Mg Tablet PO 5 mg Q4HR PRN Administration Moderate Pain (Level 4-6) Oxycodone HCl 10 mg 09/27/22 07:12 09/30/22 06:10 Oxycodone 5 Mg Tablet PO 10 mg Q4HR PRN Administration Severe Pain (Level 7-10) Pantoprazole Sodium 40 mg 09/25/22 09:00 10/06/22 08:10 Pantoprazole 40 Mg Tablet PO 40 mg BID ANASTASIIA Administration Potassium Chloride 20 meq 10/04/22 12:00 10/06/22 08:10 Potassium Chloride 10 Meq Capsule PO 20 meq DAILYWM ANASTASIIA Administration Multivit/Folic Acid/Iron 1 tab 10/04/22 09:00 10/06/22 08:10 Vitamin Tablet PO 1 tab DAILYWM ANASTASIIA Administration Prochlorperazine Edisylate 10 mg 09/20/22 10:57 09/28/22 08:31 Prochlorperazine 10 Mg/2 Ml Vial IVP 10 mg Q4HR PRN Administration Nausea / Vomiting Sodium Chloride 10 ml 09/20/22 17:00 10/06/22 08:11 Sodium Chloride Flush 0.9% 10 Ml Syringe IVP 10 ml 0100,0900,1700 ANASTASIIA Administration Sodium Chloride 10 ml 09/20/22 10:57 09/30/22 20:14 Sodium Chloride Flush 0.9% 10 Ml Syringe IVP 10 ml PRN PRN Administration NEEDED PER PROVIDER ORDERS Tamsulosin HCl 0.4 mg 09/24/22 18:00 10/06/22 08:09 Tamsulosin 0.4 Mg Capsule PO 0.4 mg DAILY ANASTASIIA Administration - Lab Result Lab results reviewed: Yes Fish Bone Diagrams: 10/06/22 04:21 10/06/22 04:21 - EKG Results EKG Interpreted Independently: Yes - Additional Planning Condition/Complexity: Stable My Orders: My Active Orders 10/06/22 Blood Culture [CULTURE, BLOOD #1] [RM] Routine Blood Culture [CULTURE, BLOOD #2] [] Routine UA w/ MICROSCOPIC, CULT IF [URIN] Routine Subjective - Subjective Patient Reports: Feeling Better, Resting Comfortably, Nausea Objective Vital Signs: Vital Signs - 24 hr 10/05/22 10/06/22 10/06/22 15:48 00:19 08:44 Temperature 36.8 C 36.4 C L 36.3 C L Heart Rate [ 94 91 97 Brachial] Respiratory 16 18 18 Rate Blood Pressure 112/61 115/53 L 135/68 H [Right Brachial artery] O2 Saturation 97 93 97 Oxygen O2 Source Room air I&O (Last 24 Hrs): Intake and Output Totals x24h 10/04/22 10/05/22 10/06/22 23:59 23:59 23:59 Intake Total 1360 1432 320 Output Total 100 Balance 1360 1332 320 General: Alert, Oriented x3 Cardiovascular: Regular rate, Normal S1, Normal S2 Respiratory: Chest non-tender, No respiratory distress, Breath sounds nml Abdomen: Normal bowel sounds, Other (Ostomy bag inspected, normal-appearing stool. Ostomy site is CDI) Extremities: Other (Moderate generalized anasarca most prominent in the lower extremities which as per patient is improving significantly) - Results Results: Laboratory Results WBC 26.5 x10^3/uL (4.8-10.8) H 10/06/22 04:21 RBC 2.46 10^6/uL (4.70-6.10) L 10/06/22 04:21 Hgb 7.9 g/dL (14.0-18.0) L 10/06/22 04:21 Hct 23.8 % (42.0-52.0) L 10/06/22 04:21 MCV 96.7 fL (80.0-94.0) H 10/06/22 04:21 MCH 32.1 pg (27.0-31.0) H 10/06/22 04:21 MCHC 33.2 g/dL (32.0-36.0) 10/06/22 04:21 RDW 20.3 % (12.0-15.0) H 10/06/22 04:21 Plt Count 472 10^3/uL (130-450) H 10/06/22 04:21 MPV 11.2 fL (7.4-11.4) 10/06/22 04:21 Neut # (Auto) Not Reportable 10/06/22 04:21 Lymph # (Auto) Not Reportable 10/06/22 04:21 [place] # (Auto) Not Reportable 10/06/22 04:21 Eos # (Auto) Not Reportable 10/06/22 04:21 Baso # (Auto) Not Reportable 10/06/22 04:21 Absolute Nucleated RBC Not Reportable 10/06/22 04:21 Total Counted 100 10/06/22 04:21 Band Neuts % (Manual) 0 % (0-10) 10/06/22 04:21 Abnorm Lymph % (Manual) 0 % 10/06/22 04:21 Metamyelocytes % 1 % (-0) H 10/02/22 07: Myelocytes % 1 % (-0) H 10/06/22 04:21 Nucleated RBC % Not Reportable 10/06/22 04:21 Neutrophils # (Manual) 22.0 10^3/uL (1.5-6.6) H 10/06/22 04:21 Lymphocytes # (Manual) 2.4 10^3/uL (1.5-3.5) 10/06/22 04:21 Monocytes # (Manual) 1.6 10^3/uL (0.0-1.0) H 10/06/22 04:21 Eosinophils # (Manual) 0.3 10^3/uL (0-0.7) 10/06/22 04:21 Basophils # (Manual) 0.0 10^3/uL (0-0.1) 10/06/22 04:21 Differential Comment MANUAL DIFFERENTIAL 10/06/22 04:21 Manual Slide Review Indicated 10/02/22 07:27 WBC Morphology NORMAL APPEARANCE (NORMAL) 10/06/22 04:21 Platelet Estimate INCREASED (>450,000) (NORMAL) 10/06/22 04:21 Platelet Morphology 1+ LARGE PLATELETS (NORMAL) 10/06/22 04:21 RBC Morph Micro Appear 2+ ANISOCYTOSIS (NORMAL) 2+ HYPOCHROMASIA (NORMAL) 1+ TARGET CELLS (NORMAL) 1+ SCHISTOCYTES (NORMAL) 10/06/22 04:21 RBC Morph Micro Appear 2+ ANISOCYTOSIS (NORMAL) 2+ HYPOCHROMASIA (NORMAL) 1+ TARGET CELLS (NORMAL) 1+ SCHISTOCYTES (NORMAL) 10/06/22 04:21 RBC Morph Micro Appear 2+ ANISOCYTOSIS (NORMAL) 2+ HYPOCHROMASIA (NORMAL) 1+ TARGET CELLS (NORMAL) 1+ SCHISTOCYTES (NORMAL) 10/06/22 04:21 RBC Morph Micro Appear 2+ ANISOCYTOSIS (NORMAL) 2+ HYPOCHROMASIA (NORMAL) 1+ TARGET CELLS (NORMAL) 1+ SCHISTOCYTES (NORMAL) 10/06/22 04:21 PT 13.3 secs (9.9-12.6) H 10/03/22 05:13 INR 1.2 (0.8-1.2) 10/03/22 05:13 Sodium 138 mmol/L (135-145) 10/06/22 04:21 Potassium 4.0 mmol/L (3.5-4.5) 10/06/22 04:21 Chloride 110 mmol/L (101-111) 10/06/22 04:21 Carbon Dioxide 20 mmol/L (21-32) L 10/06/22 04:21 Anion Gap 8.0 (6-13) 10/06/22 04:21 BUN 28 mg/dL (6-20) H 10/06/22 04:21 Creatinine 0.8 mg/dL (0.6-1.3) 10/06/22 04:21 Estimated GFR (MDRD) 99 (>89) 10/06/22 04:21 Glucose 112 mg/dL (74-104) H 10/06/22 04:21 Lactic Acid 1.6 mmol/L (0.5-2.2) 09/27/22 17:22 Calcium 8.4 mg/dL (8.5-10.3) L 10/06/22 04:21 Phosphorus 3.9 mg/dL (3.7-7.2) 10/02/22 07:27 Magnesium 1.8 mg/dL (1.7-2.3) 10/05/22 05:10 Iron 29 ug/dL (50-212) L 10/02/22 07:27 TIBC 105 ug/dL (250-450) L 10/02/22 07:27 % Saturation TNP 10/02/22 07:27 Transferrin < 75 mg/dL (203-362) L 10/02/22 07:27 Total Bilirubin 0.8 mg/dL (0.2-1.0) 10/03/22 05:13 Direct Bilirubin 0.37 mg/dL (0.03-0.18) H 10/02/22 07:27 AST 14 IU/L (10-42) 10/03/22 05:13 ALT 13 IU/L (10-60) 10/03/22 05:13 Alkaline Phosphatase 194 IU/L (42-121) H 10/03/22 05:13 Troponin I High Sens 29.0 ng/L (2.3-19.7) H* 09/28/22 09:42 Total Protein 5.0 g/dL (6.4-8.9) L 10/03/22 05:13 Albumin 1.9 g/dL (3.2-5.5) L 10/03/22 05:13 Globulin 3.1 g/dL (2.1-4.2) 10/03/22 05:13 Albumin/Globulin Ratio 0.6 (1.0-2.2) L 10/03/22 05:13 Lipase 19 U/L (22-51) L 09/18/22 15:37 Vitamin B12 2109 pg/mL (180-914) H 10/02/22 07:27 Folate 4.8 ng/mL (5.90 - >24.8) L 10/02/22 07:27 Urine Color DARK YELLOW 09/27/22 21:00 Urine Clarity CLOUDY (CLEAR) 09/27/22 21:00 Urine pH 5.0 PH (5.0-7.5) 09/27/22 21:00 Ur Specific [employer] 1.025 (1.002-1.030) 09/27/22 21:00 Urine Protein 30 mg/dL (NEGATIVE) H 09/27/22 21:00 Urine Glucose (UA) NEGATIVE mg/dL (NEGATIVE) 09/27/22 21:00 Urine Ketones NEGATIVE mg/dL (NEGATIVE) 09/27/22 21:00 Urine Occult Blood SMALL (NEGATIVE) H 09/27/22 21:00 Urine Nitrite POSITIVE (NEGATIVE) H 09/27/22 21:00 Urine Bilirubin SMALL (NEGATIVE) H 09/27/22 21:00 Urine Urobilinogen 0.2 (NORMAL) E.U./dL (NORMAL) 09/27/22 21:00 Ur Leukocyte Esterase SMALL (NEGATIVE) H 09/27/22 21:00 Urine RBC 0-5 /HPF (0-5) 09/27/22 21:00 Urine WBC >25 /HPF (0-3) H 09/27/22 21:00 Ur Squamous Epith Cells NONE SEEN (<= Few) 09/27/22 21:00 Urine Bacteria Many /HPF (None Seen) H 09/27/22 21:00 Urine Culture Comments INDICATED 09/27/22 21:00 Gastric Fluid pH TNP 09/19/22 03:40 Gastric Occult Blood POSITIVE (Negative) 09/19/22 03:40 Stl C. diff Tox B Gene NEGATIVE (NEGATIVE) 09/27/22 21:00 Last Dose Date 10/01/22 10/02/22 07:27 Last Dose Time 3 10/02/22 07:27 Vancomycin Trough 24.8 ug/mL 10/02/22 07:27 SARS-CoV-2 (PCR) NOT DETECTED 09/18/22 17:49 Blood Type A POSITIVE 10/03/22 17:11 Blood Type Recheck A POSITIVE 10/03/22 18:03 Antibody Screen NEGATIVE 10/03/22 17:11 Crossmatch IS Only See Detail 10/03/22 17:11 - Procedures Procedures: Procedures EXCISION OF CECUM, ENDO, DIAGN (05/09/17) EXCISION OF RECTUM, ENDO, DIAGN (05/09/17) ABX Reporting Has patient been on IV antibiotics over the past 48 hours?: Yes Current Medications - Current Medications Current Medications: Current Medications Generic Name Dose Route Start Last Admin Trade Name Freq PRN Reason Stop Dose Admin Acetaminophen 1,000 mg 09/24/22 18:00 10/06/22 06:02 Acetaminophen 500 Mg Tablet PO 1,000 mg Q6HR ANASTASIIA Administration Citalopram Hydrobromide 40 mg 09/22/22 12:00 10/06/22 08:09 Citalopram Hydrobromide 20 Mg Tablet PO 40 mg DAILY ANASTASIIA Administration Enoxaparin Sodium 40 mg 09/21/22 09:00 10/06/22 08:11 Enoxaparin 40 Mg/0.4 Ml Syringe SUBQ 40 mg DAILY ANASTASIIA Administration Ferrous Gluconate 324 mg 10/02/22 12:00 10/06/22 08:10 Ferrous Gluconate 324 Mg Tablet PO 324 mg DAILYWM ANASTASIIA Administration Furosemide 20 mg 10/05/22 09:00 10/06/22 08:10 Furosemide 20 Mg Tablet PO 20 mg DAILY ANASTASIIA Administration Heparin Sodium (Beef Lung) 30 - 50 unit 09/29/22 13:46 10/05/22 04:56 Heparin Flush 50 Units/5 Ml Syringe IVP 50 unit PRN PRN Administration Port Protocol (<24 hours) Hydromorphone HCl 0.5 mg 09/27/22 07:13 09/28/22 11:39 Hydromorphone 0.5 Mg/0.5 Ml Syringe IVP 0.5 mg Q30M PRN Administration Breakthrough Pain Cefepime HCl 2 gm/ Sodium 100 mls @ 200 mls/hr 10/01/22 10:00 10/06/22 10:44 Chloride IV Infused BID ANASTASIIA Infusion Fluconazole 100 mls @ 100 mls/hr 10/02/22 15:30 10/06/22 09:36 Diflucan 200 Mg/100 Ml IV Infused DAILY ANASTASIIA Infusion Ibuprofen 400 mg 09/30/22 15:00 10/06/22 08:10 Ibuprofen 400 Mg Tablet PO 400 mg 0900,1500,2100 ANASTASIIA Administration Midodrine 2.5 mg 10/02/22 17:00 10/06/22 08:09 Midodrine 2.5 Mg Tablet PO 2.5 mg TIDWM ANASTASIIA Administration Mirtazapine 15 mg 09/29/22 21:00 10/05/22 20:27 Mirtazapine 15 Mg Tablet PO 15 mg QPM ANASTASIIA Administration Morphine Sulfate 30 mg 09/22/22 11:00 10/06/22 08:10 Morphine Er 15 Mg Tablet PO 30 mg BID ANASTASIIA Administration Ondansetron HCl 4 mg 09/20/22 10:57 10/06/22 09:35 Ondansetron 4 Mg/2 Ml Vial IVP 4 mg Q6H PRN Administration Nausea / Vomiting Oxycodone HCl 5 mg 09/25/22 11:33 09/29/22 21:12 Oxycodone 5 Mg Tablet PO 5 mg Q4HR PRN Administration Moderate Pain (Level 4-6) Oxycodone HCl 10 mg 09/27/22 07:12 09/30/22 06:10 Oxycodone 5 Mg Tablet PO 10 mg Q4HR PRN Administration Severe Pain (Level 7-10) Pantoprazole Sodium 40 mg 09/25/22 09:00 10/06/22 08:10 Pantoprazole 40 Mg Tablet PO 40 mg BID ANASTASIIA Administration Potassium Chloride 20 meq 10/04/22 12:00 10/06/22 08:10 Potassium Chloride 10 Meq Capsule PO 20 meq DAILYWM ANASTASIIA Administration Multivit/Folic Acid/Iron 1 tab 10/04/22 09:00 10/06/22 08:10 Vitamin Tablet PO 1 tab DAILYWM ANASTASIIA Administration Prochlorperazine Edisylate 10 mg 09/20/22 10:57 09/28/22 08:31 Prochlorperazine 10 Mg/2 Ml Vial IVP 10 mg Q4HR PRN Administration Nausea / Vomiting Sodium Chloride 10 ml 09/20/22 17:00 10/06/22 08:11 Sodium Chloride Flush 0.9% 10 Ml Syringe IVP 10 ml 0100,0900,1700 ANASTASIIA Administration Sodium Chloride 10 ml 09/20/22 10:57 09/30/22 20:14 Sodium Chloride Flush 0.9% 10 Ml Syringe IVP 10 ml PRN PRN Administration NEEDED PER PROVIDER ORDERS Tamsulosin HCl 0.4 mg 09/24/22 18:00 10/06/22 08:09 Tamsulosin 0.4 Mg Capsule PO 0.4 mg DAILY ANASTASIIA Administration
--- NOTE | 2022-10-06 14:27 | XRAY Report ---
PROCEDURE: Chest 1 View X-Ray INDICATIONS: Leukocytosis, r/o PNA TECHNIQUE: One view of the chest was acquired. COMPARISON: Chest x-ray 09/27/2022. FINDINGS: Surgical changes and devices: Right Port-A-Cath. Lungs and pleura: Bibasilar opacities increased compared to prior exam. There is blunting of the cos tophrenic angles, left greater than right. Mediastinum: Mediastinal contours appear normal. Heart size is enlarged. Bones and chest wall: No suspicious bony lesions. Overlying soft tissues appear unremarkable. IMPRESSION: Interval bilateral patchy opacities as well as more prominent effusions. Deformity related to layerin g effusions. However, developing areas of atelectasis and/or pneumonia cannot be excluded. Reviewed by: Mar Kelly MD on 10/06/2022 2:25 PM PDT Approved by: Mar Kelly MD on 10/06/2022 2:25 PM PDT Station ID: [id number]
--- NOTE | 2022-10-06 16:25 | PROVIDER PROGRESS NOTE ---
Subjective - Subjective Pt reports feeling: No change (feeling ok. eating ok.) Objective - Vital Signs/Intake & Output Vital Signs: Vital Signs x48h Temp Pulse Resp BP Pulse Ox 10/06/22 16:00 36.6 C 89 16 111/64 98 10/06/22 08:44 36.3 C L 97 18 135/68 H 97 Intake & Output: Intake & Output 10/03/22 10/04/22 10/05/22 10/06/22 23:59 23:59 23:59 23:59 Intake Total 2531 1360 1432 440 Output Total 100 100 Balance 2431 1360 1332 440 - Objective General Appearance: positive: No acute distress, Alert Eyes Bilateral: positive: PERRL, EOMI ENT: positive: No signs of dehydration Neck: positive: No JVD, Trachea midline Respiratory: positive: No respiratory distress Abdomen: positive: Other (denies incsional redness) - Lab Results Fish Bones: 10/06/22 04:21 10/06/22 04:21 Other Labs: Lab Results x24hrs 10/06/22 10/06/22 Range/Units 04:21 04:21 WBC 26.5 H (4.8-10.8) x10^3/uL RBC 2.46 L (4.70-6.10) 10^6/uL Hgb 7.9 L (14.0-18.0) g/dL Hct 23.8 L (42.0-52.0) % MCV 96.7 H (80.0-94.0) fL MCH 32.1 H (27.0-31.0) pg MCHC 33.2 (32.0-36.0) g/dL RDW 20.3 H (12.0-15.0) % Plt Count 472 H (130-450) 10^3/uL MPV 11.2 (7.4-11.4) fL Neut # (Auto) Not Reportable Lymph # (Auto) Not Reportable [place] # (Auto) Not Reportable Eos # (Auto) Not Reportable Baso # (Auto) Not Reportable Absolute Nucleated RBC Not Reportable Total Counted 100 Band Neuts % (Manual) 0 (0 - 10) % Abnorm Lymph % (Manual) 0 % Myelocytes % 1 H ( - 0) % Nucleated RBC % Not Reportable Neutrophils # (Manual) 22.0 H (1.5-6.6) 10^3/uL Lymphocytes # (Manual) 2.4 (1.5-3.5) 10^3/uL Monocytes # (Manual) 1.6 H (0.0-1.0) 10^3/uL Eosinophils # (Manual) 0.3 (0-0.7) 10^3/uL Basophils # (Manual) 0.0 (0-0.1) 10^3/uL Differential Comment MANUAL DIFFERENTIAL WBC Morphology NORMAL APPEARANCE (NORMAL) Platelet Estimate INCREASED (>450,000) (NORMAL) Platelet Morphology 1+ LARGE PLATELETS (NORMAL) RBC Morph Micro Appear 1+ SCHISTOCYTES (NORMAL) Sodium 138 (135-145) mmol/L Potassium 4.0 (3.5-4.5) mmol/L Chloride 110 (101-111) mmol/L Carbon Dioxide 20 L (21-32) mmol/L Anion Gap 8.0 (6-13) BUN 28 H (6-20) mg/dL Creatinine 0.8 (0.6-1.3) mg/dL Estimated GFR (MDRD) 99 (>89) Glucose 112 H (74-104) mg/dL Calcium 8.4 L (8.5-10.3) mg/dL Assessment/Plan - Problem List (1) Bowel obstruction Impression: agree with care and plan. very much appreciate medical service help with his care Qualifiers: Intestinal obstruction type: other intestinal obstruction
[2022-10-06 18:26] LABS: BILIRUBIN,URINE NEGATIVE (NEGATIVE); GLUCOSE, URINE (UA) NEGATIVE (NEGATIVE); KETONES,URINE (UA) NEGATIVE (NEGATIVE); LEUKOCYTE ESTERASE, URINE SMALL (NEGATIVE); NITRITE,URINE NEGATIVE (NEGATIVE); OCCULT BLOOD,URINE MODERATE (NEGATIVE); PROTEIN,URINE 30 mg/dL (NEGATIVE); UROBILINOGEN,URINE 0.2 (NORMAL) E.U./dL (NORMAL)
[2022-10-06 18:30] LABS: CLARITY,URINE HAZY (CLEAR)
[2022-10-06 19:09] LABS: BACTERIA,URINE Rare /HPF (None Seen); MUCUS,URINE Few Strands; SQUAMOUS EPITHELIAL CELL,UR RARE Squamous (<= Few); WBC,URINE >25 /HPF (0-3)
[2022-10-06 19:10] LABS: CASTS, URINE 6-10 Hyaline Casts /LPF
[2022-10-06] MEDS: MIRTAZAPINE 15 MG TABLET PO SCH (20:54)
[2022-10-07 05:32] LABS: BASOPHILS % (AUTO) 0.2 %; EOSINOPHILS % (AUTO) 1.6 %; HCT - HEMATOCRIT 24.1 % (42.0-52.0); HGB - HEMOGLOBIN 8.3 g/dL (14.0-18.0); MEAN CORPUSCULAR HEMOGLOBIN 33.9 pg (27.0-31.0); MEAN CORPUSCULAR HGB CONC 34.4 g/dL (32.0-36.0); MEAN CORPUSCULAR VOLUME 98.4 fL (80.0-94.0); MEAN PLATELET VOLUME 11.3 fL (7.4-11.4); NEUTROPHILS % (AUTO) 81.3 %; PLT - PLATELET COUNT 495 10^3/uL (130-450); RED BLOOD COUNT 2.45 10^6/uL (4.70-6.10); WHITE BLOOD COUNT 19.1 x10^3/uL (4.8-10.8)
[2022-10-07 05:36] LABS: ABNORMAL LYMPHS % (MANUAL) 0 %
[2022-10-07 05:45] LABS: CALCIUM 8.3 mg/dL (8.5-10.3); CREATININE 0.9 mg/dL (0.6-1.3); POTASSIUM 4.2 mmol/L (3.5-4.5)
[2022-10-07 05:59] LABS: BAND NEUTROPHILS % (MANUAL) 1 %; LYMPHOCYTES # (MANUAL) 2.1 10^3/uL (1.5-3.5); LYMPHOCYTES % (MANUAL) 11 %; METAMYELOCYTES % (MANUAL) 1 %; MONOCYTES # (MANUAL) 2.7 10^3/uL (0.0-1.0); MYELOCYTES % (MANUAL) 1 %; NEUTROPHILS # (MANUAL) 13.9 10^3/uL (1.5-6.6)
[2022-10-07 06:00] LABS: DIFFERENTIAL COMMENT MANUAL DIFFERENTIAL; PLATELET ESTIMATE, MANUAL INCREASED (>450,000) (NORMAL)
[2022-10-07] MEDS: ACETAMINOPHEN 500 MG TABLET PO SCH ×3 (06:35→17:52)
[2022-10-07] MEDS: POTASSIUM CHLORIDE 10 MEQ CAPSULE PO SCH (08:28)
[2022-10-07] MEDS: FUROSEMIDE 20 MG TABLET PO SCH (08:28)
[2022-10-07] MEDS: PANTOPRAZOLE 40 MG TABLET PO SCH ×2 (08:28→21:50)
[2022-10-07] MEDS: CITALOPRAM HYDROBROMIDE 20 MG TABLET PO SCH (08:28)
[2022-10-07] MEDS: PRENATAL VITAMIN TABLET PO SCH (08:29)
[2022-10-07] MEDS: SODIUM CHLORIDE FLUSH 0.9% 10 ML SYRINGE IVP SCH ×2 (08:29→17:53)
[2022-10-07] MEDS: FERROUS GLUCONATE 324 MG TABLET PO SCH (08:29)
[2022-10-07] MEDS: MORPHINE ER 15 MG TABLET PO SCH ×2 (08:29→21:50)
[2022-10-07] MEDS: ENOXAPARIN 40 MG/0.4 ML SYRINGE SUBQ SCH (08:29)
[2022-10-07] MEDS: TAMSULOSIN 0.4 MG CAPSULE PO SCH (08:29)
[2022-10-07] MEDS: MIDODRINE 2.5 MG TABLET PO SCH ×3 (08:29→17:52)
[2022-10-07] MEDS: IBUPROFEN 400 MG TABLET PO SCH ×3 (08:29→21:50)
[2022-10-07] MEDS: ONDANSETRON 4 MG/2 ML VIAL IVP PRN (08:38)
[2022-10-07] MEDS: CEFEPIME 2 GM in SODIUM CHLORIDE 0.9% MINIBAG 100 ML IV SCH ×2 (08:40→21:49)
[2022-10-07] MEDS: FLUCONAZOLE 200 MG/100 ML 100 ML IV SCH (09:18)
--- NOTE | 2022-10-07 15:38 | PROVIDER PROGRESS NOTE ---
Subjective - Subjective Pt reports feeling: No change (feels good. no complaints or discomfort) Objective - Vital Signs/Intake & Output Vital Signs: Vital Signs x48h Temp Pulse Resp BP Pulse Ox 10/07/22 07:45 36.4 C L 103 H 18 120/64 96 Intake & Output: Intake & Output 10/04/22 10/05/22 10/06/22 10/07/22 23:59 23:59 23:59 23:59 Intake Total 1360 1432 1088 577 Output Total 100 125 Balance 1360 1332 963 577 - Objective General Appearance: positive: No acute distress, Alert Eyes Bilateral: positive: PERRL, EOMI, No scleral icterus Neck: positive: Trachea midline Respiratory: positive: No respiratory distress Abdomen: positive: No distention, Other (he states incision area looks good. no redness) Neurologic/Psychiatric: positive: Oriented x3 - Lab Results Fish Bones: 10/07/22 05:24 10/07/22 05:24 Other Labs: Lab Results x24hrs 10/07/22 10/07/22 10/06/22 Range/Units 05:24 05:24 17:10 WBC 19.1 H (4.8-10.8) x10^3/uL RBC 2.45 L (4.70-6.10) 10^6/uL Hgb 8.3 L (14.0-18.0) g/dL Hct 24.1 L (42.0-52.0) % MCV 98.4 H (80.0-94.0) fL MCH 33.9 H (27.0-31.0) pg MCHC 34.4 (32.0-36.0) g/dL RDW 21.0 H (12.0-15.0) % Plt Count 495 H (130-450) 10^3/uL MPV 11.3 (7.4-11.4) fL Neut # (Auto) Not Reportable Lymph # (Auto) Not Reportable [place] # (Auto) Not Reportable Eos # (Auto) Not Reportable Baso # (Auto) Not Reportable Absolute Nucleated RBC Not Reportable Total Counted 100 Band Neuts % (Manual) 1 (0 - 10) % Abnorm Lymph % (Manual) 0 % Metamyelocytes % 1 H ( - 0) % Myelocytes % 1 H ( - 0) % Nucleated RBC % Not Reportable Neutrophils # (Manual) 13.9 H (1.5-6.6) 10^3/uL Lymphocytes # (Manual) 2.1 (1.5-3.5) 10^3/uL Monocytes # (Manual) 2.7 H (0.0-1.0) 10^3/uL Eosinophils # (Manual) 0.0 (0-0.7) 10^3/uL Basophils # (Manual) 0.0 (0-0.1) 10^3/uL Differential Comment MANUAL DIFFERENTIAL Platelet Estimate INCREASED (>450,000) (NORMAL) RBC Morph Micro Appear 1+ TARGET CELLS (NORMAL) Sodium 137 (135-145) mmol/L Potassium 4.2 (3.5-4.5) mmol/L Chloride 110 (101-111) mmol/L Carbon Dioxide 21 (21-32) mmol/L Anion Gap 6.0 (6-13) BUN 31 H (6-20) mg/dL Creatinine 0.9 (0.6-1.3) mg/dL Estimated GFR (MDRD) 86 L (>89) Glucose 113 H (74-104) mg/dL Calcium 8.3 L (8.5-10.3) mg/dL Urine Color DARK YELLOW Urine Clarity HAZY (CLEAR) Urine pH 5.0 (5.0-7.5) PH Ur Specific [place] 1.020 (1.002-1.030) Urine Protein 30 H (NEGATIVE) mg/dL Urine Glucose (UA) NEGATIVE (NEGATIVE) mg/dL Urine Ketones NEGATIVE (NEGATIVE) mg/dL Urine Occult Blood MODERATE H (NEGATIVE) Urine Nitrite NEGATIVE (NEGATIVE) Urine Bilirubin NEGATIVE (NEGATIVE) Urine Urobilinogen 0.2 (NORMAL) (NORMAL) E.U./dL Ur Leukocyte Esterase SMALL H (NEGATIVE) Urine RBC 6-10 H (0-5) /HPF Urine WBC >25 H (0-3) /HPF Ur Squamous Epith Cells RARE Squamous (<= Few) Urine Bacteria Rare (None Seen) /HPF Urine Casts 6-10 Hyaline Casts /LPF Urine Mucus Few Strands Urine Culture Comments INDICATED Assessment/Plan - Problem List (1) Bowel obstruction Impression: d/c planning. appreciate medical service assistance with his care Qualifiers: Intestinal obstruction type: other intestinal obstruction
--- NOTE | 2022-10-07 16:33 | PROVIDER PROGRESS NOTE ---
Assessment/Plan - Problem List (1) Intra-abdominal malignant neoplasm Assessment/Plan: (1) Peritonitis Assessment/Plan: Pt w/ hx of met Pancreatic CA presented with SBO, admitted by gen surg, with hospitliast service consulted Developed leukocytosis which was persistant and had anasarca with ascites. Paracentesis done on 09/30. Gram stain, Cx from fluid showed enterobacter cloac ae. Treated with IV Cefepime and later Diflucan ordered. WBC trending up now 2 consecutive days, but no fever, or systemic sx or si of illness and clinically doing well. Plan: Given the persistent leukocytosis, have reviewed medications and patient does not appear to be on any medications known to induce leukocytosis. He has not had no clinical events to suggest a stress reaction leading to leukocytosis. It is unclear if the leukocytosis is related to the underlying malignancy or if there is continuing infection. Given the possibility of the latter, will panculture with chest x-ray, UA, and repeat blood cultures for now. If leukocytosis continues to worsen, could consider repeat abdominal imaging. For now, continue IV cefepime and follow-up results of repeat infectious work- up. (2) UTI (urinary tract infection) Qualifiers: Urinary tract infection type: acute cystitis Hematuria presence: without hematuria Qualified Code(s): N30.00 - Acute cystitis without hematuria Assessment/Plan: Urine culture from earlier this admission grew out Enterobacter cloacae. He had been on empiric IV Zosyn. He was changed to oral Bactrim when we got his sensitivity results back on the Enterobacter. Then when WBC carol, his Zosyn was changed to Cefepime, since the Enterobacter growing in his urine is resistant to Penicillins Recommendations and Plan: Cont Cefepime as above (3) Bowel obstruction Qualifiers: Intestinal obstruction type: other intestinal obstruction Assessment/Plan: Presented with SBO s/p diverting transverse loop colostomy Managed by gen surg Doing well, cont supportive care, ostomy care, diet, etc (4) Pancreatic malignant neoplasm Qualifiers: Pancreatic malignancy location: unspecified Qualified Code(s): C25.9 - Malignant neoplasm of pancreas, unspecified Assessment/Plan: With chronic pain Followed by MAC Seen by Palliative during admit Pt would like to return to oncology for treatment after discharge (5) Orthostatic hypotension Assessment/Plan: Chronic Persistent Pt started on midodrine, but still has some sx w/ ambulation. I suspect this is more related to chronic deconditioning, weight loss, rather than secondary to medication. Likely not going to be resolved during this hospital stay Cont PT/OT, and ok to d/c to home w/ home health or SNF when medically able. - Current Meds Current Meds: Current Medications Generic Name Dose Route Start Last Admin Trade Name Freq PRN Reason Stop Dose Admin Acetaminophen 1,000 mg 09/24/22 18:00 10/07/22 12:47 Acetaminophen 500 Mg Tablet PO 1,000 mg Q6HR ANASTASIIA Administration Citalopram Hydrobromide 40 mg 09/22/22 12:00 10/07/22 08:28 Citalopram Hydrobromide 20 Mg Tablet PO 40 mg DAILY ANASTASIIA Administration Enoxaparin Sodium 40 mg 09/21/22 09:00 10/07/22 08:29 Enoxaparin 40 Mg/0.4 Ml Syringe SUBQ 40 mg DAILY ANASTASIIA Administration Ferrous Gluconate 324 mg 10/02/22 12:00 10/07/22 08:29 Ferrous Gluconate 324 Mg Tablet PO 324 mg DAILYWM ANASTASIIA Administration Furosemide 20 mg 10/05/22 09:00 10/07/22 08:28 Furosemide 20 Mg Tablet PO 20 mg DAILY ANASTASIIA Administration Heparin Sodium (Beef Lung) 30 - 50 unit 09/29/22 13:46 10/06/22 20:54 Heparin Flush 50 Units/5 Ml Syringe IVP 50 unit PRN PRN Administration Port Protocol (<24 hours) Hydromorphone HCl 0.5 mg 09/27/22 07:13 09/28/22 11:39 Hydromorphone 0.5 Mg/0.5 Ml Syringe IVP 0.5 mg Q30M PRN Administration Breakthrough Pain Cefepime HCl 2 gm/ Sodium 100 mls @ 200 mls/hr 10/01/22 10:00 10/07/22 09:10 Chloride IV Infused BID ANASTASIIA Infusion Fluconazole 100 mls @ 100 mls/hr 10/02/22 15:30 10/07/22 10:20 Diflucan 200 Mg/100 Ml IV Infused DAILY ANASTASIIA Infusion Ibuprofen 400 mg 09/30/22 15:00 10/07/22 15:35 Ibuprofen 400 Mg Tablet PO 400 mg 0900,1500,2100 ANASTASIIA Administration Midodrine 2.5 mg 10/02/22 17:00 10/07/22 11:32 Midodrine 2.5 Mg Tablet PO 2.5 mg TIDWM ANASTASIIA Administration Mirtazapine 15 mg 09/29/22 21:00 10/06/22 20:54 Mirtazapine 15 Mg Tablet PO 15 mg QPM ANASTASIIA Administration Morphine Sulfate 30 mg 09/22/22 11:00 10/07/22 08:29 Morphine Er 15 Mg Tablet PO 30 mg BID ANASTASIIA Administration Ondansetron HCl 4 mg 09/20/22 10:57 10/07/22 08:38 Ondansetron 4 Mg/2 Ml Vial IVP 4 mg Q6H PRN Administration Nausea / Vomiting Oxycodone HCl 5 mg 09/25/22 11:33 09/29/22 21:12 Oxycodone 5 Mg Tablet PO 5 mg Q4HR PRN Administration Moderate Pain (Level 4-6) Oxycodone HCl 10 mg 09/27/22 07:12 09/30/22 06:10 Oxycodone 5 Mg Tablet PO 10 mg Q4HR PRN Administration Severe Pain (Level 7-10) Pantoprazole Sodium 40 mg 09/25/22 09:00 10/07/22 08:28 Pantoprazole 40 Mg Tablet PO 40 mg BID ANASTASIIA Administration Potassium Chloride 20 meq 10/04/22 12:00 10/07/22 08:28 Potassium Chloride 10 Meq Capsule PO 20 meq DAILYWM ANASTASIIA Administration Multivit/Folic Acid/Iron 1 tab 10/04/22 09:00 10/07/22 08:29 Vitamin Tablet PO 1 tab DAILYWM ANASTASIIA Administration Prochlorperazine Edisylate 10 mg 09/20/22 10:57 09/28/22 08:31 Prochlorperazine 10 Mg/2 Ml Vial IVP 10 mg Q4HR PRN Administration Nausea / Vomiting Sodium Chloride 10 ml 09/20/22 17:00 10/07/22 08:29 Sodium Chloride Flush 0.9% 10 Ml Syringe IVP 10 ml 0100,0900,1700 ANASTASIIA Administration Sodium Chloride 10 ml 09/20/22 10:57 09/30/22 20:14 Sodium Chloride Flush 0.9% 10 Ml Syringe IVP 10 ml PRN PRN Administration NEEDED PER PROVIDER ORDERS Tamsulosin HCl 0.4 mg 09/24/22 18:00 10/07/22 08:29 Tamsulosin 0.4 Mg Capsule PO 0.4 mg DAILY ANASTASIIA Administration - Lab Result Fish Bone Diagrams: 10/07/22 05:24 10/07/22 05:24 - Additional Planning My Orders: My Active Orders 10/07/22 14:21 Zinc Oxide 20% Oint [Zinc Oxide] 1 applic TOP PRN PRN Subjective - Subjective Patient Reports: Abdominal Pain Objective Vital Signs: Vital Signs - 24 hr 10/06/22 10/07/22 10/07/22 23:30 07:45 15:45 Temperature 36.5 C 36.4 C L 36.6 C Heart Rate [ 88 103 H 93 Brachial] Respiratory 16 18 16 Rate Blood Pressure 103/57 L 120/64 112/59 L [Right Brachial artery] O2 Saturation 94 96 97 Oxygen O2 Source Room air I&O (Last 24 Hrs): Intake and Output Totals x24h 10/05/22 10/06/22 10/07/22 23:59 23:59 23:59 Intake Total 1432 1088 577 Output Total 100 125 Balance 1332 963 577 General: Alert, Oriented x3, Cooperative Neck: Supple Neuro: Alert Cardiovascular: Regular rate Abdomen: Other (Colostomy with output mild diffuse abdominal tenderness) Skin: No rashes - Results Results: Laboratory Results WBC 19.1 x10^3/uL (4.8-10.8) H 10/07/22 05:24 RBC 2.45 10^6/uL (4.70-6.10) L 10/07/22 05:24 Hgb 8.3 g/dL (14.0-18.0) L 10/07/22 05:24 Hct 24.1 % (42.0-52.0) L 10/07/22 05:24 MCV 98.4 fL (80.0-94.0) H 10/07/22 05:24 MCH 33.9 pg (27.0-31.0) H 10/07/22 05:24 MCHC 34.4 g/dL (32.0-36.0) 10/07/22 05:24 RDW 21.0 % (12.0-15.0) H 10/07/22 05:24 Plt Count 495 10^3/uL (130-450) H 10/07/22 05:24 MPV 11.3 fL (7.4-11.4) 10/07/22 05:24 Neut # (Auto) Not Reportable 10/07/22 05:24 Lymph # (Auto) Not Reportable 10/07/22 05:24 [place] # (Auto) Not Reportable 10/07/22 05:24 Eos # (Auto) Not Reportable 10/07/22 05:24 Baso # (Auto) Not Reportable 10/07/22 05:24 Absolute Nucleated RBC Not Reportable 10/07/22 05:24 Total Counted 100 10/07/22 05:24 Band Neuts % (Manual) 1 % (0-10) 10/07/22 05:24 Abnorm Lymph % (Manual) 0 % 10/07/22 05:24 Metamyelocytes % 1 % (-0) H 10/07/22 05:24 Myelocytes % 1 % (-0) H 10/07/22 05:24 Nucleated RBC % Not Reportable 10/07/22 05:24 Neutrophils # (Manual) 13.9 10^3/uL (1.5-6.6) H 10/07/22 05:24 Lymphocytes # (Manual) 2.1 10^3/uL (1.5-3.5) 10/07/22 05:24 Monocytes # (Manual) 2.7 10^3/uL (0.0-1.0) H 10/07/22 05:24 Eosinophils # (Manual) 0.0 10^3/uL (0-0.7) 10/07/22 05:24 Basophils # (Manual) 0.0 10^3/uL (0-0.1) 10/07/22 05:24 Differential Comment MANUAL DIFFERENTIAL 10/07/22 05:24 Manual Slide Review Indicated 10/02/22 07:27 WBC Morphology NORMAL APPEARANCE (NORMAL) 10/06/22 04:21 Platelet Estimate INCREASED (>450,000) (NORMAL) 10/07/22 05:24 Platelet Morphology 1+ LARGE PLATELETS (NORMAL) 10/06/22 04:21 RBC Morph Micro Appear 1+ ANISOCYTOSIS (NORMAL) 1+ HYPOCHROMASIA (NORMAL) 1+ OVALOCYTES (NORMAL) 1+ TARGET CELLS (NORMAL) 10/07/22 05:24 RBC Morph Micro Appear 1+ ANISOCYTOSIS (NORMAL) 1+ HYPOCHROMASIA (NORMAL) 1+ OVALOCYTES (NORMAL) 1+ TARGET CELLS (NORMAL) 10/07/22 05:24 RBC Morph Micro Appear 1+ ANISOCYTOSIS (NORMAL) 1+ HYPOCHROMASIA (NORMAL) 1+ OVALOCYTES (NORMAL) 1+ TARGET CELLS (NORMAL) 10/07/22 05:24 RBC Morph Micro Appear 1+ ANISOCYTOSIS (NORMAL) 1+ HYPOCHROMASIA (NORMAL) 1+ OVALOCYTES (NORMAL) 1+ TARGET CELLS (NORMAL) 10/07/22 05:24 PT 13.3 secs (9.9-12.6) H 10/03/22 05:13 INR 1.2 (0.8-1.2) 10/03/22 05:13 Sodium 137 mmol/L (135-145) 10/07/22 05:24 Potassium 4.2 mmol/L (3.5-4.5) 10/07/22 05:24 Chloride 110 mmol/L (101-111) 10/07/22 05:24 Carbon Dioxide 21 mmol/L (21-32) 10/07/22 05:24 Anion Gap 6.0 (6-13) 10/07/22 05:24 BUN 31 mg/dL (6-20) H 10/07/22 05:24 Creatinine 0.9 mg/dL (0.6-1.3) 10/07/22 05:24 Estimated GFR (MDRD) 86 (>89) L 10/07/22 05:24 Glucose 113 mg/dL (74-104) H 10/07/22 05:24 Lactic Acid 1.6 mmol/L (0.5-2.2) 09/27/22 17:22 Calcium 8.3 mg/dL (8.5-10.3) L 10/07/22 05:24 Phosphorus 3.9 mg/dL (3.7-7.2) 10/02/22 07:27 Magnesium 1.8 mg/dL (1.7-2.3) 10/05/22 05:10 Iron 29 ug/dL (50-212) L 10/02/22 07:27 TIBC 105 ug/dL (250-450) L 10/02/22 07:27 % Saturation TNP 10/02/22 07:27 Transferrin < 75 mg/dL (203-362) L 10/02/22 07:27 Total Bilirubin 0.8 mg/dL (0.2-1.0) 10/03/22 05:13 Direct Bilirubin 0.37 mg/dL (0.03-0.18) H 10/02/22 07:27 AST 14 IU/L (10-42) 10/03/22 05:13 ALT 13 IU/L (10-60) 10/03/22 05:13 Alkaline Phosphatase 194 IU/L (42-121) H 10/03/22 05:13 Troponin I High Sens 29.0 ng/L (2.3-19.7) H* 09/28/22 09:42 Total Protein 5.0 g/dL (6.4-8.9) L 10/03/22 05:13 Albumin 1.9 g/dL (3.2-5.5) L 10/03/22 05:13 Globulin 3.1 g/dL (2.1-4.2) 10/03/22 05:13 Albumin/Globulin Ratio 0.6 (1.0-2.2) L 10/03/22 05:13 Lipase 19 U/L (22-51) L 09/18/22 15:37 Vitamin B12 2109 pg/mL (180-914) H 10/02/22 07:27 Folate 4.8 ng/mL (5.90 - >24.8) L 10/02/22 07:27 Urine Color DARK YELLOW 10/06/22 17:10 Urine Clarity HAZY (CLEAR) 10/06/22 17:10 Urine pH 5.0 PH (5.0-7.5) 10/06/22 17:10 Ur Specific [place] 1.020 (1.002-1.030) 10/06/22 17:10 Urine Protein 30 mg/dL (NEGATIVE) H 10/06/22 17:10 Urine Glucose (UA) NEGATIVE mg/dL (NEGATIVE) 10/06/22 17:10 Urine Ketones NEGATIVE mg/dL (NEGATIVE) 10/06/22 17:10 Urine Occult Blood MODERATE (NEGATIVE) H 10/06/22 17:10 Urine Nitrite NEGATIVE (NEGATIVE) 10/06/22 17:10 Urine Bilirubin NEGATIVE (NEGATIVE) 10/06/22 17:10 Urine Urobilinogen 0.2 (NORMAL) E.U./dL (NORMAL) 10/06/22 17:10 Ur Leukocyte Esterase SMALL (NEGATIVE) H 10/06/22 17:10 Urine RBC 6-10 /HPF (0-5) H 10/06/22 17:10 Urine WBC >25 /HPF (0-3) H 10/06/22 17:10 Ur Squamous Epith Cells RARE Squamous (<= Few) 10/06/22 17:10 Urine Bacteria Rare /HPF (None Seen) 10/06/22 17:10 Urine Casts 6-10 Hyaline Casts /LPF 10/06/22 17:10 Urine Mucus Few Strands 10/06/22 17:10 Urine Culture Comments INDICATED 10/06/22 17:10 Gastric Fluid pH TNP 09/19/22 03:40 Gastric Occult Blood POSITIVE (Negative) 09/19/22 03:40 Stl C. diff Tox B Gene NEGATIVE (NEGATIVE) 09/27/22 21:00 Last Dose Date 10/01/22 10/02/22 07:27 Last Dose Time 223210/02/22 07:27 Vancomycin Trough 24.8 ug/mL 10/02/22 07:27 SARS-CoV-2 (PCR) NOT DETECTED 09/18/22 17:49 Blood Type A POSITIVE 10/03/22 17:11 Blood Type Recheck A POSITIVE 10/03/22 18:03 Antibody Screen NEGATIVE 10/03/22 17:11 Crossmatch IS Only See Detail 10/03/22 17:11 - Procedures Procedures: Procedures EXCISION OF CECUM, ENDO, DIAGN (05/09/17) EXCISION OF RECTUM, ENDO, DIAGN (05/09/17) ABX Reporting Has patient been on IV antibiotics over the past 48 hours?: Yes
[2022-10-07] MEDS: ZINC OXIDE 20% OINT 30 GM TUBE TOP PRN (17:58)
[2022-10-07] MEDS: SODIUM CHLORIDE FLUSH 0.9% 10 ML SYRINGE IVP PRN (21:50)
[2022-10-07] MEDS: MIRTAZAPINE 15 MG TABLET PO SCH (21:50)
[2022-10-08] MEDS: SODIUM CHLORIDE FLUSH 0.9% 10 ML SYRINGE IVP SCH ×4 (00:01→23:51)
[2022-10-08 05:43] LABS: BASOPHILS % (AUTO) 0.3 %; EOSINOPHILS % (AUTO) 2.2 %; HCT - HEMATOCRIT 25.3 % (42.0-52.0); HGB - HEMOGLOBIN 8.3 g/dL (14.0-18.0); LYMPHOCYTES % (AUTO) 6.5 %; MEAN CORPUSCULAR HEMOGLOBIN 32.5 pg (27.0-31.0); MEAN CORPUSCULAR HGB CONC 32.8 g/dL (32.0-36.0); MEAN CORPUSCULAR VOLUME 99.2 fL (80.0-94.0); MEAN PLATELET VOLUME 11.5 fL (7.4-11.4); MONOCYTES % (AUTO) 9.6 %; NEUTROPHILS % (AUTO) 80.7 %; PLT - PLATELET COUNT 518 10^3/uL (130-450); RED BLOOD COUNT 2.55 10^6/uL (4.70-6.10); RED CELL DISTRIBUTION WIDTH 22.5 % (12.0-15.0); WHITE BLOOD COUNT 17.9 x10^3/uL (4.8-10.8)
[2022-10-08 05:47] LABS: ABNORMAL LYMPHS % (MANUAL) 0 %
[2022-10-08 06:00] LABS: CALCIUM 8.7 mg/dL (8.5-10.3); CREATININE 0.9 mg/dL (0.6-1.3); POTASSIUM 4.4 mmol/L (3.5-4.5)
[2022-10-08] MEDS: ACETAMINOPHEN 500 MG TABLET PO SCH ×5 (06:36→23:51)
[2022-10-08 06:52] LABS: BAND NEUTROPHILS % (MANUAL) 2 %; BASOPHILS # (MANUAL) 0.2 10^3/uL (0-0.1); BASOPHILS % (MANUAL) 1 %; EOSINOPHILS # (MANUAL) 0.4 10^3/uL (0-0.7); LYMPHOCYTES % (MANUAL) 11 %; MONOCYTES # (MANUAL) 1.4 10^3/uL (0.0-1.0)
[2022-10-08 06:53] LABS: DIFFERENTIAL COMMENT MANUAL DIFFERENTIAL; PLATELET ESTIMATE, MANUAL INCREASED (>450,000) (NORMAL)
[2022-10-08] MEDS: MIDODRINE 2.5 MG TABLET PO SCH ×3 (08:38→16:40)
[2022-10-08] MEDS: IBUPROFEN 400 MG TABLET PO SCH ×3 (08:38→20:23)
[2022-10-08] MEDS: MORPHINE ER 15 MG TABLET PO SCH ×2 (08:38→20:23)
[2022-10-08] MEDS: FERROUS GLUCONATE 324 MG TABLET PO SCH (08:38)
[2022-10-08] MEDS: TAMSULOSIN 0.4 MG CAPSULE PO SCH (08:39)
[2022-10-08] MEDS: CITALOPRAM HYDROBROMIDE 20 MG TABLET PO SCH (08:39)
[2022-10-08] MEDS: PANTOPRAZOLE 40 MG TABLET PO SCH ×2 (08:39→20:22)
[2022-10-08] MEDS: FUROSEMIDE 20 MG TABLET PO SCH (08:40)
[2022-10-08] MEDS: CEFEPIME 2 GM in SODIUM CHLORIDE 0.9% MINIBAG 100 ML IV SCH ×2 (08:40→20:22)
[2022-10-08] MEDS: PRENATAL VITAMIN TABLET PO SCH (08:40)
[2022-10-08] MEDS: POTASSIUM CHLORIDE 10 MEQ CAPSULE PO SCH (08:40)
[2022-10-08] MEDS: ENOXAPARIN 40 MG/0.4 ML SYRINGE SUBQ SCH (08:42)
[2022-10-08] MEDS: FLUCONAZOLE 200 MG/100 ML 100 ML IV SCH (09:43)
--- NOTE | 2022-10-08 13:11 | PROVIDER PROGRESS NOTE ---
Assessment/Plan - Problem List (1) Intra-abdominal malignant neoplasm Assessment/Plan: (1) Peritonitis Assessment/Plan: Pt w/ hx of met Pancreatic CA presented with SBO, admitted by gen surg, with hospitliast service consulted Developed leukocytosis which was persistant and had anasarca with ascites. Paracentesis done on 09/30. Gram stain, Cx from fluid showed enterobacter cloac ae. Treated with IV Cefepime and later Diflucan ordered. WBC trending up now 2 consecutive days, but no fever, or systemic sx or si of illness and clinically doing well. Plan: Given the persistent leukocytosis, have reviewed medications and patient does not appear to be on any medications known to induce leukocytosis. He has not had no clinical events to suggest a stress reaction leading to leukocytosis. It is unclear if the leukocytosis is related to the underlying malignancy or if there is continuing infection. Given the possibility of the latter, will panculture with chest x-ray, UA, and repeat blood cultures for now. If leukocytosis continues to worsen, could consider repeat abdominal imaging. For now, continue IV cefepime and follow-up results of repeat infectious work- up. 10/08/22- WBC trending down to 17.9 from 19.1 (2) UTI (urinary tract infection) Qualifiers: Urinary tract infection type: acute cystitis Hematuria presence: without hematuria Qualified Code(s): N30.00 - Acute cystitis without hematuria Assessment/Plan: Urine culture from earlier this admission grew out Enterobacter cloacae. He had been on empiric IV Zosyn. He was changed to oral Bactrim when we got his sensitivity results back on the Enterobacter. Then when WBC carol, his Zosyn was changed to Cefepime, since the Enterobacter growing in his urine is resistant to Penicillins Recommendations and Plan: Cont Cefepime as above (3) Bowel obstruction Qualifiers: Intestinal obstruction type: other intestinal obstruction Assessment/Plan: Presented with SBO s/p diverting transverse loop colostomy Managed by gen surg Doing well, cont supportive care, ostomy care, diet, etc (4) Pancreatic malignant neoplasm Qualifiers: Pancreatic malignancy location: unspecified Qualified Code(s): C25.9 - Malignant neoplasm of pancreas, unspecified Assessment/Plan: With chronic pain Followed by MAC Seen by Palliative during admit Pt would like to return to oncology for treatment after discharge (5) Orthostatic hypotension Assessment/Plan: Chronic Persistent Pt started on midodrine, but still has some sx w/ ambulation. I suspect this is more related to chronic deconditioning, weight loss, rather than secondary to medication. Likely not going to be resolved during this hospital stay Cont PT/OT, and ok to d/c to home w/ home health or SNF when medically able. - Current Meds Current Meds: Current Medications Generic Name Dose Route Start Last Admin Trade Name Freq PRN Reason Stop Dose Admin Acetaminophen 1,000 mg 09/24/22 18:00 10/08/22 12:06 Acetaminophen 500 Mg Tablet PO Not Given Q6HR ANASTASIIA Citalopram Hydrobromide 40 mg 09/22/22 12:00 10/08/22 08:39 Citalopram Hydrobromide 20 Mg Tablet PO 40 mg DAILY ANASTASIIA Administration Enoxaparin Sodium 40 mg 09/21/22 09:00 10/08/22 08:42 Enoxaparin 40 Mg/0.4 Ml Syringe SUBQ 40 mg DAILY ANASTASIIA Administration Ferrous Gluconate 324 mg 10/02/22 12:00 10/08/22 08:38 Ferrous Gluconate 324 Mg Tablet PO 324 mg DAILYWM ANASTASIIA Administration Furosemide 20 mg 10/05/22 09:00 10/08/22 08:40 Furosemide 20 Mg Tablet PO 20 mg DAILY ANASTASIIA Administration Heparin Sodium (Beef Lung) 30 - 50 unit 09/29/22 13:46 10/06/22 20:54 Heparin Flush 50 Units/5 Ml Syringe IVP 50 unit PRN PRN Administration Port Protocol (<24 hours) Hydromorphone HCl 0.5 mg 09/27/22 07:13 09/28/22 11:39 Hydromorphone 0.5 Mg/0.5 Ml Syringe IVP 0.5 mg Q30M PRN Administration Breakthrough Pain Cefepime HCl 2 gm/ Sodium 100 mls @ 200 mls/hr 10/01/22 10:00 10/08/22 10:46 Chloride IV Infused BID ANASTASIIA Infusion Ibuprofen 400 mg 09/30/22 15:00 10/08/22 08:38 Ibuprofen 400 Mg Tablet PO 400 mg 0900,1500,2100 ANASTASIIA Administration Midodrine 2.5 mg 10/02/22 17:00 10/08/22 12:05 Midodrine 2.5 Mg Tablet PO 2.5 mg TIDWM ANASTASIIA Administration Mirtazapine 15 mg 09/29/22 21:00 10/07/22 21:50 Mirtazapine 15 Mg Tablet PO 15 mg QPM ANASTASIIA Administration Morphine Sulfate 30 mg 09/22/22 11:00 10/08/22 08:38 Morphine Er 15 Mg Tablet PO 30 mg BID ANASTASIIA Administration Multi-Ingredient Ointment 1 applic 10/07/22 14:21 10/07/22 17:58 Zinc Oxide 20% Oint 30 Gm Tube TOP 1 applic PRN PRN Administration Skin Care Ondansetron HCl 4 mg 09/20/22 10:57 10/07/22 08:38 Ondansetron 4 Mg/2 Ml Vial IVP 4 mg Q6H PRN Administration Nausea / Vomiting Oxycodone HCl 5 mg 09/25/22 11:33 09/29/22 21:12 Oxycodone 5 Mg Tablet PO 5 mg Q4HR PRN Administration Moderate Pain (Level 4-6) Oxycodone HCl 10 mg 09/27/22 07:12 09/30/22 06:10 Oxycodone 5 Mg Tablet PO 10 mg Q4HR PRN Administration Severe Pain (Level 7-10) Pantoprazole Sodium 40 mg 09/25/22 09:00 10/08/22 08:39 Pantoprazole 40 Mg Tablet PO 40 mg BID ANASTASIIA Administration Potassium Chloride 20 meq 10/04/22 12:00 10/08/22 08:40 Potassium Chloride 10 Meq Capsule PO 20 meq DAILYWM ANASTASIIA Administration Multivit/Folic Acid/Iron 1 tab 10/04/22 09:00 10/08/22 08:40 Vitamin Tablet PO 1 tab DAILYWM ANASTASIIA Administration Prochlorperazine Edisylate 10 mg 09/20/22 10:57 09/28/22 08:31 Prochlorperazine 10 Mg/2 Ml Vial IVP 10 mg Q4HR PRN Administration Nausea / Vomiting Sodium Chloride 10 ml 09/20/22 17:00 10/08/22 09:43 Sodium Chloride Flush 0.9% 10 Ml Syringe IVP Not Given 0100,0900,1700 ANASTASIIA Sodium Chloride 10 ml 09/20/22 10:57 10/07/22 21:50 Sodium Chloride Flush 0.9% 10 Ml Syringe IVP 10 ml PRN PRN Administration NEEDED PER PROVIDER ORDERS Tamsulosin HCl 0.4 mg 09/24/22 18:00 10/08/22 08:39 Tamsulosin 0.4 Mg Capsule PO 0.4 mg DAILY ANASTASIIA Administration - Lab Result Fish Bone Diagrams: 10/08/22 05:31 10/08/22 05:31 - Additional Planning My Orders: My Active Orders 10/07/22 14:21 Zinc Oxide 20% Oint [Zinc Oxide] 1 applic TOP PRN PRN Subjective - Subjective Patient Reports: No Complaints Objective Vital Signs: Vital Signs - 24 hr 10/07/22 10/08/22 10/08/22 15:45 00:00 07:56 Temperature 36.6 C 36.6 C 36.6 C Heart Rate [ 93 90 99 Brachial] Respiratory 16 16 16 Rate Blood Pressure 112/59 L 107/56 L 130/74 [Right Brachial artery] O2 Saturation 97 94 95 Oxygen O2 Source Room air I&O (Last 24 Hrs): Intake and Output Totals x24h 10/06/22 10/07/22 10/08/22 23:59 23:59 23:59 Intake Total 1088 877 440 Output Total 125 Balance 963 877 440 General: Alert, Oriented x3, Cooperative HEENT: Atraumatic Neck: Supple Neuro: Alert, Non Focal Cardiovascular: Regular rate, Normal S1, Normal S2 Respiratory: Breath sounds nml Abdomen: No tenderness, Other (colostomy in place) Extremities: Other (1+ BL pedal edema) Skin: No rashes - Results Results: Laboratory Results WBC 17.9 x10^3/uL (4.8-10.8) H 10/08/22 05:31 RBC 2.55 10^6/uL (4.70-6.10) L 10/08/22 05:31 Hgb 8.3 g/dL (14.0-18.0) L 10/08/22 05:31 Hct 25.3 % (42.0-52.0) L 10/08/22 05:31 MCV 99.2 fL (80.0-94.0) H 10/08/22 05:31 MCH 32.5 pg (27.0-31.0) H 10/08/22 05:31 MCHC 32.8 g/dL (32.0-36.0) 10/08/22 05:31 RDW 22.5 % (12.0-15.0) H 10/08/22 05:31 Plt Count 518 10^3/uL (130-450) H 10/08/22 05:31 MPV 11.5 fL (7.4-11.4) H 10/08/22 05:31 Neut # (Auto) Not Reportable 10/08/22 05:31 Lymph # (Auto) Not Reportable 10/08/22 05:31 [place] # (Auto) Not Reportable 10/08/22 05:31 Eos # (Auto) Not Reportable 10/08/22 05:31 Baso # (Auto) Not Reportable 10/08/22 05:31 Absolute Nucleated RBC Not Reportable 10/08/22 05:31 Total Counted 100 10/08/22 05:31 Band Neuts % (Manual) 2 % (0-10) 10/08/22 05:31 Abnorm Lymph % (Manual) 0 % 10/08/22 05:31 Metamyelocytes % 1 % (-0) H 10/07/22 05:24 Myelocytes % 1 % (-0) H 10/07/22 05:24 Nucleated RBC % Not Reportable 10/08/22 05:31 Neutrophils # (Manual) 14.0 10^3/uL (1.5-6.6) H 10/08/22 05:31 Lymphocytes # (Manual) 2.0 10^3/uL (1.5-3.5) 10/08/22 05:31 Monocytes # (Manual) 1.4 10^3/uL (0.0-1.0) H 10/08/22 05:31 Eosinophils # (Manual) 0.4 10^3/uL (0-0.7) 10/08/22 05:31 Basophils # (Manual) 0.2 10^3/uL (0-0.1) H 10/08/22 05:31 Differential Comment MANUAL DIFFERENTIAL 10/08/22 05:31 Manual Slide Review Indicated 10/02/22 07:27 WBC Morphology NORMAL APPEARANCE (NORMAL) 10/06/22 04:21 Platelet Estimate INCREASED (>450,000) (NORMAL) 10/08/22 05:31 Platelet Morphology 1+ LARGE PLATELETS (NORMAL) 10/06/22 04:21 RBC Morph Micro Appear 1+ ANISOCYTOSIS (NORMAL) 1+ HYPOCHROMASIA (NORMAL) 1+ MACROCYTOSIS (NORMAL) 1+ OVALOCYTES (NORMAL) 10/08/22 05:31 RBC Morph Micro Appear 1+ ANISOCYTOSIS (NORMAL) 1+ HYPOCHROMASIA (NORMAL) 1+ MACROCYTOSIS (NORMAL) 1+ OVALOCYTES (NORMAL) 10/08/22 05:31 RBC Morph Micro Appear 1+ ANISOCYTOSIS (NORMAL) 1+ HYPOCHROMASIA (NORMAL) 1+ MACROCYTOSIS (NORMAL) 1+ OVALOCYTES (NORMAL) 10/08/22 05:31 RBC Morph Micro Appear 1+ ANISOCYTOSIS (NORMAL) 1+ HYPOCHROMASIA (NORMAL) 1+ MACROCYTOSIS (NORMAL) 1+ OVALOCYTES (NORMAL) 10/08/22 05:31 PT 13.3 secs (9.9-12.6) H 10/03/22 05:13 INR 1.2 (0.8-1.2) 10/03/22 05:13 Sodium 138 mmol/L (135-145) 10/08/22 05:31 Potassium 4.4 mmol/L (3.5-4.5) 10/08/22 05:31 Chloride 109 mmol/L (101-111) 10/08/22 05:31 Carbon Dioxide 22 mmol/L (21-32) 10/08/22 05:31 Anion Gap 7.0 (6-13) 10/08/22 05:31 BUN 32 mg/dL (6-20) H 10/08/22 05:31 Creatinine 0.9 mg/dL (0.6-1.3) 10/08/22 05:31 Estimated GFR (MDRD) 86 (>89) L 10/08/22 05:31 Glucose 107 mg/dL (74-104) H 10/08/22 05:31 Lactic Acid 1.6 mmol/L (0.5-2.2) 09/27/22 17:22 Calcium 8.7 mg/dL (8.5-10.3) 10/08/22 05:31 Phosphorus 3.9 mg/dL (3.7-7.2) 10/02/22 07:27 Magnesium 1.8 mg/dL (1.7-2.3) 10/05/22 05:10 Iron 29 ug/dL (50-212) L 10/02/22 07:27 TIBC 105 ug/dL (250-450) L 10/02/22 07:27 % Saturation TNP 10/02/22 07:27 Transferrin < 75 mg/dL (203-362) L 10/02/22 07:27 Total Bilirubin 0.8 mg/dL (0.2-1.0) 10/03/22 05:13 Direct Bilirubin 0.37 mg/dL (0.03-0.18) H 10/02/22 07:27 AST 14 IU/L (10-42) 10/03/22 05:13 ALT 13 IU/L (10-60) 10/03/22 05:13 Alkaline Phosphatase 194 IU/L (42-121) H 10/03/22 05:13 Troponin I High Sens 29.0 ng/L (2.3-19.7) H* 09/28/22 09:42 Total Protein 5.0 g/dL (6.4-8.9) L 10/03/22 05:13 Albumin 1.9 g/dL (3.2-5.5) L 10/03/22 05:13 Globulin 3.1 g/dL (2.1-4.2) 10/03/22 05:13 Albumin/Globulin Ratio 0.6 (1.0-2.2) L 10/03/22 05:13 Lipase 19 U/L (22-51) L 09/18/22 15:37 Vitamin B12 2109 pg/mL (180-914) H 10/02/22 07:27 Folate 4.8 ng/mL (5.90 - >24.8) L 10/02/22 07:27 Urine Color DARK YELLOW 10/06/22 17:10 Urine Clarity HAZY (CLEAR) 10/06/22 17:10 Urine pH 5.0 PH (5.0-7.5) 10/06/22 17:10 Ur Specific [place] 1.020 (1.002-1.030) 10/06/22 17:10 Urine Protein 30 mg/dL (NEGATIVE) H 10/06/22 17:10 Urine Glucose (UA) NEGATIVE mg/dL (NEGATIVE) 10/06/22 17:10 Urine Ketones NEGATIVE mg/dL (NEGATIVE) 10/06/22 17:10 Urine Occult Blood MODERATE (NEGATIVE) H 10/06/22 17:10 Urine Nitrite NEGATIVE (NEGATIVE) 10/06/22 17:10 Urine Bilirubin NEGATIVE (NEGATIVE) 10/06/22 17:10 Urine Urobilinogen 0.2 (NORMAL) E.U./dL (NORMAL) 10/06/22 17:10 Ur Leukocyte Esterase SMALL (NEGATIVE) H 10/06/22 17:10 Urine RBC 6-10 /HPF (0-5) H 10/06/22 17:10 Urine WBC >25 /HPF (0-3) H 10/06/22 17:10 Ur Squamous Epith Cells RARE Squamous (<= Few) 10/06/22 17:10 Urine Bacteria Rare /HPF (None Seen) 10/06/22 17:10 Urine Casts 6-10 Hyaline Casts /LPF 10/06/22 17:10 Urine Mucus Few Strands 10/06/22 17:10 Urine Culture Comments INDICATED 10/06/22 17:10 Gastric Fluid pH TNP 09/19/22 03:40 Gastric Occult Blood POSITIVE (Negative) 09/19/22 03:40 Stl C. diff Tox B Gene NEGATIVE (NEGATIVE) 09/27/22 21:00 Last Dose Date 10/01/22 10/02/22 07:27 Last Dose Time 2233 10/02/22 07:27 Vancomycin Trough 24.8 ug/mL 10/02/22 07:27 SARS-CoV-2 (PCR) NOT DETECTED 09/18/22 17:49 Blood Type A POSITIVE 10/03/22 17:11 Blood Type Recheck A POSITIVE 10/03/22 18:03 Antibody Screen NEGATIVE 10/03/22 17:11 Crossmatch IS Only See Detail 10/03/22 17:11 - Procedures Procedures: Procedures EXCISION OF CECUM, ENDO, DIAGN (05/09/17) EXCISION OF RECTUM, ENDO, DIAGN (05/09/17) ABX Reporting Has patient been on IV antibiotics over the past 48 hours?: Yes
[2022-10-08] MEDS: MIRTAZAPINE 15 MG TABLET PO SCH (20:23)
[2022-10-09] MEDS: ACETAMINOPHEN 500 MG TABLET PO SCH ×4 (05:18→23:53)
[2022-10-09] MEDS: MIDODRINE 2.5 MG TABLET PO SCH ×3 (08:02→17:19)
[2022-10-09] MEDS: FERROUS GLUCONATE 324 MG TABLET PO SCH (08:02)
[2022-10-09] MEDS: POTASSIUM CHLORIDE 10 MEQ CAPSULE PO SCH (08:02)
[2022-10-09] MEDS: PRENATAL VITAMIN TABLET PO SCH (08:03)
[2022-10-09] MEDS: CITALOPRAM HYDROBROMIDE 20 MG TABLET PO SCH (08:03)
[2022-10-09] MEDS: CEFEPIME 2 GM in SODIUM CHLORIDE 0.9% MINIBAG 100 ML IV SCH ×2 (08:03→21:21)
[2022-10-09] MEDS: FUROSEMIDE 20 MG TABLET PO SCH (08:04)
[2022-10-09] MEDS: IBUPROFEN 400 MG TABLET PO SCH ×3 (08:04→21:26)
[2022-10-09] MEDS: ENOXAPARIN 40 MG/0.4 ML SYRINGE SUBQ SCH (08:04)
[2022-10-09] MEDS: MORPHINE ER 15 MG TABLET PO SCH ×2 (08:05→21:27)
[2022-10-09] MEDS: PANTOPRAZOLE 40 MG TABLET PO SCH ×2 (08:05→21:27)
[2022-10-09] MEDS: SODIUM CHLORIDE FLUSH 0.9% 10 ML SYRINGE IVP SCH ×3 (08:06→23:53)
[2022-10-09] MEDS: TAMSULOSIN 0.4 MG CAPSULE PO SCH (08:06)
--- NOTE | 2022-10-09 14:16 | PROVIDER PROGRESS NOTE ---
Assessment/Plan - Problem List (1) Intra-abdominal malignant neoplasm Assessment/Plan: (1) Intra-abdominal malignant neoplasm Assessment/Plan: (1) Peritonitis Assessment/Plan: Pt w/ hx of met Pancreatic CA presented with SBO, admitted by gen surg, with hospitliast service consulted Developed leukocytosis which was persistant and had anasarca with ascites. Paracentesis done on 09/30. Gram stain, Cx from fluid showed enterobacter cloacae. Treated with IV Cefepime and later Diflucan ordered. WBC trending up now 2 consecutive days, but no fever, or systemic sx or si of illness and clinically doing well. Plan: Given the persistent leukocytosis, have reviewed medications and patient does not appear to be on any medications known to induce leukocytosis. He has not had no clinical events to suggest a stress reaction leading to leukocytosis. It is unclear if the leukocytosis is related to the underlying malignancy or if there is continuing infection. Given the possibility of the latter, will panculture with chest x-ray, UA, and repeat blood cultures for now. If leukocytosis continues to worsen, could consider repeat abdominal imaging. For now, continue IV cefepime and follow-up results of repeat infectious work- up. 10/08/22- WBC trending down to 17.9 from 19.1 To complete 10 days of cefepime (2) UTI (urinary tract infection) Qualifiers: Urinary tract infection type: acute cystitis Hematuria presence: without hematuria Qualified Code(s): N30.00 - Acute cystitis without hematuria Assessment/Plan: Urine culture from earlier this admission grew out Enterobacter cloacae. He had been on empiric IV Zosyn. He was changed to oral Bactrim when we got his sensitivity results back on the Enterobacter. Then when WBC carol, his Zosyn was changed to Cefepime, since the Enterobacter growing in his urine is resistant to Penicillins Recommendations and Plan: Cont Cefepime as above .To complete 10 days of cefepime. (3) Bowel obstruction Qualifiers: Intestinal obstruction type: other intestinal obstruction Assessment/Plan: Presented with SBO s/p diverting transverse loop colostomy Managed by gen surg Doing well, cont supportive care, ostomy care, diet, etc (4) Pancreatic malignant neoplasm Qualifiers: Pancreatic malignancy location: unspecified Qualified Code(s): C25.9 - Malignant neoplasm of pancreas, unspecified Assessment/Plan: With chronic pain Followed by MAC Seen by Palliative during admit Pt would like to return to oncology for treatment after discharge (5) Orthostatic hypotension Assessment/Plan: Chronic Persistent Pt started on midodrine, but still has some sx w/ ambulation. I suspect this is more related to chronic deconditioning, weight loss, rather than secondary to medication. Likely not going to be resolved during this hospital stay Cont PT/OT, SNF when medically able. - Current Meds Current Meds: Current Medications Generic Name Dose Route Start Last Admin Trade Name Freq PRN Reason Stop Dose Admin Acetaminophen 1,000 mg 09/24/22 18:00 10/09/22 12:00 Acetaminophen 500 Mg Tablet PO 1,000 mg Q6HR ANASTASIIA Administration Citalopram Hydrobromide 40 mg 09/22/22 12:00 10/09/22 08:03 Citalopram Hydrobromide 20 Mg Tablet PO 40 mg DAILY ANASTASIIA Administration Enoxaparin Sodium 40 mg 09/21/22 09:00 10/09/22 08:04 Enoxaparin 40 Mg/0.4 Ml Syringe SUBQ 40 mg DAILY ANASTASIIA Administration Ferrous Gluconate 324 mg 10/02/22 12:00 10/09/22 08:02 Ferrous Gluconate 324 Mg Tablet PO 324 mg DAILYWM ANASTASIIA Administration Furosemide 20 mg 10/05/22 09:00 10/09/22 08:04 Furosemide 20 Mg Tablet PO 20 mg DAILY ANASTASIIA Administration Heparin Sodium (Beef Lung) 30 - 50 unit 09/29/22 13:46 10/06/22 20:54 Heparin Flush 50 Units/5 Ml Syringe IVP 50 unit PRN PRN Administration Port Protocol (<24 hours) Hydromorphone HCl 0.5 mg 09/27/22 07:13 09/28/22 11:39 Hydromorphone 0.5 Mg/0.5 Ml Syringe IVP 0.5 mg Q30M PRN Administration Breakthrough Pain Cefepime HCl 2 gm/ Sodium 100 mls @ 200 mls/hr 10/01/22 10:00 10/09/22 08:03 Chloride IV 200 mls/hr BID ANASTASIIA Administration Ibuprofen 400 mg 09/30/22 15:00 10/09/22 08:04 Ibuprofen 400 Mg Tablet PO 400 mg 0900,1500,2100 ANASTASIIA Administration Midodrine 2.5 mg 10/02/22 17:00 10/09/22 12:00 Midodrine 2.5 Mg Tablet PO 2.5 mg TIDWM ANASTASIIA Administration Mirtazapine 15 mg 09/29/22 21:00 10/08/22 20:23 Mirtazapine 15 Mg Tablet PO 15 mg QPM ANASTASIIA Administration Morphine Sulfate 30 mg 09/22/22 11:00 10/09/22 08:05 Morphine Er 15 Mg Tablet PO 30 mg BID ANASTASIIA Administration Multi-Ingredient Ointment 1 applic 10/07/22 14:21 10/07/22 17:58 Zinc Oxide 20% Oint 30 Gm Tube TOP 1 applic PRN PRN Administration Skin Care Ondansetron HCl 4 mg 09/20/22 10:57 10/07/22 08:38 Ondansetron 4 Mg/2 Ml Vial IVP 4 mg Q6H PRN Administration Nausea / Vomiting Oxycodone HCl 5 mg 09/25/22 11:33 09/29/22 21:12 Oxycodone 5 Mg Tablet PO 5 mg Q4HR PRN Administration Moderate Pain (Level 4-6) Oxycodone HCl 10 mg 09/27/22 07:12 09/30/22 06:10 Oxycodone 5 Mg Tablet PO 10 mg Q4HR PRN Administration Severe Pain (Level 7-10) Pantoprazole Sodium 40 mg 09/25/22 09:00 10/09/22 08:05 Pantoprazole 40 Mg Tablet PO 40 mg BID ANASTASIIA Administration Potassium Chloride 20 meq 10/04/22 12:00 10/09/22 08:02 Potassium Chloride 10 Meq Capsule PO 20 meq DAILYWM ANASTASIIA Administration Multivit/Folic Acid/Iron 1 tab 10/04/22 09:00 10/09/22 08:03 Vitamin Tablet PO 1 tab DAILYWM ANASTASIIA Administration Prochlorperazine Edisylate 10 mg 09/20/22 10:57 09/28/22 08:31 Prochlorperazine 10 Mg/2 Ml Vial IVP 10 mg Q4HR PRN Administration Nausea / Vomiting Sodium Chloride 10 ml 09/20/22 17:00 10/09/22 08:06 Sodium Chloride Flush 0.9% 10 Ml Syringe IVP 10 ml 0100,0900,1700 ANASTASIIA Administration Sodium Chloride 10 ml 09/20/22 10:57 10/07/22 21:50 Sodium Chloride Flush 0.9% 10 Ml Syringe IVP 10 ml PRN PRN Administration NEEDED PER PROVIDER ORDERS Tamsulosin HCl 0.4 mg 09/24/22 18:00 10/09/22 08:06 Tamsulosin 0.4 Mg Capsule PO 0.4 mg DAILY ANASTASIIA Administration - Lab Result Fish Bone Diagrams: 10/08/22 05:31 10/08/22 05:31 Subjective - Subjective Patient Reports: Resting Comfortably Objective Vital Signs: Vital Signs - 24 hr 10/08/22 10/09/22 10/09/22 15:34 00:00 08:09 Temperature 36.2 C L 36.5 C 36.3 C L Heart Rate [ 90 85 102 H Brachial] Respiratory 18 18 16 Rate Blood Pressure 126/68 121/64 117/64 [Right Brachial artery] O2 Saturation 98 95 96 Oxygen O2 Source Room air I&O (Last 24 Hrs): Intake and Output Totals x24h 10/07/22 10/08/22 10/09/22 23:59 23:59 23:59 Intake Total 877 1480 780 Balance 877 1480 780 General: Alert, Oriented x3, Cooperative HEENT: Atraumatic Neck: Supple Neuro: Alert, Non Focal Cardiovascular: Regular rate, Normal S1, Normal S2 Respiratory: Breath sounds nml Abdomen: Other (Nontender. Colostomy bag in place) Extremities: Other (trace BL pedal edema) Skin: No rashes - Results Results: Laboratory Results WBC 17.9 x10^3/uL (4.8-10.8) H 10/08/22 05:31 RBC 2.55 10^6/uL (4.70-6.10) L 10/08/22 05:31 Hgb 8.3 g/dL (14.0-18.0) L 10/08/22 05:31 Hct 25.3 % (42.0-52.0) L 10/08/22 05:31 MCV 99.2 fL (80.0-94.0) H 10/08/22 05:31 MCH 32.5 pg (27.0-31.0) H 10/08/22 05:31 MCHC 32.8 g/dL (32.0-36.0) 10/08/22 05:31 RDW 22.5 % (12.0-15.0) H 10/08/22 05:31 Plt Count 518 10^3/uL (130-450) H 10/08/22 05:31 MPV 11.5 fL (7.4-11.4) H 10/08/22 05:31 Neut # (Auto) Not Reportable 10/08/22 05:31 Lymph # (Auto) Not Reportable 10/08/22 05:31 [place] # (Auto) Not Reportable 10/08/22 05:31 Eos # (Auto) Not Reportable 10/08/22 05:31 Baso # (Auto) Not Reportable 10/08/22 05:31 Absolute Nucleated RBC Not Reportable 10/08/22 05:31 Total Counted 100 10/08/22 05:31 Band Neuts % (Manual) 2 % (0-10) 10/08/22 05:31 Abnorm Lymph % (Manual) 0 % 10/08/22 05:31 Metamyelocytes % 1 % (-0) H 10/07/22 05:24 Myelocytes % 1 % (-0) H 10/07/22 05:24 Nucleated RBC % Not Reportable 10/08/22 05:31 Neutrophils # (Manual) 14.0 10^3/uL (1.5-6.6) H 10/08/22 05:31 Lymphocytes # (Manual) 2.0 10^3/uL (1.5-3.5) 10/08/22 05:31 Monocytes # (Manual) 1.4 10^3/uL (0.0-1.0) H 10/08/22 05:31 Eosinophils # (Manual) 0.4 10^3/uL (0-0.7) 10/08/22 05:31 Basophils # (Manual) 0.2 10^3/uL (0-0.1) H 10/08/22 05:31 Differential Comment MANUAL DIFFERENTIAL 10/08/22 05:31 Manual Slide Review Indicated 10/02/22 07:27 WBC Morphology NORMAL APPEARANCE (NORMAL) 10/06/22 04:21 Platelet Estimate INCREASED (>450,000) (NORMAL) 10/08/22 05:31 Platelet Morphology 1+ LARGE PLATELETS (NORMAL) 10/06/22 04:21 RBC Morph Micro Appear 1+ ANISOCYTOSIS (NORMAL) 1+ HYPOCHROMASIA (NORMAL) 1+ MACROCYTOSIS (NORMAL) 1+ OVALOCYTES (NORMAL) 10/08/22 05:31 RBC Morph Micro Appear 1+ ANISOCYTOSIS (NORMAL) 1+ HYPOCHROMASIA (NORMAL) 1+ MACROCYTOSIS (NORMAL) 1+ OVALOCYTES (NORMAL) 10/08/22 05:31 RBC Morph Micro Appear 1+ ANISOCYTOSIS (NORMAL) 1+ HYPOCHROMASIA (NORMAL) 1+ MACROCYTOSIS (NORMAL) 1+ OVALOCYTES (NORMAL) 10/08/22 05:31 RBC Morph Micro Appear 1+ ANISOCYTOSIS (NORMAL) 1+ HYPOCHROMASIA (NORMAL) 1+ MACROCYTOSIS (NORMAL) 1+ OVALOCYTES (NORMAL) 10/08/22 05:31 PT 13.3 secs (9.9-12.6) H 10/03/22 05:13 INR 1.2 (0.8-1.2) 10/03/22 05:13 Sodium 138 mmol/L (135-145) 10/08/22 05:31 Potassium 4.4 mmol/L (3.5-4.5) 10/08/22 05:31 Chloride 109 mmol/L (101-111) 10/08/22 05:31 Carbon Dioxide 22 mmol/L (21-32) 10/08/22 05:31 Anion Gap 7.0 (6-13) 10/08/22 05:31 BUN 32 mg/dL (6-20) H 10/08/22 05:31 Creatinine 0.9 mg/dL (0.6-1.3) 10/08/22 05:31 Estimated GFR (MDRD) 86 (>89) L 10/08/22 05:31 Glucose 107 mg/dL (74-104) H 10/08/22 05:31 Lactic Acid 1.6 mmol/L (0.5-2.2) 09/27/22 17:22 Calcium 8.7 mg/dL (8.5-10.3) 10/08/22 05:31 Phosphorus 3.9 mg/dL (3.7-7.2) 10/02/22 07:27 Magnesium 1.8 mg/dL (1.7-2.3) 10/05/22 05:10 Iron 29 ug/dL (50-212) L 10/02/22 07:27 TIBC 105 ug/dL (250-450) L 10/02/22 07:27 % Saturation TNP 10/02/22 07:27 Transferrin < 75 mg/dL (203-362) L 10/02/22 07:27 Total Bilirubin 0.8 mg/dL (0.2-1.0) 10/03/22 05:13 Direct Bilirubin 0.37 mg/dL (0.03-0.18) H 10/02/22 07:27 AST 14 IU/L (10-42) 10/03/22 05:13 ALT 13 IU/L (10-60) 10/03/22 05:13 Alkaline Phosphatase 194 IU/L (42-121) H 10/03/22 05:13 Troponin I High Sens 29.0 ng/L (2.3-19.7) H* 09/28/22 09:42 Total Protein 5.0 g/dL (6.4-8.9) L 10/03/22 05:13 Albumin 1.9 g/dL (3.2-5.5) L 10/03/22 05:13 Globulin 3.1 g/dL (2.1-4.2) 10/03/22 05:13 Albumin/Globulin Ratio 0.6 (1.0-2.2) L 10/03/22 05:13 Lipase 19 U/L (22-51) L 09/18/22 15:37 Vitamin B12 2109 pg/mL (180-914) H 10/02/22 07:27 Folate 4.8 ng/mL (5.90 - >24.8) L 10/02/22 07:27 Urine Color DARK YELLOW 10/06/22 17:10 Urine Clarity HAZY (CLEAR) 10/06/22 17:10 Urine pH 5.0 PH (5.0-7.5) 10/06/22 17:10 Ur Specific [place] 1.020 (1.002-1.030) 10/06/22 17:10 Urine Protein 30 mg/dL (NEGATIVE) H 10/06/22 17:10 Urine Glucose (UA) NEGATIVE mg/dL (NEGATIVE) 10/06/22 17:10 Urine Ketones NEGATIVE mg/dL (NEGATIVE) 10/06/22 17:10 Urine Occult Blood MODERATE (NEGATIVE) H 10/06/22 17:10 Urine Nitrite NEGATIVE (NEGATIVE) 10/06/22 17:10 Urine Bilirubin NEGATIVE (NEGATIVE) 10/06/22 17:10 Urine Urobilinogen 0.2 (NORMAL) E.U./dL (NORMAL) 10/06/22 17:10 Ur Leukocyte Esterase SMALL (NEGATIVE) H 10/06/22 17:10 Urine RBC 6-10 /HPF (0-5) H 10/06/22 17:10 Urine WBC >25 /HPF (0-3) H 10/06/22 17:10 Ur Squamous Epith Cells RARE Squamous (<= Few) 10/06/22 17:10 Urine Bacteria Rare /HPF (None Seen) 10/06/22 17:10 Urine Casts 6-10 Hyaline Casts /LPF 10/06/22 17:10 Urine Mucus Few Strands 10/06/22 17:10 Urine Culture Comments INDICATED 10/06/22 17:10 Gastric Fluid pH TNP 09/19/22 03:40 Gastric Occult Blood POSITIVE (Negative) 09/19/22 03:40 Stl C. diff Tox B Gene NEGATIVE (NEGATIVE) 09/27/22 21:00 Last Dose Date 10/01/22 10/02/22 07:27 Last Dose Time 2233 10/02/22 07:27 Vancomycin Trough 24.8 ug/mL 10/02/22 07:27 SARS-CoV-2 (PCR) NOT DETECTED 09/18/22 17:49 Blood Type A POSITIVE 10/03/22 17:11 Blood Type Recheck A POSITIVE 10/03/22 18:03 Antibody Screen NEGATIVE 10/03/22 17:11 Crossmatch IS Only See Detail 10/03/22 17:11 - Procedures Procedures: Procedures EXCISION OF CECUM, ENDO, DIAGN (05/09/17) EXCISION OF RECTUM, ENDO, DIAGN (05/09/17) ABX Reporting Has patient been on IV antibiotics over the past 48 hours?: Yes
[2022-10-09] MEDS: MIRTAZAPINE 15 MG TABLET PO SCH (21:26)
[2022-10-09] MEDS: SODIUM CHLORIDE FLUSH 0.9% 10 ML SYRINGE IVP PRN (21:28)
[2022-10-10] MEDS: ACETAMINOPHEN 500 MG TABLET PO SCH ×4 (06:10→23:53)
--- NOTE | 2022-10-10 07:15 | Discharge Plan ---
"Discharge Plan for SNF / [facility] - Discharge Plan And Transition Orders Problem Reviewed?: Yes Disposition: 03 SNF DC/Xfer Condition: Fair Allergies and Adverse Reactions: Allergies Allergy/AdvReac Type Severity Reaction Status Date / Time No Known Drug Allergies Allergy Verified 09/18/22 14:58 Assessment: (1) Intra-abdominal malignant neoplasm Assessment/Plan: (1) Peritonitis Assessment/Plan: Pt w/ hx of met Pancreatic CA presented with SBO, admitted by gen surg, with hospitliast service consulted Developed leukocytosis which was persistant and had anasarca with ascites. Paracentesis done on 09/30. Gram stain, Cx from fluid showed enterobacter cloacae. Treated with IV Cefepime and later Diflucan ordered. WBC trending up now 2 consecutive days, but no fever, or systemic sx or si of illness and clinically doing well. Plan: Given the persistent leukocytosis, have reviewed medications and patient does not appear to be on any medications known to induce leukocytosis. He has not had no clinical events to suggest a stress reaction leading to leukocytosis. It is unclear if the leukocytosis is related to the underlying malignancy or if there is continuing infection. Given the possibility of the latter, will panculture with chest x-ray, UA, and repeat blood cultures for now. If leukocytosis continues to worsen, could consider repeat abdominal imaging. For now, continue IV cefepime and follow-up results of repeat infectious work- up. 10/08/22- WBC trending down to 17.9 from 19.1 To complete 10 days of cefepime (2) UTI (urinary tract infection) Qualifiers: Urinary tract infection type: acute cystitis Hematuria presence: without hematuria Qualified Code(s): N30.00 - Acute cystitis without hematuria Assessment/Plan: Urine culture from earlier this admission grew out Enterobacter cloacae. He had been on empiric IV Zosyn. He was changed to oral Bactrim when we got his sensitivity results back on the Enterobacter. Then when WBC carol, his Zosyn was changed to Cefepime, since the Enterobacter growing in his urine is resistant to Penicillins Recommendations and Plan: Cont Cefepime as above .To complete 10 days of cefepime. (3) Bowel obstruction Qualifiers: Intestinal obstruction type: other intestinal obstruction Assessment/Plan: Presented with SBO s/p diverting transverse loop colostomy Managed by gen surg Doing well, cont supportive care, ostomy care, diet, etc (4) Pancreatic malignant neoplasm Qualifiers: Pancreatic malignancy location: unspecified Qualified Code(s): C25.9 - Malignant neoplasm of pancreas, unspecified Assessment/Plan: With chronic pain Followed by MAC Seen by Palliative during admit Pt would like to return to oncology for treatment after discharge (5) Orthostatic hypotension Assessment/Plan: Chronic Persistent Pt started on midodrine, but still has some sx w/ ambulation. I suspect this is more related to chronic deconditioning, weight loss, rather than secondary to medication. Likely not going to be resolved during this hospital stay Cont PT/OT, SNF when medically able. - SNF / [facility] Transition Orders Admit to (Facility[facility] Discharge Diagnosis: UTI/peritonitis-completed 10 days of cefepime Bowel Obstructio- Gen Surgery did diverting colostomy malinant pancreatic cancer-followed by oncology Medicare Certification Statement: I certify that Post Hospital assisted care is medically necessary on a continuing basis for any of the conditions for which she/he is receiving care during hospitalization. Notify PCP of admission and forward orders to primary provider for signature. Weight on admission and: Daily Other Notification Orders: Call PCP immediately if patient develops dyspnea, chest pain/tightness or edema. House Bowel Program: Yes Additional Bowel Program Orders: If no BM after 2 days, nurse may give M.O.M. 30ml PO PRN and/or ducolax Supp 1 NV and/or FLAVIA 250mg P.O., and/or senna 1-2 tabs PO. On day 3 nurse may give repeat above order until residents constipation is resolved. Annual Influenza Vaccine (between Nov 11 and June 10): Yes Two-step PPD per [facility] [id number] or approved exception documents: Yes Medication Orders: PLEASE REFER TO THE DISCHARGE MEDICATION LIST. Insulin Orders?: No - Medications New Prescriptions: oxyCODONE [Roxicodone] 10 mg PO Q4HR PRN #30 tab PRN Reason: Severe Pain (Level 7-10) Acetaminophen [Tylenol Arthritis] 650 mg PO Q6HR #50 tab Citalopram Hydrobromide [Celexa] 40 mg PO DAILY #30 tab Ferrous Gluconate 324 mg PO QDBREAKFAST #30 tablet Tamsulosin [Flomax] 0.4 mg PO DAILY #30 cap Furosemide [Lasix] 20 mg PO DAILY #30 tab Enoxaparin [Lovenox] 40 mg SUBQ DAILY #30 ml Potassium Chloride [Micro-K] 20 meq PO DAILYWM #30 cap Ibuprofen [Motrin] 400 mg PO 0900,1500,2100 #90 tab Morphine ER [Ms Contin] 30 mg PO BID #20 tab Midodrine [ProAmatine] 2.5 mg PO TIDWM #90 tab Pantoprazole [Protonix] 40 mg PO BID #60 tab Mirtazapine [Remeron] 15 mg PO QPM #30 tab Ondansetron Inj [Zofran Inj] 4 mg IVP Q6H PRN #60 ml PRN Reason: Nausea / Vomiting - Diet Type: Geriatric Texture: Regular Liquids: Thin May have monthly special meal: Yes - Therapies | Activity Therapy: Evaluation | Treat if indicated: PT, OT Rehabilitation Potential: Maximize functional status Activity: Activity as Tolerated Weight Bearing: Full Weight Assistance Devices: Wheelchair"
--- NOTE | 2022-10-10 07:59 | DISCHARGE SUMMARY ---
Discharge Summary Admit Date: 10/01/22 Discharge Date: 10/10/22 Code Status: Do Not Attempt Resuscitation Condition at Discharge: Fair Discharge Disposition: 03 SNF DC/Xfer Discharge Facility Name: [facility] - DIAGNOSES Admission Diagnoses: UTI/peritonitis SBO Malignant pancreatic cancer Orthostatic hypotension Discharge Diagnoses with Status of Each Condition: UTI/peritonitis-Completed 10 day course of cefepime SBO-Had diverting colostomy Malignant pancreatic cancer-followed by oncology Orthostatic hypotenion-resolved as was placed on mididrine - HPI History of Present Illness: HPI Comment/Other: Dr. Camilo asked that I see this unfortunate 61 year old male with a history of prostate cancer and now with a diagnosis of pancreastic cancer. The patient thinks that he received radiation for his prostate cancer but cannot remember exactly when. He is currently receiving chemotherapy for his pancreatic cancer but does ot know the regimen. When I asked him when the (apparently) duodenal stent (evident on CT scan) was placed he is not exactly sure. He beleives that he has had surgery for his pancreatic cancer. In our discussion he wishes to be a full code. With regards to his symptoms he feels massively bloated, nauseated with abdominal discomfort more than pain. He states that he has passed a small amount of gas today but thinks that his last bowel movement was over a week ago. - HOSPITAL COURSE Hospital Course: (1) Intra-abdominal malignant neoplasm Assessment/Plan: (1) Peritonitis Assessment/Plan: Pt w/ hx of met Pancreatic CA presented with SBO, admitted by gen surg, with hospitliast service consulted Developed leukocytosis which was persistant and had anasarca with ascites. Paracentesis done on 09/30. Gram stain, Cx from fluid showed enterobacter cloacae. Treated with IV Cefepime and later Diflucan ordered. WBC trending up now 2 consecutive days, but no fever, or systemic sx or si of illness and clinically doing well. Plan: Given the persistent leukocytosis, have reviewed medications and patient does not appear to be on any medications known to induce leukocytosis. He has not had no clinical events to suggest a stress reaction leading to leukocytosis. It is unclear if the leukocytosis is related to the underlying malignancy or if there is continuing infection. Given the possibility of the latter, will panculture with chest x-ray, UA, and repeat blood cultures for now. If leukocytosis continues to worsen, could consider repeat abdominal imaging. For now, continue IV cefepime and follow-up results of repeat infectious work- up. 10/08/22- WBC trending down to 17.9 from 19.1 To complete 10 days of cefepime (2) UTI (urinary tract infection) Qualifiers: Urinary tract infection type: acute cystitis Hematuria presence: without hematuria Qualified Code(s): N30.00 - Acute cystitis without hematuria Assessment/Plan: Urine culture from earlier this admission grew out Enterobacter cloacae. He had been on empiric IV Zosyn. He was changed to oral Bactrim when we got his sensitivity results back on the Enterobacter. Then when WBC carol, his Zosyn was changed to Cefepime, since the Enterobacter growing in his urine is resistant to Penicillins Recommendations and Plan: Cont Cefepime as above .To complete 10 days of cefepime. (3) Bowel obstruction Qualifiers: Intestinal obstruction type: other intestinal obstruction Assessment/Plan: Presented with SBO s/p diverting transverse loop colostomy Managed by gen surg Doing well, cont supportive care, ostomy care, diet, etc (4) Pancreatic malignant neoplasm Qualifiers: Pancreatic malignancy location: unspecified Qualified Code(s): C25.9 - Malignant neoplasm of pancreas, unspecified Assessment/Plan: With chronic pain Followed by MAC Seen by Palliative during admit Pt would like to return to oncology for treatment after discharge (5) Orthostatic hypotension Assessment/Plan: Chronic Persistent Pt started on midodrine, but still has some sx w/ ambulation. I suspect this is more related to chronic deconditioning, weight loss, rather than secondary to medication. Likely not going to be resolved during this hospital stay Cont PT/OT, SNF when medically able. - ALLERGIES Allergies/Adverse Reactions: Allergies Allergy/AdvReac Type Severity Reaction Status Date / Time No Known Drug Allergies Allergy Verified 09/18/22 14:58 - MEDICATIONS Home Medications: Ambulatory Orders Medication Instructions Recorded Confirmed Acetaminophen [Tylenol Arthritis] 650 mg PO Q6HR #50 tab 10/10/22 Citalopram Hydrobromide [Celexa] 40 mg PO DAILY #30 tab 10/10/22 Enoxaparin [Lovenox] 40 mg SUBQ DAILY #30 ml 10/10/22 Ferrous Gluconate 324 mg PO QDBREAKFAST #30 tablet 10/10/22 Furosemide [Lasix] 20 mg PO DAILY #30 tab 10/10/22 Ibuprofen [Motrin] 400 mg PO 0900,1500,2100 #90 tab 10/10/22 Midodrine [ProAmatine] 2.5 mg PO TIDWM #90 tab 10/10/22 Mirtazapine [Remeron] 15 mg PO QPM #30 tab 10/10/22 Morphine ER [Ms Contin] 30 mg PO BID #20 tab 10/10/22 Ondansetron Inj [Zofran Inj] 4 mg IVP Q6H PRN #60 ml 10/10/22 Pantoprazole [Protonix] 40 mg PO BID #60 tab 10/10/22 Potassium Chloride [Micro-K] 20 meq PO DAILYWM #30 cap 10/10/22 Tamsulosin [Flomax] 0.4 mg PO DAILY #30 cap 10/10/22 oxyCODONE [Roxicodone] 10 mg PO Q4HR PRN #30 tab 10/10/22 - PHYSICAL EXAM AT DISCHARGE General Appearance: positive: No acute distress, Alert, Other (frail appearing) Eyes Bilateral: positive: Normal inspection Neck: positive: Nml inspection Respiratory: positive: Breath sounds nml Cardiovascular: positive: Regular rate & rhythm, No murmur Abdomen: positive: Non-tender, Other (colostomy in place) Skin: positive: No rash Extremities: positive: Other (trace pedal edema) Neurologic/Psychiatric: positive: Oriented x3 - LABS Result Diagrams: 10/08/22 05:31 10/08/22 05:31
[2022-10-10] MEDS: CEFEPIME 2 GM in SODIUM CHLORIDE 0.9% MINIBAG 100 ML IV SCH (08:38)
[2022-10-10] MEDS: ENOXAPARIN 40 MG/0.4 ML SYRINGE SUBQ SCH (08:38)
[2022-10-10] MEDS: MIDODRINE 2.5 MG TABLET PO SCH ×3 (08:39→17:24)
[2022-10-10] MEDS: TAMSULOSIN 0.4 MG CAPSULE PO SCH (08:39)
[2022-10-10] MEDS: FUROSEMIDE 20 MG TABLET PO SCH (08:39)
[2022-10-10] MEDS: PANTOPRAZOLE 40 MG TABLET PO SCH ×2 (08:39→21:28)
[2022-10-10] MEDS: FERROUS GLUCONATE 324 MG TABLET PO SCH (08:39)
[2022-10-10] MEDS: CITALOPRAM HYDROBROMIDE 20 MG TABLET PO SCH (08:39)
[2022-10-10] MEDS: PRENATAL VITAMIN TABLET PO SCH (08:39)
[2022-10-10] MEDS: POTASSIUM CHLORIDE 10 MEQ CAPSULE PO SCH (08:39)
[2022-10-10] MEDS: MORPHINE ER 15 MG TABLET PO SCH ×2 (08:39→21:27)
[2022-10-10] MEDS: SODIUM CHLORIDE FLUSH 0.9% 10 ML SYRINGE IVP SCH ×3 (08:48→23:38)
[2022-10-10] MEDS: IBUPROFEN 400 MG TABLET PO SCH ×3 (08:56→21:28)
[2022-10-10] MEDS: SODIUM CHLORIDE FLUSH 0.9% 10 ML SYRINGE IVP PRN ×2 (09:56→14:57)
[2022-10-10] MEDS: ZINC OXIDE 20% OINT 30 GM TUBE TOP PRN ×3 (11:00→21:28)
[2022-10-10] MEDS: CALCIUM CARBONATE CHEW 500 MG TABLET PO PRN (14:56)
[2022-10-10] MEDS: ONDANSETRON 4 MG/2 ML VIAL IVP PRN (14:57)
[2022-10-10] MEDS: MIRTAZAPINE 15 MG TABLET PO SCH (21:28)
[2022-10-11] MEDS: ACETAMINOPHEN 500 MG TABLET PO SCH ×3 (05:52→18:16)
[2022-10-11] MEDS: ZINC OXIDE 20% OINT 30 GM TUBE TOP PRN (05:52)
[2022-10-11] MEDS: ENOXAPARIN 40 MG/0.4 ML SYRINGE SUBQ SCH (08:51)
[2022-10-11] MEDS: POTASSIUM CHLORIDE 10 MEQ CAPSULE PO SCH (08:52)
[2022-10-11] MEDS: MIDODRINE 2.5 MG TABLET PO SCH ×3 (08:52→17:52)
[2022-10-11] MEDS: PANTOPRAZOLE 40 MG TABLET PO SCH ×2 (08:52→20:34)
[2022-10-11] MEDS: CITALOPRAM HYDROBROMIDE 20 MG TABLET PO SCH (08:52)
[2022-10-11] MEDS: FERROUS GLUCONATE 324 MG TABLET PO SCH (08:52)
[2022-10-11] MEDS: FUROSEMIDE 20 MG TABLET PO SCH (08:52)
[2022-10-11] MEDS: TAMSULOSIN 0.4 MG CAPSULE PO SCH (08:52)
[2022-10-11] MEDS: MORPHINE ER 15 MG TABLET PO SCH ×2 (08:53→20:36)
[2022-10-11] MEDS: PRENATAL VITAMIN TABLET PO SCH (08:53)
[2022-10-11] MEDS: IBUPROFEN 400 MG TABLET PO SCH ×3 (11:01→20:34)
[2022-10-11] MEDS: SODIUM CHLORIDE FLUSH 0.9% 10 ML SYRINGE IVP SCH ×2 (11:02→17:53)
--- NOTE | 2022-10-11 16:31 | PROVIDER PROGRESS NOTE ---
Subjective - Prog Note Date Prog Note Date: 10/11/22 Prog Note Time: 16:29 - Subjective Pt reports feeling: No change Subjective: [facility] 10 but the [facility] could not [facility] because of staffing issues. Today, there is continued staffing issues. As such she cannot be transferred today. The patient is understandably disappointed. But there is no fever, chest pain, cough. Just generalized weakness. He hates being in bed. Current Medications - Current Medications Current Medications: Active Medications Acetaminophen (Acetaminophen 500 Mg Tablet) 1,000 mg PO Q6HR [facility] Last Admin: 10/11/22 12:34 Dose: 1,000 mg Calcium Carbonate/Glycine (Calcium Carbonate Chew 500 Mg Tablet) 500 mg PO TID PRN PRN Reason: discomfort <Abdominal Last Admin: 10/10/22 14:56 Dose: 500 mg Citalopram Hydrobromide (Citalopram Hydrobromide 20 Mg Tablet) 40 mg PO DAILY [facility] Last Admin: 10/11/22 08:52 Dose: 40 mg Enoxaparin Sodium (Enoxaparin 40 Mg/0.4 Ml Syringe) 40 mg SUBQ DAILY [facility] Last Admin: 10/11/22 08:51 Dose: 40 mg Ferrous Gluconate (Ferrous Gluconate 324 Mg Tablet) 324 mg PO DAILYWM [facility] Last Admin: 10/11/22 08:52 Dose: 324 mg Furosemide (Furosemide 20 Mg Tablet) 20 mg PO DAILY [facility] Last Admin: 10/11/22 08:52 Dose: 20 mg Heparin Sodium (Beef Lung) (Heparin Flush 50 Units/5 Ml Syringe) 30 - 50 unit IVP PRN PRN PRN Reason: Port Protocol (<24 hours) Last Admin: 10/10/22 14:58 Dose: 50 unit Heparin Sodium (Beef Lung) (Heparin Flush 500 Units/5 Ml Syringe) 300 - 500 unit IVP PRN PRN PRN Reason: Port Protocol (>24 hours) Last Admin: 10/10/22 09:56 Dose: 500 unit Hydromorphone HCl (Hydromorphone 0.5 Mg/0.5 Ml Syringe) 0.5 mg IVP Q30M PRN PRN Reason: Breakthrough Pain Last Admin: 09/28/22 11:39 Dose: 0.5 mg Ibuprofen (Ibuprofen 400 Mg Tablet) 400 mg PO 0900,1500,2100 [facility] Last Admin: 10/11/22 15:50 Dose: 400 mg Midodrine (Midodrine 2.5 Mg Tablet) 2.5 mg PO TIDWM [facility] Last Admin: 10/11/22 12:34 Dose: 2.5 mg Mirtazapine (Mirtazapine 15 Mg Tablet) 15 mg PO QPM [facility] Last Admin: 10/10/22 21:28 Dose: 15 mg Morphine Sulfate (Morphine Er 15 Mg Tablet) 30 mg PO BID [facility] Last Admin: 10/11/22 08:53 Dose: 30 mg Multi-Ingredient Ointment (Zinc Oxide 20% Oint 30 Gm Tube) 1 applic TOP PRN PRN PRN Reason: Skin Care Last Admin: 10/11/22 05:52 Dose: 1 applic Ondansetron HCl (Ondansetron 4 Mg/2 Ml Vial) 4 mg IVP Q6H PRN PRN Reason: Nausea / Vomiting Last Admin: 10/10/22 14:57 Dose: 4 mg Oxycodone HCl (Oxycodone 5 Mg Tablet) 5 mg PO Q4HR PRN PRN Reason: Moderate Pain (Level 4-6) Last Admin: 09/29/22 21:12 Dose: 5 mg Oxycodone HCl (Oxycodone 5 Mg Tablet) 10 mg PO Q4HR PRN PRN Reason: Severe Pain (Level 7-10) Last Admin: 09/30/22 06:10 Dose: 10 mg Pantoprazole Sodium (Pantoprazole 40 Mg Tablet) 40 mg PO BID [facility] Last Admin: 10/11/22 08:52 Dose: 40 mg Potassium Chloride (Potassium Chloride 10 Meq Capsule) 20 meq PO DAILYWM [facility] Last Admin: 10/11/22 08:52 Dose: 20 meq Multivit/Folic Acid/Iron ( Vitamin Tablet) 1 tab PO DAILYWM [facility] Last Admin: 10/11/22 08:53 Dose: 1 tab Prochlorperazine Edisylate (Prochlorperazine 10 Mg/2 Ml Vial) 10 mg IVP Q4HR PRN PRN Reason: Nausea / Vomiting Last Admin: 09/28/22 08:31 Dose: 10 mg Sodium Chloride (Sodium Chloride Flush 0.9% 10 Ml Syringe) 10 ml IVP 0100,0900,1700 [facility] Last Admin: 10/11/22 11:02 Dose: Not Given Sodium Chloride (Sodium Chloride Flush 0.9% 10 Ml Syringe) 10 ml IVP PRN PRN PRN Reason: NEEDED PER PROVIDER ORDERS Last Admin: 10/10/22 14:57 Dose: 10 ml Tamsulosin HCl (Tamsulosin 0.4 Mg Capsule) 0.4 mg PO DAILY [facility] Last Admin: 10/11/22 08:52 Dose: 0.4 mg Throat Lozenges (Benzocaine/Menthol Lozenge) 1 lozenge MM Q2HR PRN PRN Reason: Throat pain Objective - Vital Signs/Intake & Output Reviewed Vital Signs: Yes Vital Signs: Vital Signs x48h Temp Pulse Resp BP Pulse Ox 10/11/22 16:00 36.3 C L 99 16 120/74 97 Intake & Output: Intake & Output 10/08/22 10/09/22 10/10/22 10/11/22 23:59 23:59 23:59 23:59 Intake Total 1480 1280 2190 1220 Output Total 50 Balance 1480 1280 2140 1220 - Objective General Appearance: positive: Alert, Other (Very fatigued appearing, sallow complexion, looks chronically ill and emaciated) Eyes Bilateral: positive: PERRL, EOMI Neck: positive: No JVD. negative: Stiff neck Respiratory: positive: No respiratory distress. negative: Wheezes, Rales, Rhonchi Cardiovascular: positive: Regular rate & rhythm Abdomen: positive: Non-tender, No organomegaly, Nml bowel sounds, No distention Skin: positive: Warm, Dry Extremities: positive: Full ROM, Pedal edema (Anasarca from the waist down. There is pitting edema of the thighs, quadriceps, and starts getting worse to his feet.), Other (Scrotal edema) Neurologic/Psychiatric: positive: Oriented x3, CN's nml (2-12), Motor nml, Other (Very weak. Gets lightheaded and dizzy when he stands up. Unable to stand for too long because blood pressure drops to 80s over 50s. Blood pressure quickly rebounds when he sits. So he did exercises in his chair. He is min assist for bed mobility and transfers. Unable to ambulate.) - Lab Results Fish Bones: 10/08/22 05:31 10/08/22 05:31 ABX Reporting Has patient been on IV antibiotics over the past 48 hours?: Yes Assessment/Plan - Problem List (1) Peritonitis Impression: He was seen in the emergency room on September 18. The ER doctor did attempt to transfer to higher level of care because of his complicated medical problems of pancreatic cancer. He was getting chemo every 2 weeks. He was felt to have heavy tumor burden, high symptom burden, and notable decline over the antecedent weeks before coming to the ER. Presentation was that of decreased bowel movements, nausea and vomiting. He was identified as having peritonitis and large/small bowel obstruction. He could not be transferred due to bed availability. He is condition worsened. He was taken to the OR by general surgery September 19. While in the operating room, [facility] called and wondered if we still wanted to transfer the patient. Patient has had a long luly course with the peritonitis. He completed cefepime October 10. Nutrition services been working with him to improve his protein status. He was seen by palliative care on September 22. Palliative care focused on pain, depression and advance care planning. POLST was completed with DNR/DNI. He was started back on his home medication of citalopram. His DPOA was identified and put in the medical record. He has been having intermittent chest pain when he stands up. It was noted with his physical therapist today. But he does not want anything done about this. He is feeling overwhelmed, depressed. And does not want to be "cheered up". Plan: Completed antibiotics Continue PT and OT as tolerated Cannot return to home because of weakness and we will continue to press for discharge to retirement facility once they have adequate staffing (2) Atypical chest pain Impression: Troponin on September 28 was 30.9 and 29.0. Chest x-ray done September 28 had small layering pleural effusions and bibasilar opacities representing atelectasis. Repeat chest x-ray October 06 had interval bilateral patchy opacities with more prominent effusions. Deformity related to layering effusions. Venous duplex was done October 03 to make sure there is no DVT and those were negative as well in spite of the bilateral lower extremity edema. Plan: Most likely due to his pleural effusions. Troponin and EKG have been without indication of an NSTEMI. Venous Dopplers are negative although he still could have a PE from a nonmalignant source. In any case the patient does not want any further work-up. (3) Leukocytosis Impression: White cell count in the ER was 6.2. It peaked at 43.0 on October 01. It has been slowly coming down and was 17.9 on October 08. He has completed cefepime therapy. Plan: Reevaluate with blood cultures if he spikes a temp. I will also repeat a chest x-ray or CT of the chest if that happens. I would then resume antibiotics if white cell count spiked with temp Qualifiers: Leukocytosis type: bandemia Qualified Code(s): D72.825 - Bandemia
[2022-10-11] MEDS: ONDANSETRON 4 MG/2 ML VIAL IVP PRN (20:31)
[2022-10-11] MEDS: MIRTAZAPINE 15 MG TABLET PO SCH (20:33)
[2022-10-12] MEDS: ACETAMINOPHEN 500 MG TABLET PO SCH ×4 (00:45→18:09)
[2022-10-12] MEDS: SODIUM CHLORIDE FLUSH 0.9% 10 ML SYRINGE IVP SCH ×3 (07:41→17:18)
[2022-10-12] MEDS: PANTOPRAZOLE 40 MG TABLET PO SCH ×2 (08:38→20:40)
[2022-10-12] MEDS: PRENATAL VITAMIN TABLET PO SCH (08:38)
[2022-10-12] MEDS: ENOXAPARIN 40 MG/0.4 ML SYRINGE SUBQ SCH (08:38)
[2022-10-12] MEDS: IBUPROFEN 400 MG TABLET PO SCH ×3 (08:38→20:40)
[2022-10-12] MEDS: POTASSIUM CHLORIDE 10 MEQ CAPSULE PO SCH (08:39)
[2022-10-12] MEDS: TAMSULOSIN 0.4 MG CAPSULE PO SCH (08:39)
[2022-10-12] MEDS: MIDODRINE 2.5 MG TABLET PO SCH ×3 (08:39→17:18)
[2022-10-12] MEDS: MORPHINE ER 15 MG TABLET PO SCH ×2 (08:40→20:40)
[2022-10-12] MEDS: FERROUS GLUCONATE 324 MG TABLET PO SCH (08:40)
[2022-10-12] MEDS: CITALOPRAM HYDROBROMIDE 20 MG TABLET PO SCH (08:41)
[2022-10-12] MEDS: FUROSEMIDE 20 MG TABLET PO SCH (08:42)
--- NOTE | 2022-10-12 12:15 | PROVIDER PROGRESS NOTE ---
Subjective - Subjective Pt reports feeling: No change (feels ok. eating ok. no problems) Objective - Vital Signs/Intake & Output Vital Signs: Vital Signs x48h Temp Pulse Resp BP Pulse Ox 10/12/22 04:51 36.3 C L 107 H 20 114/77 94 Intake & Output: Intake & Output 10/09/22 10/10/22 10/11/22 10/12/22 23:59 23:59 23:59 23:59 Intake Total 1280 2190 1742 180 Output Total 50 Balance 1280 2140 1742 180 - Objective General Appearance: positive: No acute distress, Alert Eyes Bilateral: positive: PERRL, EOMI Respiratory: positive: No respiratory distress Abdomen: positive: Non-tender, No distention, Other (incisions c/d/i without erythema) Neurologic/Psychiatric: positive: Oriented x3 - Lab Results Fish Bones: 10/08/22 05:31 10/08/22 05:31 Assessment/Plan - Problem List (1) Bowel obstruction Impression: agree with care and plan. appreciate medical service care. recommend follow up [facility] in 10 to 14 days for staple removal and stoma bolster removal. this is discussed with him and his sister and they are given the office number to call and schedule Qualifiers: Intestinal obstruction type: other intestinal obstruction
[2022-10-12] MEDS: CALCIUM CARBONATE CHEW 500 MG TABLET PO PRN (14:46)
--- NOTE | 2022-10-12 16:20 | PROVIDER PROGRESS NOTE ---
Subjective - Prog Note Date Prog Note Date: 10/12/22 Prog Note Time: 16:17 - Subjective Subjective: I saw the patient yesterday for the first time. Reviewed his case, and examined him. He is an unfortunate gentleman who has pancreatic cancer that is prog ressed in growth and tumor burden and spite of treatment. The progression of disease resulted in bowel obstruction and peritonitis. That resulted in aggressive surgery. His plan was to continue cancer treatment but he needed to have some improvement in functional status to be able to achieve that. It is clear today that he is not going to achieve that. He has not been able to have enough p.o. intake to improve his nutritional status from his severe protein calorie malnutrition. That in turn has led to orthostatic weakness, fatigue. He has been unable to work with physical therapy because of dizziness, lightheadedness. Today physical therapy has formally signed off the case. They feel t that they can no longer continue to see this gentleman because he cannot stand, much less do exercises to improve his mobility and function. The patient continues to have atypical chest pain, mainly with sitting or standing. If he is at rest, or has not done anything for a while, the pain is n ot there. He feels a dull fullness in his chest at all times. No cough, no phlegm production. Is completely exhausted and has no energy. He has no appetite and can barely eat 1 or 2 bites. Pain is a 3 out of a 10 over his incision sites. He is a max assist x2 to even sit him up in bed. Current Medications - Current Medications Current Medications: Active Medications Acetaminophen (Acetaminophen 500 Mg Tablet) 1,000 mg PO Q6HR [facility] Last Admin: 10/12/22 11:55 Dose: 1,000 mg Calcium Carbonate/Glycine (Calcium Carbonate Chew 500 Mg Tablet) 500 mg PO TID PRN PRN Reason: discomfort <Abdominal Last Admin: 10/12/22 14:46 Dose: 500 mg Citalopram Hydrobromide (Citalopram Hydrobromide 20 Mg Tablet) 40 mg PO DAILY [facility] Last Admin: 10/12/22 08:41 Dose: 40 mg Enoxaparin Sodium (Enoxaparin 40 Mg/0.4 Ml Syringe) 40 mg SUBQ DAILY [facility] Last Admin: 10/12/22 08:38 Dose: 40 mg Ferrous Gluconate (Ferrous Gluconate 324 Mg Tablet) 324 mg PO DAILYWM [facility] Last Admin: 10/12/22 08:40 Dose: 324 mg Furosemide (Furosemide 20 Mg Tablet) 20 mg PO DAILY [facility] Last Admin: 10/12/22 08:42 Dose: 20 mg Heparin Sodium (Beef Lung) (Heparin Flush 50 Units/5 Ml Syringe) 30 - 50 unit IVP PRN PRN PRN Reason: Port Protocol (<24 hours) Last Admin: 10/11/22 17:53 Dose: 50 unit Heparin Sodium (Beef Lung) (Heparin Flush 500 Units/5 Ml Syringe) 300 - 500 unit IVP PRN PRN PRN Reason: Port Protocol (>24 hours) Last Admin: 10/10/22 09:56 Dose: 500 unit Hydromorphone HCl (Hydromorphone 0.5 Mg/0.5 Ml Syringe) 0.5 mg IVP Q30M PRN PRN Reason: Breakthrough Pain Last Admin: 09/28/22 11:39 Dose: 0.5 mg Ibuprofen (Ibuprofen 400 Mg Tablet) 400 mg PO 0900,1500,2100 [facility] Last Admin: 10/12/22 14:46 Dose: 400 mg Midodrine (Midodrine 2.5 Mg Tablet) 2.5 mg PO TIDWM [facility] Last Admin: 10/12/22 11:55 Dose: 2.5 mg Mirtazapine (Mirtazapine 15 Mg Tablet) 15 mg PO QPM [facility] Last Admin: 10/11/22 20:33 Dose: 15 mg Morphine Sulfate (Morphine Er 15 Mg Tablet) 30 mg PO BID [facility] Last Admin: 10/12/22 08:40 Dose: 30 mg Multi-Ingredient Ointment (Zinc Oxide 20% Oint 30 Gm Tube) 1 applic TOP PRN PRN PRN Reason: Skin Care Last Admin: 10/11/22 05:52 Dose: 1 applic Ondansetron HCl (Ondansetron 4 Mg/2 Ml Vial) 4 mg IVP Q6H PRN PRN Reason: Nausea / Vomiting Last Admin: 10/11/22 20:31 Dose: 4 mg Oxycodone HCl (Oxycodone 5 Mg Tablet) 5 mg PO Q4HR PRN PRN Reason: Moderate Pain (Level 4-6) Last Admin: 09/29/22 21:12 Dose: 5 mg Oxycodone HCl (Oxycodone 5 Mg Tablet) 10 mg PO Q4HR PRN PRN Reason: Severe Pain (Level 7-10) Last Admin: 09/30/22 06:10 Dose: 10 mg Pantoprazole Sodium (Pantoprazole 40 Mg Tablet) 40 mg PO BID [facility] Last Admin: 10/12/22 08:38 Dose: 40 mg Potassium Chloride (Potassium Chloride 10 Meq Capsule) 20 meq PO DAILYWM [facility] Last Admin: 10/12/22 08:39 Dose: 20 meq Multivit/Folic Acid/Iron ( Vitamin Tablet) 1 tab PO DAILYWM [facility] Last Admin: 10/12/22 08:38 Dose: 1 tab Prochlorperazine Edisylate (Prochlorperazine 10 Mg/2 Ml Vial) 10 mg IVP Q4HR PRN PRN Reason: Nausea / Vomiting Last Admin: 09/28/22 08:31 Dose: 10 mg Sodium Chloride (Sodium Chloride Flush 0.9% 10 Ml Syringe) 10 ml IVP 0100,0900,1700 [facility] Last Admin: 10/12/22 08:41 Dose: 10 ml Sodium Chloride (Sodium Chloride Flush 0.9% 10 Ml Syringe) 10 ml IVP PRN PRN PRN Reason: NEEDED PER PROVIDER ORDERS Last Admin: 10/10/22 14:57 Dose: 10 ml Tamsulosin HCl (Tamsulosin 0.4 Mg Capsule) 0.4 mg PO DAILY [facility] Last Admin: 10/12/22 08:39 Dose: 0.4 mg Throat Lozenges (Benzocaine/Menthol Lozenge) 1 lozenge MM Q2HR PRN PRN Reason: Throat pain Objective - Vital Signs/Intake & Output Reviewed Vital Signs: Yes Vital Signs: Vital Signs x48h Temp Pulse Resp BP Pulse Ox 10/12/22 09:00 36.5 C 98 17 125/66 96 Intake & Output: Intake & Output 10/09/22 10/10/22 10/11/22 10/12/22 23:59 23:59 23:59 23:59 Intake Total 1280 2190 1742 180 Output Total 50 Balance 1280 2140 1742 180 - Objective General Appearance: positive: Alert (Seen this morning when he just woke up and he asked me to return. I have seen him twice since this morning.), Other (Very flat affect, severe fatigue with an overall cachectic, sallow gentleman who looks very chronically ill) Eyes Bilateral: positive: PERRL, EOMI ENT: positive: Dry mucous membranes Neck: positive: No JVD. negative: Stiff neck Respiratory: positive: No respiratory distress, Rhonchi (At bases that clear wit h cough), Other (Slow, shallow respiration. Able to have a normal conversation and a very low tone of voice without increased respiratory effort) Cardiovascular: positive: Regular rate & rhythm, Systolic murmur Abdomen: positive: Tenderness (Mild over incision sites.), Other (Hypoactive bowel sounds. His right lower quadrant wound is starting to dehisce. But there is no redness, heat, drainage) Skin: positive: Dry, Pallor, Other (Arms and shins, and feet are cool to touch but not cyanotic.) Extremities: positive: Full ROM, Pedal edema (Anasarca) Neurologic/Psychiatric: positive: Oriented x3, CN's nml (2-12), Depressed mood/affect. negative: Motor nml (Moderate generalized weakness. No focal deficit.) - Lab Results Fish Bones: 10/08/22 05:31 10/08/22 05:31 ABX Reporting Has patient been on IV antibiotics over the past 48 hours?: Yes Assessment/Plan - Problem List (1) Pancreatic malignant neoplasm Impression: This gentleman has a history of metastatic prostate cancer, castration sensitive since 2008 with adenopathy. His initial Gavino score was 9 with a PSA of 340. He was treated with primary prostate radiation and then Taxotere x3 cycles until February 2009. He has been in remission since that time. Unfortunately he has a history of cirrhosis of the liver due to alcohol abuse with relapse in June 2017. In August 2019 he was seen for an interval follow-up including a CT of the abdomen from July 2019. Unfortunately the July 2019 CT showed a mass in the dome of the liver as well as a mass involving the pancreatic tail. He underwent an endoscopic ultrasound in September 2019 where a biopsy showed pancreatic tail cancer. He underwent surgery, and had chemotherapy at /[facility]. Chemotherapy is every 2 weeks. He presented to the emergency room September 18, 2022 with several days of increasing abdominal distention and decreasing bowel movements with nausea and vomiting. This gentleman is a very vague historian. Does not know his chemotherapy. He was scheduled for procedure September 20 but did not remember what the procedure was. Our CAT scan showed soft tissue masses in the presacral and perirectal area causing small and large bowel obstruction. Our local surgeon recommended transfer to a tertiary care center. He was excepted by Dr. Teo Gage at . The patient stayed overnight and the next morning the [facility] did not have any beds. The surgeon on-call the second morning was contacted by the ER MD who felt that the patient needed to be operated on because of worse jean peritoneal findings. He underwent a diverting left lower quadrant loop colostomy on September 20. That was then converted to an exploratory laparotomy with transverse colon loop colostomy and massive adhesiolysis. 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 It in volves the mesentery, small bowel and large bowel. The left lower quadrant/sigmoid bowel was completely encased in tumor precluding mobilization. Postoperatively the patient has not done well. He has had a gradually declining functional performance status which was already debilitated to begin with. He has been transfused 1 unit of blood. He has been on empiric antibiotics because of the peritonitis. But he has severe protein calorie malnutrition. Severe weakness. He just cannot eat. He has no appetite. He can no longer work with physical therapy who signed off today. He was to be transferred to a [facility] facility for physical therapy. His goal was to increase his strength and functional mobility and functional status so that he could continue ongoing full treatment for his stage IV pancreatic neoplasm. He has been seen by palliative care. He has changed his CODE STATUS from full code to DO NOT RESUSCITATE but was not willing to think about hospice right now because he wanted to undergo therapy. However the long term has been unable to take him. He was to be transferred to a facility in [place]. On the day of transfer, there has been a walkout of their nursing staff and [employer] staff. As such they have close down their facility to new patients. They notified us today after 3 days of waiting. I am seeing a profoundly cachectic gentleman with a far off stare, flat affect, and no strength. I explained to him that I think he is reaching the point of no return and that I do not think he is going to make it if he cannot get protein in him. He says that he is struggling with this idea. He knows that he is sick. But he just thought he was going through a temporary phase of weakness and that he would eventually recover. I explained especially could that I do not think he is going to recover. I think this is the next phase of where he may actually be gently and slowly dying. He says that he has a lot to think about. He wonders if he could meet with his mother and sisters to discuss what the next process will be. Plan: I have called palliative care to see if they wish to speak to them. Otherwise I will be setting up a family conference to see with the neck steps would be. Qualifiers: Pancreatic malignancy location: unspecified Qualified Code(s): C25.9 - Malignant neoplasm of pancreas, unspecified (2) Protein-calorie malnutrition, severe Impression: He says that he will try and eat a little bit more. He did not realize how much ground he was losing until I pointed out to him how cachectic and malnourished he was. But he does know how much he can eat. He just does not want to put food in his mouth. Nutrition services will continue to work with him. (3) Peritonitis Impression: Postoperative day #12. I discussed the case with general surgery. General surgery responded with "I spoke with him and his sister about this a week ago. Always can do more like another CT scan followed by ex lap if indicated. However outcome would likely be poor and not overall beneficial given his ad vanced cancer.". I have asked surgery to document that conversation in the chart. And then please formally sign the patient over to our service. (4) Atypical chest pain Impression: Most likely due to metastatic disease, pleural effusion, atelectasis. He could be having active ongoing angina but highly unlikely. The patient does not want work-up for this. (5) Leukocytosis Impression: This was initially attributed to the small bowel obstruction, large bowel obstruction with peritonitis. He responded to empiric antibiotic therapy and surgery and his white cell count had peak at 26.5 on October 06. Its been steadily coming down. Last check was October 08. I will check labs tomorrow morning. But depending on the conversation with the family we may end up transitioning to comfort measures only. I will await the patient's decision after discussion with his sisters, palliative care, and himself. Qualifiers: Leukocytosis type: bandemia Qualified Code(s): D72.825 - Bandemia (6) Weakness generalized Impression: Due to prolonged bedrest, debility from cancer, malnutrition. In the short time I met him from October 11 to today, he continues to deteriorate. Physical therapy has formally signed off the case. As such she no longer meets criteria to be transition to a [facility] facility for rehab. I will await advance care planning conversation.
[2022-10-12] MEDS: MIRTAZAPINE 15 MG TABLET PO SCH (20:40)
[2022-10-13] MEDS: ACETAMINOPHEN 500 MG TABLET PO SCH ×4 (00:38→17:48)
[2022-10-13] MEDS: SODIUM CHLORIDE FLUSH 0.9% 10 ML SYRINGE IVP SCH ×3 (00:41→16:12)
[2022-10-13 05:43] LABS: BASOPHILS % (AUTO) 0.3 %; HCT - HEMATOCRIT 24.1 % (42.0-52.0); HGB - HEMOGLOBIN 7.8 g/dL (14.0-18.0); LYMPHOCYTES % (AUTO) 11.2 %; MEAN CORPUSCULAR HEMOGLOBIN 33.5 pg (27.0-31.0); MEAN CORPUSCULAR HGB CONC 32.4 g/dL (32.0-36.0); MEAN CORPUSCULAR VOLUME 103.4 fL (80.0-94.0); MEAN PLATELET VOLUME 11.6 fL (7.4-11.4); NEUTROPHILS % (AUTO) 70.7 %; PLT - PLATELET COUNT 504 10^3/uL (130-450); RED BLOOD COUNT 2.33 10^6/uL (4.70-6.10); WHITE BLOOD COUNT 13.8 x10^3/uL (4.8-10.8)
[2022-10-13 05:47] LABS: ABNORMAL LYMPHS % (MANUAL) 0 %; BAND NEUTROPHILS % (MANUAL) 0 %
[2022-10-13 05:56] LABS: ALBUMIN 2.1 g/dL (3.2-5.5); ALBUMIN/GLOBULIN RATIO 0.5 (1.0-2.2); BILIRUBIN,TOTAL 0.5 mg/dL (0.2-1.0); CALCIUM 9.1 mg/dL (8.5-10.3); CREATININE 1.4 mg/dL (0.6-1.3); POTASSIUM 5.2 mmol/L (3.5-4.5)
[2022-10-13 06:01] LABS: EOSINOPHILS # (MANUAL) 0.3 10^3/uL (0-0.7); LYMPHOCYTES # (MANUAL) 1.4 10^3/uL (1.5-3.5); LYMPHOCYTES % (MANUAL) 10 %; MONOCYTES # (MANUAL) 1.7 10^3/uL (0.0-1.0); NEUTROPHILS # (MANUAL) 10.5 10^3/uL (1.5-6.6)
[2022-10-13 06:03] LABS: DIFFERENTIAL COMMENT MANUAL DIFFERENTIAL; PLATELET ESTIMATE, MANUAL INCREASED (>450,000) (NORMAL); PLATELET MORPHOLOGY NORMAL APPEARANCE (NORMAL); WBC MORPHOLOGY (MULTIPLE) NORMAL APPEARANCE (NORMAL)
[2022-10-13] MEDS: MORPHINE ER 15 MG TABLET PO SCH ×2 (08:30→20:27)
[2022-10-13] MEDS: PRENATAL VITAMIN TABLET PO SCH (08:30)
[2022-10-13] MEDS: TAMSULOSIN 0.4 MG CAPSULE PO SCH (08:31)
[2022-10-13] MEDS: FERROUS GLUCONATE 324 MG TABLET PO SCH (08:31)
[2022-10-13] MEDS: MIDODRINE 2.5 MG TABLET PO SCH ×3 (08:31→16:12)
[2022-10-13] MEDS: CITALOPRAM HYDROBROMIDE 20 MG TABLET PO SCH (08:31)
[2022-10-13] MEDS: FUROSEMIDE 20 MG TABLET PO SCH (08:32)
[2022-10-13] MEDS: PANTOPRAZOLE 40 MG TABLET PO SCH ×2 (08:32→20:27)
[2022-10-13] MEDS: POTASSIUM CHLORIDE 10 MEQ CAPSULE PO SCH (08:33)
[2022-10-13] MEDS: ENOXAPARIN 40 MG/0.4 ML SYRINGE SUBQ SCH (08:33)
[2022-10-13] MEDS: IBUPROFEN 400 MG TABLET PO SCH ×3 (08:34→20:27)
--- NOTE | 2022-10-13 10:29 | CONSULTATION NOTE ---
Palliative Care Follow Up - Referral Referring Provider: Dr. Angelic Gifford/Dr. Sweeney Time of Visit: 09:15-10:30; [id number] Referral setting: Hospitalized patient Referral Reason: Goals of Care/FTT - Information Sources Records reviewed: RN notes reviewed, Previous records reviewed History/Review of Systems obtained from: Patient, Family (sister No), Nursing, Other (hospitalixt) Exam limitations: No limitations - History of Present Illness Update Brief HPI Update: This is a 61-year-old gentleman currently inpatient for his worsening pancreatic cancer that resulted in bowel obstruction, he did have a diverting transverse loop colostomy. He has had ongoing complications including peritonitis, difficulty with incision and wound healing, protein calorie malnutrition, ongoing functional decline most likely attributed to his tumor progression.Patient's original goals have been hopeful, to be able to recover from surgery, build some strength, and consider ongoing palliative treatment. The patient does admit had been failing for several weeks to months, prior to his hospitalization. We did discuss in the context of what is currently happening, that it is not a "won't" but a "can't" at this point and is attributed to the sequela of his progressive disease. Patient does have some insight into this, but is feeling somewhat overwhelmed. Social History - Living Situation Living arrangement: At home Living Situation: Alone Support System: Has 3 sisters, all 3 have been providing support over the last couple of years, and were here initially. His sister No, is currently staying but is exhausted, she is his primary DPOA. Two sisters are from [place], and 1 from [place]. His mother is still alive as well and came to provide support for several days and they were all together and enjoyed that time, he was 55 years in [place], and moved to [facility] for [facility]. He has friends but no one who could be caregivers. Family has been clear they were not able to committ to caregiving role, and are awaiting placement. It had been hoped for rehab but with decline will be for a safe caregiving plan. Patient has a pending Medicaid evaluation 10/17. Medications/Allergies - Medications Active Medication List: Active Medications Acetaminophen (Acetaminophen 500 Mg Tablet) 1,000 mg PO Q6HR ANASTASIIA Last Admin: 10/13/22 05:53 Dose: 1,000 mg Calcium Carbonate/Glycine (Calcium Carbonate Chew 500 Mg Tablet) 500 mg PO TID PRN PRN Reason: discomfort <Abdominal Last Admin: 10/12/22 14:46 Dose: 500 mg Citalopram Hydrobromide (Citalopram Hydrobromide 20 Mg Tablet) 40 mg PO DAILY [facility] Last Admin: 10/13/22 08:31 Dose: 40 mg Enoxaparin Sodium (Enoxaparin 40 Mg/0.4 Ml Syringe) 40 mg SUBQ DAILY [facility] Last Admin: 10/13/22 08:33 Dose: 40 mg Ferrous Gluconate (Ferrous Gluconate 324 Mg Tablet) 324 mg PO DAILYWM [facility] Last Admin: 10/13/22 08:31 Dose: 324 mg Furosemide (Furosemide 20 Mg Tablet) 20 mg PO DAILY [facility] Last Admin: 10/13/22 08:32 Dose: 20 mg Heparin Sodium (Beef Lung) (Heparin Flush 50 Units/5 Ml Syringe) 30 - 50 unit IVP PRN PRN PRN Reason: Port Protocol (<24 hours) Last Admin: 10/11/22 17:53 Dose: 50 unit Heparin Sodium (Beef Lung) (Heparin Flush 500 Units/5 Ml Syringe) 300 - 500 unit IVP PRN PRN PRN Reason: Port Protocol (>24 hours) Last Admin: 10/10/22 09:56 Dose: 500 unit Hydromorphone HCl (Hydromorphone 0.5 Mg/0.5 Ml Syringe) 0.5 mg IVP Q30M PRN PRN Reason: Breakthrough Pain Last Admin: 09/28/22 11:39 Dose: 0.5 mg Ibuprofen (Ibuprofen 400 Mg Tablet) 400 mg PO 0900,1500,2100 [facility] Last Admin: 10/13/22 08:34 Dose: 400 mg Midodrine (Midodrine 2.5 Mg Tablet) 2.5 mg PO TIDWM [facility] Last Admin: 10/13/22 08:31 Dose: 2.5 mg Mirtazapine (Mirtazapine 15 Mg Tablet) 15 mg PO QPM [facility] Last Admin: 10/12/22 20:40 Dose: 15 mg Morphine Sulfate (Morphine Er 15 Mg Tablet) 30 mg PO BID [facility] Last Admin: 10/13/22 08:30 Dose: 30 mg Multi-Ingredient Ointment (Zinc Oxide 20% Oint 30 Gm Tube) 1 applic TOP PRN PRN PRN Reason: Skin Care Last Admin: 10/11/22 05:52 Dose: 1 applic Ondansetron HCl (Ondansetron 4 Mg/2 Ml Vial) 4 mg IVP Q6H PRN PRN Reason: Nausea / Vomiting Last Admin: 10/11/22 20:31 Dose: 4 mg Oxycodone HCl (Oxycodone 5 Mg Tablet) 5 mg PO Q4HR PRN PRN Reason: Moderate Pain (Level 4-6) Last Admin: 09/29/22 21:12 Dose: 5 mg Oxycodone HCl (Oxycodone 5 Mg Tablet) 10 mg PO Q4HR PRN PRN Reason: Severe Pain (Level 7-10) Last Admin: 09/30/22 06:10 Dose: 10 mg Pantoprazole Sodium (Pantoprazole 40 Mg Tablet) 40 mg PO BID [facility] Last Admin: 10/13/22 08:32 Dose: 40 mg Multivit/Folic Acid/Iron ( Vitamin Tablet) 1 tab PO DAILYWM [facility] Last Admin: 10/13/22 08:30 Dose: 1 tab Prochlorperazine Edisylate (Prochlorperazine 10 Mg/2 Ml Vial) 10 mg IVP Q4HR PRN PRN Reason: Nausea / Vomiting Last Admin: 09/28/22 08:31 Dose: 10 mg Sodium Chloride (Sodium Chloride Flush 0.9% 10 Ml Syringe) 10 ml IVP 0100,0900,1700 [facility] Last Admin: 10/13/22 08:34 Dose: 10 ml Sodium Chloride (Sodium Chloride Flush 0.9% 10 Ml Syringe) 10 ml IVP PRN PRN PRN Reason: NEEDED PER PROVIDER ORDERS Last Admin: 10/10/22 14:57 Dose: 10 ml Tamsulosin HCl (Tamsulosin 0.4 Mg Capsule) 0.4 mg PO DAILY [facility] Last Admin: 10/13/22 08:31 Dose: 0.4 mg Throat Lozenges (Benzocaine/Menthol Lozenge) 1 lozenge MM Q2HR PRN PRN Reason: Throat pain - Allergies Allergies/Adverse Reactions: Allergies Allergy/AdvReac Type Severity Reaction Status Date / Time No Known Drug Allergies Allergy Verified 09/18/22 14:58 Review of Systems - Constitutional Constitutional: reports: Fatigue, Weakness, Poor appetite (has been eating poorly for several months), Weight loss - Ears, Nose & Throat Ears, Nose & Throat: reports: Dry mouth - Cardiovascular Cardiovascular: reports: Chest pain (with activity), Edema (improved some LE / scrotal), Lightheadedness, Exertional dyspnea, Decr. exercise tolerance - Gastrointestinal Gastrointestinal: reports: Abdominal pain (improved, managed on current long acting; encouraged to use BTP meds as needed), Poor appetite (patient with poor appetite, eating bites and sips only of pepsi; has not been eating well for over a year), Other (new colostomy) - Genitourinary Genitourinary: reports: Incontinence, Sexual dysfunction - Musculoskeletal Musculoskeletal: reports: Back pain, Muscle aches, Muscle weakness, Other (has been mostly bedbound last few days) - Integumentary Integumentary: reports: Hair changes (alopecia) - Neurological Neurological: reports: General weakness, Numbness (mild peripheral neuropathy from treatment) - Psychiatric Psychiatric: reports: Depression (profound and exterminator termite), Anxiety. denies: Suicidal - Endocrine Endocrine: reports: Intolerance to cold - Hematologic/Lymphatic Hematologic/Lymph: reports: Anemia, Recurrent infections (tx for peritonitis) Physical Exam - Physical Exam General Appearance: positive: Mild distress (with anxiety;), Anxious, Cachetic Eyes Bilateral: positive: Normal inspection ENT: positive: Dry mucous membranes Neck: positive: Trachea midline Cardiovascular: positive: Regular rate & rhythm Respiratory: positive: No respiratory distress Abdomen: positive: Guarding. negative: Distended Skin: positive: Pallor, Dryness, Wound (colostomy with wound with anthony; s/s of dehiscence) Extremities: positive: Pedal edema (extending into thigh/sacral area improved some) Neurologic/Psychiatric: positive: Oriented x3, Flat affect, Other (withdrawn) Palliative Care - POLST Patient has POLST: Yes POLST Status: DNR, Comfort Measures (updated with change of goals) Pain: Pain improved, Location (mid abdominal/back) Performance Status: Patient has been mostly bedbound last few days; unable to tolerate being up with weakness and dizzyness. - Palliative Care Discussion: 09:30 am Met with sister , oN who is the DPOA. We reviewed patient's current condition, that he is continue to deteriorate, with severe protein calorie malnutrition, is unable to eat and drink to meet his caloric needs, continues to lose weight, strength is poor, is mostly bedbound. Patient no longer meets criteria to be able to be transferred for a SNF for rehab. In the context of this we discussed that patient most likely has days to weeks, and would recommend that we transition to comfort focused care. Sister is feeling appropriately overwhelmed, worried patient is not getting it, though did understand a doctor talk to them about he was not getting better last night. We reviewed this information in the context of summing up where patient is right now, and my recommendation for placement with hospice. He would need a facility either an adult family home or alf care to meet his caregiving needs. Did meet with patient and sister after meeting with sister first, asked patient's understanding of his current situation, he does understand he is not getting better. He very much "wants to get stronger" but sees he is getting worse. Reinforced that he has done everything he can do, that unfortunately we were not able to meet his goals of transitioning to SNF and get him stronger. Everyone did what they could to give him the best chance possible, but we were at the end of his cancer journey now. We discussed that this point would be looking at transferring him to another setting, my recommendation to transfer with hospice. The patient understands he will continue to decline, and his goals are not to have pain or suffering, and most likely would be met with focus on comfort care here in the hospital and transitioning to hospice on discharge. We completed a new POLST with goals defined: Focus on comfort, spending time with family, at end-of-life a comfortable respectful with hospice support. DNAR/allow natural and comfort focused treatment. This was reviewed both with the patient and his DPOA No his sister. Encouraged patient if there is any friends or family or if he wanted to see the vessel manager again, to let his sister know or myself and we will try and provide support for his goals. I did review again with No comfort focused care and she understands if patient were to take another turn for the worse, meaning no further antibiotics, eating for comfort focused only, without foreseen, and patient to dictate his activity. No reported she had been speaking with the patient, he did have some request as far as visitors, she will follow-up on that, he had also wondered about going outside. I told her I would follow-up on this request, he would most likely have to go on a gurney. Results - Lab Results Lab results reviewed: Yes Fish Bones: 10/13/22 05:37 10/13/22 05:37 Lab and Imaging Results: Lab Results x24hrs 10/13/22 10/13/22 Range/Units 05:37 05:37 WBC 13.8 H (4.8-10.8) x10^3/uL RBC 2.33 L (4.70-6.10) 10^6/uL Hgb 7.8 L (14.0-18.0) g/dL Hct 24.1 L (42.0-52.0) % MCV 103.4 H (80.0-94.0) fL MCH 33.5 H (27.0-31.0) pg MCHC 32.4 (32.0-36.0) g/dL RDW 25.0 H (12.0-15.0) % Plt Count 504 H (130-450) 10^3/uL MPV 11.6 H (7.4-11.4) fL Neut # (Auto) Not Reportable Lymph # (Auto) Not Reportable [place] # (Auto) Not Reportable Eos # (Auto) Not Reportable Baso # (Auto) Not Reportable Absolute Nucleated RBC Not Reportable Total Counted 100 Band Neuts % (Manual) 0 (0 - 10) % Abnorm Lymph % (Manual) 0 % Nucleated RBC % Not Reportable Neutrophils # (Manual) 10.5 H (1.5-6.6) 10^3/uL Lymphocytes # (Manual) 1.4 L (1.5-3.5) 10^3/uL Monocytes # (Manual) 1.7 H (0.0-1.0) 10^3/uL Eosinophils # (Manual) 0.3 (0-0.7) 10^3/uL Basophils # (Manual) 0.0 (0-0.1) 10^3/uL Differential Comment MANUAL DIFFERENTIAL WBC Morphology NORMAL APPEARANCE (NORMAL) Platelet Estimate INCREASED (>450,000) (NORMAL) Platelet Morphology NORMAL APPEARANCE (NORMAL) RBC Morph Micro Appear 1+ OVALOCYTES (NORMAL) Sodium 137 (135-145) mmol/L Potassium 5.2 H (3.5-4.5) mmol/L Chloride 110 (101-111) mmol/L Carbon Dioxide 18 L (21-32) mmol/L Anion Gap 9.0 (6-13) BUN 47 H (6-20) mg/dL Creatinine 1.4 H (0.6-1.3) mg/dL Estimated GFR (MDRD) 52 L (>89) Glucose 84 (74-104) mg/dL Calcium 9.1 (8.5-10.3) mg/dL Total Bilirubin 0.5 (0.2-1.0) mg/dL AST 11 (10-42) IU/L ALT 8 L (10-60) IU/L Alkaline Phosphatase 158 H (42-121) IU/L Total Protein 6.0 L (6.4-8.9) g/dL Albumin 2.1 L (3.2-5.5) g/dL Globulin 3.9 (2.1-4.2) g/dL Albumin/Globulin Ratio 0.5 L (1.0-2.2) Impression and Recommendations - Palliative Care Impression: This is a 61-year-old gentleman with metastatic pancreatic cancer, who received a diverting transverse loop colostomy for bowel obstruction, has had a difficult hospital course with sequela of both surgery and his disease. Patient continues with failure to thrive, with protein calorie malnutrition, declining functional status, weight loss, and high symptom burden.At this point, it is not expected patient will improve, but progress onto end-of-life. Palliative care meeting with patient and sister who is his DPOA, to further define goals of care and follow-up on recommendation of discharge with hospice. Recommendations/Counseling Done: 1. Metastatic pancreatic cancer. Patient did have a diverting transverse loop colostomy for complications with bowel obstruction, has continued to fluctuate over a couple weeks, but last few days has continued to decline and presents with failure to thrive. Patient with severe protein calorie malnutrition, un able to meet nutritional needs, functional decline, dizziness, all sequela most likely attributed to disease progression. Patient would be appropriate as most likely has days to weeks, to transition to comfort care/hospice and focus on quality of life issues, patient's goal is not to have pain and suffering. On discharge, will need support of caregiving situation, and hospice support. Patient appropriately is having difficulty accepting his decline, but does understand it is inevitable, and does have good family support. He is very grateful for the support and care he has had here at [facility]. His sister No, and DPOA has been part of the decision making process and aware of the impl ications and goals, and is very supportive of this outcome. Updated POLST completed with DNAR/allow natural and comfort focused care. 90 minutes with review of chart notes, labs, imaging, previous notes, family conference, counseling with patient and sister, coordination of care with social work, hospitalist, nursing staff. Counseling for her goals of care, anticipatory guidance, and psychosocial support.
--- NOTE | 2022-10-13 12:40 | PROVIDER PROGRESS NOTE ---
Subjective - Prog Note Date Prog Note Date: 10/13/22 Prog Note Time: 12:37 - Subjective Pt reports feeling: No change Subjective: Continues to be so fatigued that he cannot even sit up in bed much less stand. Constant dull abdominal ache but not severe. No appetite. Depressed and withdrawn. Current Medications - Current Medications Current Medications: Active Medications Acetaminophen (Acetaminophen 500 Mg Tablet) 1,000 mg PO Q6HR [facility] Last Admin: 10/13/22 05:53 Dose: 1,000 mg Calcium Carbonate/Glycine (Calcium Carbonate Chew 500 Mg Tablet) 500 mg PO TID PRN PRN Reason: discomfort <Abdominal Last Admin: 10/12/22 14:46 Dose: 500 mg Citalopram Hydrobromide (Citalopram Hydrobromide 20 Mg Tablet) 40 mg PO DAILY [facility] Last Admin: 10/13/22 08:31 Dose: 40 mg Enoxaparin Sodium (Enoxaparin 40 Mg/0.4 Ml Syringe) 40 mg SUBQ DAILY [facility] Last Admin: 10/13/22 08:33 Dose: 40 mg Ferrous Gluconate (Ferrous Gluconate 324 Mg Tablet) 324 mg PO DAILYWM [facility] Last Admin: 10/13/22 08:31 Dose: 324 mg Furosemide (Furosemide 20 Mg Tablet) 20 mg PO DAILY [facility] Last Admin: 10/13/22 08:32 Dose: 20 mg Heparin Sodium (Beef Lung) (Heparin Flush 50 Units/5 Ml Syringe) 30 - 50 unit IVP PRN PRN PRN Reason: Port Protocol (<24 hours) Last Admin: 10/11/22 17:53 Dose: 50 unit Heparin Sodium (Beef Lung) (Heparin Flush 500 Units/5 Ml Syringe) 300 - 500 unit IVP PRN PRN PRN Reason: Port Protocol (>24 hours) Last Admin: 10/10/22 09:56 Dose: 500 unit Hydromorphone HCl (Hydromorphone 0.5 Mg/0.5 Ml Syringe) 0.5 mg IVP Q30M PRN PRN Reason: Breakthrough Pain Last Admin: 09/28/22 11:39 Dose: 0.5 mg Ibuprofen (Ibuprofen 400 Mg Tablet) 400 mg PO 0900,1500,2100 [facility] Last Admin: 10/13/22 08:34 Dose: 400 mg Midodrine (Midodrine 2.5 Mg Tablet) 2.5 mg PO TIDWM [facility] Last Admin: 10/13/22 08:31 Dose: 2.5 mg Mirtazapine (Mirtazapine 15 Mg Tablet) 15 mg PO QPM [facility] Last Admin: 10/12/22 20:40 Dose: 15 mg Morphine Sulfate (Morphine Er 15 Mg Tablet) 30 mg PO BID [facility] Last Admin: 10/13/22 08:30 Dose: 30 mg Multi-Ingredient Ointment (Zinc Oxide 20% Oint 30 Gm Tube) 1 applic TOP PRN PRN PRN Reason: Skin Care Last Admin: 10/11/22 05:52 Dose: 1 applic Ondansetron HCl (Ondansetron 4 Mg/2 Ml Vial) 4 mg IVP Q6H PRN PRN Reason: Nausea / Vomiting Last Admin: 10/11/22 20:31 Dose: 4 mg Oxycodone HCl (Oxycodone 5 Mg Tablet) 5 mg PO Q4HR PRN PRN Reason: Moderate Pain (Level 4-6) Last Admin: 09/29/22 21:12 Dose: 5 mg Oxycodone HCl (Oxycodone 5 Mg Tablet) 10 mg PO Q4HR PRN PRN Reason: Severe Pain (Level 7-10) Last Admin: 09/30/22 06:10 Dose: 10 mg Pantoprazole Sodium (Pantoprazole 40 Mg Tablet) 40 mg PO BID [facility] Last Admin: 10/13/22 08:32 Dose: 40 mg Multivit/Folic Acid/Iron ( Vitamin Tablet) 1 tab PO DAILYWM [facility] Last Admin: 10/13/22 08:30 Dose: 1 tab Prochlorperazine Edisylate (Prochlorperazine 10 Mg/2 Ml Vial) 10 mg IVP Q4HR PRN PRN Reason: Nausea / Vomiting Last Admin: 09/28/22 08:31 Dose: 10 mg Sodium Chloride (Sodium Chloride Flush 0.9% 10 Ml Syringe) 10 ml IVP 0100,0900,1700 [facility] Last Admin: 10/13/22 08:34 Dose: 10 ml Sodium Chloride (Sodium Chloride Flush 0.9% 10 Ml Syringe) 10 ml IVP PRN PRN PRN Reason: NEEDED PER PROVIDER ORDERS Last Admin: 10/10/22 14:57 Dose: 10 ml Tamsulosin HCl (Tamsulosin 0.4 Mg Capsule) 0.4 mg PO DAILY [facility] Last Admin: 10/13/22 08:31 Dose: 0.4 mg Throat Lozenges (Benzocaine/Menthol Lozenge) 1 lozenge MM Q2HR PRN PRN Reason: Throat pain Objective - Vital Signs/Intake & Output Reviewed Vital Signs: Yes Vital Signs: Vital Signs x48h Temp Pulse Resp BP Pulse Ox 10/13/22 09:00 36.3 C L 105 H 16 114/64 96 Intake & Output: Intake & Output 10/10/22 10/11/22 10/12/22 10/13/22 23:59 23:59 23:59 23:59 Intake Total 2190 1742 475 730 Output Total 50 Balance 2140 1742 475 730 - Objective General Appearance: positive: Alert, Other (Far off gaze, flat affect, appears very fatigued) Eyes Bilateral: positive: PERRL, EOMI ENT: positive: No signs of dehydration Neck: positive: No JVD. negative: Stiff neck Respiratory: positive: No respiratory distress, Wheezes, Rales, Other (Dull lung bases, I am not hearing any breath sounds at the bases. Shallow, slow, unlabored respiration) Cardiovascular: positive: Regular rate & rhythm, Systolic murmur Abdomen: positive: Nml bowel sounds, Tenderness (Diffuse. Right lower quadrant wound is dehisced with anthony out. General surgery is supposed to come address that issue. I understand that there is most likely nothing going to be done. But there is no redness, heat, or drainage) Skin: positive: Warm, Dry Extremities: positive: Full ROM, Pedal edema (Severe, anasarca of buttocks, thighs and legs) Neurologic/Psychiatric: positive: Oriented x3, CN's nml (2-12), Motor nml (But severely weak. Needs max assist to be able to sit him up in bed. Completely dependent for his activities of daily living), Depressed mood/affect - Lab Results Fish Bones: 10/13/22 05:37 10/13/22 05:37 Other Labs: Lab Results x24hrs 10/13/22 10/13/22 Range/Units 05:37 05:37 WBC 13.8 H (4.8-10.8) x10^3/uL RBC 2.33 L (4.70-6.10) 10^6/uL Hgb 7.8 L (14.0-18.0) g/dL Hct 24.1 L (42.0-52.0) % MCV 103.4 H (80.0-94.0) fL MCH 33.5 H (27.0-31.0) pg MCHC 32.4 (32.0-36.0) g/dL RDW 25.0 H (12.0-15.0) % Plt Count 504 H (130-450) 10^3/uL MPV 11.6 H (7.4-11.4) fL Neut # (Auto) Not Reportable Lymph # (Auto) Not Reportable [place] # (Auto) Not Reportable Eos # (Auto) Not Reportable Baso # (Auto) Not Reportable Absolute Nucleated RBC Not Reportable Total Counted 100 Band Neuts % (Manual) 0 (0 - 10) % Abnorm Lymph % (Manual) 0 % Nucleated RBC % Not Reportable Neutrophils # (Manual) 10.5 H (1.5-6.6) 10^3/uL Lymphocytes # (Manual) 1.4 L (1.5-3.5) 10^3/uL Monocytes # (Manual) 1.7 H (0.0-1.0) 10^3/uL Eosinophils # (Manual) 0.3 (0-0.7) 10^3/uL Basophils # (Manual) 0.0 (0-0.1) 10^3/uL Differential Comment MANUAL DIFFERENTIAL WBC Morphology NORMAL APPEARANCE (NORMAL) Platelet Estimate INCREASED (>450,000) (NORMAL) Platelet Morphology NORMAL APPEARANCE (NORMAL) RBC Morph Micro Appear 1+ OVALOCYTES (NORMAL) Sodium 137 (135-145) mmol/L Potassium 5.2 H (3.5-4.5) mmol/L Chloride 110 (101-111) mmol/L Carbon Dioxide 18 L (21-32) mmol/L Anion Gap 9.0 (6-13) BUN 47 H (6-20) mg/dL Creatinine 1.4 H (0.6-1.3) mg/dL Estimated GFR (MDRD) 52 L (>89) Glucose 84 (74-104) mg/dL Calcium 9.1 (8.5-10.3) mg/dL Total Bilirubin 0.5 (0.2-1.0) mg/dL AST 11 (10-42) IU/L ALT 8 L (10-60) IU/L Alkaline Phosphatase 158 H (42-121) IU/L Total Protein 6.0 L (6.4-8.9) g/dL Albumin 2.1 L (3.2-5.5) g/dL Globulin 3.9 (2.1-4.2) g/dL Albumin/Globulin Ratio 0.5 L (1.0-2.2) ABX Reporting Has patient been on IV antibiotics over the past 48 hours?: No Assessment/Plan - Problem List (1) Pancreatic malignant neoplasm Impression: This gentleman has a history of metastatic prostate cancer, castration sensitive since 2008 with adenopathy. His initial Gavino score was 9 with a PSA of 340. He was treated with primary prostate radiation and then Taxotere x3 cycles until February 2009. He has been in remission since that time. Unfortunately he has a history of cirrhosis of the liver due to alcohol abuse with relapse in June 2017. In August 2019 he was seen for an interval follow-up including a CT of the abdomen from July 2019. Unfortunately the July 2019 CT showed a mass in the dome of the liver as well as a mass involving the pancreatic tail. He underwent an endoscopic ultrasound in September 2019 where a biopsy showed pancreatic tail cancer. He underwent surgery, and had chemotherapy at /[facility]. Chemotherapy is every 2 weeks. He presented to the emergency room September 18, 2022 with several days of increasing abdominal distention and decreasing bowel movements with nausea and vomiting. This gentleman is a very vague historian. Does not know his chemotherapy. He was scheduled for procedure September 20 but did not remember what the procedure was. Our CAT scan showed soft tissue masses in the presacral and perirectal area causing small and large bowel obstruction. Our local surgeon recommended transfer to a tertiary care center. He was excepted by Dr. Teo Gage at . The patient stayed overnight and the next morning the [facility] did not have any beds. The surgeon on-call the second morning was contacted by the ER MD who felt that the patient needed to be operated on because of worsening peritoneal findings. He underwent a diverting left lower quadrant loop colostomy on September 20. That was then converted to an exploratory laparotomy with transverse colon loop colostomy and massive adhesiolysis. 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 It involves the mesentery, small bowel and large bowel. The left lower quadrant/sigmoid bowel was completely encased in tumor precluding mobilization. Postoperatively the patient has not done well. He has had a gradually declining functional performance status which was already debilitated to begin with. He has been transfused 1 unit of blood. He has been on empiric antibiotics because of the peritonitis. But he has severe protein calorie malnutrition. Severe weakness. He just cannot eat. He has no appetite. He can no longer work with physical therapy who signed off today. He was to be transferred to a shelter facility for physical therapy. His goal was to increase his strength and functional mobility and functional status so that he could continue ongoing full treatment for his stage IV pancreatic neoplasm. He has been seen by palliative care. He has changed his CODE STATUS from full code to DO NOT RESUSCITATE but was not willing to think about hospice right now because he wanted to undergo therapy. However the skilled nursing has been unable to take him. He was to be transferred to a facility in [place]. On the day of transfer, there has been a walkout of their nursing staff and PEDIATRIC AUDIOLOGIST staff. As such they have close down their facility to new patients. They notified us today after 3 days of waiting. I am seeing a profoundly cachectic gentleman with a far off stare, flat affect, and no strength. I explained to him that I think he is reaching the point of no return and that I do not think he is going to make it if he cannot get protein in him. He says that he is struggling with this idea. He knows that he is sick. But he just thought he was going through a temporary phase of weakness and that he would eventually recover. I explained especially could that I do not think he is going to recover. I think this is the next phase of where he may actually be gently and slowly dying. He is meeting with his mother, sisters, and palliative care today. Palliative care says that they will discuss the case with me after the conference. Qualifiers: Pancreatic malignancy location: unspecified Qualified Code(s): C25.9 - Malignant neoplasm of pancreas, unspecified (2) Protein-calorie malnutrition, severe Impression: Even with yesterday's conversation were explained to him that he needs p.o. intake to improve his protein status which would then improve wound healing, he ate only about 25% of his food last night. No breakfast this morning. We will continue to work with him, encouraged him, and nutrition services is also working with him. (3) Peritonitis Impression: Postoperative day #13. I discussed the case with general surgery POD #12. General surgery responded with "I spoke with him and his sister about this a week ago. Always can do more like another CT scan followed by ex lap if indicated. However outcome would likely be poor and not overall beneficial given his advanced cancer.". I have asked surgery to document that conversation in the chart. And then please formally sign the patient over to our service.As of the dictation of this note, surgery has not seen the patient yet today. But they have stated they will be by to see him later (4) Atypical chest pain Impression: Most likely due to metastatic disease, pleural effusion, atelectasis. He could be having active ongoing angina but highly unlikely. The patient does not want work-up for this. (5) Leukocytosis Impression: This was initially attributed to the small bowel obstruction, large bowel obstruction with peritonitis. He responded to empiric antibiotic therapy and surgery and his white cell count had peak at 26.5 on October 06. Its been steadily coming down. Last check was October 08. Today's white cell count continues to improve and is down to 13.8. Qualifiers: Leukocytosis type: bandemia Qualified Code(s): D72.825 - Bandemia (6) Weakness generalized Impression: Due to prolonged bedrest, debility from cancer, malnutrition. In the short time I met him from October 11 to today, he continues to deteriorate. Physical therapy has formally signed off the case 10/11. As such he no longer meets criteria to be transition to a shelter facility for rehab. I will await advance care planning conversation.
[2022-10-13] MEDS: CALCIUM CARBONATE CHEW 500 MG TABLET PO PRN (16:12)
--- NOTE | 2022-10-13 16:19 | PROVIDER PROGRESS NOTE ---
Subjective - Subjective Pt reports feeling: No change (denies abdominal pain, nausea, vomiting) Objective - Vital Signs/Intake & Output Vital Signs: Vital Signs x48h Temp Pulse Resp BP Pulse Ox 10/13/22 16:05 36.6 C 90 16 99/87 H 97 10/13/22 09:00 36.3 C L 105 H 16 114/64 96 Intake & Output: Intake & Output 10/10/22 10/11/22 10/12/22 10/13/22 23:59 23:59 23:59 23:59 Intake Total 2190 1742 475 830 Output Total 50 Balance 2140 1742 475 830 - Objective General Appearance: positive: No acute distress, Alert Eyes Bilateral: positive: PERRL, EOMI, No scleral icterus Respiratory: positive: No respiratory distress Abdomen: positive: Non-tender, No distention, Other (functional stoma and incisions clean, dry, intact, no erythema) Neurologic/Psychiatric: positive: Oriented x3 - Lab Results Fish Bones: 10/13/22 05:37 10/13/22 05:37 Other Labs: Lab Results x24hrs 10/13/22 10/13/22 Range/Units 05:37 05:37 WBC 13.8 H (4.8-10.8) x10^3/uL RBC 2.33 L (4.70-6.10) 10^6/uL Hgb 7.8 L (14.0-18.0) g/dL Hct 24.1 L (42.0-52.0) % MCV 103.4 H (80.0-94.0) fL MCH 33.5 H (27.0-31.0) pg MCHC 32.4 (32.0-36.0) g/dL RDW 25.0 H (12.0-15.0) % Plt Count 504 H (130-450) 10^3/uL MPV 11.6 H (7.4-11.4) fL Neut # (Auto) Not Reportable Lymph # (Auto) Not Reportable [place] # (Auto) Not Reportable Eos # (Auto) Not Reportable Baso # (Auto) Not Reportable Absolute Nucleated RBC Not Reportable Total Counted 100 Band Neuts % (Manual) 0 (0 - 10) % Abnorm Lymph % (Manual) 0 % Nucleated RBC % Not Reportable Neutrophils # (Manual) 10.5 H (1.5-6.6) 10^3/uL Lymphocytes # (Manual) 1.4 L (1.5-3.5) 10^3/uL Monocytes # (Manual) 1.7 H (0.0-1.0) 10^3/uL Eosinophils # (Manual) 0.3 (0-0.7) 10^3/uL Basophils # (Manual) 0.0 (0-0.1) 10^3/uL Differential Comment MANUAL DIFFERENTIAL WBC Morphology NORMAL APPEARANCE (NORMAL) Platelet Estimate INCREASED (>450,000) (NORMAL) Platelet Morphology NORMAL APPEARANCE (NORMAL) RBC Morph Micro Appear 1+ OVALOCYTES (NORMAL) Sodium 137 (135-145) mmol/L Potassium 5.2 H (3.5-4.5) mmol/L Chloride 110 (101-111) mmol/L Carbon Dioxide 18 L (21-32) mmol/L Anion Gap 9.0 (6-13) BUN 47 H (6-20) mg/dL Creatinine 1.4 H (0.6-1.3) mg/dL Estimated GFR (MDRD) 52 L (>89) Glucose 84 (74-104) mg/dL Calcium 9.1 (8.5-10.3) mg/dL Total Bilirubin 0.5 (0.2-1.0) mg/dL AST 11 (10-42) IU/L ALT 8 L (10-60) IU/L Alkaline Phosphatase 158 H (42-121) IU/L Total Protein 6.0 L (6.4-8.9) g/dL Albumin 2.1 L (3.2-5.5) g/dL Globulin 3.9 (2.1-4.2) g/dL Albumin/Globulin Ratio 0.5 L (1.0-2.2) Assessment/Plan - Problem List (1) Bowel obstruction Impression: bowel obstruction relieved with loop colostomy. advanced metastatic pancreatic cancer slowly progressing with more debilitation incisions slowly healing without problem. no evidence infection. afebrile and wbc down no surgical issues appreciate last week medical service offered to become primary service for his care Qualifiers: Intestinal obstruction type: other intestinal obstruction
[2022-10-13] MEDS: MIRTAZAPINE 15 MG TABLET PO SCH (20:27)
[2022-10-13 22:46] VITALS: BP 112/65
[2022-10-14] MEDS: SODIUM CHLORIDE FLUSH 0.9% 10 ML SYRINGE IVP SCH ×3 (00:50→17:53)
[2022-10-14] MEDS: ACETAMINOPHEN 500 MG TABLET PO SCH ×4 (00:50→17:53)
--- NOTE | 2022-10-14 07:47 | PROVIDER PROGRESS NOTE ---
Progress Note October 14, 2022 7:44 AM Patient and family had a care conference with palliative care yesterday. 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 Sister and mom are very supportive. He has now decided to go to comfort measures focus. We now need to figure out the logistics of getting him home or to a shelter with hospice. He will not be able to live by himself and will need 24/7 care. Family does not think they will be able to provide that. As such discharge planning is being tasked with finding a care facility that would be willing to take him Medicaid pending. Active Medications Acetaminophen (Acetaminophen 500 Mg Tablet) 1,000 mg PO Q6HR [facility] Last Admin: 10/14/22 07:46 Dose: Not Given Calcium Carbonate/Glycine (Calcium Carbonate Chew 500 Mg Tablet) 500 mg PO TID PRN PRN Reason: discomfort <Abdominal Last Admin: 10/13/22 16:12 Dose: 500 mg Citalopram Hydrobromide (Citalopram Hydrobromide 20 Mg Tablet) 40 mg PO DAILY [facility] Last Admin: 10/13/22 08:31 Dose: 40 mg Enoxaparin Sodium (Enoxaparin 40 Mg/0.4 Ml Syringe) 40 mg SUBQ DAILY [facility] Last Admin: 10/13/22 08:33 Dose: 40 mg Ferrous Gluconate (Ferrous Gluconate 324 Mg Tablet) 324 mg PO DAILYWM [facility] Last Admin: 10/13/22 08:31 Dose: 324 mg Furosemide (Furosemide 20 Mg Tablet) 20 mg PO DAILY [facility] Last Admin: 10/13/22 08:32 Dose: 20 mg Heparin Sodium (Beef Lung) (Heparin Flush 50 Units/5 Ml Syringe) 30 - 50 unit IVP PRN PRN PRN Reason: Port Protocol (<24 hours) Last Admin: 10/11/22 17:53 Dose: 50 unit Heparin Sodium (Beef Lung) (Heparin Flush 500 Units/5 Ml Syringe) 300 - 500 unit IVP PRN PRN PRN Reason: Port Protocol (>24 hours) Last Admin: 10/10/22 09:56 Dose: 500 unit Hydromorphone HCl (Hydromorphone 0.5 Mg/0.5 Ml Syringe) 0.5 mg IVP Q30M PRN PRN Reason: Breakthrough Pain Last Admin: 09/28/22 11:39 Dose: 0.5 mg Ibuprofen (Ibuprofen 400 Mg Tablet) 400 mg PO 0900,1500,2100 [facility] Last Admin: 10/13/22 20:27 Dose: 400 mg Midodrine (Midodrine 2.5 Mg Tablet) 2.5 mg PO TIDWM [facility] Last Admin: 10/13/22 16:12 Dose: 2.5 mg Mirtazapine (Mirtazapine 15 Mg Tablet) 15 mg PO QPM [facility] Last Admin: 10/13/22 20:27 Dose: 15 mg Morphine Sulfate (Morphine Er 15 Mg Tablet) 30 mg PO BID [facility] Last Admin: 10/13/22 20:27 Dose: 30 mg Multi-Ingredient Ointment (Zinc Oxide 20% Oint 30 Gm Tube) 1 applic TOP PRN PRN PRN Reason: Skin Care Last Admin: 10/11/22 05:52 Dose: 1 applic Ondansetron HCl (Ondansetron 4 Mg/2 Ml Vial) 4 mg IVP Q6H PRN PRN Reason: Nausea / Vomiting Last Admin: 10/11/22 20:31 Dose: 4 mg Oxycodone HCl (Oxycodone 5 Mg Tablet) 5 mg PO Q4HR PRN PRN Reason: Moderate Pain (Level 4-6) Last Admin: 09/29/22 21:12 Dose: 5 mg Oxycodone HCl (Oxycodone 5 Mg Tablet) 10 mg PO Q4HR PRN PRN Reason: Severe Pain (Level 7-10) Last Admin: 09/30/22 06:10 Dose: 10 mg Pantoprazole Sodium (Pantoprazole 40 Mg Tablet) 40 mg PO BID [facility] Last Admin: 10/13/22 20:27 Dose: 40 mg Multivit/Folic Acid/Iron ( Vitamin Tablet) 1 tab PO DAILYWM [facility] Last Admin: 10/13/22 08:30 Dose: 1 tab Prochlorperazine Edisylate (Prochlorperazine 10 Mg/2 Ml Vial) 10 mg IVP Q4HR PRN PRN Reason: Nausea / Vomiting Last Admin: 09/28/22 08:31 Dose: 10 mg Sodium Chloride (Sodium Chloride Flush 0.9% 10 Ml Syringe) 10 ml IVP 0100,0900,1700 [facility] Last Admin: 10/14/22 00:50 Dose: 10 ml Sodium Chloride (Sodium Chloride Flush 0.9% 10 Ml Syringe) 10 ml IVP PRN PRN PRN Reason: NEEDED PER PROVIDER ORDERS Last Admin: 10/10/22 14:57 Dose: 10 ml Tamsulosin HCl (Tamsulosin 0.4 Mg Capsule) 0.4 mg PO DAILY [facility] Last Admin: 10/13/22 08:31 Dose: 0.4 mg Throat Lozenges (Benzocaine/Menthol Lozenge) 1 lozenge MM Q2HR PRN PRN Reason: Throat pain Exam: Temperature is 36.5, heart rate 98, blood pressure 112/65, respirations 18, 94% on room air Sallow faced, fatigued appearing with chronic illness gentleman with evidence of cachexia, bilateral temporal wasting, a slow psychomotor response, flat affect, and faraway stare gaze. Neck is supple Diminished breath sounds at the bases but otherwise clear. No respiratory distress Regular rate and rhythm Abdominal wall is marked by exploratory laparotomy scar. Part of the scar has dehisced with no anthony. But there is no redness, drainage, or tenderness. Ostomy is draining small amount. Extremities and body trunk marked by anasarca Neurologically he is alert, oriented, slowed with no focal deficits but diffuse generalized weakness. He depends on bedside assist to be able to even sit him up in bed. He cannot do it on his own. Assesment/Plan Pancreatic cancer Stage 4. This gentleman has a history of metastatic prostate cancer, castration sensitive since 2008 with adenopathy. His initial Gavino score was 9 with a PSA of 340. He was treated with primary prostate radiation and then Taxotere x3 cycles until February 2009. He has been in remission since that time. Unfortunately he has a history of cirrhosis of the liver due to alcohol abuse with relapse in June 2017. In August 2019 he was seen for an interval follow-up including a CT of the abdomen from July 2019. Unfortunately the July 2019 CT showed a mass in the dome of the liver as well as a mass involving the pancreatic tail. He underwent an endoscopic ultrasound in September 2019 where a biopsy showed pancreatic tail cancer. He underwent surgery, and had chemotherapy at /[facility]. Chemotherapy is every 2 weeks. He presented to the emergency room September 18, 2022 with several days of increasing abdominal distention and decreasing bowel movements with nausea and vomiting. This gentleman is a very vague historian. Does not know his chemotherapy. He was scheduled for procedure September 20 but did not remember what the procedure was. Our CAT scan showed soft tissue masses in the presacral and perirectal area causing small and large bowel obstruction. Our local surgeon recommended transfer to a tertiary care center. He was excepted by Dr. Teo Gage at . The patient stayed overnight and the next morning the [facility] did not have any beds. The surgeon on-call the second morning was contacted by the ER MD who felt that the patient needed to be operated on because of worsening peritoneal findings. He underwent a diverting left lower quadrant loop colostomy on September 20. That was then converted to an exploratory laparotomy with transverse colon loop colostomy and massive adhesiolysis. 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 It involves the mesentery, small bowel and large bowel. The left lower quadrant/sigmoid bowel was completely encased in tumor precluding mobilization. Postoperatively the patient has not done well. He has had a gradually declining functional performance status which was already debilitated to begin with. He has been transfused 1 unit of blood. He has been on empiric antibiotics because of the peritonitis. But he has severe protein calorie malnutrition. Severe weakness. He just cannot eat. He has no appetite. He can no longer work with physical therapy who signed off trying to work with him on 10/12. He just can't sit up to participate. He was to be transferred to a half-way facility for physical therapy. His goal was to increase his strength and functional mobility and functional status so that he could continue ongoing full treatment for his stage IV pancreatic neoplasm. He has been seen by palliative care. He has changed his CODE STATUS from full code to DO NOT RESUSCITATE but was not willing to think about hospice right now because he wanted to undergo therapy. However the shelter has been unable to take him. He was to be transferred to a facility in [place]. On the day of transfer, there has been a walkout of their nursing staff and [employer] staff. As such they have close down their facility to new patients. They notified us today after 3 days of waiting. I am seeing a profoundly cachectic gentleman with a far off stare, flat affect, and no strength. on 10/12, I explained to him that I think he is reaching the point of no return and that I do not think he is going to make it if he cannot get protein in him. He says that he is struggling with this idea. He knows that he is sick. But he just thought he was going through a temporary phase of weakness and that he would eventually recover. I explained especially could that I do not think he is going to recover. I think this is the next phase of where he may actually be gently and slowly dying. He met with his mother, sisters, and palliative care 10/13. Plan: After discussion with this patient, he has decided to transition to comfort measures only. He would like to transition to hospice. The next plans will be the logistics of him leaving this facility ongoing to his next place of care. I have gone through his orders. I have stopped labs, blood pressure checks, orthostatics checks, activity. He can eat what ever he wants to eat. We have explained to him that we will not force him to eat. But he can certainly have what ever he wants. If he wants to get out of bed we will certainly help him but if he chooses not to get out of bed that is okay but we have asked him to please cooperate with this so that we can rotate him to avoid blood pressure ulcers. His med list was reviewed. He is on Celexa for depression. He is certainly very depressed. We will continue that. He gets Lasix for anasarca and that will be continued. Dilaudid for pain will be continued. Motrin for pain will be continued. I will stop ProAmatine, Remeron. Continue MS Contin for pain. Continue Zofran injectable for pain. Continue oxycodone 10 mg every 4 hours as needed pain. Continue Protonix. Stop vitamin. Continue Compazine as needed. Continue Flomax. Continue Cepacol. Qualifiers: Pancreatic malignancy location: unspecified Qualified Code(s): C25.9 - Malignant neoplasm of pancreas, unspecified
[2022-10-14] MEDS: FUROSEMIDE 20 MG TABLET PO SCH (08:41)
[2022-10-14] MEDS: TAMSULOSIN 0.4 MG CAPSULE PO SCH (08:41)
[2022-10-14] MEDS: PANTOPRAZOLE 40 MG TABLET PO SCH ×2 (08:41→20:57)
[2022-10-14] MEDS: IBUPROFEN 400 MG TABLET PO SCH ×3 (08:41→20:57)
[2022-10-14] MEDS: MORPHINE ER 15 MG TABLET PO SCH ×2 (08:41→20:57)
[2022-10-14] MEDS: CITALOPRAM HYDROBROMIDE 20 MG TABLET PO SCH (08:41)
[2022-10-14] MEDS: HYDROmorphone 0.5 MG/0.5 ML SYRINGE IVP PRN (11:03)
--- NOTE | 2022-10-14 14:47 | Discharge Plan ---
"Discharge Plan for SNF / [facility] - Discharge Plan And Transition Orders Problem Reviewed?: Yes Disposition: 50 Hospice/Home DC/Xfer Condition: Fair Allergies and Adverse Reactions: Allergies Allergy/AdvReac Type Severity Reaction Status Date / Time No Known Drug Allergies Allergy Verified 09/18/22 14:58 Health Concerns: This gentleman has a history of metastatic prostate cancer, castration sensitive since 2008 with adenopathy. His initial Gavino score was 9 with a PSA of 340. He was treated with primary prostate radiation and then Taxotere x3 cycles until February 2009. He has been in remission since that time. Unfortunately he has a history of cirrhosis of the liver due to alcohol abuse with relapse in June 2017. In August 2019 he was seen for an interval follow-up including a CT of the abdomen from July 2019. Unfortunately the July 2019 CT showed a mass in the dome of the liver as well as a mass involving the pancreatic tail. He underwent an endoscopic ultrasound in September 2019 where a biopsy showed pancreatic tail cancer. He underwent surgery, and had chemotherapy at /[facility]. Chemotherapy is every 2 weeks. He presented to the emergency room September 18, 2022 with several days of increasing abdominal distention and decreasing bowel movements with nausea and vomiting. This gentleman is a very vague historian. Does not know his chemotherapy. He was scheduled for procedure September 20 but did not remember what the procedure was. Our CAT scan showed soft tissue masses in the presacral and perirectal area causing small and large bowel obstruction. Our local surgeon recommended transfer to a tertiary care center. He was excepted by Dr. Teo Gage at . The patient stayed overnight and the next morning the [facility] did not have any beds. The surgeon on-call the second morning was contacted by the ER MD who felt that the patient needed to be operated on because of worsening peritoneal findings. He underwent a diverting left lower quadrant loop colostomy on September 20. That was then converted to an exploratory laparotomy with transverse colon loop colostomy and massive adhesiolysis. 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 It involv es the mesentery, small bowel and large bowel. The left lower quadrant/sigmoid bowel was completely encased in tumor precluding mobilization. Postoperatively the patient has not done well. He has had a gradually declining functional performance status which was already debilitated to begin with. He has been transfused 1 unit of blood. He has been on empiric antibiotics because of the peritonitis. But he has severe protein calorie malnutrition. Severe weakness. He just cannot eat. He has no appetite. He can no longer work with physical therapy who signed off today. He was to be transferred to a custodial facility for physical therapy. His goal was to increase his strength and functional mobility and functional status so that he could continue ongoing full treatment for his stage IV pancreatic neoplasm. He has been seen by palliative care. He has changed his CODE STATUS from full code to DO NOT RESUSCITATE . There is enough delay of the transfer to the custodial facility that the patient lost more more ground. He just cannot get up out of bed. We have come to the realization that he is slowly dying from his process. He is not a candidate for more therapy for his cancer. Physical therapy is signed off. As such the patient is now transition to hospice after family conference on October 13. Plan of Treatment: Transition to custodial facility for permanent placement until he passes away. Hospice will also be ordered. Care Goals: To focus on comfort, so that he is not in pain, nauseated, or in fear Assessment: Patient is very withdrawn, flat affect, has almost no strength to even sit up anymore. But still alert, oriented and able to converse normally in spite of severe fatigue - SNF / SNF Transition Orders Admit to (Facility): [facility] Discharge Diagnosis: 1. Small and large bowel obstruction with peritonitis due to #2 2. Metastatic pancreatic neoplasm 3. Severe protein calorie malnutrition 4. Atypical chest pain 5. Generalized weakness 6. Leukocytosis 7. UTI 8. Orthostatic hypotension 9. Anemia Medicare Certification Statement: I certify that [facility] care is medically necessary on a continuing basis for any of the conditions for which she/he is receiving care during hospitalization. Notify PCP of admission and forward orders to primary provider for signature. Other Notification Orders: Call PCP immediately if patient develops dyspnea, chest pain/tightness or edema. House Bowel Program: Yes Additional Bowel Program Orders: If no BM after 2 days, nurse may give M.O.M. 30ml PO PRN and/or ducolax Supp 1 MD and/or FLAVIA 250mg P.O., and/or senna 1-2 tabs PO. On day 3 nurse may give repeat above order until residents constipation is resolved. Annual Influenza Vaccine (between Nov 11 and June 10): No Two-step PPD per [facility] [id number] or approved exception documents: No Medication Orders: PLEASE REFER TO THE DISCHARGE MEDICATION LIST. - Medications New Prescriptions: Acetaminophen [Tylenol Arthritis] 650 mg PO Q6HR #50 tab Citalopram Hydrobromide [Celexa] 40 mg PO DAILY #30 tab Tamsulosin [Flomax] 0.4 mg PO DAILY #30 cap LORazepam [Lorazepam INTENSOL] 1 mg PO Q4H PRN #5 ml PRN Reason: Anxiety Ibuprofen [Motrin] 400 mg PO 0900,1500,2100 #90 tab Morphine Sulfate ER [Ms Contin] 30 mg PO BID #14 tab Mirtazapine [Remeron] 15 mg PO QPM #30 tab Glycopyrrolate [Robinul] 1 mg PO TID PRN #6 tablet PRN Reason: Excessive Secretions oxyCODONE [Roxicodone] 10 mg PO Q4H PRN #40 tablet PRN Reason: Moderate Pain (Level 4-6) ONDANSETRON ODT Prepack 2 [ZOFRAN ODT Prepack 2] 4 mg TL Q6H #20 tablet - Diet Type: Geriatric Texture: Regular Liquids: Thin May have monthly special meal: Yes - Therapies | Activity Rehabilitation Potential: Maintain present ADL Functional Activity: Activity as Tolerated Weight Bearing: Full Weight Assistance Devices: Wheelchair"
[2022-10-15] MEDS: ACETAMINOPHEN 500 MG TABLET PO SCH ×3 (00:46→11:53)
[2022-10-15] MEDS: SODIUM CHLORIDE FLUSH 0.9% 10 ML SYRINGE IVP SCH ×2 (00:51→08:18)
[2022-10-15] MEDS: ZINC OXIDE 20% OINT 30 GM TUBE TOP PRN (00:53)
--- NOTE | 2022-10-15 07:33 | DISCHARGE SUMMARY ---
"Discharge Summary Admit Date: 10/01/22 Discharge Date: 10/15/22 Discharging Provider: Bailey Sweeney Md Primary Care Provider: Audrey Flynn MD Code Status: Do Not Attempt Resuscitation Condition at Discharge: Fair Discharge Disposition: 50 Hospice/Home DC/Xfer - DIAGNOSES Discharge Diagnoses with Status of Each Condition: 1. Small and large bowel obstruction with peritonitis due to #2 2. Metastatic pancreatic neoplasm 3. Severe protein calorie malnutrition 4. Atypical chest pain 5. Generalized weakness 6. Leukocytosis 7. UTI 8. Orthostatic hypotension 9. Anemia - HPI History of Present Illness: Per admitting surgeon: Dr. Camilo asked that I see this unfortunate 61 year old male with a history of prostate cancer and now with a diagnosis of pancreastic cancer. The patient thinks that he received radiation for his prostate cancer but cannot remember exactly when. He is currently receiving chemotherapy for his pancreatic cancer but does ot know the regimen. When I asked him when the (apparently) duodenal stent (evident on CT scan) was placed he is not exactly sure. He beleives that he has had surgery for his pancreatic cancer. In our discussion he wishes to be a full code. With regards to his symptoms he feels massively bloated, nauseated with abdominal discomfort more than pain. He states that he has passed a small amount of gas today but thinks that his last bowel movement was over a week ago. History - Past Medical History Cardiovascular: reports: None Respiratory: reports: None Neuro: reports: None Endocrine/Autoimmune: reports: None GI: reports: GERD : reports: Retention, Incontinence, Nocturia HEENT: reports: None Psych: reports: None Musculoskeletal: reports: None Derm: reports: None MRSA Hx?: No - Past Surgical History General: reports: Other - CONSULTS | PROCEDURES Procedures: Attempted left lower quadrant diverting loop colostomy converted to exploratory laparotomy with transverse colon loop colostomy and massive adhesiolysis. Regional block per anesthesia September [address] with soft tissue density in the presacral and perirectal space involving the rectum suspicious for neoplasm causing large and small bowel obstruction with severe distention of the large bowel. A stent in the left upper quadrant of uncertain positioning. Repeat CT September 19 now has an enteric tube terminating in the stomach, stomach is decompressed. Mildly prominent loop s of small bowel. Decreased compared to September 18. Distal duodenal stent unchanged. Marked distention of the colon which is mostly filled with residue unchanged. Narrowing at the sigmoid colon. Rectal tube. Rectum is decompressed. Small to moderate volume of ascites. Get another CT was done Sep for leukocytosis. Postsurgical changes seen from the interval loop colostomy in the left upper quadrant. Focal residual stool in the splenic flexure. The entire colon now seems decompressed. Bowel thickening is seen at the a sending and transverse colon. Left upper quadrant jejunal stent. Moderate volume ascites. Some of the fluid appears to have possible enhancing margins. Moderate diffuse soft tissue anasarca. Distended gallbladder without gallstones. Several chest x-rays. Initial ones showed atelectasis. No acute pneumonia. For leukocytosis a final chest x-ray September 28 at layering pleural effusions and bibasilar opacities representing atelectasis with aspiration pneumonia difficult to exclude. A October 06 chest x-ray showed worsening layering effusions. Ultrasound paracentesis done September 30 and submitted for analysis. Venous duplex of the legs had no DVTs in October 03 Blood cultures September 27 without growth Urine culture September 27 with Enterobacter cloacae Blood cultures September 30 without gross Ascites fluid culture September 30 with Enterobacter cloacae Blood cultures October 06 without growth Urine culture October 06 without growth Echocardiogram with normal ejection fraction of 55 to 60%. Mild mitral regurg. - HOSPITAL COURSE Hospital Course: This gentleman has a history of metastatic prostate cancer, castration sensitive since 2008 with adenopathy. His initial Gavino score was 9 with a PSA of 340. He was treated with primary prostate radiation and then Taxotere x3 cycles until February 2009. He has been in remission since that time. Unfortunately he has a history of cirrhosis of the liver due to alcohol abuse with relapse in June 2017. In August 2019 he was seen for an interval follow-up including a CT of the abdomen from July 2019. Unfortunately the July 2019 CT showed a mass in the dome of the liver as well as a mass involving the pancreatic tail. He underwent an endoscopic ultrasound in September 2019 where a biopsy showed pancreatic tail cancer. He underwent surgery, and had chemotherapy at /[facility]. Chemotherapy is every 2 weeks. He presented to the emergency room September 18, 2022 with several days of inc reasing abdominal distention and decreasing bowel movements with nausea and vomiting. This gentleman is a very vague historian. Does not know his chemotherapy. He was scheduled for procedure September 20 but did not remember what the procedure was. Our CAT scan showed soft tissue masses in the presacral and perirectal area causing small and large bowel obstruction. Our local surgeon recommended transfer to a tertiary care center. He was excepted by Dr. Teo Gage at . The patient stayed overnight and the next morning the [facility] did not have any beds. The surgeon on-call the second morning was contacted by the ER MD who felt that the patient needed to be operated on because of wo rsening peritoneal findings. He underwent a diverting left lower quadrant loop colostomy on September 20. That was then converted to an exploratory laparotomy with transverse colon loop colostomy and massive adhesiolysis. 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 It involves the mesentery, small bowel and large bowel. The left lower quadrant/sigmoid bowel was completely encased in tumor precluding mobilization. Postoperatively the patient did not do well. He has had a gradually declining functional performance status which was already debilitated to begin with. He has been transfused 1 unit of blood. He has been on empiric antibiotics because of the peritonitis. But he has severe protein calorie malnutrition. Severe weakness. He just cannot eat. He has no appetite. He can no longer work with physical therapy who signed off today. He was to be transferred to a assisted facility for physical therapy. His goal was to increase his strength and functional mobility and functional status so that he could continue ongoing full treatment for his stage IV pancreatic neoplasm. He has been seen by palliative care. He has changed his CODE STATUS from full code to DO NOT RESUSCITATE . There was enough delay of the transfer to the assisted facility (there was a walk off of staff and they cancelled his admission) that the patient lost more more ground. He just cannot get up out of bed. We have come to the realization that he is slowly dying from his process. He is not a candidate for more therapy for his cancer. Physical therapy is signed off. As such the patient is now transition to hospice after family conference on October 13. Plan of Treatment: Transition to assisted facility for permanent placement until he passes away. Hospice will also be ordered. Care Goals: To focus on comfort, so that he is not in pain, nauseated, or in fear Assessment: Patient is very withdrawn, flat affect, has almost no strength to even sit up anymore. But still alert, oriented and able to converse normally in spite of severe fatigue Discharge exam has a temperature of 36.5. Heart rate 98. Blood pressure 112/65. Respirations 18. 94% on room air. He is a very withdrawn, slow- moving, slow speaking white male that looks severely chronically ill with tremendous loss of muscle mass, bilateral temporal wasting. Neck is supple. Lungs have almost no breath sounds at the bases, but are otherwise clear without tachypnea, tachycardia. He is basically bedbound. He does not have the truncal strength to even sit up in bed. He is in a regular rate and rhythm. The abdomen has a large exploratory lap scar that is started to dehisce. But there is no redness, heat, drainage. General surgery feels that this is a normal appearance to a postoperative abdomen is not concerned about the dehisced skin area. Ostomy is draining. Skin is with anasarca especially from hips down. While he is alert, oriented, still making his own decisions, he is very, very weak. Just the effort of speaking wipes him out. He is depressed, withdrawn, and family has been very supportive. He has sisters and mom who have come to see him almost daily and will part of his care conference. He is discharged in stable condition with a very poor prognosis. Greater than 30 minutes was spent coordinating discharge. This document was made in part using voice recognition software. While efforts are made to proofread this document, sound alike and grammatical errors may occur. - ALLERGIES Allergies/Adverse Reactions: Allergies Allergy/AdvReac Type Severity Reaction Status Date / Time No Known Drug Allergies Allergy Verified 09/18/22 14:58 - MEDICATIONS Home Medications: Ambulatory Orders Medication Instructions Recorded Confirmed Acetaminophen [Tylenol Arthritis] 650 mg PO Q6HR #50 tab 10/10/22 Citalopram Hydrobromide [Celexa] 40 mg PO DAILY #30 tab 10/10/22 Ibuprofen [Motrin] 400 mg PO 0900,1500,2100 #90 tab 10/10/22 Mirtazapine [Remeron] 15 mg PO QPM #30 tab 10/10/22 Tamsulosin [Flomax] 0.4 mg PO DAILY #30 cap 10/10/22 Glycopyrrolate [Robinul] 1 mg PO TID PRN #6 tablet 10/14/22 LORazepam [Lorazepam INTENSOL] 1 mg PO Q4H PRN #5 ml 10/14/22 Morphine Sulfate ER [Ms Contin] 30 mg PO BID #14 tab 10/14/22 ONDANSETRON ODT Prepack 2 [ZOFRAN 4 mg TL Q6H #20 tablet 10/14/22 ODT Prepack 2] oxyCODONE [Roxicodone] 10 mg PO Q4H PRN #40 tablet 10/14/22 - LABS Result Diagrams: 10/13/22 05:37 10/13/22 05:37"
[2022-10-15] MEDS: TAMSULOSIN 0.4 MG CAPSULE PO SCH (08:16)
[2022-10-15] MEDS: CITALOPRAM HYDROBROMIDE 20 MG TABLET PO SCH (08:17)
[2022-10-15] MEDS: FUROSEMIDE 20 MG TABLET PO SCH (08:17)
[2022-10-15] MEDS: PANTOPRAZOLE 40 MG TABLET PO SCH (08:17)
[2022-10-15] MEDS: MORPHINE ER 15 MG TABLET PO SCH (08:17)
[2022-10-15] MEDS: IBUPROFEN 400 MG TABLET PO SCH (08:17)
== END 2022-10-15 12:42 | disposition hospice, home (50) | DRG 329 ==
LOC: ED 14:40 → MS2 09-19 17:55
PROVIDERS: ADMIT Surgery; ATTEND Specialist
PROC: 0D1L0Z4 Bypass Transverse Colon to Cutaneous, Open Approach (ICD-10-PCS; principal; 2022-09-19)
PROC: 0DNW0ZZ Release Peritoneum, Open Approach (ICD-10-PCS; 2022-09-19)
PROC: 0DNL0ZZ Release Transverse Colon, Open Approach (ICD-10-PCS; 2022-09-19)
PROC: 0D9670Z Drainage of Stomach with Drainage Device, Via Natural or Artificial Opening (ICD-10-PCS; 2022-09-19)
PROC: 30233N1 Transfusion of Nonautologous Red Blood Cells into Peripheral Vein, Percutaneous Approach (ICD-10-PCS; 2022-10-03)
DX: C78.5 Secondary malignant neoplasm of large intestine and rectum (principal); E43 Unspecified severe protein-calorie malnutrition; K65.9 Peritonitis, unspecified; K56.50 Intestinal adhesions [bands], unspecified as to partial versus complete obstruction; C80.0 Disseminated malignant neoplasm, unspecified; C78.4 Secondary malignant neoplasm of small intestine; C78.6 Secondary malignant neoplasm of retroperitoneum and peritoneum; J98.11 Atelectasis; T81.31XA Disruption of external operation (surgical) wound, not elsewhere classified, initial encounter; N30.00 Acute cystitis without hematuria; C25.2 Malignant neoplasm of tail of pancreas; R18.0 Malignant ascites; Z16.11 Resistance to penicillins; D72.829 Elevated white blood cell count, unspecified; I95.1 Orthostatic hypotension; D64.9 Anemia, unspecified; G89.3 Neoplasm related pain (acute) (chronic); K21.9 Gastro-esophageal reflux disease without esophagitis; F32.A Depression, unspecified; F17.210 Nicotine dependence, cigarettes, uncomplicated; G89.4 Chronic pain syndrome; F41.9 Anxiety disorder, unspecified; G62.0 Drug-induced polyneuropathy; T50.905A Adverse effect of unspecified drugs, medicaments and biological substances, initial encounter; I49.1 Atrial premature depolarization; N39.490 Overflow incontinence; R77.8 Other specified abnormalities of plasma proteins; I49.3 Ventricular premature depolarization; D50.9 Iron deficiency anemia, unspecified; I20.9 Angina pectoris, unspecified; D72.825 Bandemia; R00.0 Tachycardia, unspecified; R11.0 Nausea; R33.9 Retention of urine, unspecified; R53.1 Weakness; R63.0 Anorexia; R94.31 Abnormal electrocardiogram [ECG] [EKG]; Z20.822 Contact with and (suspected) exposure to COVID-19; Z51.5 Encounter for palliative care; Z66 Do not resuscitate; Z68.23 Body mass index [BMI] 23.0-23.9, adult; Z79.891 Long term (current) use of opiate analgesic; Z79.899 Other long term (current) drug therapy; Z85.46 Personal history of malignant neoplasm of prostate; Z92.21 Personal history of antineoplastic chemotherapy; Z92.3 Personal history of irradiation
CPT/HCPCS: 36415; 49083; 71045; 71046; 74176; 74177; 80048; 80053; 80076; 80202; 81001; 82040; 82310; 82607; 82746; 83540; 83605; 83690; 83735; 84100; 84466; 84484; 85025; 85027; 85610; 86850; 86900; 86901; 86920; 87040; 87070; 87077; 87086; 87101; 87181; 87205; 87493; 87635; 93005; 93306; 93970; 96374; 97116; 97162; 97166; 97530; 97535; 99285; A9270; J0131; J1170; J1650; J2060; J2795; J2997; J3370; J7120; J8499; P9016; P9047; Q9963; Q9967